=== PATIENT | male | born 1945 | race Caucasian/White ===

== ENCOUNTER → 2017-02-27 | Outpatient (CLI) | payer OTHER ==
[~2017-02-27] MED LIST: ACP20 PO; ADVIN25050 INH; CZR50 PO; DORZ1SOL OPB; LVTUNK PO; SNG10 PO
== END | disposition home or self-care (01) ==
LOC: C.RDSM 11:00
PROVIDERS: ATTEND Orthopaedic Surgery Sports Medicine
DX: M25.532 Pain in left wrist (principal)

== ENCOUNTER 2024-09-15 06:38 | Observation (INO) ==
--- OUTSIDE RECORDS SUMMARY | 2024-09-15 06:43 | External Medical Summary | Summary of Care ---
Author Name Unknown Organization [facility] Address [address] [facility] [place] [address] Phone [phone] Care Team Providers Care Lacrosse Coach Name Role Phone Ab Hackett PA-C Primary Care Provide r Reason for Visit * Reason Onset Date Comments Test Results 08/31/2024 Encounter Details Date Type Department Care Team (Late st Contact Info) Description 08/31/2024 Telephone Cardiology, [facility] [address] [facility] [place] [address] Yan Whitehead PA-C [address] [place] [address] Test Results Allergies Active Allergy Reactions Criticality Noted Date Comments Amoxicillin 03/06/2005 Hives, last dose was about age 38 while in the [place] and he had an injection in the arm and a few days later had total body rash. Cefdinir 03/24/2018 Lower leg redness and swelling documented as of this encounter (statuses as of 08/31/2024) Medications METAMUCIL SMOOTH TEXTURE 58.6 % PO POWD Take by mouth 1 Scoop daily as needed . 1 Can 11 04/25/20 10 Active MULTIPLE VITAMINS-MINERALS PO PACK one pack daily- Nature's Code 30 Packet 0 10/25/19 11 Active GAVISCON 80-14.2 MG PO CHEW Take by mouth as needed. 60 Tab 0 06/01/20 12 Active CLARITIN 10 MG PO TABS Take 1 Tablet by mouth in the morning. Active Melatonin 10 MG Capsule Take 1 Capsule by mouth at bedtime. Active Xylitol 500 MG Mouth/Throat Disk Apply 1 Tab to the mouth or throat at bedtime. Active Probiotic Product (PROBIOTIC + OMEGA-3) CAPS Take by mouth 1 Capsule daily . Active famotidine (PEPCID) 20 MG TabletIndications: Gastroesophageal reflux disease with esophagitis Take 1 Tab by mouth daily. 90 Tab 1 05/09/20 19 Active Apoaequorin 20 MG Oral Capsule Take 20 mg by mouth in the morning. PREVAGEN. 02/13/20 20 Active Turmeric 500 MG Oral Tablet Take 1 Tab by mouth daily. Active Mometasone Furoate 0.1 % External OintmentIndication s:Dermatitis NEEDED FOR EARS 45 g 3 08/21/19 22 Active CPAP every night at bedtime. Active Calcium Carbonate 600 MG Oral Tablet Take 1 Tablet by mouth as needed. Active K2-D3 Max 180-125 MCG Oral Capsule Take by mouth. 90MCG - 125MCG, every other day Active Fluticasone Propionate 50 MCG/ACT Nasal Suspension (Flonase)Indicatio ns:Asthma, moderate persistent ADMINISTER 2 SPRAYS NASALLY DAILY 48 g 3 07/29/19 24 Active Ipratropium [place] 0.03 % Nasal Solution (Atrovent) Administer 2 Sprays into nostril in the morning and 2 Sprays at noon and 2 Sprays before bedtime. 90 mL 3 09/22/19 24 Active ProAir RespiClick 108 (90 Base) MCG/ACT Inhalation Aerosol Powder Breath Activated (Albuterol Sulfate) Inhale 2 doses every 4-6 hours as needed for shortness of breath, cough or wheeze 3 Each 10/30/19 24 Active Azelastine HCl 0.1 % Nasal Solution (Astelin) USE 1 SPRAY NASALLY TWICE A DAY 90 mL 3 11/12/19 24 Active Levothyroxine Sodium 75 MCG Oral Tablet (Levoxyl)Indicatio ns:Acquired hypothyroidism Take one tablet at least 30 minutes prior to breakfast or other medications 90 Tablet 3 01/12/20 24 Active Phenazopyridine HCl 200 MG Oral Tablet (Pyridium) Take 1 Tablet by mouth in the morning. 07/21/20 23 Active Apixaban 5 MG Oral Tablet (Eliquis)Indicatio ns:History of pulmonary embolism Take 1 Tablet by mouth in the morning and 1 Tablet before bedtime. 180 Tablet 3 02/25/20 24 Active Finasteride 5 MG Oral Tablet (Proscar) Take 1 Tablet by mouth in the morning. 90 Tablet 3 02/25/20 24 Active Montelukast Sodium 10 MG Oral Tablet (Singulair) TAKE 1 TABLET IN THE MORNING 90 Tablet 3 02/26/20 24 Active Colestipol HCl 5 GM Oral GranulesIndication s:Dyslipidemia, goal to be determined MIX 3 SCOOPFULS IN LIQUID AND DRINK DAILY 1000 g 3 03/10/20 24 Active Gaviscon Extra Strength 160-105 MG Oral Tablet Chewable (Alum Hydroxide-Mag Carbonate) Take by mouth. Acti ve Nitroglycerin 0.4 MG Sublingual Tablet Sublingual (Nitrostat)Indicat ions:Coronary artery disease of [place] artery of [place] heart with stable angina pectoris (HCC),Calcificatio n of coronary artery Place 1 Tablet under the tongue as needed for Pain, Chest. May repeat 3 times. If chest pain continues, call 911. 25 Tablet 11 05/20/20 24 Active Additional Information Patient not taking.Reported on 08/31/2024 Atorvastatin Calcium 40 MG Oral Tablet (Lipitor)Indicatio ns:PAD (peripheral artery disease) (HCC),Elevated LDL cholesterol level Take 1 Tablet by mouth in the morning. 90 Tablet 1 07/04/20 24 Active Budesonide 0.5 MG/2ML Inhalation Suspension (Pulmicort)Indicat ions:Moderate persistent asthma without complication Inhale 0.5 mg via nebulizer in the morning and 0.5 mg before bedtime. As directed. 120 mL 12 08/02/19 25 Active Alendronate Sodium 70 MG Oral Tablet (Fosamax)Indicatio ns:Osteopenia of both hips Take 1 Tablet by mouth once a week. 12 Tablet 3 08/03/19 25 Active Additional Information Patient not taking.Reported on 08/31/2024 Pantoprazole Sodium 40 MG Oral Tablet Delayed Release (Protonix)Indicati ons:Gastroesophage al reflux disease with esophagitis Take 1 tablet daily 30 minutes before the first meal of the day 90 Tablet 3 08/08/19 25 Active Losartan Potassium 100 MG Oral Tablet (Cozaar)Indication s:HTN, goal below 130/80 Take 1 Tablet by mouth in the morning. In the morning.. 90 Tablet 1 01/13/20 25 Active Fluticasone Propionate Diskus 100 MCG/ACT Inhalation Aerosol Powder Breath ActivatedIndicatio ns:Asthma, moderate persistent,Acquire d hypothyroidism USE 1 INHALATION TWICE A DAY (RINSE MOUTH AFTER USE) 180 Each 2 08/18/19 25 Active Aspirin 81 MG Oral Tablet Delayed Release Take 1 Tablet by mouth in the morning. 08/31/19 25 Active Isosorbide Mononitrate ER 60 MG Oral Tablet Extended Release 24 Hour (Imdur)Indications :Coronary artery disease of [place] artery of [place] heart with stable angina pectoris (HCC),Calcificatio n of coronary artery Take 1 Tablet by mouth in the morning. 31 Tablet 5 08/31/19 25 Active Hospital, Clinic, or Other Facility Administered Medication Ordered Dose Route Frequency Start Date End Date Status Albuterol Sulfate (Proventil) (2.5 MG/3ML) 0.083% inhalation solution 2.5 mgIndications:Moderate persistent asthma without complication 2.5 mg NEBULIZER Q4H PRN 01/03/2022 Active documented as of this encounter (statuses as of 08/31/2024) Active Problems Problem Noted Date Diagnosed Date Osteopenia 07/04/2022 Mild episode of recurrent major depressive disor alisa 03/04/2019 FERMIN (generalized anxiety disorder) 03/04/2019 Mild cognitive impairment 08/10/2018 History of DVT of lower extremity 08/10/2018 Overview (08/10/2018): Right leg Elevated prostate specific antigen (PSA) 017 GAVIN on CPAP 01/17/2016 Periodic limb movement disorder (PLMD) 6 Anticardiolipin antibody positive 07/30/2015 History of pulmonary embolism 05/21/2015 Gastroesophageal reflux disease with esophagitis 03/22/2015 HTN, goal below 130/80 03/07/2014 LBBB (left bundle branch block) 01/12/2012 Asthma, moderate persistent 11/06/2011 Spinal stenosis of lumbar re gion without neurogenic claudication 09/02/2007 Primary open angle glaucoma (POAG) of both eyes, indeterminate stage 03/06/2005 Acquired hypothyroidism 03/06/2005 Overview (03/22/2015): TSH Results: TSH(uIU/mL) Jamal Dt/Tm Resulted Value Status 03/07/14 8:35A 03/07/14 0.53 FINAL 08/26/13 8:47A 08/26/13 0.54 FINAL 06/01/12 11:00A 06/01/12 0.34 FINAL documented as of this encounter (statuses as of 08/31/2024) Resolved Problems Problem Noted Date Diagnosed Date Resolved Date Other pulmonary embolism wit hout acute cor pulmonale 12/19/2021 01/12/2024 Pulmonary hypertension 12/19/202101/11 Anosmia 02/27/2020 12/19/2021 Subdural hematoma, chronic 12/17/2017 0 01/12/2024 Carpal tunnel syndrome of left wrist 02/18/2017 08/10/2018 Dream enactment behavior 03/05/2016 DVT (deep venous thrombosis) 05/28/2015 08/10/2018 Overview (07/30/2015): RLE ADVANCE DIRECTIVE INFORMATION 03/07/2014 02/10/2018 Overview (04/01/2005): No, Advance Directive brochure given to patient. Hyperlipidemia LDL goal <130 03/07/2014 03/22/2015 Polyp of colon, adenomatous 11/06/2011 03/04/2019 Overview (11/06/2011): 11/05 on colonoscopy Asthma with severity to be determined 01/17/2010 11/06/2011 Overview (11/05/2015): Per Asthma Taxonomy ICD-10 update of inactive term HTN, goal below 140/90 06/14/200903/07 Overview (06/14/2009): Modified per HTN protocol #16. Mole .6cm r sikh at scalp margin 03/26/2009 08/10/2018 Benign neoplasm of colon 10/10/200803/2019 Overview (10/16/2008): hyperplastic tissue & adenomatous tissue,recommend f/u in 3 years Asthma, allergic 09/22/2008 01/17/2010 Benign neoplasm of colon 09/22/2008 Respiratory symptoms 03/24/2006 018 Overview (04/28/2019): ICD-10 update of inactive term HYPERTENSION NOS 09/12/2005 06/14/2009 Overview (06/14/2009): Modified per HTN protocol #16. ABN LIVER FUNCTION STUDY 03/11/200507/2010 Overview (03/11/2005): AST(U/L) 03/07/05: 55* ALT(U/L) - 03/07/05: 66 Repeat when he comes in 04/01/05 Esophageal reflux 03/06/2005 03/22/2015 Dyslipidemia, goal to be determined 03/06/2005 03/07/2014 documented as of this encounter (statuses as of 08/31/2024) Immunizations Name Administration Dates Next Due COVID-19 mRNA, LNP-s, No Pre serve, 2-Dose Series (Moderna) 08/31/2020,07/30/2020 COVID-19, MRNA-LNP, 24-25, P F, 50 MCG/0.5ML, IM, 12 YRS & ABOVE (Moderna - Spikevax) 05/21/2021 COVID-19, MRNA-LNP, PF, 50 M CG/0.5 mL, 12 YRS AND ABOVE, IM (MODERNA-Spikevax) 04/23/2024,04/26/2023,04/26/2023,05/21 COVID-19, mRNA, LNP-s, PF, B ooster, 100mcg/0.5mg (Moderna) 05/21/2021 H1N1 2009 Influenza, IM 07/16/2009 HepA Inact/HepB Recomb>=18yrs old 03/11/2024,,07/03/2022 Pneumococcal Conjugate Vacc, 13 Valent (Prevnar) 09/13/2015 Pneumococcal Polysaccharide PPV23 (Pneumovax) 08/28/2014 RSV Vac., Recomb, Adjuvant, PF,0.5 Ml (Arexvy) 05/12/2023 Season Influenza, Quad, PF, Adjuvanted, 65+ Yrs, IM (FLUAD) 05/25/2023,05/28/2020 Seasonal Influenza Vac., MDV , IM, 0.5 mL (Fluzone) 05/26/2016,05/22/2015,05/01/2014,05/06,04/22/2012,04/16/2011,04/23/2010 ,05/15/2008,06/09/2007,06/03/2006 Seasonal Influenza Virus Vac cine, Unspecified Formulation 05/25/2023,04/26/2022,04/26/2022,04/26,04/26/2021,05/28/2020,04/26/2020 ,04/26/2020,03/27/2020,03/27/2020,07/2018,04/26/2019,05/12/2018, 4,05/10/2013,05/10/2013,05/16/2009,,05/15/2008,05/15/2008,05/31/20 07,05/31/2007,06/15/2006,06/15/2006,,05/23/2005,06/04/2004, 004,06/02/2003,06/02/2003,05/27/2002,1 07/27/2001,04/26/2002,04/26/2002,2000,05/04/2001,05/21/2000,05/21/2000, 04/29/1999,04/29/1999,05/01/1998,05/01 Seasonal Influenza, High Dos e, Trivalent, PF, IM (Fluzone HD) 05/25/2023 Seasonal Influenza, PF, 6 M & above, IM , (FluLaval or Fluzone) 04/26/2021,04/26/2020,03/27/2020,04/26,05/01/1998 Seasonal Influenza, Quad, Na zoey (Flumist) 05/10/2013,05/16/2009,05/15/2008,05/31,06/15/2006,05/23/2005,06/04/2004 ,06/02/2003,05/27/2002,04/26/2002,03/2001,05/21/2000,04/29/1999 Seasonal Influenza, Quadriva lent Hd (Fluzone Hd) 05/26/2022,05/03/2021 Seasonal Influenza, Quadriva lent, No Preserve, IM 04/15/2017 Seasonal Influenza, Trivalen t, Adjuvanted, 65+ YRS, PF, (Fluad) 05/15/2024,05/02/2019,05/03/2018 TDAP (age 10 and older)(Boostrix) 07/15/2023,12/2011 Varicella Zoster Vaccine (Adult) 04/03/2008 Zoster Vaccine Recombinant (Shingrix) 08/03/2019 ,06/13/2019 documented as of this encounter Social History Tobacco Use Types Packs/Day Years Used Date Smoking Tobacco: Former Cigarettes 0.5 26 0 07/27/1961 - 07/27/1987 Passive Smoke Exposure: Never Smokeless Tobacco: Former Quit: 03/14/1992 Comments:ages 10-38, 1/2 ppd Alcohol Use Standard Drinks/Week Comments Yes 0 (1 standard drink = 0.6 oz pur e alcohol) 2 days a month 1-2 beers PHQ-2 Answer Date Recorded PHQ Adult Total Score 0 01/14/2024 Hunger Vital Sign Answer Date Recorded Within the past 12 months, y ou worried that your food would run out before you got the money to buy more. Never true 01/09/20 23 Within the past 12 months, t he food you bought just didn't last and you didn't have money to get more. 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 Answer Date of Assessment Author No 12/25/2017 2:00 PM EDVicki Simon GAVIN * Are you blind or do you have serious difficulty seeing, even when wearing glasses? Answer Date of Assessment Author No 12/25/2017 2:00 PM EDVicki Simon GAVIN * Do you have serious difficulty walking or climbing stairs? (5 years old or older) Answer Date of Assessment Author No 12/25/2017 2:00 PM EDVicki Simon GAVIN * Do you have difficulty dressing or bathing? (5 years old or older) Answer Date of Assessment Author No 12/25/2017 2:00 PM EDVicki Simon GAVIN * Because of a physical, mental, or emotional condition, do you have difficulty doing errands alone such as visiting a doctors office or shopping? (15 years old or older) Answer Date of Assessment Author No 12/25/2017 2:00 PM EDVicki Simon OSA documented as of this encounter Mental Status * Because of a physical, mental, or emotional condition, do you have serious difficulty concentrating, remembering, or making decisions? (5 years old or older) Answer Entry Date Author No 12/25/2017 2:00 PM EDVicki Simon OSA documented in this encounter Miscellaneous Notes * Telephone Encounter - Shakira Vazquez LPN - 08/31/2024 1:13 PM EST ----- Message from Yan Whitehead sent at 08/31/2024 1:00 PM EST ----- Precatheterization chest x-ray okay documented in this encounter Plan of Treatment Upcoming Encounters Date Type Department Care Team (Late st Contact Info) Description 09/29/2024 1:00 PM EST Office Visit Neurology [facility] [place] [address] [place] [address] Bing Wilburn MD [address] [facility] [place] [address] 01/19/2025 3:00 PM EDT Nurse Only [facility]illary [place] [address] [place] [address] [place], Nurse Annual Wellness [facility] [address] [place] [address] 02/14/2025 10:40 AM EDT Office Visit Family Practice [address] [place] [address] [place] [address] Ab Hackett PA-C [address] [place] [address] 04/25/2025 10:45 AM EDT Office Visit Urology, [facility] [address] [facility] [place] [address] Johnathan Patrick MD [address] [place] [address] Health Maintenance Due Date Last Done Comments Adult Wellness Visit 01/13/2025 01/14/2024, 01/08/2023, 08/01/2021 Depression Monitoring 01/13/2025 01/14/2024 TSH 07/04/2025 07/04/2024, 04/27, 05/05/2024, Additional history exists GFR 08/31/2025 08/31/2024, 03/2024, 05/23/2024, Additional history exists Albumin/Creatinine Ratio 01/07/2026 01/07/2023 DXA Scan 07/12/2026 07/12/2024, 05/29, 06/25/2022, Additional history exists DTap/Tdap Vaccines (3 - Td or Tdap) 07/15/2033 07/15/2023, 06/01/2012, 02/25/2002 Zoster Vaccines Completed 08/15/2019, 02/2020, 06/13/2019, Additional history exists RETIRED - COLONOSCOPY-EVERY 5 YRS AGES 18-100 Discontinued 04/17/2020, 04/17/2020, 11/02/2014, Additional history exists Hepatitis B Vaccine Completed 03/11/2024, 08/08/2022, 07/03/2022 COVID-19 Vaccine Completed 04/23/2024, 07/2022, 04/26/2023, Additional history exists Influenza Vaccine (FLU shot) Completed 05/15/2024, 05/25/2023, 05/25/2023, Additional history exists HPV (Gardasil) Vaccine Aged Out No lo nger eligible based on patient's age to complete this topic MENINGOCOCCAL (MENACTRA/MENVEO) Aged Out No longer eligible based on patient's age to complete this topic documented as of this encounter Medical Devices Not on filedocumented as of this encounter Advance Directives * Full Code (Latest Code Status on File) Date Activated Date Inactivated Comments 03/05/2023 9:09 AM 03/05/2023 2:50 PM This order r eflects the patients wishes and were consensually agreed upon. Question Answer Comments Discussion of Advance Directives occurred with: Patient * Full Code Date Activated Date Inactivated Comments 03/05/2023 6:16 AM 03/05/2023 9:09 AM This order r eflects the patients wishes and were consensually agreed upon. Question Answer Comments Discussion of Advance Directives occurred with: Patient * Full Code Date Activated Date Inactivated Comments 05/21/2015 4:33 PM 05/23/2015 6:36 PM This order reflects the patients wishes and were consensually agreed upon. Question Answer Comments Discussion of Advance Direct kaylin occurred with: Patient Does the patient have a Living Will? Yes, in shukri rt and reviewed as current Does the patient have Health Care Power of Freight Checker? Yes, in chart and reviewed as current Care Teams Lacrosse Coach Relationship Specialty Start Date End Date Ab Hackett PA-C [address] [facility] [place] [address] PCP - General Physician Pattern Changer And Repairer 05/29/23 documented as of this encounter
--- OUTSIDE RECORDS SUMMARY | 2024-09-15 06:43 | External Medical Summary | Summary of Care ---
Author Name Unknown Organization [facility] Address [address] [place] [address] Phone [phone] Care Team Providers Care Net Wpf Developer Name Role Phone Ab Hackett PA-C Primary Care Provide r Reason for Referral * Precert (Diagnostic Medical) (Within 10 days (routine)) - Authorized Specialty Diagnoses / Procedures Referred By Contac t Referred To Contact Cardiac Studies Diagnoses LBBB (left bundle branch block) Angina pectoris (HCC) Procedures ECHO, COMPLETE (2D), TRANS-THORACIC Yan Whitehead PA-C [address] [place] [address] Phone: tel: fax: Referral ID Status Reason Start Date Expiration Date V isits Requested Visits Authorized [id number] Authorized Precert 09/28/2025 999 999 Reason for Visit * Reason Onset Date Comments Test Results 08/31/2024 Encounter Details Date Type Department Care Team (Late st Contact Info) Description 08/31/2024 Telephone Cardiology, [facility] [address] [place] [address] Yan Whitehead PA-C [address] [place] [address] Test Results Allergies Active Allergy Reactions Criticality Noted Date Comments Amoxicillin 03/06/2005 Hives, last dose was about age 38 while in the [employer] and he had an injection in the arm and a few days later had total body rash. Cefdinir 03/24/2018 Lower leg redness and swelling documented as of this encounter (statuses as of 09/01/2024) Medications METAMUCIL SMOOTH TEXTURE 58.6 % PO [...] 48 g 3 07/29/19 24 Active Ipratropium [place] 0.03 % Nasal Solution (Atrovent) Administer 2 [...] Tablet Sublingual (Nitrostat)Indicat ions:Coronary artery disease of [place] artery of [place] heart with stable angina pectoris (HCC),Calcificatio n [...] morning. In the morning.. 90 Tablet 1 08/08/19 25 Active Fluticasone Propionate Diskus 100 MCG/ACT [...] 24 Hour (Imdur)Indications :Coronary artery disease of [place] artery of [place] heart with stable angina pectoris (HCC),Calcificatio n [...] as of this encounter (statuses as of 09/01/2024) Active Problems Problem Noted Date Diagnosed Date [...] as of this encounter (statuses as of 09/01/2024) Resolved Problems Problem Noted Date Diagnosed Date [...] per HTN protocol #16. 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 Answer Date of Assessment Author No 12/25/2017 2:00 PM Vicki Luis GAVIN * Are you blind or do you have serious difficulty seeing, even when wearing glasses? Answer Date of Assessment Author No 12/25/2017 2:00 PM Vicki Luis GAVIN * Do you have serious difficulty walking or climbing stairs? (5 years old or older) Answer Date of Assessment Author No 12/25/2017 2:00 PM Vicki Luis OSA * Do you have difficulty dressing or bathing? (5 years old or older) Answer Date of Assessment Author No 12/25/2017 2:00 PM Vicki Luis GAVIN * Because of a physical, mental, or emotional condition, do you have difficulty doing errands alone such as visiting a doctors office or shopping? (15 years old or older) Answer Date of Assessment Author No 12/25/2017 2:00 PM Vicki Luis OSA documented as of this encounter Mental Status * Because of a physical, mental, or emotional condition, do you have serious difficulty concentrating, remembering, or making decisions? (5 years old or older) Answer Entry Date Author No 12/25/2017 2:00 PM Vicki Luis OSA documented in this encounter Miscellaneous Notes * Telephone Encounter - Shakira Vazquez LPN - 08/31/2024 3:30 PM EST Identiat message sent. Echo order placed * Telephone Encounter - Shakira Vazquez LPN - 08/31/2024 3:28 PM EST ----- Message from Yan Whitehead sent at 08/31/2024 3:26 PM EST ----- August 31, 2024 TTE Interpretation Summary (as per Dr. Delgadillo): Calculated LV ejection Fraction = 51% (three dimensional volumes). The septal motion is abnormal consistent with left bundle branch block. The left ventricular diastolic function is mildly abnormal (grade I). There is aortic valve sclerosis without stenosis. Mild aortic valve regurgitation is present. [id number] mitral regurgitation. Mild tricuspid regurgitation is present. There is no evidence of pulmonary hypertension. Compared to prior study of 02/18/2023, there is no significant change. Echo findings are unchanged compared to prior. Noting low normal ejection fraction, chronic left bundle branch block, and mild to moderate valve issues, recommend repeat resting echocardiography in 1year. documented in this encounter Plan of Treatment Upcoming Encounters Date Type Department Care Team (Late st Contact Info) Description 09/29/2024 1:00 PM EST Office Visit Neurology [facility] [address] [facility] [place] [address] Bing Wilburn MD [address] [facility] [place], [place] [address] 01/19/2025 3:00 PM EDT Nurse Only Ancillary [address] [place] [address] [place], Nurse Annual Wellness [facility] [address] [place] [address] [address] 02/14/2025 10:40 AM EDT Office Visit Family Practice [address] [place] [address] Ab Hackett PA-C [address] [place] [address] 04/25/2025 10:45 AM EDT Office Visit Urology, [facility] [address] [facility] [place] [address] Johnathan Patrick MD [address] [place] [address] Scheduled Orders Name Type Priority Associated Diagnoses Orde r Schedule ECHO, COMPLETE (2D), TRANS-THORACIC Echocardiology Routine LBBB (left bundle branch block) Angina pectoris (HCC) Expected: 09/28/2025 (Approximate), Expires: 09/28/2026 Health Maintenance Due Date Last Done Comments Adult Wellness Visit 01/13/2025 01/14/2024, 01/08/2023, 08/01/2021 Depression Monitoring 01/13/2025 01/14/2024 TSH 07/04/2025 08/31/2024, 03/2024, 05/23/2024, Additional history exists GFR 08/31/2025 08/31/2024, 03/2024, [...] Not on filedocumented as of this encounter Visit Diagnoses Diagnosis LBBB (left bundle branch block)- Primary Other left bundle branch block Angina pectoris (HCC) Other and unspecified angina pectoris documented in this encounter Advance Directives * Full Code [...] the patient have Health Care Power of Tax Audit Manager? Yes, in chart and reviewed as current Care Teams Net Wpf Developer Relationship Specialty Start Date End Date Ab Hackett PA-C [address] [facility] [place] [address] PCP - General Physician Coordinate Measuring Machine Technician 05/29/23 documented as of this encounter
--- OUTSIDE RECORDS SUMMARY | 2024-09-15 06:43 | External Medical Summary | Summary of Care ---
Author Name Unknown Organization [facility] Address [address] [facility] [place] [address] Phone [phone] Care Team Providers Care Cloth Shearer Name Role Phone Ab Hackett PA-C Primary Care Provide r Reason for Visit * Reason Onset Date Comments Test Results 09/01/2024 Encounter Details Date Type Department Care Team (Late st Contact Info) Description 09/01/2024 Telephone Cardiology, [facility] [address] [facility] [place] [address] Yan Whitehead PA-C [address] [place] [address] Test Results Allergies Active Allergy Reactions Criticality Noted Date Comments Amoxicillin 03/06/2005 Hives, last dose was about age 38 while in the [place] and he had an injection in the [...] 48 g 3 07/29/19 24 Active Ipratropium Dewy Rose 0.03 % Nasal Solution (Atrovent) Administer 2 [...] Tablet Sublingual (Nitrostat)Indicat ions:Coronary artery disease of [place] artery of [place] heart with stable angina pectoris (HCC),Calcificatio n [...] 24 Hour (Imdur)Indications :Coronary artery disease of [place] artery of [place] heart with stable angina pectoris (HCC),Calcificatio n [...] per HTN protocol #16. 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 (5 years old or older) Answer Entry Date Author No 12/25/2017 2:00 PM EDVicki Simon GAVIN documented in this encounter Miscellaneous Notes * Telephone Encounter - Shakira Vazquez LPN - 09/01/2024 8:40 AM EST Mychart message sent. * Telephone Encounter - Shakira Vazquez LPN - 09/01/2024 8:39 AM EST ----- Message from Yan Whitehead sent at 09/01/2024 7:38 AM EST ----- OK documented in this encounter Plan of Treatment Upcoming Encounters Date Type Department Care Team (Late st Contact Info) Description 09/29/2024 1:00 PM EST [facility] [address] [facility] [place], [place] [address] Bing Wilburn MD [address] [facility] [place] [address] 01/19/2025 3:00 PM EDT Nurse Only Ancillary [address], [place] [address] [place] [address] [place], Nurse Annual Wellness [place] [address] [place] [address] 02/14/2025 10:40 AM EDT Office Visit Family Practice [address], [place] [address] [place] [address] Ab Hackett PA-C [address] [place] [address] 04/25/2025 10:45 AM EDT Office Visit Urology, [facility] [address] [facility] [place] [address] Johnathan Patrick MD [address] [place] [id number] Health Maintenance Due Date Last Done Comments Adult Wellness Visit 01/13/2025 01/14/2024, 01/08/2023, 08/01/2021 Depression Monitoring 01/13/2025 01/14/2024 GFR 08/31/2025 08/31/2024, 03/2024, 05/23/2024, Additional history exists TSH 08/31/2025 08/31/2024, 03/2024, 05/23/2024, Additional history exists [...] the patient have Health Care Power of Dietetic Aide? Yes, in chart and reviewed as current Care Teams Cloth Shearer Relationship Specialty Start Date End Date Ab Hackett PA-C [address] [facility] [place] [address] PCP - General Physician Vacuum Cleaner Repair Person 05/29/23 documented as of this encounter
--- OUTSIDE RECORDS SUMMARY | 2024-09-15 06:43 | External Medical Summary | Summary of Care ---
Author Name Unknown Organization [facility] Address [address] [place] [address] Phone [phone] Care Team Providers Care Sand Buffer Name Role Phone Ab Hackett PA-C Primary Care Provide r Reason for Referral * Precert (Diagnostic Medical) (Within 10 days (routine)) - Authorized Specialty Diagnoses / Procedures Referred By Contac t Referred To Contact Cardiac Studies Diagnoses LBBB (left bundle branch block) Angina pectoris (HCC) Procedures ECHO, COMPLETE (2D), TRANS-THORACIC Yan Whitehead PA-C [address] [place] [address] Phone: tel: fax: Referral ID Status Reason Start Date Expiration Date V isits Requested Visits Authorized [id number] Authorized Precert 08/31/2024 999 [id number] Reason for Visit * Reason Comments Follow Up * Evaluate & Treat - Unlimited Visits (Within 3 days (urgent)) - Authorized Specialty Diagnoses / Procedures Referred By Contact Referred To Contact Cardiovascular Medicine / Cardiology Diagnoses Coronary artery disease of bad [place] band artery 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) Calcification of coronary artery Ab Hackett PA-C [address] [facility] [place] [address] Phone: tel: fax: Referral ID Status Reason Start Date Expiration Date Visits Requested Visits Authorized [id number] Authorized Specialty Services Required 4 [phone] Encounter Details Date Type Department Care Team (Late st Contact Info) Description 08/31/2024 10:30 AM EST Office Visit Cardiology, [facility] [address] [place] [address] Yan Whitehead PA-C [address] [place] [address] Angina pectoris (HCC)*; Coronary artery disease of bad river band artery 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); Calcification of coronary artery; LBBB (left bundle branch block); HTN, goal below 130/80; Dyslipidemia, goal LDL below 70; Dyspnea on exertion; Chest pain, unspecified type Allergies Active Allergy Reactions Criticality Noted Date Comments Amoxicillin 03/06/2005 Hives, last dose was about age 38 while in the [place] and he had an injection in the arm and a few days later had total body rash. Cefdinir 03/24/2018 Lower leg redness and swelling documented as of this encounter (statuses as of 08/31/2024) Medications METAMUCIL SMOOTH TEXTURE 58.6 % PO POWD Take by mouth 1 Scoop daily as needed . 1 Can 11 010 Active MULTIPLE VITAMINS-MINERALS PO PACK one pack daily- Nature's Code 30 Packet 0 011 Active GAVISCON 80-14.2 MG PO CHEW Take by mouth as needed. 60 Tab 0 012 Active CLARITIN 10 MG PO TABS Take 1 Tablet by mouth in the morning. Active Melatonin 10 MG Capsule Take 1 Capsule by mouth at bedtime. Active Xylitol 500 MG Mouth/Throat Disk Apply 1 Tab to the mouth or throat at bedtime. Active Probiotic Product (PROBIOTIC + OMEGA-3) CAPS Take by mouth 1 Capsule daily . Active famotidine (PEPCID) 20 MG TabletIndications :Gastroesophageal reflux disease with esophagitis Take 1 Tab by mouth daily. 90 Tab 1 019 Active Apoaequorin 20 MG Oral Capsule Take 20 mg by mouth in the morning. PREVAGEN. 020 Active Turmeric 500 MG Oral Tablet Take 1 Tab by mouth daily. Active Mometasone Furoate 0.1 % External OintmentIndicatio ns:Dermatitis NEEDED FOR EARS 45 g 3 022 Active CPAP every night at bedtime. Active Calcium Carbonate 600 MG Oral Tablet Take 1 Tablet by mouth as needed. Active K2-D3 Max 180-125 MCG Oral Capsule Take by mouth. 90MCG - 125MCG, every other day Active Fluticasone Propionate 50 MCG/ACT Nasal Suspension (Flonase)Indicati ons:Asthma, moderate persistent ADMINISTER 2 SPRAYS NASALLY DAILY 48 g 3 024 Active Ipratropium [place] 0.03 % Nasal Solution (Atrovent) Administer 2 Sprays into nostril in the morning and 2 Sprays at noon and 2 Sprays before bedtime. 90 mL 3 024 Active ProAir RespiClick 108 (90 Base) MCG/ACT Inhalation Aerosol Powder Breath Activated (Albuterol Sulfate) Inhale 2 doses every 4-6 hours as needed for shortness of breath, cough or wheeze 3 Each 024 Active Azelastine HCl 0.1 % Nasal Solution (Astelin) USE 1 SPRAY NASALLY TWICE A DAY 90 mL 3 024 Active Levothyroxine Sodium 75 MCG Oral Tablet (Levoxyl)Indicati ons:Acquired hypothyroidism Take one tablet at least 30 minutes prior to breakfast or other medications 90 Tablet 3 024 Active Phenazopyridine HCl 200 MG Oral Tablet (Pyridium) Take 1 Tablet by mouth in the morning. 023 Active Apixaban 5 MG Oral Tablet (Eliquis)Indicati ons:History of pulmonary embolism Take 1 Tablet by mouth in the morning and 1 Tablet before bedtime. 180 Tablet 3 024 Active Finasteride 5 MG Oral Tablet (Proscar) Take 1 Tablet by mouth in the morning. 90 Tablet 3 024 Active Montelukast Sodium 10 MG Oral Tablet (Singulair) TAKE 1 TABLET IN THE MORNING 90 Tablet 3 024 Active Colestipol HCl 5 GM Oral GranulesIndicatio ns:Dyslipidemia, goal to be determined MIX 3 SCOOPFULS IN LIQUID AND DRINK DAILY 1000 g 3 024 Active Gaviscon Extra Strength 160-105 MG Oral Tablet Chewable (Alum Hydroxide-Mag Carbonate) Take by mouth. Acti ve Nitroglycerin 0.4 MG Sublingual Tablet Sublingual (Nitrostat)Indica tions:Coronary artery disease of bad river band artery 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),Calcificati on of coronary artery Place 1 Tablet under the tongue as needed for Pain, Chest. May repeat 3 times. If chest pain continues, call 911. 25 Tablet 11 024 Active Additional Information Patient not taking.Reported on 08/31/2024 Atorvastatin Calcium 40 MG Oral Tablet (Lipitor)Indicati ons:PAD (peripheral artery disease) (HCC),Elevated LDL cholesterol level Take 1 Tablet by mouth in the morning. 90 Tablet 1 024 Active Budesonide 0.5 MG/2ML Inhalation Suspension (Pulmicort)Indica tions:Moderate persistent asthma without complication Inhale 0.5 mg via nebulizer in the morning and 0.5 mg before bedtime. As directed. 120 mL 12 025 Active Alendronate Sodium 70 MG Oral Tablet (Fosamax)Indicati ons:Osteopenia of both hips Take 1 Tablet by mouth once a week. 12 Tablet 3 025 Active Additional Information Patient not taking.Reported on 08/31/2024 Pantoprazole Sodium 40 MG Oral Tablet Delayed Release (Protonix)Indicat ions:Gastroesopha geal reflux disease with esophagitis Take 1 tablet daily 30 minutes before the first meal of the day 90 Tablet 3 025 Active Losartan Potassium 100 MG Oral Tablet (Cozaar)Indicatio ns:HTN, goal below 130/80 Take 1 Tablet by mouth in the morning. In the morning.. 90 Tablet 1 025 Active Fluticasone Propionate Diskus 100 MCG/ACT Inhalation Aerosol Powder Breath ActivatedIndicati ons:Asthma, moderate persistent,Acquir ed hypothyroidism USE 1 INHALATION TWICE A DAY (RINSE MOUTH AFTER USE) 180 Each 2 025 Active Aspirin 81 MG Oral Tablet Delayed Release Take 1 Tablet by mouth in the morning. 025 Active Isosorbide Mononitrate ER 60 MG Oral Tablet Extended Release 24 Hour (Imdur)Indication s:Coronary artery disease of bad river band artery 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),Calcificati on of coronary artery Take 1 Tablet by mouth in the morning. 31 Tablet 5 025 Active Sildenafil Citrate 100 MG TabletIndications :Elevated prostate specific antigen (PSA) TAKE 1 TABLET NEEDED FOR ERECTILE DYSFUNCTION DIRECTED 30 Tab 3 020 2024 Discontinued Fish Oil 1000 MG Oral Capsule Take 1 Capsule by mouth in the morning. 2024 Discontinued Isosorbide Mononitrate ER 30 MG Oral Tablet Extended Release 24 Hour (Imdur)Indication s:Coronary artery disease of bad river band artery 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),Calcificati on of coronary artery Take 1 Tablet by mouth in the morning. 90 Tablet 3 024 2024 Discontinued Hospital, Clinic, or Other Facility Administered Medication [...] per HTN protocol #16. 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 Answer Date of Assessment Author No 12/25/2017 2:00 PM EDT Vicki Patrick GAVIN * Are you blind or do you have serious difficulty seeing, even when wearing glasses? Answer Date of Assessment Author No 12/25/2017 2:00 PM EDT Vicki Patrick GAVIN * Do you have serious difficulty walking or climbing stairs? (5 years old or older) Answer Date of Assessment Author No 12/25/2017 2:00 PM EDT Vicki Patrick GAVIN * Do you have difficulty dressing or bathing? (5 years old or older) Answer Date of Assessment Author No 12/25/2017 2:00 PM EDT Vicki Patrick GAVIN * Because of a physical, mental, [...] EDVicki Simon GAVIN documented in this encounter Progress Notes * Yan Whitehead PA-C - 08/31/2024 10:47 AM EST Images from the original note were not included. Cardiology Consultation Referred By: Ab Hackett PA-C Reasons for Consultation: CAD. Calcification of coronary artery. New stable angina. CT showed severe coronary calcification in LAD. History of Present Illness Miguel Wang is an 78 year old male who presents with chest pain on exertion. He experiences chest pain during physical activities, describing it as a sensation of 'somebody sitting on my chest.' The pain began around April 2024. The pain is exertional, resolving with rest, and does not occur at rest or during nighttime. He describes the pain as a combination of burning, sharp pressure, and tightness, with a single instance of sharp pain lasting only a few seconds. The discomfort is located the entire anterior chest area. Associated symptoms include exertional dyspnea.The addition of Imdur 30 mg daily in the morning does not seem to have helped. The pattern of symptoms has been worsening in regards to both the frequency as well as severity. He notes a definite redu ction in exercise tolerance and overall functional status and this is limiting his lifestyle. The characteristics of the pain or concerning for angina. The [place] [employer] angina scale is II-III. Stress testing completed prior to Cardiology consultation and summarized below. History notable for chronic left bundle branch block on electrocardiogram leading to Cardiolite stress testing demonstrating mild inferior wall ischemia and ultimately diagnostic cardiac catheterization at [facility] on December 15, 2011 demonstrating minor nonobstructive coronary artery disease. He has a history of PE and notes having pneumonia at least six times in his lifetime. He uses an inhaler twice daily, which he finds somewhat helpful. He does not typically experience wheezing.. He experienced COVID-19 for the first time two weeks ago, leading to a urgent care visit and treatment with Paxlovid. He has been using a CPAP machine for about five years following a sleep study that revealed he stopped breathing 100 times per night. He reports blood on the tissue with bowel movements, attributed to hemorrhoids He also reports memory issues. No known upcoming surgeries. No resting dyspnea. No nocturnal dyspnea. Chronic stable cough. No chest congestion. No orthopnea or PND. No lower extremity peripheral edema. No dizziness or lightheadedness. No near-syncope or syncope. No epistaxis. No hemoptysis. No hematuria. Problem List: ASCVD Nonobstructive coronary artery disease via cardiac catheterization November 2011 Chronic left bundle branch block Hypertension Dyslipidemia History of prior pulmonary emboli Positive cardiolipin antibody and lupus anticoagulant Chronic anticoagulation, initially treated with warfarin then switch to Eliquis in December 2017 History of subdural hematoma Pulmonary hypertension Reactive airways disease History of tobacco abuse Obstructive sleep apnea, CPAP therapy Lower extremity peripheral arterial disease GERD BPH status post TURP in February 2023 Patient Active Problem List Diagnosis Primary open angle glaucoma (POAG) of both eyes, indeterminate stage Acquired hypothyroidism Spinal stenosis of lumbar region without neurogenic claudication Asthma, moderate persistent LBBB (left bundle branch block) HTN, goal below 130/80 Gastroesophageal reflux disease with esophagitis History of pulmonary embolism Anticardiolipin antibody positive GAVIN on CPAP Periodic limb movement disorder (PLMD) Elevated prostate specific antigen (PSA) Mild cognitive impairment History of DVT of lower extremity Mild episode of recurrent major depressive disorder (HCC) FERMIN (generalized anxiety disorder) Osteopenia Past Medical History: Diagnosis Date Abnormal MRI of the head 01/26/2017 Acute venous embolism and thrombosis of subclavian veins (HCC) Asthma Benign neoplasm of colon 10/10/2008 hyperplastic tissue & adenomatous tissue,recommend f/u in 3 years Benign neoplasm of colon 11/03/2011 polyp x1, path shows adenomatous polyp, repeat in 3 years Benign neoplasm of colon 10/10/2008 hyperplastic tissue & adenomatous tissue,recommend f/u in 3 years Carpal tunnel syndrome of left wrist 02/18/2017 Elevated prostate specific antigen (PSA) 01/26/2017 Esophageal reflux 03/06/2005 HTN, goal below 150/90 03/07/2014 Hyperlipidemia LDL goal <130 03/07/2014 Hypothyroidism LBBB (left bundle branch block) 01/12/2012 Memory loss 01/26/2017 Mild cognitive impairment 08/10/2018 Mole .6cm r taoism at scalp margin 03/26/2009 Osteopenia Other specified glaucoma Polyp of colon, adenomatous 11/06/201111/05 on colonoscopy Sleep apnea, obstructive Subconjunctival edema of left eye 01/26/2017 Past Surgical History: Procedure Laterality Date CATARACT SURGERY,COMPLEX Bilateral COLONOSCOPY W/ BIOPSY (RECTUM) 10/10/2008 hyperplastic tissue & adenomatous tissue,recommend f/u in 3 years COLONOSCOPY W/ LESION REMOVAL, SNARE 11/03/2011 polyp x1, path shows adenomatous polyp, repeat in 3 years COLONOSCOPY, DIAGNOSTIC (RECTUM) 11/02/2014 adenomatous polyp, 5 yr repeat/COLONOSCOPY FLEXIBLE PROXIMAL DIAGNOSTIC performed by Joseph Hsieh MD at [facility] COLONOSCOPY, DIAGNOSTIC (RECTUM) 04/17/2020 diverticulosis / COLONOSCOPY FLEXIBLE PROXIMAL DIAGNOSTIC performed by Guerrero Tijerina MD at [facility] COLORECTAL CANCER SCREEN; COLON 2001 [facility] EGD, FLEXIBLE, DIAGNOSTIC 05/26/2012 UPPER GI ENDOSCOPY DIAGNOSTIC performed by Regino Reynoso MD at [facility] EGD, FLEXIBLE, DIAGNOSTIC 05/10/2018 acid reflux on bx/ESOPHAGOGASTRODUODENOSCOPY (EGD), FLEXIBLE, TRANSORAL, DIAGNOSTIC performed by Josehp Hsieh MD at [facility] EGD, FLEXIBLE, W/BIOPSY 12/10/2009 bx--negative FISSURECTOMY W/ SPHINCTEROTOMY 1968 IR BIOPSY 04/04/2024 LUMBAR HEMILAMINECTOMY 2004 REMOVAL OF APPENDIX 1953 REMOVAL OF PROSTATE (TURP) N/A 03/05/2023 TRANSURETHRAL RESECTION PROSTATE ELECTROSURGICAL performed by Johnathan Patrick MD at [facility] REMOVE TONSILS & ADENOIDS, UNDER 12 1953 STRESS TREADMILL 03/2008 Cardiovascular Stress Test-No ischemia Family History Problem Relation Name Age of Onset Musculo-skeletal Disorder Mother osteoporosis Stroke Mother 92 Arthritis Mother Musculo-skeletal Disorder Sister Lavonne osteoporosis Cancer Sister hysterectomy Glaucoma Sister Endocrine Disorder Sister Hypertension Sister Thyroid Disorder Sister Musculo-skeletal Disorder Brother Arnold osteoporosis Heart Disorder Brother virus in heart Hypertension Brother Thyroid Disorder Brother Other (none) Brother unaware of family hx of skin related ca or disease Family Status Relation Status Mo at age 92 FROM NATURAL CAUSES; H/O HYPERTENSION, CVD Fa at age 60S FROM RESPIRATORY FAILURE; H/O BLACK LUNG DISEASE Sis Alive CA UTERUS, HYPERTENSION, GLAUCOMA Sis (Not Specified) Sis (Not Specified) Sis (Not Specified) Sis (Not Specified) Sis (Not Specified) Bro Alive HYPERTENSION, PPM, CAD with PCTA Bro (Not Specified) Bro (Not Specified) Bro (Not Specified) Suad Alive HEALTHY Son Alive HEALTHY Mother at 93. Father had lung issues. Brother with a history of CAD status post PCI. Social History Tobacco Use Smoking status: Former Current packs/day: 0.00 Average packs/day: 0.5 packs/day for 26.0 years (13.0 ttl pk-yrs) Types: Cigarettes Start date: 07/27/1961 Quit date: 07/27/1987 Years since quittin.1 Passive exposure: Never Smokeless tobacco: Former Quit date: 03/14/1992 Tobacco comments: ages [age], 1/2 ppd Vaping Use Vaping status: Never Used Substance Use Topics Alcohol use: Yes Alcohol/week: 0.0 standard drinks of alcohol Comment: 2 a month 1-2 beers Drug use: No Former smoker, less than 1 pack per day, quitting around 1997 after smoking for approximately 20 years. No smokeless tobacco. Rare alcohol use, typically with a at the [facility] for a meeting, 2 to 4 beersper month. [place] , on a ship in country. [facility] 6 years ago. One child in [place]. One child in [place]. Sister in [place]. Brother in [place]. Lives alone. Does have a close friend who will get him where he needs to go. Complete Review of Systems is as stated above, negative, or noncontributory. Review of patient's allergies indicates: Allergen Reactions Amoxicillin Hives, last dose was about age 38 while in the [place] and he had an injection in the arm and a few days later had total body rash. Omnicef [Cefdinir] Lower leg redness and swelling Current Outpatient Medications Medication Sig Dispense Refill METAMUCIL SMOOTH TEXTURE 58.6 % PO POWD Take by mouth 1 Scoop daily as needed . 1 Can 11 MULTIPLE VITAMINS-MINERALS PO PACK one pack daily- Nature's Code 30 Packet 0 GAVISCON 80-14.2 MG PO CHEW Take by mouth as needed. 60 Tab 0 CLARITIN 10 MG PO TABS Take 1 Tablet by mouth in the morning. Melatonin 10 MG Capsule Take 1 Capsule by mouth at bedtime. Xylitol 500 MG Mouth/Throat Disk Apply 1 Tab to the mouth or throat at bedtime. Probiotic Product (PROBIOTIC + OMEGA-3) CAPS Take by mouth 1 Capsule daily . famotidine (PEPCID) 20 MG Tablet Take 1 Tab by mouth daily. 90 Tab 1 Apoaequorin 20 MG Oral Capsule Take 20 mg by mouth in the morning. PREVAGEN. Sildenafil Citrate 100 MG Tablet TAKE 1 TABLET NEEDED FOR ERECTILE DYSFUNCTION DIRECTED 30 Tab 3 Turmeric 500 MG Oral Tablet Take 1 Tab by mouth daily. Mometasone Furoate 0.1 % External Ointment NEEDED FOR EARS 45 g 3 Fish Oil 1000 MG Oral Capsule Take 1 Capsule by mouth in the morning. CPAP every night at bedtime. Calcium Carbonate 600 MG Oral Tablet Take 1 Tablet by mouth as needed. K2-D3 Max 180-125 MCG Oral Capsule Take by mouth. 90MCG - 125MCG, every other day Fluticasone Propionate 50 MCG/ACT Nasal Suspension (Flonase) ADMINISTER 2 SPRAYS NASALLY DAILY 48 g3 Ipratropium [place] 0.03 % Nasal Solution (Atrovent) Administer 2 Sprays into nostril in the morning and 2 Sprays at noon and 2 Sprays before bedtime. 90 mL 3 ProAir RespiClick 108 (90 Base) MCG/ACT Inhalation Aerosol Powder Breath Activated (Albuterol Sulfate) Inhale 2 doses every 4-6 hours as needed for shortness of breath, cough or wheeze 3 Each 0 Azelastine HCl 0.1 % Nasal Solution (Astelin) USE 1 SPRAY NASALLY TWICE A DAY 90 mL 3 Levothyroxine Sodium 75 MCG Oral Tablet (Levoxyl) Take one tablet at least 30 minutes prior to breakfast or other medications 90 Tablet 3 Phenazopyridine HCl 200 MG Oral Tablet (Pyridium) Take 1 Tablet by mouth in the morning. Apixaban 5 MG Oral Tablet (Eliquis) Take 1 Tablet by mouth in the morning and 1 Tablet before bedtime. 180 Tablet 3 Finasteride 5 MG Oral Tablet (Proscar) Take 1 Tablet by mouth in the morning. 90 Tablet 3 Montelukast Sodium 10 MG Oral Tablet (Singulair) TAKE 1 TABLET IN THE MORNING 90 Tablet 3 Colestipol HCl 5 GM Oral Granules MIX 3 SCOOPFULS IN LIQUID AND DRINK DAILY 1000 g 3 Isosorbide Mononitrate ER 30 MG Oral Tablet Extended Release 24 Hour (Imdur) Take 1 Tablet by mouthin the morning. 90 Tablet 3 Atorvastatin Calcium 40 MG Oral Tablet (Lipitor) Take 1 Tablet by mouth in the morning. 90 Tablet 1 Budesonide 0.5 MG/2ML Inhalation Suspension (Pulmicort) Inhale 0.5 mg via nebulizer in the morning and 0.5 mg before bedtime. As directed. 120 mL 12 Pantoprazole Sodium 40 MG Oral Tablet Delayed Release (Protonix) Take 1 tablet daily 30 minutes before the first meal of the day 90 Tablet 3 Losartan Potassium 100 MG Oral Tablet (Cozaar) Take 1 Tablet by mouth in the morning. In the morning.. 90 Tablet 1 Fluticasone Propionate Diskus 100 MCG/ACT Inhalation Aerosol Powder Breath Activated USE 1 INHALATION TWICE A DAY (RINSE MOUTH AFTER USE) 180 Each 2 Gaviscon Extra Strength 160-105 MG Oral Tablet Chewable (Alum Hydroxide-Mag Carbonate) Take by mouth. (Patient not taking: Reported on 08/31/2024) Nitroglycerin 0.4 MG Sublingual Tablet Sublingual (Nitrostat) Place 1 Tablet under the tongue as needed for Pain, Chest. May repeat 3 times. If chest pain continues, call 911. (Patient not taking: Reported on 08/31/2024) 25 Tablet 11 Alendronate Sodium 70 MG Oral Tablet (Fosamax) Take 1 Tablet by mouth once a week. (Patient not taking: Reported on 08/31/2024) 12 Tablet 3 Current Facility-Administered Medications Medication Dose Route Frequency Provider Last Rate Last Admin Albuterol Sulfate (Proventil) (2.5 MG/3ML) 0.083% inhalation solution 2.5 mg 2.5 mg Nebulizer Q4H PRN Lulu Bernabe CRNP 2.5 mg at 05/06/22 1120 OBJECTIVE/PHYSICAL EXAMINATION: BP 144/60 (BP Site: Left Arm) | Pulse 72 | Resp 16 | Wt 82.7 kg (182 lb 4 oz) | BMI 26.15 kg/m | BSA 2.02 m General: Alert and oriented x3. No acute distress. Pleasant. Comfortable. Cooperative. Skin: No rash Eyes: PER. Conjunctiva pink, sclera clear. HENT: Normocephalic. Atraumatic. Neck: No carotid bruits. No JVD. Heart: RRR. No murmur. Gallop. Lungs: Diminished. Decrease. Right basilar rhonchi improved post cough. No wheeze. Abdomen: +BS. Soft. Nontender. No masses. No organomegaly. Extremities: No clubbing, cyanosis, or edema. Pulses: radial=2/4, posterior tibial=2/4. Limited neurological examination: No focal deficit. Data: December 15, 2011 Coronary Angiography ([facility], Dr. Hope): RCA: Dominant, with luminal irregularities Patent left main Calcified proximal LAD, extending all the way around the apex, giving off a single large diagonal branch, with mild coronary disease proximally and distally Widely patent large ramus intermediate Left circumflex consisted principally of the medium-sized lateral marginal branch, widely patent September 20, 2020 Lexiscan Interpretation Summary (as per Dr. Delgadillo): Lexiscan nuclear stress test is negative for inducible ischemia. Fixed inferior and inferoseptal defect suggesting prior infarct verses attenuation artifact related to soft tissue attenuation and underlying left bundle branch block. Perfusion defect unchanged when compared to prior study dated April 28, 2019. Consider alternative imaging modality for further assessment of left ventricular wall motion. Gated SPECT imaging suggests paradoxical septal motion consistent with left bundle-branch block. The LV ejection fraction is calculated at 56%. February 18, 2023 TTE Interpretation Summary (as per Dr. Delgadillo): Calculated LV ejection Fraction = 55% (bi-plane method of discs). The septal motion is abnormal consistent with left bundle branch block. The regional left ventricular wall motion is otherwise normal. Mild aortic valve sclerosis is present. Mild mitral regurgitation is present. Mild tricuspid regurgitation is present. There is no evidence of pulmonary hypertension. Compared to last available study changes are noted as follows: The estimated systolic pulmonary pressure is normal on the current study. August 16, 2024 Lexiscan Interpretation Summary (as per Dr. Genaro Olivarez): Abnormal Lexiscan nuclear stress test. There is a moderate size perfusion defect in the inferior wall that is present at rest and stress worse with stress suggestive of prior myocardial infarct with july-infarct ischemia. There is a moderate size perfusion defect in the basal to mid inferolateral wall worse with stress suggestive of myocardial ischemia. The LV ejection fraction is calculated at 52% Selected laboratory work performed through the [facility] on July 04, 2024: Normal white blood cell count, 5.3. H&H were 14.2 and 42.8. Platelet count was 206 K. BUN 8. Creatinine0.9. Sodium 139. Potassium 4.0. Chloride 105. Bicarb 28. Calcium 9.0. Alk-phos 73. SGPT 29. SGOT 28. Direct and total bilirubin normal, 0.3 in 0.7. Magnesium 2.1. Total cholesterol 104. Rhgpyayikeojz35. HDL 47.2. LDL 47. TSH 0.52. PSA 5. Hemoglobin A1c 5.6%. August 31, 2024 EKG: Sinus bradycardia at 59 bpm. Chronic left bundle branch block. QRS duration 150 ms. QTc 459 ms. IMPRESSION: 78-year-old male with underlying lung disease, known nonobstructive coronary artery disease via remote catheterization, chronic left bundle branch block, hypertension, dyslipidemia, history of tobacco abuse, and family history of ischemic heart disease. Patient referred for evaluation of chest discomfort suspicious for angina pectoris, symptoms worsening in regards to both frequency and severity, affecting quality of life. Abnormal Lexiscan nuclear stress testing noted as above. Options of management discussed with patient. Via shared decision-making we will proceed with diagnostic cardiac catheterization. The risks (bleeding, infection, radiation exposure, renal dysfunction, atheroembolism, allergic reactions including anaphylaxis, perforation of the heart or great vessels, arrhythmias, conduction disturbances, local vascular complications, cerebrovascular accident, [place], or ) as well as the benefits and alternative procedures were explained. Cardiac catheterization will be scheduled at [facility] with Dr. Delgadillo. Apixaban (Eliquis) anticoagulation will need to be interrupted for the procedure. Pre-catheterization laboratory work, PA and lateral chest x-ray, and EKG will be obtained today. Resting echocardiography requested noting symptoms, chronic left bundle branch block. Recommend addition of aspirin 81 mg/day for now. Discontinue nfir-ybr-jqyzpnz fish oils Increase isosorbide mononitrate from 30 mg/day to 60 mg/day Discontinue the as needed sildenafil, avoiding phosphodiesterase 5 enzyme inhibitor use in the setting of long-acting nitrates Continue moderate intensity statin therapy and losartan Bradycardia precludes the addition of beta-jeff therapy. Emphasized necessity to avoid strenuous activity until further advised Patient instructions written. Patient to call the office if he has any questions or experiences anyproblems. ER with any and all emergencies advised. I will plan on seeing Mr. Wang back after thecatheterization or prn. Yan Whitehead PA-C Department of Cardiology I spent a total of Greater than 55 mins (exact time 67 mins) on the date of service in preparation,delivery, and documentation of the care provided to Miguel Wang excluding any time spent in the performance of separately billed services. This visit involved medical care services related to at least one serious condition or complex condition requiring ongoing care. This chart was completed in part utilizing K[employer] Speech Voice Recognition Software. Grammatical errors, random word insertions, prounoun errors, and incomplete sentences are an occasional consequence of this system due to software limitations, ambient noise, and hardware issues. Any formal questions or concerns about the content, text, or information contained within the body of this dictation should be directly addressed to the provider for clarification. Text in this note was generated using an Kognitio documentation service. I discussed the use of a device to record and summarize our discussion today. All persons present during the encounter consented to its use. documented in this encounter Nursing Notes * Aida Fragoso CMA - 08/31/2024 10:22 AM EST Examination Room: 2 Name: Miguel Wang Date of : (1945). Reason for Visit: f/u Interim Hospitalization(s): denies Problems/Concerns: Go over nuclear stress test results. Reports fatigue, had covid 2 weeks ago Chest Pain/SOB: Chest pain, SOB on exertion since end of May [facility] Discussed: Not applicable My TenTwenty7er is a way you can talk to your provider online through e-mail. Would you like to sign up? I can activate it for you? ALREADY ACTIVE Patient was instructed to not get up on the exam table until directed and assisted by their provider; patient is to remain seated in the chair/ wheelchair/ exam table for fall prevention and safety reasons. Patient is aware to have assistance to step down off exam table with personnel. Patient voiced full comprehension of instructions. documented in this encounter Miscellaneous Notes * Result Encounter Note - Yan Whitehead PA-C - 08/31/2024 1:00 PM EST Precatheterization chest x-ray okay documented in this encounter Plan of Treatment Upcoming Encounters Date Type Department Care Team (Late st Contact Info) Description 09/29/2024 1:00 PM EST Office Visit Neurology Kori Tellez [place] [address] [facility] [place] [address] Bing Wilburn MD [address] [facility] [place] [address] 01/19/2025 3:00 PM EDT Nurse Only [place]illary [address] [place] [address] [place], Nurse [facility] [address] [place] [address] 02/14/2025 10:40 AM EDT Office Visit Family Practice [address] [place] [address] Ab Hackett PA-C [address] [place] [address] 04/25/2025 10:45 AM EDT Office Visit Urology, [facility] [address] [facility] [place] [address] Johnathan Patrick MD [address] [place] [address] Scheduled Orders Name Type Priority Associated Diagnoses Orde r Schedule CORONARY ANGIOGRAPHY W/LEFT HEART CATH Card Cath Routine Coronary artery disease of [place] artery 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) Calcification of coronary artery LBBB (left bundle branch block) HTN, goal below 130/80 Angina pectoris (HCC) Dyslipidemia, goal LDL below 70 Dyspnea on exertion Chest pain, unspecified type Ordered: 08/31/2024 Health Maintenance Due Date Last Done Comments [...] Not on filedocumented as of this encounter Procedures Procedure Name Priority Date/Time Associated Diagnosis Comments XR CHEST 2 VIEWS Routine 08/31/2024 12:4 4 PM EST Angina pectoris (HCC) documented in this encounter Results * (ABNORMAL) PT INR (08/31/2024 12:59 PM EST) Prothrombin Time 15.6(H) 11.6 - 15.2 seconds 08/31/2024 2:45 PM EST [facility] [place] [facility]10 INR 1.2 0.8 - 1.2 08/31/2024 2:45 PM EST [facility] [place] [facility]10 Blood Venous blood specimen / Unknown Venipuncture / Unknown 08/31/2024 12:59 PM EST 08/31/2024 12:59 PM EST Narrative [facility] [place] [facility]10 - 08/31/2024 2:45 PM EST Warfarin Therapy INR: 2.0-3.0 conventional anticoagulation INR: 2.5-3.5 high intensity anticoagulation Yan S Charley PA-C LAB BLOOD ORDERABLES Final Result [facility] 57-[address] [place] [address] * APTT (08/31/2024 12:59 PM EST) aPTT 37 21 - 38 seconds 08/31/2024 2:46 PM EST [facility] [place] [facility]10 Blood Venous blood specimen / Unknown Venipuncture / Unknown 08/31/2024 12:59 PM EST 08/31/2024 12:59 PM EST Narrative [facility] [place] [facility]10 - 08/31/2024 2:46 PM EST Anticoagulation may affect testing. Refer to RIVS Test Catalog for a list of effects. [facility] Vicki DAVIDSON-C LAB BLOOD ORDERABLES Final Result Performing Organization Address City/[facility]/ZIP Co de Phone Number [facility] [place] [address] [place] [address] * TSH (08/31/2024 12:59 PM EST) TSH 0.79 0.27 - 4.20 uIU/mL 08/31/2024 10:26 PM EST LABORATORY [facility] Blood Venous blood specimen / Unknown Venipuncture / Unknown 08/31/2024 12:59 PM EST 08/31/2024 12:59 PM EST [facility] Charley DAVIDSON-C LAB BLOOD ORDERABLES Final Result LABORATORY [facility] [address] [place] [address] * BASIC METABOLIC PANEL (08/31/2024 12:59 PM EST) BUN 10 6 - 20 mg/dL 08/31/2024 3:05 PM EST [facility] [place] [facility]10 CREATININE 0.9 0.6 - 1.2 mg/dL 08/31/2024 3:05 PM EST [facility] [place] 57[facility]10 EGFR 86 >=60 mL/min 08/31/2024 3:05 PM EST [facility] [place] 57[facility]10 Comment:eGFR is calculated b ased on the CKD-EPI 2020 equation. SODIUM 136 135 - 146 mmol/L 08/31/2024 3:05 PM EST [facility] 57-10 POTASSIUM 4.6 3.5 - 5.1 mmol/L 08/31/2024 3:05 PM EST [facility] [place] 57-10 CHLORIDE 99 98 - 107 mmol/L 08/31/2024 3:05 PM EST [facility] 57-10 CO2 27 22 - 32 mmol/L 08/31/2024 3:05 PM EST [facility] 57-10 ANION GAP 10 7 - 15 mmol/L 08/31/2024 3:05 PM EST [facility] 57-10 GLUCOSE 100 70 - 120 mg/dL 08/31/2024 3:05 PM EST [facility] 57-10 CALCIUM 9.6 8.4 - 10.2 mg/dL 08/31/2024 3:05 PM EST [facility] 57-10 Blood Venous blood specimen / Unknown Venipuncture / Unknown 08/31/2024 12:59 PM EST 08/31/2024 12:59 PM EST Yan Whitehead PA-C LAB BLOOD ORDERABLES Final Result [facility] [place] [address] [place] [address] * CBC (08/31/2024 12:59 PM EST) WBC 6.56 4.00 - 10.80 K/uL 08/31/2024 1:24 PM EST [facility] 57-10 RBC 4.49 4.50 - 5.25 M/uL 08/31/2024 1:24 PM EST [facility]ORY [facility] 57-10 HGB 14.2 14.0 - 16.8 g/dL 08/31/2024 1:24 PM EST [facility] [place] 57[facility]10 HCT 43.2 40.0 - 48.4 % 08/31/2024 1:24 PM EST [facility] [place] 57[facility]10 MCV 96.2 82.0 - 99.5 fL 08/31/2024 1:24 PM EST [facility] [place] 57[facility]10 MCH 31.6 27.0 - 34.0 pg 08/31/2024 1:24 PM EST [facility] 57[facility]10 MCHC 32.9 32.0 - 36.0 g/dL 08/31/2024 1:24 PM EST [facility] [place] 57[facility]10 RDW 13.4 11.5 - 15.5 % 08/31/2024 1:24 PM EST [facility] [place] 57-10 PLT 196 140 - 400 K/uL 08/31/2024 1:24 PM EST [facility] [place] 57[facility]10 MPV 10.3 6.6 - 11.1 fL 08/31/2024 1:24 PM EST [facility] [place] 57[facility]10 Blood Venous blood specimen / Unknown Venipuncture / Unknown 08/31/2024 12:59 PM EST 08/31/2024 12:59 PM EST Yan Whitehead PA-C LAB BLOOD ORDERABLES Final Result [facility] [place] [facility] [address] [place] [address] * XR CHEST 2 VIEWS (08/31/2024 12:44 PM EST) Anatomical Region Laterality Modality Chest Computed Radiogr aphy 08/31/2024 12:4 9 PM EST Impressions 08/31/2024 12:46 PM EST IMPRESSION 1. No compelling radiographic evidence of acute bacterial pneumonia or pulmonary edema. 2. Additional findings as above. Narrative 08/31/2024 12:46 PM EST EXAM XR CHEST 2 VIEWS-08/31/2024 12:44 pm HISTORY cp. precath COMPARISON CT CHEST WO CONTRAST, ACC: [id number], dated 2024-05-13 14:20:56; CHEST 2 VIEWS AP OR PA AND LATERAL, ACC: [id number], dated 2015-05-21 18:15:38; CT PULMONARY EMBOLUS WITH CONTRAST, ACC: [id number], dated 2015-05-21 11:10:02 TECHNIQUE Radiography of the chest. XR CHEST 2 VIEWS FINDINGS No acute focal consolidation. No pulmonary edema. No pneumothorax or definite pleural effusion observed. Right lung base scarring and adjacent pleural thickening as before. Unremarkable cardiomediastinal silhouette.No acute osseous abnormality. Procedure Note Gallito Leija MD - 08/31/2024 EXAM XR CHEST 2 VIEWS-08/31/2024 12:44 pm HISTORY cp. precath COMPARISON CT CHEST WO CONTRAST, ACC: [id number], dated 2024-05-13 14:20:56; CHEST 2 VIEWS AP OR PA AND LATERAL, ACC: [id number], dated :15:38; CT PULMONARY EMBOLUS WITH CONTRAST, ACC: [id number], dated :10:02 TECHNIQUE Radiography of the chest. XR CHEST 2 VIEWS FINDINGS No acute focal consolidation. No pulmonary edema. No pneumothorax ordefinite pleural effusion observed. Right lung base scarring and adjacentpleural thickening as before. Unremarkable cardiomediastinalsilhouette.No acute osseous abnormality. IMPRESSION IMPRESSION 1. No compelling radiographic evidence of acute bacterial pneumonia orpulmonary edema. 2. Additional findings as above. [facility] Yan DAVIDSON-Zhane RADIOLOGY (RAD GENERAL) [facility] al Result * ECHO, COMPLETE (2D), TRANS-THORACIC (08/31/2024 12:29 PM EST) LEFT VENTRICULAR EJECTION FRACTION 50 % [facility] CARDIOLOGY 08/31/2024 11:2 7 AM EST [facility] Vicki Whitehead PA-C ECHOCARDIOLOGY Final Resul t [facility] CARDIOLOGY * EKG (08/31/2024 12:21 PM EST) 08/31/2024 12:2 1 PM EST Narrative Procedure Note Shubham Delgadillo DO - 08/31/2024 12:21 PM EST REASON FOR STUDY: cp;cp CONCLUSIONS: Sinus bradycardia Left bundle branch block Abnormal ECG When compared with ECG of 05-May-2024 15:16, T wave inversion now evident in Inferior leads Ventricular Rate: 59 Atrial Rate: 59 SC Interval: 186 QRS Duration: 150 QT/QTc: 464/459 ms P-R-T [place]: 52 : 56 : -32 degrees Yan Whitehead PA-C EKG Final Resul t ANU CARDIOLOGY documented in this encounter Visit Diagnoses Diagnosis Angina pectoris (HCC)- Primary Other and unspecified angina pectoris Coronary artery disease of bad river band artery 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) Calcification of coronary artery LBBB (left bundle branch block) Other left bundle branch block HTN, goal below 130/80 Unspecified essential hypertension Dyslipidemia, goal LDL below 70 Other and unspecified hyperlipidemia Dyspnea on exertion Other dyspnea and respiratory abnormality Chest pain, unspecified type Angina pectoris (HCC) Other and unspecified angina [...] the patient have Health Care Power of Oil Pipe Inspector? Yes, in chart and reviewed as current Care Teams Sand Buffer Relationship Specialty Start Date End Date Ab Hackett PA-C [address] [facility] [place] [address] PCP - General Physician Port Patrol Officer 05/29/23 documented as of this encounter"
--- OUTSIDE RECORDS SUMMARY | 2024-09-15 06:43 | External Medical Summary | Summary of Care ---
Author Name Unknown Organization [facility] Address [address] [facility] [address] Phone [phone] Care Team Providers Care Disability Insurance Claim Examiner Name Role Phone Ab Hackett PA-C Primary Care Provide r Reason for Visit * Reason Comments Outpatient Testing Encounter Details Date Type Department Care Team (Late st Contact Info) Description 08/31/2024 12:50 PM EST Laboratory Laboratory, [facility] [address] [place] [address] [facility] [address] [place] [address] Angina pectoris (HCC); Dyspnea on exertion; Chest pain, unspecified type Allergies Active Allergy Reactions Criticality Noted Date Comments Amoxicillin 03/06/2005 Hives, last dose was about age 38 while in the [place] and he had an injection in the [...] 48 g 3 07/29/19 24 Active Ipratropium [place] 0.03 % Nasal Solution (Atrovent) Administer 2 [...] Active Levothyroxine Sodium 75 MCG Oral Tablet (Levoxyl)Estephaniatio ns:Acquired hypothyroidism Take one tablet at least 30 minutes prior to breakfast or other medications 90 Tablet 3 01/12/20 24 Active Phenazopyridine HCl 200 MG Oral Tablet (Pyridium) Take 1 Tablet by mouth in the morning. 07/21/20 23 Active Apixaban 5 MG Oral Tablet (Eliquis)Estephaniatio ns:History of pulmonary embolism Take 1 Tablet [...] Tablet Sublingual (Nitrostat)Indicat ions:Coronary artery disease of [place] artery of [place] heart with stable angina pectoris (HCC),Calcificatio n [...] 24 Hour (Imdur)Indications :Coronary artery disease of [place] artery of [place] heart with stable angina pectoris (HCC),Calcificatio n [...] per HTN protocol #16. 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 Answer Date of Assessment Author No 12/25/2017 2:00 PM EDT Vicki Patrick, GAVIN * Are you blind or do you have serious difficulty seeing, even when wearing glasses? Answer Date of Assessment Author No 12/25/2017 2:00 PM EDT Vicki Patrick, GAVIN * Do you have serious difficulty walking or climbing stairs? (5 years old or older) Answer Date of Assessment Author No 12/25/2017 2:00 PM EDT Vicki Patrick, GAVIN * Do you have difficulty dressing or bathing? (5 years old or older) Answer Date of Assessment Author No 12/25/2017 2:00 PM EDT Vicki Patrick, GAVIN * Because of a physical, mental, or emotional condition, do you have difficulty doing errands alone such as visiting a doctors office or shopping? (15 years old or older) Answer Date of Assessment Author No 12/25/2017 2:00 PM EDT Vicki Patrick GAVIN documented as of this encounter Mental Status * Because of a physical, mental, or emotional condition, do you have serious difficulty concentrating, remembering, or making decisions? (5 years old or older) Answer Entry Date Author No 12/25/2017 2:00 PM EDVicki Simon GAVIN documented in this encounter Miscellaneous Notes * Result Encounter Note - Yan Whitehead PA-C - 08/31/2024 3:28 PM EST Pre catheterization laboratory work looks OK documented in this encounter Plan of Treatment Upcoming Encounters Date Type Department Care Team (Late st Contact Info) Description 09/29/2024 1:00 PM EST Office Visit Neurology Kori Tellez [place] [address] [facility] [place] [address] Bing Wilburn MD [address] [facility] [place] [address] 01/19/2025 3:00 PM EDT Nurse Only Ancillary [address] [address] [place] [address] [place], Nurse Annual Wellness Cold [address] [place] [address] 02/14/2025 10:40 AM EDT Office Visit Family Practice [address] [place] [address] Ab Hackett PA-C [address] [place] [address] 04/25/2025 10:45 AM EDT Office Visit Urology, [facility] [address] [facility] [place] [address] Johnathan Patrick MD [address] [place] [id number] Pending Results Name Type Priority Associated Diagnoses Date /Time TSH Lab Routine Angina pectoris (HCC) Dyspnea on exertion 08/31/2024 12:59 PM EST Health Maintenance Due Date Last Done Comments [...] Procedure Name Priority Date/Time Associated Diagnosis Comments BASIC METABOLIC PANEL Routine 08/31/2024 12:59 PM EST Angina pectoris (HCC) PT INR Routine 08/31/2024 12:59 PM EST Angina pectoris (HCC) APTT Routine 08/31/2024 12:59 PM EST Angina pectoris (HCC) Chest pain, unspecified type CBC Routine 08/31/2024 12:59 PM EST Angina pectoris (HCC) documented in [...] conventional anticoagulation INR: 2.5-3.5 high intensity anticoagulation [facility] Vicki DAVIDSON-C LAB BLOOD ORDERABLES Final Result Performing Organization Address City/[facility]/ZIP Co de Phone Number LAB[facility]ATORY [facility] 57-10 [address] [place] [address] * APTT (08/31/2024 12:59 PM EST) aPTT 37 21 - 38 seconds 08/31/2024 2:46 PM EST [facility] [place] 57[facility]10 Blood Venous blood specimen / Unknown Venipuncture / Unknown 08/31/2024 12:59 PM EST 08/31/2024 12:59 PM EST Narrative [facility] [place] [facility]10 - 08/31/2024 2:46 PM EST Anticoagulation may affect testing. Refer to [employer] Test Catalog for a list of effects. [facility] Vicki DAVIDSON-C LAB BLOOD ORDERABLES Final Result Performing Organization Address City/[facility]/ZIP Co de Phone Number [facility]ORY [facility] 57-[address] [place] [address] * BASIC METABOLIC PANEL (08/31/2024 12:59 PM [...] mmol/L 08/31/2024 3:05 PM EST [facility] [place] [facility]10 POTASSIUM 4.6 3.5 - 5.1 mmol/L 08/31/2024 3:05 PM EST [facility] [place] 57[facility]10 CHLORIDE 99 98 - 107 mmol/L 08/31/2024 3:05 PM EST [facility] [place] 57-10 CO2 27 22 - 32 mmol/L 08/31/2024 3:05 PM EST [facility] [place] 57-10 ANION GAP 10 7 - 15 mmol/L 08/31/2024 3:05 PM EST [facility] [place] 57-10 GLUCOSE 100 70 - 120 mg/dL 08/31/2024 3:05 PM EST [facility] [place] 57-10 CALCIUM 9.6 8.4 - 10.2 mg/dL 08/31/2024 3:05 PM EST [facility] [place] 57-10 Blood Venous blood specimen / Unknown Venipuncture / Unknown 08/31/2024 12:59 PM EST 08/31/2024 12:59 PM EST Yan Whitehead PA-C LAB BLOOD ORDERABLES Final Result Performing Organization Address City/State/[facility] Co de Phone Number LABORATORY [place] [address] [address] [place] [address] * CBC (08/31/2024 12:59 PM EST) WBC 6.56 4.00 - 10.80 K/uL 08/31/2024 1:24 PM EST LAB[facility] [place] 5710 RBC 4.49 4.50 - 5.25 M/uL 08/31/2024 1:24 PM EST LAB[facility] [place] 5710 HGB 14.2 14.0 - 16.8 g/dL 08/31/2024 1:24 PM EST LAB[facility] [place] 57-10 HCT 43.2 40.0 - 48.4 % 08/31/2024 1:24 PM EST LAB[facility]ORY [place] 57-10 MCV 96.2 82.0 - 99.5 fL 08/31/2024 1:24 PM EST LAB[facility] [place] 57-10 MCH 31.6 27.0 - 34.0 pg 08/31/2024 1:24 PM EST LAB[facility] [place] 57-10 MCHC 32.9 32.0 - 36.0 g/dL 08/31/2024 1:24 PM EST LAB[facility] [place] 57-10 RDW 13.4 11.5 - 15.5 % 08/31/2024 1:24 PM EST LAB[facility]ORY [place] 57-10 PLT 196 140 - 400 K/uL 08/31/2024 1:24 PM EST [facility] [place] 57-10 MPV 10.3 6.6 - 11.1 fL 08/31/2024 1:24 PM EST [facility] [place] 57-10 Blood Venous blood specimen / Unknown Venipuncture / Unknown 08/31/2024 12:59 PM EST 08/31/2024 12:59 PM EST Yan Whitehead PA-C LAB BLOOD ORDERABLES Final Result [facility]ORY [place] [place] [address] documented in this encounter Visit Diagnoses Diagnosis Angina pectoris (HCC) Other and unspecified angina pectoris Dyspnea on exertion Other dyspnea and respiratory abnormality Chest pain, unspecified type documented in this encounter Advance Directives * [...] the patient have Health Care Power of Refinery Operator Visbreaking? Yes, in chart and reviewed as current Care Teams Disability Insurance Claim Examiner Relationship Specialty Start Date End Date Ab Hackett PA-C [address] [place] [address] PCP - General Physician Greeting Card Writer 05/29/23 documented as of this encounter
--- OUTSIDE RECORDS SUMMARY | 2024-09-15 06:44 | External Medical Summary ---
Author Name Unknown Address Unknown Organization K0[facility] [place] [address] [place] [address] Laboratory Report Ordering Provider Test Date Status PILAR CADET 08/31/2024 12:59:00 Final Warfarin Therapy
INR: 2 .0-3.0 conventional anticoagulation
INR: 2.5- 3.5 high intensity anticoagulation Observation Date Value Abnormality Reference (Units ) Status PT 08/31/2024 12:59:00 15.6 Above high normal 11 .6-15.2 (seconds) Final INR 08/31/2024 12:59:00 1.2 0.8-1.2 Final Performing Location [facility] [place] [facility]-[address] - [address] [place] [address]
--- OUTSIDE RECORDS SUMMARY | 2024-09-15 06:44 | External Medical Summary ---
Author Name Unknown Address Unknown Organization [id number][facility] [facility] [address] [place] [id number] Laboratory Report Ordering Provider Test Date Status PILAR CADET 08/31/2024 12:59:00 Final Observation Date Value Abnormality Reference (Units ) Status BUN 08/31/2024 12:59:00 10 6-20 (mg/dL) Final Creatinine 08/31/2024 12:59:00 0.9 0.6-1.2 (mg/dL) Final Glomerular filtration rate/1.73 sq M.predicted [Volume Rate/Area] in Serum, Plasma or Blood by Creatinine-based formula (CKD-EPI) 08/31/2024 12:59:00 86 >=60 (mL/min) Final eGFR is calculated based on the CKD-EPI 2020 equation. Sodium 08/31/2024 12:59:00 136 135-146 (m mol/L) Final Potassium 08/31/2024 12:59:00 4.6 3.5-5.1 (m mol/L) Final Cl 08/31/2024 12:59:00 99 98-107 (mm ol/L) Final CO2 08/31/2024 12:59:00 27 22-32 (mmo l/L) Final Anion gap 08/31/2024 12:59:00 10 7-15 (mmol /L) Final Glucose 08/31/2024 12:59:00 100 70-120 (mg /dL) Final Calcium 08/31/2024 12:59:00 9.6 8.4-10.2 ( mg/dL) Final Performing Location LABORATORY [facility] 57-1 0 - [address] [place] [address]
--- OUTSIDE RECORDS SUMMARY | 2024-09-15 06:44 | External Medical Summary ---
Author Name Unknown Address Unknown Organization K01:[facility]ORY [facility] [place] - [address] [facility] [address] Laboratory Report Ordering Provider Test Date Status PILAR CADET 08/31/2024 12:59:00 Final Observation Date Value Abnormality Reference (Units ) Status TSH 08/31/2024 12:59:00 0.79 0.27-4.20 (uIU/mL) Final Performing Location LABORATORY C - [address] [facility] [address]
--- OUTSIDE RECORDS SUMMARY | 2024-09-15 06:44 | External Medical Summary | Summary of Care ---
Author Name Unknown Organization [facility] Address [address] [place] [address] Phone [phone] Care Team Providers Care Editor School Photograph Name Role Phone Ab Hackett PA-C Primary Care Provide r Reason for Referral * Precert (Within 10 days (routine)) - Authorized Specialty Diagnoses / Procedures Referred By Tejas manley Referred To Contact Radiology Diagnoses Stable angina (HCC) LBBB (left bundle branch block) CAD (coronary artery disease) HTN, goal below 130/80 Procedures NM MYOCARD PERF IMG SPECT MULT STUDIES WITH PHARM INTERV Jesus Flores MD [address] [place] [address] Phone: tel: fax: Referral ID Status Reason Start Date Expiration Date V isits Requested Visits Authorized [id number] Authorized Precert 08/10/2024 999 [id number] Reason for Visit * Precert (Within 10 days (routine)) - Authorized Specialty Diagnoses / Procedures Referred By Lupeac t Referred To Contact Radiology Diagnoses Stable angina (HCC) LBBB (left bundle branch block) CAD (coronary artery disease) HTN, goal below 130/80 Procedures NM MYOCARD PERF IMG SPECT MULT STUDIES WITH PHARM Jesus Rivas MD [address] [place] [address] Phone: tel: fax: Referral ID Status Reason Start Date Expiration Date V isits Requested Visits Authorized [id number] Authorized Precert 08/10/2024 999 [id number] Encounter Details Date Type Department Care Team (Latest Contact Info) Description 08/16/2024 7:49 AM EST - 08/16/2024 11:59 PM EST Hospital Encounter Radiology, [facility] [address] [place] [address] Discharge Disposition: Home - Self Care Allergies Active Allergy Reactions Criticality Noted Date Comments Amoxicillin 03/06/2005 Hives, last dose was about age 38 while in the [place] and he had an injection in the arm and a few days later had total body rash. Cefdinir 03/24/2018 Lower leg redness and swelling documented as of this encounter (statuses as of 08/17/2024) Medications METAMUCIL SMOOTH TEXTURE 58.6 % PO [...] in the morning. PREVAGEN. 02/13/20 20 Active Sildenafil Citrate 100 MG TabletIndications: Elevated prostate specific antigen (PSA) TAKE 1 TABLET NEEDED FOR ERECTILE DYSFUNCTION DIRECTED 30 Tab 3 04/14/20 20 Active Turmeric 500 MG Oral Tablet Take 1 Tab by mouth daily. Active Mometasone Furoate 0.1 % External OintmentIndication s:Dermatitis NEEDED FOR EARS 45 g 3 08/21/19 22 Active Fish Oil 1000 MG Oral Capsule Take 1 Capsule by mouth in the morning. Active CPAP every night at bedtime. Active Calcium Carbonate 600 MG Oral Tablet Take 1 Tablet by mouth 2 times a day with morning and evening meals. Active K2-D3 Max 180-125 MCG Oral Capsule Take by mouth. 90MCG - 125MCG, every other day Active Fluticasone Propionate 50 MCG/ACT Nasal Suspension (Flonase)Indicatio ns:Asthma, moderate persistent ADMINISTER 2 SPRAYS NASALLY DAILY 48 g 3 07/29/19 24 Active Ipratropium [place] 0.03 % Nasal Solution (Atrovent) Administer 2 [...] DAY 90 mL 3 11/12/19 24 Active Fluticasone Propionate Diskus 100 MCG/ACT Inhalation Aerosol Powder Breath ActivatedIndicatio ns:Asthma, moderate persistent,Acquire d hypothyroidism USE 1 INHALATION TWICE A DAY (RINSE MOUTH AFTER USE) 180 Each 2 11/19/19 24 Active Levothyroxine Sodium 75 MCG Oral [...] Tablet Sublingual (Nitrostat)Indicat ions:Coronary artery disease of [place] artery of [place] heart with stable angina pectoris (HCC),Calcificatio n of coronary artery Place 1 Tablet under the tongue as needed for Pain, Chest. May repeat 3 times. If chest pain continues, call 911. 25 Tablet 11 05/20/20 24 Active Isosorbide Mononitrate ER 30 MG Oral Tablet Extended Release 24 Hour (Imdur)Indications :Coronary artery disease of [place] artery of [place] heart with stable angina pectoris (HCC),Calcificatio n of coronary artery Take 1 Tablet by mouth in the morning. 90 Tablet 3 06/15/20 24 Active Atorvastatin Calcium 40 MG Oral Tablet (Lipitor)Indicatio [...] week. 12 Tablet 3 08/03/19 25 Active Pantoprazole Sodium 40 MG Oral Tablet Delayed Release (Protonix)Indicati ons:Gastroesophage al reflux disease with esophagitis Take 1 tablet daily 30 minutes before the first meal of the day 90 Tablet 3 08/08/19 25 Active Losartan Potassium 100 MG Oral Tablet (Cozaar)Indication s:HTN, goal below 130/80 Take 1 Tablet by mouth in the morning. In the morning.. 90 Tablet 1 08/08/19 25 Active Hospital, Clinic, or Other Facility Administered Medication Ordered Dose Route Frequency Start Date End Date Status Albuterol Sulfate (Proventil) (2.5 MG/3ML) 0.083% inhalation solution 2.5 mgIndications:Moderate persistent asthma without complication 2.5 mg NEBULIZER Q4H PRN 01/03/2022 Acti ve Regadenoson (Lexiscan) inj 0.4 mgIndications:LBBB (left bundle branch block) 0.4 mg IV PUSH ONCE 08/16/2024 08/16/2024 Ended sodium chloride 0.9 % flush/inj 10 mLIndications:LBBB (left bundle branch block) 10 mL IV PUSH ONCE PRN 08/16/2024 08/16/2024 Ended documented as of this encounter (statuses as of 08/17/2024) Active Problems Problem Noted Date Diagnosed Date [...] as of this encounter (statuses as of 08/17/2024) Resolved Problems Problem Noted Date Diagnosed Date [...] per HTN protocol #16. 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 Answer Date of Assessment Author No 12/25/2017 2:00 PM Vicki Luis OSA * Are you blind or do you have serious difficulty seeing, even when wearing glasses? Answer Date of Assessment Author No 12/25/2017 2:00 PM EDT Vicki Patrick OSA * Do you have serious difficulty walking [...] No 12/25/2017 2:00 PM EDT Vicki Patrick OSA documented as of this encounter Mental Status * Because of a physical, mental, or emotional condition, do you have serious difficulty concentrating, remembering, or making decisions? (5 years old or older) Answer Entry Date Author No 12/25/2017 2:00 PM EDT Vicki Patrick OSA documented in this encounter Miscellaneous Notes * Ancillary Progress Note - Ale Hitnon RN - 08/16/2024 8:15 AM EST Nuclear stress test complete. * Result Encounter Note - Jesus Flores MD - 08/16/2024 8:15 AM EST Imaging referral result on chart. Stress test abnormal. Already has scheduled appointment with cardiology documented in this encounter Plan of Treatment Upcoming Encounters Date Type Department Care Team (Late st Contact Info) Description 08/31/2024 10:30 AM EST Office Visit Cardiology, [facility] [address] [place] [address] Yan Whitehead PA-C [address] [place] [address] 09/27/2024 10:00 AM EST Office Visit Urology, [facility] [address] [place] [address] Johnathan Patrick MD [address] [place] [address] 09/29/2024 1:00 PM EST Office Visit Neurology [facility] [address] [facility] [place] [address] Bing Wilburn MD [address] [facility] [place] [address] 01/19/2025 3:00 PM EDT Nurse Only Ancillary [place] [address] [place] [address] [place], Nurse Annual Wellness [address] [place] [address] 02/14/2025 10:40 AM EDT Office Visit Family Practice [place] [address] [place] [address] Ab Hackett PA-C [address] [place] [address] Health Maintenance Due Date Last Done Comments Adult Wellness Visit 01/13/2025 01/14/2024, 01/08/2023, 08/01/2021 Depression Monitoring 01/13/2025 01/14/2024 GFR 07/04/2025 07/04/2024, 04/27, 05/05/2024, Additional history exists TSH 07/04/2025 07/04/2024, 04/27, 05/05/2024, Additional history exists Albumin/Creatinine Ratio 01/07/2026 01/07/2023 [...] Procedure Name Priority Date/Time Associated Diagnosis Comments NM MYOCARDIAL PERFUSION IMAGING SPECT MULTIPLE STUDIES WITH PHARMACOLOGIC INTERVENTION Routine 08/16/2024 12:27 PM EST Stable angina (HCC) LBBB (left bundle branch block) CAD (coronary artery disease) HTN, goal below 130/80 NM MYOCARDIAL PERFUSION IMAGING SPECT MULTIPLE STUDIES WITH PHARMACOLOGIC INTERVENTION Routine 08/16/2024 9:24 AM EST documented in this encounter Results * NM MYOCARD PERF IMG SPECT MULT STUDIES WITH PHARM INTERV (08/16/2024 12:27 PM EST) Narrative Scheduling, Silent - 08/16/2024 12:28 PM EST Results can be viewed in the patient's cardiology tab of Chart Review for this date of service. us Ab Hackett PA-C RAD NUCLEAR MED Final Result * NM MYOCARDIAL PERFUSION IMAGING SPECT MULTIPLE STUDIES WITH PHARMACOLOGIC INTERVENTION (08/16/2024 9:24 AM EST) LEFT VENTRICULAR EJECTION FRACTION 52 % [facility] 08/16/2024 9:24 AM EST Jesus Flores MD RAD NUCLEAR MED Final Result [facility] documented in this encounter Visit Diagnoses Diagnosis LBBB (left bundle branch block)- Primary Other left bundle branch block Stable angina (HCC) Other and unspecified angina pectoris CAD (coronary artery disease) Coronary atherosclerosis of unspecified type of vessel, [place] or graft HTN, goal below 130/80 Unspecified essential hypertension documented in this encounter Administered Medications Inactive Administered Medications - up to 3 most recent administrations Medication Order MAR Action Action Date Dose Rate Site Regadenoson (Lexiscan) inj 0.4 mg 0.4 mg, IV Push, ONCE, On Thu08/16/24 at 0819, For 1 dose, Inject over 10 seconds with 5-10 ml saline flush immediately after, Cardiac Studies_HODHOVIndicat ions:LBBB (left bundle branch block) Given 08/16/2024 10:03 AM EST 0.4 mg Technetium Tc 99m Sestamibi (Sestamibi) inj 28 millicurie 28 millicurie, Intravenous, ONCE, On Thu08/16/24 at 0812, For 1 dose, Radiology Medication Routing (Non-IR) Given 08/16/2024 10:00 AM EST 28 millicuries Antecubital Left Technetium Tc 99m Sestamibi (Sestamibi) inj 8 millicurie 8 millicurie, Intravenous, ONCE, On Thu08/16/24 at 0812, For 1 dose, Radiology Medication Routing (Non-IR) Given 08/16/2024 8:10 AM EST 8 millicuries Antecubital Left documented in this encounter Advance Directives * [...] the patient have Health Care Power of Military Pay Technician? Yes, in chart and reviewed as current Care Teams Editor School Photograph Relationship Specialty Start Date End Date Ab Hackett PA-C [address] [facility] [place] [address] PCP - General Physician Rocket Test Fire Worker 05/29/23 documented as of this encounter
--- OUTSIDE RECORDS SUMMARY | 2024-09-15 06:44 | External Medical Summary ---
Author Name Unknown Address Unknown Organization K0G:[facility]ATORY [facility] [address] - [address] [place] [address] Laboratory Report Ordering Provider Test Date Status PILAR CADET 08/31/2024 12:59:00 Final Anticoagulation may affect t esting. Refer to [facility] Test Catalog for a list of effects. Observation Date Value Abnormality Reference (Units ) Status aPTT panel - Platelet poor plasma 08/31/2024 12:59:00 37 21-38 (seconds) Final Performing Location [facility] 57[address] 0 - [address] [place] [address]
--- OUTSIDE RECORDS SUMMARY | 2024-09-15 06:44 | External Medical Summary | Summary of Care ---
Author Name Unknown Organization [facility] Address [address] [facility] [address] Phone [phone] Care Team Providers Care Tin Stacker Name Role Phone Ab Hackett PA-C Primary Care Provide r Encounter Details Date Type Department Care Team (Late st Contact Info) Description 08/18/2024 Population Health External Data Unspecified Department Allergies Active Allergy Reactions Criticality Noted Date Comments Amoxicillin 03/06/2005 Hives, last dose was about age 38 while in the [place] and he had an injection in the arm and a few days later had total body rash. Cefdinir 03/24/2018 Lower leg redness and swelling documented as of this encounter (statuses as of 08/18/2024) Medications METAMUCIL SMOOTH TEXTURE 58.6 % PO [...] 48 g 3 07/29/19 24 Active Ipratropium [place] 0.03 % Nasal Solution (Atrovent) Administer 2 [...] Tablet Sublingual (Nitrostat)Indicat ions:Coronary artery disease of [place] artery of [place] heart with stable angina pectoris (HCC),Calcificatio n of coronary artery Place 1 Tablet under the tongue as needed for Pain, Chest. May repeat 3 times. If chest pain continues, call 911. 25 Tablet 11 05/20/20 24 Active Isosorbide Mononitrate ER 30 MG Oral Tablet Extended Release 24 Hour (Imdur)Indications :Coronary artery disease of [place] artery of [place] heart with stable angina pectoris (HCC),Calcificatio n [...] Active Additional Information Patient not taking.Reported on 08/17/2024 Pantoprazole Sodium 40 MG Oral Tablet Delayed [...] USE) 180 Each 2 08/18/19 25 Active Hospital, Clinic, or Other Facility Administered Medication Ordered Dose Route Frequency Start Date End Date Status Albuterol Sulfate (Proventil) (2.5 MG/3ML) 0.083% inhalation solution 2.5 mgIndications:Moderate persistent asthma without complication 2.5 mg NEBULIZER Q4H PRN 01/03/2022 Active documented as of this encounter (statuses as of 08/18/2024) Active Problems Problem Noted Date Diagnosed Date [...] Value Status 03/07/14 8:35A 03/07/14 0.53 FINAL 1/31/14 8:47A 08/26/13 0.54 FINAL 06/01/12 11:00A 06/01/12 0.34 FINAL documented as of this encounter (statuses as of 08/18/2024) Resolved Problems Problem Noted Date Diagnosed Date [...] per HTN protocol #16. 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 Answer Date of Assessment Author No 12/25/2017 2:00 PM EDT Regige Patrick OSA * Are you blind or do you have serious difficulty seeing, even when wearing glasses? Answer Date of Assessment Author No 12/25/2017 2:00 PM EDT Reggie Patrick OSA * Do you have serious difficulty walking or climbing stairs? (5 years old or older) Answer Date of Assessment Author No 12/25/2017 2:00 PM EDT Reggie Patrick OSA * Do you have difficulty dressing or bathing? (5 years old or older) Answer Date of Assessment Author No 12/25/2017 2:00 PM EDT Reggie Patrick GAVIN * Because of a physical, mental, or emotional condition, do you have difficulty doing errands alone such as visiting a doctors office or shopping? (15 years old or older) Answer Date of Assessment Author No 12/25/2017 2:00 PM EDT Reggie Patrick OSA documented as of this encounter Mental Status * Because of a physical, mental, or emotional condition, do you have serious difficulty concentrating, remembering, or making decisions? (5 years old or older) Answer Entry Date Author No 12/25/2017 2:00 PM EDT Reggie Patrick OSA documented in this encounter Plan of Treatment Upcoming Encounters Date Type Department Care Team (Late st Contact Info) Description 08/31/2024 10:30 AM EST Office Visit [facility], [facility] [place] [address] Yan Whitehead PA-C [address] [place] [address] 09/29/2024 1:00 PM EST Office Visit [facility] [address] [facility] [place] [place] [address] Bing Wilburn MD [address] [facility] [place] [address] 01/19/2025 3:00 PM EDT Nurse Only Ancillary [place] [address] [place] [address] [place], Nurse Annual Wellness Cold [address] [place] [address] 02/14/2025 10:40 AM EDT Office Visit Family Practice [address] [place] [place] [address] Ab Hackett PA-C [address] [place] [address] 04/25/2025 10:45 AM EDT Office Visit Urology, [facility] [address] [facility] [place] [address] Johnathan Patrick MD [address] [place] [address] Health Maintenance Due Date Last Done Comments [...] the patient have Health Care Power of Case Mgr? Yes, in chart and reviewed as current Care Teams Tin Stacker Relationship Specialty Start Date End Date Ab Hackett PA-C [address] [facility] [place] [place] [address] PCP - General Physician Supervisor [employer] Vault 05/29/23 documented as of this encounter
--- OUTSIDE RECORDS SUMMARY | 2024-09-15 06:44 | External Medical Summary | Summary of Care ---
Author Name Unknown Organization [facility] Address [address] [facility] [address] Phone [phone] Care Team Providers Care Campaign Manager Name Role Phone Ab Hackett PA-C Primary Care Provide r Reason for Visit * Reason Onset Date Comments Test Results 08/17/2024 Encounter Details Date Type Department Care Team (Late st Contact Info) Description [facility] [address] [facility] [place] [address] Jesus Flores MD [address] [facility] [place] [address] Test Results Allergies Active Allergy Reactions Criticality Noted Date Comments Amoxicillin 03/06/2005 Hives, last dose was about age 38 while in the [place] and he had an injection in the [...] 48 g 3 07/29/19 24 Active Ipratropium [place] 0.03 % Nasal Solution (Atrovent) Administer 2 [...] Tablet Sublingual (Nitrostat)Indicat ions:Coronary artery disease of [place] artery of [place] heart with stable angina pectoris (HCC),Calcificatio n of coronary artery Place 1 Tablet under the tongue as needed for Pain, Chest. May repeat 3 times. If chest pain continues, call 911. 25 Tablet 11 05/20/20 24 Active Isosorbide Mononitrate ER 30 MG Oral Tablet Extended Release 24 Hour (Imdur)Indications :Coronary artery disease of [place] artery of [place] heart with stable angina pectoris (HCC),Calcificatio n of coronary artery Take 1 Tablet by mouth in the morning. 90 Tablet 3 06/15/20 24 Active Atorvastatin Calcium 40 MG Oral Tablet (Lipitor)Indicatio ns:PAD (peripheral artery disease) ([facility]),Elevated LDL cholesterol level Take 1 Tablet by mouth in the morning. 90 Tablet 1 07/04/20 24 Active Budesonide 0.5 MG/2ML Inhalation Suspension (Pulmicort)Indicat ions:Moderate persistent asthma without complication Inhale 0.5 mg via nebulizer in the morning and 0.5 mg before bedtime. As directed. 120 mL 12 08/02/19 Active Alendronate Sodium 70 MG Oral Tablet (Fosamax)Indicatio ns:Osteopenia of both hips Take 1 Tablet by mouth once a week. 12 Tablet 3 08/03/19 Active Additional Information Patient not taking.Reported on 08/17/2024 Pantoprazole Sodium 40 MG Oral Tablet Delayed Release (Protonix)Indicati ons:Gastroesophage al reflux disease with esophagitis Take 1 tablet daily 30 minutes before the first meal of the day 90 Tablet 3 08/08/19 Active Losartan Potassium 100 MG Oral Tablet (Cozaar)Indication s:HTN, goal below 130/80 Take 1 Tablet by mouth in the morning. In the morning.. 90 Tablet 1 08/08/19 Active Hospital, Clinic, or Other Facility Administered [...] per HTN protocol #16. 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 Answer Date of Assessment Author No 12/25/2017 2:00 PM EDT Vikci Patrick, GVAIN * Are you blind or do you [...] 12/25/2017 2:00 PM EDT Vicki Patrick, GAVIN documented as of this encounter Mental Status * Because of a physical, mental, or emotional condition, do you have serious difficulty concentrating, remembering, or making decisions? (5 years old or older) Answer Entry Date Author No 12/25/2017 2:00 PM EDT Vicki Patrick, GAVIN documented in this encounter Miscellaneous Notes * Telephone Encounter - Shakira Vazquez LPN - 08/18/2024 9:44 AM EST Pt called back, gave information, verbalized understanding. * Telephone Encounter - Melissa Bello LPN - 08/17/2024 11:48 AM EST I left a message on patient's answering machine asking patient to call us back. Pt is scheduled with Yan Whitehead PA-C 09/20/24 10:15am Upon return call give information in Dr. Flores's note and remind pt to keep upcoming appointment todiscuss results. * Telephone Encounter - Melissa Bello LPN - 08/17/2024 11:45 AM EST ----- Message from Jesus Flores MD sent at 08/16/2024 4:19 PM EST ----- Imaging referral result on chart. Stress test abnormal. Already has scheduled appointment with cardiology documented in this encounter Plan of Treatment Upcoming Encounters Date Type Department Care Team (Late st Contact Info) Description 08/31/2024 10:30 AM EST Office Visit Cardiology, [facility] [address] [place] [address] Yan Whitehead PA-C [address] [place] [address] 09/29/2024 1:00 PM EST Office Visit Neurology [facility] [address] [facility] [place] [address] Bing Wilburn MD [address] [facility] [address] 01/19/2025 3:00 PM EDT Nurse Only Ancillary [address] [place] [address] [place], Nurse Annual Wellness Cold [address] [place] [place] [address] 02/14/2025 10:40 AM EDT Office Visit Family Practice [address] [place] [address] Ab Hackett PA-C [address] [place] [place] [address] 04/25/2025 10:45 AM EDT Office Visit Urology, [facility] [address] [place] [address] Johnathan Patrick MD [address] [place] [address] Health Maintenance Due Date Last Done [...] the patient have Health Care Power of Kitchen And Bath Designer? Yes, in chart and reviewed as current Care Teams Campaign Manager Relationship Specialty Start Date End Date Ab Hackett PA-C [address] [facility] [place] [address] PCP - General Physician Exit Booth Agent 05/29/23 documented as of this encounter
--- OUTSIDE RECORDS SUMMARY | 2024-09-15 06:45 | External Medical Summary | Summary of Care ---
Author Name Unknown Organization [facility] Address [address] [place] [facility] [place] [address] Phone [phone] Care Team Providers Care Quality Assurance Consultant Name Role Phone Ab Hackett PA-C Primary Care Provide r Reason for Referral * Precert (Within 10 days (routine)) - Authorized Specialty Diagnoses / Procedures Referred By Contac t Referred To Contact Radiology Diagnoses Stable angina (HCC) LBBB (left bundle branch block) CAD (coronary artery disease) HTN, goal below 130/80 Procedures NM MYOCARD PERF IMG SPECT MULT STUDIES WITH PHARM INTERV Jesus Flores MD [address] [place] [address] Phone: tel: fax: Referral ID Status Reason Start Date Expiration Date V isits Requested Visits Authorized [id number] Authorized Precert 08/10/2024 [id number] Encounter Details Date Type Department Care Team (Late st Contact Info) Description 08/03/2024 Orders Only Cardiology, [facility] [address] [place] [id number] Jesus Flores MD [address] [place] [address] Stable angina (HCC)*; LBBB (left bundle branch block); CAD (coronary artery disease); HTN, goal below 130/80 Allergies Active Allergy Reactions Criticality Noted Date Comments Amoxicillin 03/06/2005 Hives, last dose was about age 38 while in the [place] and he had an injection in the arm and a few days later had total body rash. Cefdinir 03/24/2018 Lower leg redness and swelling documented as of this encounter (statuses as of 08/03/2024) Medications METAMUCIL SMOOTH TEXTURE 58.6 % PO [...] DAILY 48 g 3 07/29/19 24 Active Pantoprazole Sodium 40 MG Oral Tablet Delayed Release (Protonix)Indicati ons:Gastroesophage al reflux disease with esophagitis Take 1 tablet daily 30 minutes before the first meal of the day 90 Tablet 3 08/17/19 24 Active Ipratropium Duncan 0.03 % Nasal Solution (Atrovent) Administer 2 [...] Tablet Sublingual (Nitrostat)Indicat ions:Coronary artery disease of [place] artery of [place] heart with stable angina pectoris (HCC),Calcificatio n of coronary artery Place 1 Tablet under the tongue as needed for Pain, Chest. May repeat 3 times. If chest pain continues, call 911. 25 Tablet 11 05/20/20 24 Active Isosorbide Mononitrate ER 30 MG Oral Tablet Extended Release 24 Hour (Imdur)Indications :Coronary artery disease of [place] artery of [place] heart with stable angina pectoris (HCC),Calcificatio n of coronary artery Take 1 Tablet by mouth in the morning. 90 Tablet 3 06/15/20 24 Active Losartan Potassium 100 MG Oral Tablet (Cozaar)Indication s:HTN, goal below 130/80 TAKE 1 TABLET IN THE MORNING 90 Tablet 1 07/05/20 24 Active Atorvastatin Calcium 40 MG Oral Tablet (Lipitor)Indicatio ns:PAD (peripheral artery disease) ([facility]),Elevated LDL cholesterol level Take 1 Tablet by [...] week. 12 Tablet 3 08/03/19 25 Active Hospital, Clinic, or Other Facility Administered Medication Ordered Dose Route Frequency Start Date End Date Status Albuterol Sulfate (Proventil) (2.5 MG/3ML) 0.083% inhalation solution 2.5 mgIndications:Moderate persistent asthma without complication 2.5 mg NEBULIZER Q4H PRN 01/03/2022 Active documented as of this encounter (statuses as of 08/03/2024) Active Problems Problem Noted Date Diagnosed Date [...] as of this encounter (statuses as of 08/03/2024) Resolved Problems Problem Noted Date Diagnosed Date [...] per HTN protocol #16. 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 (5 years old or older) Answer Date of Assessment Author No 12/25/2017 2:00 PM Vicki Luis OSA * Do you have difficulty dressing or bathing? (5 years old or older) Answer Date of Assessment Author No 12/25/2017 2:00 PM Vicki Luis OSA * Because of a physical, mental, or [...] Vicki Luis OSA documented in this encounter Progress Notes * Melissa Harrell, TECH - 08/03/2024 3:23 PM EST CAD Imaging Referral Note Miguel Wang is an 78 year old male who was referred by JAMES Tellez, for evaluation ofstable angina, history of chronic LBBB, CAD (non-obstructive by cath 2011, severe CAC of LAD on recent CT Chest). Reviewing Assistant Infant Teacher: Dr. Jesus Flores Orders placed: Pharm Nuclear Stress test Test location: [facility] Referral priority: 1 week or less From Mr. Hackett's Progress Note on 08/02/2024: Miguel Wang is a 78 year old male that presents for routine visit. Labs from 06/2024 reviewed - CBC normal; CMP normal; LDL 47; TSH 0.52; PSA slightly higher at 5.0 (was 4.17 in 12/2022); A1c 5.6; vitamin-D normal at 62. Blood pressure borderline elevated, however he checks regularly at home with an average reading of 120-130 systolic. Continues to follow with sleep Clinic for GAVIN. Reports compliance with CPAP. Follows with urology (Dr. Patrick) for history of BPH. S/p TURP in 02/2023. Sx's much better. He willstill get up may 1-2x/night, but typically doesn't have to get up at all. - aware of slightly higher PSA. Has f/u with urology on 09/27/24. Follows with GI for history of GERD. Continues on pantoprazole and famotidine which seem to be working very well. Follows with cardiology, history of chronic LBBB, nonobstructive CAD based on catheterization from 2011, mild pulmonary hypertension secondary to history of PE in the past. - last EKG 04/2024 unchanged showed NSR with LBBB. - he has noticed chest pain with more rigorous exercise on treadmill and has this backed off on what he would typically do. This has been ongoing since at least the past 4 months, not really any worse as he has not pushed himself. He can still walk at a steady pace on the treadmill for 30 minutes at time without this chest discomfort. Denies any rest pain whatsoever. - last stress test in 08/2020 which showed fixed defect suggestive of either prior infarct or artifact; regardless, this perfusion defect was unchanged compared to previous study in 2019. EF was normal at 56%. - his symptoms may indicate stable angina. Hi prescribed Imdur and p.r.n. nitro back on 05/20/2024 which he is taking. He was referred back to his building specialist, but there is a long wait list and he is currently scheduled for a visit in about [address] order for CAD imaging referral to hopefully get lexiscan prior to his cardio visit. Knows to go to the ED with worsening symptoms. Last colonoscopy 03/2020. No further colonoscopies recommended based on patient's age. DEXA scan from 06/2024 showed osteoporosis. Working with rheum to start bisphosphonate. From Dr. Shubham Delgadillo's Cardiology Progress Note on 02/18/2023: SUBJECTIVE: Patient returns today for preoperative cardiovascular evaluation prior to urologic surgery. History of chronic left bundle branch block, hypertension, and mild pulmonary hypertension secondary to history of PE and reactive airways disease. Last evaluated by the undersigned 1 year ago. Exercising regularly. Walking 1.5 miles at least 3 days per week. Denies any exertional chest discomfort or unusual shortness of breath. Continues to note mild dyspnea when walking on incline. Wearing CPAP nightly. No palpitations, lightheadedness, dizziness, syncope, or near syncope. Tolerating medications listed below. Denies signs/symptoms of GI/ blood loss. No orthopnea, PND, or lower extremity edema. Evaluated in the emergency department last month due to an upper respiratory tract infection without pneumonia. Treated with Levaquin, Tessalon Perles, and Medrol Dosepak. Continues to note chronic cough although symptoms steadily improving. ASSESSMENT: 1. Preoperative cardiovascular evaluation prior to urologic surgery. -stable ECG (nondiagnostic due to left bundle branch block) and functional capacity 2. Chronic LBBB with preserved left ventricular systolic function 3. HTN - controlled 4. Mild pulmonary HTN - multifactorial: GAVIN, PE hx, RAD 5. 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 6. Mild lower extremity PVD per arterial duplex 7. Reactive airways disease, former tobacco abuse, h/o recurrent pneumonia 8. GAVIN - tolerating CPAP PLAN: Echo, complete (2d), trans-thoracic Update resting 2D transthoracic echocardiogram for reassessment of LV function in the setting of chronic left bundle-branch block. No indication for stress testing currently in the setting of stable exercise capacity. Continue current cardiovascular medications including Eliquis, losartan, and atorvastatin. Anticoagulation managed by Hematology and primary care. Encouraged to continue his regular aerobic exercise regimen. All questions answered to patient's satisfaction. Follow Up: Return in about 1 year (around 02/19/2024). Patient Active Problem List Diagnosis Primary open [...] disorder (HCC) FERMIN (generalized anxiety disorder) Osteopenia Current Outpatient Medications Medication Sig Dispense Refill [...] a day with morning and evening meals. K2-D3 Max 180-125 MCG Oral Capsule Take by mouth. 90MCG - 125MCG, every other day Fluticasone Propionate 50 MCG/ACT Nasal Suspension (Flonase) ADMINISTER 2 SPRAYS NASALLY DAILY 48 g3 Pantoprazole Sodium 40 MG Oral Tablet Delayed Release (Protonix) Take 1 tablet daily 30 minutes before the first meal of the day 90 Tablet 3 Ipratropium Duncan 0.03 % Nasal Solution (Atrovent) Administer 2 [...] NASALLY TWICE A DAY 90 mL 3 Fluticasone Propionate Diskus 100 MCG/ACT Inhalation Aerosol Powder Breath Activated USE 1 INHALATION TWICE A DAY (RINSE MOUTH AFTER USE) 180 Each 2 Levothyroxine Sodium 75 MCG Oral Tablet (Levoxyl) [...] LIQUID AND DRINK DAILY 1000 g 3 Gaviscon Extra Strength 160-105 MG Oral Tablet Chewable (Alum Hydroxide-Mag Carbonate) Take by mouth. Nitroglycerin 0.4 MG Sublingual Tablet Sublingual (Nitrostat) Place 1 Tablet under the tongue as needed for Pain, Chest. May repeat 3 times. If chest pain continues, call 911. 25 Tablet 11 Isosorbide Mononitrate ER 30 MG Oral Tablet Extended Release 24 Hour (Imdur) Take 1 Tablet by mouthin the morning. 90 Tablet 3 Losartan Potassium 100 MG Oral Tablet (Cozaar) TAKE 1 TABLET IN THE MORNING 90 Tablet 1 Atorvastatin Calcium 40 MG Oral Tablet (Lipitor) Take 1 Tablet by mouth in the morning. 90 Tablet 1 Budesonide 0.5 MG/2ML Inhalation Suspension (Pulmicort) Inhale 0.5 mg via nebulizer in the morning and 0.5 mg before bedtime. As directed. 120 mL 12 Alendronate Sodium 70 MG Oral Tablet (Fosamax) Take 1 Tablet by mouth once a week. 12 Tablet 3 Current Facility-Administered Medications Medication Dose Route Frequency Provider Last Rate Last Admin Albuterol Sulfate (Proventil) (2.5 MG/3ML) 0.083% inhalation solution 2.5 mg 2.5 mg Nebulizer Q4H PRN Lulu Bernabe CRNP 2.5 mg at 05/06/22 1120 The ASCVD Risk score (Ricky DK, et al., 2019) failed to calculate for the following reasons: The 2019 ASCVD risk score is only valid for ages 40 to 79 Cardiac Studies: CT Chest 05/13/2024 FINDINGS MEDIASTINUM AND TIO: Unremarkable HEART: There is no pericardial effusion. LARGE AIRWAYS: Unremarkable LUNGS: Several strands and a thick band of linear atelectasis or fibrosis at the right lower lobe, consistent with residua of the prior findings at the right lower lobe in 2014 related to prior pulmonary embolus. Prior small right pleural effusion no longer present. PLEURA: There are no pleural effusions. CHEST WALL/SOFT TISSUES: There is no axillary lymphadenopathy. 1.9 cm sebaceous cyst overlying the lower sternum, slightly increased in size since prior study. LINES AND DEVICES: None BONES: Unremarkable VESSELS:. Severe coronary calcifications at the LAD. UPPER ABDOMEN: Contracted gallbladder. 1.8 cm low-attenuation lesion upper pole right kidney Hounsfield units of 3. This is probably a cyst, but was not apparent on prior studies. Recommend correlation with ultrasound. IMPRESSION IMPRESSION 1. Several strands, and a thick band, of linear atelectasis or fibrosis at the right lower lobe, consistent with residua of the prior findings at the right lower lobe in 2014 related to prior pulmonary embolus. Prior small right pleural effusion no longer present. 2. 1.8 cm low-attenuation lesion upper pole right kidney Hounsfield units of 3. This is probably a cyst, but appears new since prior studies. Recommend correlation with ultrasound. 3. Severe coronary calcifications at the LAD. 4. 1.9 cm sebaceous cyst overlying the lower sternum, slightly increased in size since the prior study. EKG 05/05/2024 CONCLUSIONS: Normal sinus rhythm Left bundle branch block Abnormal ECG When compared with ECG of 18-Feb-2023 11:25, No significant change was found Ventricular Rate: 72 Atrial Rate: 72 VA Interval: 172 QRS Duration: 150 QT/QTc: 454/497 ms P-R-T Ione: 77 : 73 : 82 degrees Echocardiogram 02/18/2023 Interpretation Summary Calculated LV ejection Fraction = 55% (bi-plane [...] pressure is normal on the current study. Lexiscan nuclear stress test report August 31, 2020: Fixed inferior and inferoseptal defect suggesting prior infarct verses attenuation artifact relatedto soft tissue attenuation and underlying left bundle branch block. Perfusion defect unchanged when compared to prior study dated April 28, 2019. Consider alternative imaging modality for further assessment of left ventricular wall motion. Gated SPECT imaging suggests paradoxical septal motion consistent with left bundle-branch block. The LV ejection fraction is calculated at 56%. Lexiscan nuclear stress test report reviewed 04/2019: No evidence of Lexiscan induced ischemia. Normal left ventricular systolic function, calculated ejection fraction 59%. 2D echocardiogram report summary October 02, 2020: The LV wall thickness is mildly increased (concentric). The septal motion is abnormal consistent with left bundle branch block. The regional left ventricular wall motion is otherwise normal. The left ventricular diastolic function is mildly abnormal (grade I). The left atrium is mildly enlarged (35-41 ml/m^2). Qualitative LV ejection Fraction = 55%. Mild mitral regurgitation is present. Mild tricuspid regurgitation is present. The estimated pulmonary artery systolic pressure is 40mm Hg. 2D echocardiogram report 10/2011: Normal left ventricular systolic function. Calculated ejection fraction 55% Mild mitral and tricuspid regurgitation Diastolic dysfunction Cardiac catheterization report reviewed 11/2011: Mild nonobstructive CAD Melissa Harrell MS, [facility] [place] Classroom Instructional Aide, Cardiology Imaging Program documented in this encounter Plan of Treatment Upcoming Encounters Date Type Department Care Team (Late st Contact Info) Description 08/17/2024 10:30 AM EST Office Visit [facility] [address] [facility] [place] [phone] Lulu Bernabe CRNP [address] [facility] [place] [address] 08/31/2024 10:30 AM EST Office Visit Cardiology, [facility] [address] [facility] [place] [address] Yan Whitehead PA-C [address] [facility] [place] [address] 09/27/2024 10:00 AM EST Office Visit Urology, [facility] [address] [facility] [place] [address] Johnathan Patrick MD [address] [place] [place] [address] 01/19/2025 3:00 PM EDT Nurse Only Ancillary [address] [place] [address] [place], Nurse [facility] [address] [place] [address] 02/14/2025 10:40 AM EDT Office Visit Family Practice [address] [place] [address] Ab Hackett PA-C [address] [place] [address] Scheduled Orders Name Type Priority Associated Diagnoses Orde r Schedule NM MYOCARD PERF IMG SPECT MULT STUDIES WITH PHARM INTERV Cardiology Routine Stable angina (HCC) LBBB (left bundle branch block) CAD (coronary artery disease) HTN, goal below 130/80 Expected: 08/10/2024 (Approximate), Expires: 09/03/2025 Health Maintenance Due Date Last Done Comments [...] as of this encounter Visit Diagnoses Diagnosis Stable angina (HCC)- Primary Other and unspecified angina pectoris LBBB (left bundle branch block) Other left bundle branch block CAD (coronary artery disease) Coronary atherosclerosis of unspecified type of vessel, [place] or graft HTN, goal below 130/80 Unspecified essential hypertension documented in this encounter Advance Directives * [...] the patient have Health Care Power of Community Health Navigator? Yes, in chart and reviewed as current Care Teams Quality Assurance Consultant Relationship Specialty Start Date End Date Ab Hackett PA-C [address] [facility] [place] [id number] PCP - General Physician Seismometer Operator 05/29/23 documented as of this encounter
--- OUTSIDE RECORDS SUMMARY | 2024-09-15 06:45 | External Medical Summary | Summary of Care ---
Author Name Unknown Organization [facility] Address [address] [facility] [place] [address] Phone [phone] Care Team Providers Care Classification And Treatment Director Name Role Phone Ab Hackett PA-C Primary Care Provide r Reason for Visit * Reason Comments Follow Up Sleep Apnea PLMD Encounter Details Date Type Department Care Team (Late st Contact Info) Description 08/17/2024 10:30 AM EST Office Visit Sleep Disorders Ctr [facility] [address] [place] [address] Lulu Bernabe CRNP [address] [place] [address] GAVIN on CPAP*; Dream enactment behavior Allergies Active Allergy Reactions Criticality Noted Date Comments Amoxicillin 03/06/2005 Hives, last dose was about age 38 while in the [place] and he had an injection in the [...] 48 g 3 07/29/19 24 Active Ipratropium Cunningham 0.03 % Nasal Solution (Atrovent) Administer 2 [...] Tablet Sublingual (Nitrostat)Indicat ions: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 May repeat 3 times. If chest pain continues, call 911. 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 90 Tablet 3 06/15/20 24 Active Atorvastatin Calcium 40 MG Oral Tablet (Lipitor)Indicatio ns:PAD (peripheral artery disease) ([facility]),Elevated LDL cholesterol level Take 1 Tablet [...] the morning. In the morning.. 90 Tablet 08/08/19 Active Hospital, Clinic, or Other Facility [...] per HTN protocol #16. 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 on file Not on file Not on file retired [employer] Not on file Not on file Not on file documented as of this encounter Last Filed Vital Signs Vital Sign Reading Time Taken Comments Blood Pressure 140/60 08/17/2024 10:19 AM EST Pulse 73 08/17/2024 10:19 AM EST Temperature 36.7 C (98.1 F) 08/17/2024 10:[address] Respiratory Rate 16 08/17/2024 10:19 AM EST Oxygen Saturation 98% 08/17/2024 10:19 AM EST Inhaled Oxygen Concentration - - Weight 82.1 kg (181 lb) 08/17/2024 10:19 AM EST Height 177.8 cm (5' 10") 08/17/2024 10:19 AM EST Body Mass Index 25.97 08/17/2024 10:19 AM EST documented in this [...] Vicki Luis GAVIN * Do you have difficulty dressing [...] Date Author No 12/25/2017 2:00 PM EDT Patrick, S helly M, GAVIN documented in this encounter Progress Notes * Lulu Bernabe CRNP - 08/17/2024 10:56 AM EST [facility] Miguel Wang is a 78 year old male seen today for routine follow-up. History of mild GAVIN with dream enactment behavior, elevated PLMS -PSG 12/28/2015 (wt 188 lb): AHI 5.3, RDI 6.7 (supine AHI 31, REM AHI 2), SpO2 carmelo 92%, PLMI 111 with arousal index 7 -01/07/2023: ferritin 58, transferrin sat 25% -> he chose not to add iron Interim History: Continues nightly use of CPAP. Wakes dry. Tank is often empty.Using 1 tablet Xylomelt- has had sometooth decay and sensitivity. Hasn't had any known episodes of dream enactment. Continues melatonin 10 mg. Repositions during the night due to discomfort. No urge to need to move sensations in the evening or bedtime. Waking with burning sensation from ankle to lower de la fuente bilaterally. Noted about twice a week. Cooling off his legs may help, warming them up may trigger. No rash or change in skin at this location. Compliance Data: Report date: last 30 days ending 08/11/2024 % total days used: 100 % days used > 4 hours: 100 Average hours per day used: 8 hours 32 mins Large leak: 0.4 L/min rAHI: 0.9 p90/95%: 12.7 cm H2O Equipment: [facility] Provider: [facility] Device: [id number] Settings: 6-15 cmH20 Interface Type: FFM Humidifier: used Cleaning: By hand routinely Being worked up for chest pain occurs with exertion in the cold air or when on his treadmill. Continues despite starting Imdur. [place] Sleepiness Scale Question 08/16/2024 7:27 PM EST - Filed by Patient What is the chance you will doze off in the following situation? Sitting and reading No chance of dozing Watching TV No chance of dozing Sitting inactive in a public place, such as a theater or meeting No chance of dozing As a passenger in a car for an hour without a break No chance of dozing Lying down to rest in the afternoon when circumstances permit No chance of dozing When sitting and talking to someone No chance of dozing When sitting quietly after lunch without alcohol No chance of dozing In a car, while stopped for a few minutes in traffic No chance of dozing Score (range: 0 - 24) 0 Restless Leg Syndrome Rating Scale Question 08/17/2024 10:17 AM EST - Incomplete Please complete the following questions. In the past week... Overall, how would you rate the RLS discomfort in your legs or arms? Mild Overall, how would you rate the need to move around because of your RLS symptoms? Moderate How severe was your sleep disturbance due to your RLS symptoms? Moderate How severe was your tiredness or sleepiness during the day due to your RLS symptoms? Moderate How severe was your RLS as a whole? Moderate Overall, how severe was the impact of your RLS symptoms on your ability to carry out your daily affairs, for example, carrying out a satisfactory family, home, social, school, or work? None How severe was your mood disturbance due to your RLS symptoms, for example, angry, depressed, sad, anxious, or irritable? Mild In the past week, Overall, how much relief of your RLS arm or leg discomfort did you get from moving around? How often did you get RLS symptoms? When you had RLS symptoms, how severe were they on average? Problem List: Patient Active Problem List Diagnosis Primary open [...] (HCC) FERMIN (generalized anxiety disorder) Osteopenia Current Medications: Current Outpatient Medications Medication Sig Dispense Refill Losartan Potassium 100 MG Oral Tablet (Cozaar) Take 1 Tablet by mouth in the morning. In the morning.. 90 Tablet 1 Pantoprazole Sodium 40 MG Oral Tablet Delayed Release (Protonix) Take 1 tablet daily 30 minutes before the first meal of the day 90 Tablet 3 Budesonide 0.5 MG/2ML Inhalation Suspension (Pulmicort) Inhale 0.5 mg via nebulizer in the morning and 0.5 mg before bedtime. As directed. 120 mL 12 Atorvastatin Calcium 40 MG Oral Tablet (Lipitor) Take 1 Tablet by mouth in the morning. 90 Tablet 1 Isosorbide Mononitrate ER 30 MG Oral Tablet Extended Release 24 Hour (Imdur) Take 1 Tablet by mouthin the morning. 90 Tablet 3 Gaviscon Extra Strength 160-105 MG Oral Tablet Chewable (Alum Hydroxide-Mag Carbonate) Take by mouth. Colestipol HCl 5 GM Oral Granules MIX 3 SCOOPFULS IN LIQUID AND DRINK DAILY 1000 g 3 Montelukast Sodium 10 MG Oral Tablet (Singulair) TAKE 1 TABLET IN THE MORNING 90 Tablet 3 Apixaban 5 MG Oral Tablet (Eliquis) Take 1 Tablet by mouth in the morning and 1 Tablet before bedtime. 180 Tablet 3 Finasteride 5 MG Oral Tablet (Proscar) Take 1 Tablet by mouth in the morning. 90 Tablet 3 Levothyroxine Sodium 75 MCG Oral Tablet (Levoxyl) Take one tablet at least 30 minutes prior to breakfast or other medications 90 Tablet 3 Phenazopyridine HCl 200 MG Oral Tablet (Pyridium) Take 1 Tablet by mouth in the morning. Azelastine HCl 0.1 % Nasal Solution (Astelin) USE 1 SPRAY NASALLY TWICE A DAY 90 mL 3 ProAir RespiClick 108 (90 Base) MCG/ACT Inhalation Aerosol Powder Breath Activated (Albuterol Sulfate) Inhale 2 doses every 4-6 hours as needed for shortness of breath, cough or wheeze 3 Each 0 Ipratropium Cunningham 0.03 % Nasal Solution (Atrovent) Administer 2 Sprays into nostril in the morning and 2 Sprays at noon and 2 Sprays before bedtime. 90 mL 3 Fluticasone Propionate 50 MCG/ACT Nasal Suspension (Flonase) ADMINISTER 2 SPRAYS NASALLY DAILY 48 g3 Calcium Carbonate 600 MG Oral Tablet Take 1 Tablet by mouth 2 times a day with morning and evening meals. K2-D3 Max 180-125 MCG Oral Capsule Take by mouth. 90MCG - 125MCG, every other day CPAP every night at bedtime. Fish Oil 1000 MG Oral Capsule Take 1 Capsule by mouth in the morning. Mometasone Furoate 0.1 % External Ointment NEEDED FOR EARS 45 g 3 Turmeric 500 MG Oral Tablet Take 1 Tab by mouth daily. Apoaequorin 20 MG Oral Capsule Take 20 mg by mouth in the morning. PREVAGEN. famotidine (PEPCID) 20 MG Tablet Take 1 Tab by mouth daily. 90 Tab 1 Probiotic Product (PROBIOTIC + OMEGA-3) CAPS Take by mouth 1 Capsule daily . Xylitol 500 MG Mouth/Throat Disk Apply 1 Tab to the mouth or throat at bedtime. Melatonin 10 MG Capsule Take 1 Capsule by mouth at bedtime. CLARITIN 10 MG PO TABS Take 1 Tablet by mouth in the morning. GAVISCON 80-14.2 MG PO CHEW Take by mouth as needed. 60 Tab 0 MULTIPLE VITAMINS-MINERALS PO PACK one pack daily- Nature's Code 30 Packet 0 METAMUCIL SMOOTH TEXTURE 58.6 % PO POWD Take by mouth 1 Scoop daily as needed . 1 Can 11 Alendronate Sodium 70 MG Oral Tablet (Fosamax) Take 1 Tablet by mouth once a week. (Patient not taking: Reported on 08/17/2024) 12 Tablet 3 Nitroglycerin 0.4 MG Sublingual Tablet Sublingual (Nitrostat) Place 1 Tablet under the tongue as needed for Pain, Chest. May repeat 3 times. If chest pain continues, call 911. 25 Tablet 11 Fluticasone Propionate Diskus 100 MCG/ACT Inhalation Aerosol Powder Breath Activated USE 1 INHALATION TWICE A DAY (RINSE MOUTH AFTER USE) 180 Each 2 Sildenafil Citrate 100 MG Tablet TAKE 1 TABLET NEEDED FOR ERECTILE DYSFUNCTION DIRECTED 30 Tab 3 Current Facility-Administered Medications Medication Dose Route Frequency Provider Last Rate Last Admin Albuterol Sulfate (Proventil) (2.5 MG/3ML) 0.083% inhalation solution 2.5 mg 2.5 mg Nebulizer Q4H PRN Lulu Bernabe CRNP 2.5 mg at 05/06/22 1120 Physical Exam: BP 140/60 | Pulse 73 | Temp 36.7 C (98.1 F) (Tympanic) | Resp 16 | Ht 1.778 m (5' 10") | Wt 82.1 kg (181 lb) | SpO2 98% | BMI 25.97 kg/m | BSA 2.01 m Constitutional: Alert, oriented and in no acute distress Skin: No abnormal mask markings on face Cardio: Regular rate and rhythm, no murmur Chest: Normal respiratory effort at rest, clear to auscultation Neuro: Fluent speech Psych: Appropriate mood and affect. Assessment & Plan: GAVIN on CPAP (Primary) - DURABLE MEDICAL EQUIPMENT -compliant, therapeutic and benefiting with PAP treatment -continue use of CPAP to include all periods of sleep opportunity -adjusted to aPAP 6-12 to possibly lessen dry mouth -add more water to humidifier to avoid running dry -try Biotene gel product in place of Xylomelt -routine cleaning and change of supplies as needed was encouraged -joint discomfort continues to impact sleep -burning in shins does not sound like RLS, discuss with PCP -continue to avoid engaging in activities that require full alertness when feeling sleepy or tired Periodic limb movements of sleep -possible PLMD although testing was done while without CPAP -previous ferritin 58, he declined trial with oral iron Dream enactment behavior -continue melatonin 10 mg nightly -continue safety precautions in the bedroom, removing things that can cause injury or placing cushions/padding on the floor or near end tables, firearms should be unloaded and secured outside the bedroom Follow Up: Return in about 1 year (around 08/17/2025) for gavin, dream enactment, CPAP pressure change. | For: gavin, dream enactment, CPAP pressure change [facility] I spent a total of 30-39 minutes (exact time 35 mins) on the date of service in preparation, delivery, and documentation of the care provided to Miguel Wang excluding any time spent in the performance of separately billed services. documented in this encounter Nursing Notes * Lesly De La Rosa LPN - 08/17/2024 10:21 AM EST Chief Complaint Patient presents with Follow Up Sleep Apnea PLMD Cpap DME: [facility] Patient-Entered [facility] 2019 Msp: Part I And Employment Question 08/13/2024 12:51 PM EST - Filed by Patient Are you currently employed? Yes, but Retired from Previous Employment Date of longterm: 01/23/1999 Do you have a spouse who is currently employed? No, Not (single, , ) Medicare requires that we periodically ask the following questions. Are you receiving benefits under the Black Lung Benefits Act (BL)? No Was the illness/injury due to a work-related accident/condition? No Are you receiving treatment for an injury or illness covered under no-fault (and/or medical-paymentcoverage) including premises or automobile? No Are you receiving treatment for an injury, or illness, for which another alliance party may be liable? No Are you entitled to Medicare based on: Age? Yes End-stage renal disease (ESRD)? No Patient-Entered Msp: Ifs-Pararhcyah-Cfiv Primary Branch Calculation (range: 0 - 5) 1 Do you have group health plan (GHP) coverage based on your own current employment or the employmentof your spouse? No [place] Sleepiness Scale Question 08/16/2024 7:27 PM EST - Filed by Patient What is the chance you will doze off in the following situation? Sitting and reading No chance of dozing Watching TV No chance of dozing Sitting inactive in a public place, such as a theater or meeting No chance of dozing As a passenger in a car for an hour without a break No chance of dozing Lying down to rest in the afternoon when circumstances permit No chance of dozing When sitting and talking to someone No chance of dozing When sitting quietly after lunch without alcohol No chance of dozing In a car, while stopped for a few minutes in traffic No chance of dozing Score (range: 0 - 24) 0 Travel Screening Question 08/17/2024 10:05 AM EST - Filed by Patient Do you have any of the following new or worsening symptoms? None of these Have you recently been in contact with someone who was sick? No / Unsure Restless Leg Syndrome Rating Scale Question 08/17/2024 10:17 AM EST - Incomplete Please complete the following questions. In the past week... Overall, how would you rate the RLS discomfort in your legs or arms? Mild Overall, how would you rate the need to move around because of your RLS symptoms? Moderate How severe was your sleep disturbance due to your RLS symptoms? Moderate How severe was your tiredness or sleepiness during the day due to your RLS symptoms? Moderate How severe was your RLS as a whole? Moderate Overall, how severe was the impact of your RLS symptoms on your ability to carry out your daily affairs, for example, carrying out a satisfactory family, home, social, school, or work? None How severe was your mood disturbance due to your RLS symptoms, for example, angry, depressed, sad, anxious, or irritable? Mild In the past week, Overall, how much relief of your RLS arm or leg discomfort did you get from moving around? How often did you get RLS symptoms? When you had RLS symptoms, how severe were they on average? documented in this encounter Plan of Treatment Upcoming Encounters Date Type Department Care Team (Late st Contact Info) Description 08/31/2024 10:30 AM EST Office Visit Cardiology, [facility] [address] [facility] [place] [address] Yan Whitehead PA-C [address] [facility] [place] [address] 09/27/2024 10:00 AM EST Office Visit Urology, [facility] [address] [facility] [place] [address] Johnathan Patrick MD [address] [facility] [place] [address] 09/29/2024 1:00 PM EST Office Visit Neurology [facility] [address] [facility] [place] [address] Bing Wilburn MD [address] [place] [address] 01/19/2025 3:00 PM EDT Nurse Only Ancillary [address] [place] [address] [place], Nurse Annual Wellness [place] [address] [place] [address] 02/14/2025 10:40 AM EDT Office Visit Family Practice [address] [place] [address] Ab Hackett PA-C [address] [place] [address] [address] Health Maintenance Due Date Last Done Comments [...] as of this encounter Visit Diagnoses Diagnosis GAVIN on CPAP- Primary Obstructive sleep apnea (adult) (pediatric) Dream enactment behavior documented in this encounter Advance Directives * [...] the patient have Health Care Power of Senior Security Engineer? Yes, in chart and reviewed as current Care Teams Classification And Treatment Director Relationship Specialty Start Date End Date Ab Hackett PA-C [address] [facility] [place] [id number] PCP - General Physician Electroless Plater 05/29/23 documented as of this encounter
--- OUTSIDE RECORDS SUMMARY | 2024-09-15 06:45 | External Medical Summary | Summary of Care ---
Author Name Unknown Organization [facility] Address [address] [facility] [place] [address] Phone [phone] Care Team Providers Care Grizzly Worker Name Role Phone Ab Hackett PA-C Primary Care Provide r Reason for Visit * Reason Onset Date Comments Durable Medical Equipment 08/17/2024 CPAP p ressure Encounter Details Date Type Department Care Team (Late st Contact Info) Description 08/17/2024 [facility] [address] [place] [phone] Lulu Bernabe CRNP [address] [place] [address] Durable Medical Equipment (CPAP pressure ) Allergies Active Allergy Reactions Criticality Noted Date Comments Amoxicillin 03/06/2005 Hives, last dose was about age 38 while in the [employer] and he had an injection in the [...] 48 g 3 07/29/19 24 Active Ipratropium [employer] 0.03 % Nasal Solution (Atrovent) Administer 2 [...] Tablet Sublingual (Nitrostat)Indicat ions:Coronary artery disease of curyung artery of curyung heart with stable angina pectoris (HCC),Calcificatio n of coronary artery Place 1 Tablet under the tongue as needed for Pain, Chest. May repeat 3 times. If chest pain continues, call 911. 25 Tablet 11 05/20/20 24 Active Isosorbide Mononitrate ER 30 MG Oral Tablet Extended Release 24 Hour (Imdur)Indications :Coronary artery disease of curyung artery of curyung heart with stable angina pectoris (HCC),Calcificatio n of coronary artery Take 1 Tablet by mouth in the morning. 90 Tablet 3 06/15/20 24 Active Atorvastatin Calcium 40 MG Oral Tablet (Lipitor)Indicatio ns:PAD (peripheral artery disease) ([facility]),Elevated LDL cholesterol level Take 1 Tablet [...] per HTN protocol #16. 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 documented in this encounter Plan of Treatment Upcoming Encounters Date Type Department Care Team (Late st Contact Info) Description 08/31/2024 10:30 AM EST Office Visit Cardiology, [facility] [address] [place] [address] Yan Whitehead PA-C [address] [place] [address] 09/27/2024 10:00 AM EST Office Visit Urology, [facility] [address] [place] [address] Johnathan Patrick MD [address] [place] [address] 09/29/2024 1:00 PM EST Office Visit Neurology [facility] [address] [facility] [place] [address] Bing Wilburn MD [address] [facility] [place] [address] 01/19/2025 3:00 PM EDT Nurse Only Ancillary [place] [address] [place] [address] [place], Nurse Annual Wellness Cold [address] [place] [address] 02/14/2025 10:40 AM EDT Office Visit Family Practice [address] [place] [address] Ab Hackett PA-C [address] [place] [address] Health Maintenance Due Date Last Done Comments [...] the patient have Health Care Power of Property Field Adjuster? Yes, in chart and reviewed as current Care Teams Grizzly Worker Relationship Specialty Start Date End Date Ab Hackett PA-C [address] [facility] [place] [address] PCP - General Physician Mussel Farmer 05/29/23 documented as of this encounter
--- OUTSIDE RECORDS SUMMARY | 2024-09-15 06:45 | External Medical Summary | Summary of Care ---
Author Name Unknown Organization [facility] Address [address] [place] [address] Phone [phone] Care Team Providers Care Hazardous Waste Technician Name Role Phone Ab Hackett PA-C Primary Care Provide r Encounter Details Date Type Department Care Team (Late st Contact Info) Description [facility] [address] [facility] [place] [phone] Ab Hackett PA-C [address] [facility] [place] [address] Allergies Active Allergy Reactions Criticality Noted Date Comments Amoxicillin 03/06/2005 Hives, last dose was about age 38 while in the [place] and he had an injection in the [...] mouth in the morning. PREVAGEN. 020 Active Sildenafil Citrate 100 MG TabletIndications :Elevated prostate specific antigen (PSA) TAKE 1 TABLET NEEDED FOR ERECTILE DYSFUNCTION DIRECTED 30 Tab 3 020 Active Turmeric 500 MG Oral Tablet Take 1 Tab by mouth daily. Active Mometasone Furoate 0.1 % External OintmentIndicatio ns:Dermatitis NEEDED FOR EARS 45 g 3 022 Active Fish Oil 1000 MG Oral Capsule [...] NASALLY DAILY 48 g 3 024 Active Pantoprazole Sodium 40 MG Oral Tablet Delayed Release (Protonix)Indicat ions:Gastroesopha geal reflux disease with esophagitis Take 1 tablet daily 30 minutes before the first meal of the day 90 Tablet 3 024 Active Ipratropium [place] 0.03 % Nasal Solution (Atrovent) Administer 2 [...] A DAY 90 mL 3 024 Active Fluticasone Propionate Diskus 100 MCG/ACT Inhalation Aerosol Powder Breath ActivatedIndicati ons:Asthma, moderate persistent,Acquir ed hypothyroidism USE 1 INHALATION TWICE A DAY (RINSE MOUTH AFTER USE) 180 Each 2 Active Levothyroxine Sodium 75 MCG Oral Tablet [...] Tablet Sublingual (Nitrostat)Indica tions:Coronary artery disease of [place] artery of [place] heart with stable angina pectoris (HCC),Calcificati on of coronary artery Place 1 Tablet under the tongue as needed for Pain, Chest. May repeat 3 times. If chest pain continues, call 911. 25 Tablet 11 Active Isosorbide Mononitrate ER 30 MG Oral Tablet Extended Release 24 Hour (Imdur)Indication s:Coronary artery disease of [place] artery of [place] heart with stable angina pectoris (HCC),Calcificati on of coronary artery Take 1 Tablet by mouth in the morning. 90 Tablet 3 024 Active Losartan Potassium 100 MG Oral Tablet (Cozaar)Indicatio ns:HTN, goal below 130/80 TAKE 1 TABLET IN THE MORNING 90 Tablet 1 024 Active Atorvastatin Calcium 40 MG Oral Tablet (Lipitor)Indicati [...] Active Alendronate Sodium 70 MG Oral Tablet Effervescent (Binosto)Indicati ons:Osteopenia of both hips Take 70 mg by mouth once a week. 12 Tablet 3 025 2024 Discontinued Hospital, Clinic, or Other Facility [...] per HTN protocol #16. 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 * Telephone Encounter - Carolee Nevarez LPN - 08/03/2024 3:23 PM EST Pt updated and verbalized understanding, please assist with scheduling * Telephone Encounter - Ab Hacktet PA-C - 08/02/2024 4:46 PM EST Please inform the patient that I am placing a CAD imaging referral which will hopefully get him setup for a Lexiscan stress test PRIOR to his visit with his venetian blind mechanic since the wait has been long. documented in this encounter Plan of Treatment Upcoming Encounters Date Type Department Care Team (Late st Contact Info) Description 08/17/2024 10:30 AM EST Office Visit [facility]tr [facility] [address] [place] [phone] Lulu Bernabe CRNP [address] [place] [address] 08/31/2024 10:30 AM EST [facility] [place] [address] Yan Whitehead PA-C [address] [place] [address] 09/27/2024 10:00 AM EST Office Visit Urology, [facility] [address] [facility] [place] [address] Johnathan Patrick MD [address] [place] [address] 01/19/2025 3:00 PM EDT Nurse Only Ancillary [address], [place] [address] [place] [address] [place], Nurse Annual [facility] [place] [address] [place] [address] 02/14/2025 10:40 AM EDT Office Visit Family Practice [address], [place] [address] [place] [address] Ab Hackett PA-C [address] [place] [address] Health Maintenance Due Date Last Done Comments [...] the patient have Health Care Power of Electric Operator? Yes, in chart and reviewed as current Care Teams Hazardous Waste Technician Relationship Specialty Start Date End Date Ab Hackett PA-C [address] [facility] [place] [address] PCP - General Physician Home Health Speech Therapist 05/29/23 documented as of this encounter
--- OUTSIDE RECORDS SUMMARY | 2024-09-15 06:46 | External Medical Summary | Summary of Care ---
Author Name Unknown Organization [facility] Address [address] [place] [address] Phone [phone] Care Team Providers Care Industrial Maintenance Instructor Name Role Phone Ab Hackett PA-C Primary Care Provide r Reason for Visit * Reason Comments Outpatient Testing Encounter Details Date Type Department Care Team (Late st Contact Info) Description 07/13/2024 9:10 AM EST [facility] [address] [facility] [place] [phone] [facility] [address] [facility] [place] [address] HTN, goal below 130/80; Hyperlipidemia with target LDL less than 70; Coronary artery disease involving [place] coronary artery of [place] heart without angina pectoris; Acquired hypothyroidism; BPH with obstruction/lower urinary tract symptoms Allergies Active Allergy Reactions Criticality Noted Date Comments Amoxicillin 03/06/2005 Hives, last dose was about age 38 while in the [place] and he had an injection in the arm and a few days later had total body rash. Cefdinir 03/24/2018 Lower leg redness and swelling documented as of this encounter (statuses as of 07/13/2024) Medications METAMUCIL SMOOTH TEXTURE 58.6 % PO [...] Oral Capsule Take by mouth. 90MCG - 125MCG Active Fluticasone Propionate 50 MCG/ACT Nasal Suspension (Flonase)Indicatio ns:Asthma, moderate persistent ADMINISTER 2 SPRAYS NASALLY DAILY 48 g 3 07/29/19 24 Active Pantoprazole Sodium 40 MG Oral Tablet Delayed Release (Protonix)Indicati ons:Gastroesophage al reflux disease with esophagitis Take 1 tablet daily 30 minutes before the first meal of the day 90 Tablet 3 08/17/19 24 Active Ipratropium [place] 0.03 % Nasal Solution (Atrovent) Administer 2 [...] Tablet Sublingual (Nitrostat)Indicat ions:Coronary artery disease of [place] artery of [place] heart with stable angina pectoris (HCC),Calcificatio n of coronary artery Place 1 Tablet under the tongue as needed for Pain, Chest. May repeat 3 times. If chest pain continues, call 911. 25 Tablet 11 05/20/20 24 Active Isosorbide Mononitrate ER 30 MG Oral Tablet Extended Release 24 Hour (Imdur)Indications :Coronary artery disease of [place] artery of [place] heart with stable angina pectoris (HCC),Calcificatio n [...] morning. 90 Tablet 1 07/04/20 24 Active Hospital, Clinic, or Other Facility Administered Medication Ordered Dose Route Frequency Start Date End Date Status Albuterol Sulfate (Proventil) (2.5 MG/3ML) 0.083% inhalation solution 2.5 mgIndications:Moderate persistent asthma without complication 2.5 mg NEBULIZER Q4H PRN 01/03/2022 Active documented as of this encounter (statuses as of 07/13/2024) Active Problems Problem Noted Date Diagnosed Date [...] 03/07/14 8:35A 03/07/14 0.53 FINAL 08/26/13 8:47A 1/31/14 0.54 FINAL 06/01/12 11:00A 06/01/12 0.34 FINAL documented as of this encounter (statuses as of 07/13/2024) Resolved Problems Problem Noted Date Diagnosed Date [...] per HTN protocol #16. Mole .6cm r hindu at scalp margin 03/26/2009 08/10/2018 Benign neoplasm [...] as of this encounter (statuses as of 07/13/2024) Immunizations Name Administration Dates Next Due COVID-19 [...] = 0.6 oz pur e alcohol) 2 a month 1-2 beers PHQ-2 Answer Date [...] money to get more. Never true 01/08/2023 Utilities Answer Date Recorded Do you have trouble paying y our heating, water, or electric bill? (Adult - for ages 18 years and over) Not on file 01/12/2024 Is your family able to pay t he heat, water, or electric bill? (Household - for ages 0-17 years) Not on file 01/12/2024 Does your family have access to good internet? (Household - for ages 0-17 years) Not on file 01/12/2024 Social Connections Answer Date Recorded How often do you feel lonely or isolated from those around you? 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 (5 years old or older) Answer Entry Date Author No 12/25/2017 2:00 PM EDVicki Simon GAVIN documented in this encounter Plan of Treatment Upcoming Encounters Date Type Department Care Team (Late st Contact Info) Description 08/02/2024 3:40 PM EST Office Visit Family Practice [address] [place] [address] Ab Hackett PA-C [address] [place] [address] 08/17/2024 10:30 AM EST Office Visit [facility] Disorders Ctr [address] [place] [address] Lulu Bernabe CRNP [address] [place] [address] 08/31/2024 10:30 AM EST Office Visit Cardiology, [facility] [address] [facility] [place] [address] Yan Whitehead PA-C [address] [facility] [address] 09/27/2024 10:00 AM EST Office Visit [facility]rology, [facility] [address] [facility] [place] [address] Johnathan Patrick MD [address] [facility] [address] 10/06/2024 1:00 PM EDT Office Visit Neurology [facility] [address] [facility] [place] [address] Bing Wilburn MD [address] [facility] [place] [address] 01/19/2025 3:00 PM EDT Nurse Only Ancillary [place] [address] [place] [address] [place], Nurse Annual Wellness [place] [address] [place] [address] Pending Results Name Type Priority Associated Diagnoses Date /Time TSH WITH FREE T4 IF INDICATED Lab Routine HTN, goal below 130/80 Hyperlipidemia with target LDL less than 70 Coronary artery disease involving [place] coronary artery of [place] heart without angina pectoris Acquired hypothyroidism BPH with obstruction/lower urinary tract symptoms 07/13/2024 8:55 AM EST PSA Lab Routine HTN, goal below 130/80 Hyperlipidemia with target LDL less than 70 Coronary artery disease involving [place] coronary artery of [place] heart without angina pectoris Acquired hypothyroidism BPH with obstruction/lower urinary tract symptoms 07/13/2024 8:55 AM EST BASIC METABOLIC PANEL Lab Routine HTN, goal below 130/80 Hyperlipidemia with target LDL less than 70 Coronary artery disease involving [place] coronary artery of [place] heart without angina pectoris Acquired hypothyroidism BPH with obstruction/lower urinary tract symptoms 07/13/2024 8:55 AM EST Health Maintenance Due Date Last Done Comments DXA Scan 06/25/2024 06/25/2022, 05/29, 04/29/2010, Additional history exists Adult Wellness Visit 01/13/2025 01/14/2024, 01/08/2023, 08/01/2021 Depression Monitoring 01/13/2025 01/14/2024 GFR 05/23/2025 05/23/2024, 04/26, 03/03/2024, Additional history exists TSH 05/23/2025 05/23/2024, 04/26, 01/07/2023, Additional history exists Albumin/Creatinine Ratio 01/07/2026 01/07/2023 DTap/Tdap Vaccines (3 - Td or Tdap) [...] as of this encounter Visit Diagnoses Diagnosis HTN, goal below 130/80 Unspecified essential hypertension Hyperlipidemia with target LDL less than 70 Other and unspecified hyperlipidemia Coronary artery disease involving [place] coronary artery of [place] heart without angina pectoris Acquired hypothyroidism Unspecified hypothyroidism BPH with obstruction/lower urinary tract symptoms Hypertrophy of prostate with urinary obstruction and other lower urinary tract symptoms (LUTS) documented in this encounter Advance Directives * [...] the patient have Health Care Power of Chief Catalyst Operator? Yes, in chart and reviewed as current Care Teams Industrial Maintenance Instructor Relationship Specialty Start Date End Date Ab Hackett PA-C [address] [facility] [place] [phone] PCP - General Physician Joinery Factory Worker 05/29/23 documented as of this encounter
--- OUTSIDE RECORDS SUMMARY | 2024-09-15 06:46 | External Medical Summary | Summary of Care ---
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 [facility] How soon should this test be performed? 1 Week or Less Comments Not for rest Echo. Reason for Study (chest pain or anginal equivalent): stable angina with known CAD Select the preferred exam: likely lexiscan due to known LBBB Does the patient have a current EKG? Yes Does the patient have a prior history of a stent or bypass? No Lab Results Component Value Date/Time CREAT GFR 0.82 05/26/2016 01:05 PM CREATININE - [facility]* 0.9 07/04/2024 12:00 AM CREATININE - [facility]* 0.9 03/29/2020 12:00 PM CREATININE POCT - G* 0.8 02/19/2012 03:18 PM CREATININE, RANDOM * 61 01/07/2023 09:46 AM Lab Results Component Value Date/Time BUN - [facility] 12 05/23/2024 07:54 AM BUN - [facility] 12 03/29/2020 12:00 PM BUN POCT - [facility] 18 02/19/2012 03:18 PM Reason for Visit * Reason Comments Routine Exam Med review Encounter Details Date Type Department Care Team (Late st Contact Info) Description 08/02/2024 3:40 PM EST Office Visit [facility] [address] [place] [address] [place] [address] Ab Hackett PA-C [address] [place] [address] HTN, goal below 130/80*; GAVIN on CPAP; Hyperlipidemia with target LDL less than 70; 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 Cefdinir 03/24/2018 Lower leg redness and swelling documented as of this encounter (statuses as of 08/02/2024) Medications METAMUCIL SMOOTH TEXTURE 58.6 % PO [...] 90 Tablet 3 08/17/19 24 Active Ipratropium [place] 0.03 % Nasal Solution (Atrovent) Administer 2 [...] Tablet Sublingual (Nitrostat)Indicat ions:Coronary artery disease of timbi-sha shoshone artery of tim[place]sha shoshone heart with stable angina pectoris (HCC),Calcificatio n of coronary artery Place 1 Tablet under the tongue as needed for Pain, Chest. May repeat 3 times. If chest pain continues, call 911. 25 Tablet 11 05/20/20 24 Active Isosorbide Mononitrate ER 30 MG Oral Tablet Extended Release 24 Hour (Imdur)Indications :Coronary artery disease of tim[place] shoshone artery of tim[place]-sha shoshone heart with stable angina pectoris (HCC),Calcificatio n [...] morning. 90 Tablet 1 07/04/20 24 Active Alendronate Sodium 70 MG Oral Tablet Effervescent (Binosto)Indicatio ns:Osteopenia of both hips Take 70 mg by mouth once a week. 12 Tablet 3 07/28/19 25 Active Additional Information Patient not taking.Reported on 08/02/2024 Budesonide 0.5 MG/2ML Inhalation Suspension (Pulmicort)Indicat ions:Moderate persistent asthma without complication Inhale 0.5 mg via nebulizer in the morning and 0.5 mg before bedtime. As directed. 120 mL 12 08/02/19 25 Active Hospital, Clinic, or Other Facility Administered Medication Ordered Dose Route Frequency Start Date End Date Status Albuterol Sulfate (Proventil) (2.5 MG/3ML) 0.083% inhalation solution 2.5 mgIndications:Moderate persistent asthma without complication 2.5 mg NEBULIZER Q4H PRN 01/03/2022 Active documented as of this encounter (statuses as of 08/02/2024) Active Problems Problem Noted Date Diagnosed Date [...] as of this encounter (statuses as of 08/02/2024) Resolved Problems Problem Noted Date Diagnosed Date [...] per HTN protocol #16. Mole .6cm r yarsani at scalp margin 03/26/2009 08/10/2018 Benign neoplasm [...] as of this encounter (statuses as of 08/02/2024) Immunizations Name Administration Dates Next Due COVID-19 [...] Influenza Virus Vac cine, Unspecified Formulation 05/25/2023,04/26/2022,04/26/2022,04/26,04/26/2021,05/28/2020,04/26/2020 ,04/26/2020,03/27/2020,03/27/2020,1007/2018,04/26/2019,05/12/2018, 4,05/10/2013,05/10/2013,05/16/2009,,05/15/2008,05/15/2008,05/31/20 07,05/31/2007,06/15/2006,06/15/2006,,05/23/2005,06/04/2004, 004,06/02/2003,06/02/2003,05/27/2002,1 07/27/2001,04/26/2002,04/26/2002,2000,05/04/2001,05/21/2000,05/21/2000, 04/29/1999,04/29/1999,05/01/1998,05/01 Seasonal Influenza, [...] Exposure: Never Smokeless Tobacco: Former Quit: 03/14/1992 Tobacco Cessation:Counseling Given: Not Answered Comments:ages [age], 1/2 ppd Alcohol Use Standard [...] Date Job End Date 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 Not on file Not on file Not on file retired [employer] Not on file Not on file Not on file documented as of this encounter Last Filed Vital Signs Vital Sign Reading Time Taken Comments Blood Pressure 148/56 08/02/2024 4:05 PM EST Pulse 76 08/02/2024 4:05 PM EST Temperature 36.8 C (98.3 F) 08/02/2024 4:05 PM ES T Respiratory Rate 18 08/02/2024 4:05 PM EST Oxygen Saturation 97% 08/02/2024 4:05 PM EST Inhaled Oxygen Concentration - - Weight 82.4 kg (181 lb 9.6 oz) 08/02/2024 4:05 P M EST Height 177.8 cm (5' 10") 08/02/2024 4:05 PM EST Body Mass Index 26.06 08/02/2024 4:05 PM EST documented in this encounter Functional Status [...] 12/25/2017 2:00 PM EDVicki Simon, GAVIN * Because of a physical, mental, [...] documented in this encounter Progress Notes * Ab Hackett PA-C - 08/02/2024 4:08 PM EST Images from the original note were not included. History of Present Illness Miguel Wang is a 78 year old [...] taking. 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 Working with rheum to start bisphosphonate. Patient Active Problem List Diagnosis Primary open [...] disorder (HCC) FERMIN (generalized anxiety disorder) Osteopenia Review of patient's allergies indicates: Allergen Reactions Amoxicillin Hives, last dose was about age 38 while in the [facility] and he had an injection in the [...] of the day 90 Tablet 3 Ipratropium [place] 0.03 % Nasal Solution (Atrovent) Administer 2 Sprays into nostril in the morning and 2 Sprays at noon and 2 Sprays before bedtime. 90 mL 3 Azelastine HCl 0.1 % Nasal Solution (Astelin) [...] before bedtime. As directed. 120 mL 12 ProAir RespiClick 108 (90 Base) MCG/ACT Inhalation Aerosol Powder Breath Activated (Albuterol Sulfate) Inhale 2 doses every 4-6 hours as needed for shortness of breath, cough or wheeze 3 Each 0 Alendronate Sodium 70 MG Oral Tablet Effervescent (Binosto) Take 70 mg by mouth once a week. (Patient not taking: Reported on 08/02/2024) 12 Tablet 3 Current Facility-Administered Medications Medication Dose Route Frequency Provider Last Rate Last Admin Albuterol Sulfate (Proventil) (2.5 MG/3ML) 0.083% inhalation solution 2.5 mg 2.5 mg Nebulizer Q4H PRN Lulu Bernabe CRNP 2.5 mg at 05/06/22 1120 Past Medical History: Diagnosis Date Abnormal MRI [...] Mild cognitive impairment 08/10/2018 Mole .6cm r yarsani at scalp margin 03/26/2009 Osteopenia Other specified [...] performed by Joseph Hsieh MD at ENDOSCOPY [facility] COLONOSCOPY, DIAGNOSTIC (RECTUM) 04/17/2020 diverticulosis / COLONOSCOPY FLEXIBLE PROXIMAL DIAGNOSTIC performed by Guerrero Tijerina MD at ENDOSCOPY [facility] COLORECTAL CANCER SCREEN; COLON 2001 [facility] EGD, FLEXIBLE, DIAGNOSTIC 05/26/2012 UPPER GI ENDOSCOPY DIAGNOSTIC performed by Regino Reynoso MD at ENDOSCOPY [facility] EGD, FLEXIBLE, DIAGNOSTIC 05/10/2018 acid reflux on bx/ESOPHAGOGASTRODUODENOSCOPY (EGD), FLEXIBLE, TRANSORAL, DIAGNOSTIC performed by Joseph Hsieh MD at ENDOSCOPY [facility] EGD, FLEXIBLE, W/BIOPSY 12/10/2009 bx--negative FISSURECTOMY W/ SPHINCTEROTOMY 1968 IR BIOPSY 04/04/2024 LUMBAR HEMILAMINECTOMY 2004 REMOVAL OF APPENDIX 1953 REMOVAL OF PROSTATE (TURP) N/A 03/05/2023 TRANSURETHRAL RESECTION PROSTATE ELECTROSURGICAL performed by Johnathan Patrick MD at OR [facility] REMOVE TONSILS & ADENOIDS, UNDER 12 1954 STRESS TREADMILL 03/2008 Cardiovascular Stress Test-No ischemia [...] Specified) Suad Alive HEALTHY Son Alive HEALTHY Social History Socioeconomic History Marital status: Spouse name: Kathy Number of children: 2 Years of education: 18 Occupational History 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[employer] 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, 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 Tobacco Use Smoking status: Former Current packs/day: 0.00 Average packs/day: 0.5 packs/day for 26.0 years (13.0 ttl pk-yrs) Types: Cigarettes Start date: 07/27/1961 Quit date: 07/27/1987 Years since quittin.0 Passive exposure: Never Smokeless tobacco: Former Quit date: 03/14/1992 Tobacco comments: ages [age], 1/2 ppd Vaping Use Vaping status: Never Used Substance and Sexual Activity Alcohol use: Yes Alcohol/week: 0.0 standard drinks of alcohol Comment: 2 days a month 1-2 beers Drug use: No Other Topics Concern Service Yes Comment: [facility] Blood Transfusions No Social History Narrative 03/06/2016 Household: Lives w/ only - kids are adults.. 1 grandchild Social Needs Food Insecurity: No Food Insecurity (01/08/2023) Hunger Vital Sign Worried About Running Out of Food in the Last Year: Never true Ran Out of Food in the Last Year: Never true Review of Systems Constitutional: Negative. Negative for chills and fever. HENT: Negative. Eyes: Negative. Respiratory: Negative. Negative for shortness of breath. Cardiovascular: Positive for chest pain. Negative for palpitations and leg swelling. Gastrointestinal: Negative. Negative for abdominal pain, blood in stool, constipation, diarrhea, nausea and vomiting. Endocrine: Negative. Genitourinary: Negative. Negative for dysuria, frequency and hematuria. Musculoskeletal: Positive for arthralgias. Skin: Negative. Negative for rash. Allergic/Immunologic: Negative. Neurological: Negative. Negative for dizziness and syncope. Hematological: Negative. Psychiatric/Behavioral: Negative. All other systems reviewed and are negative. Physical Exam BP 148/56 | Pulse 76 | Temp 98.3 F (36.8 C) (Temporal Artery) | Resp 18 | Ht 5' 10" (1.778 m) |Wt 181 lb 9.6 oz (82.4 kg) | SpO2 97% | BMI 26.06 kg/m | BSA 2.02 m Physical Exam Vitals and nursing note reviewed. Constitutional: Appearance: Normal appearance. HENT: Head: Normocephalic and atraumatic. Right Ear: Tympanic membrane, ear canal and external ear normal. Left Ear: Tympanic membrane, ear canal and external ear normal. Nose: Nose normal. Mouth/Throat: Mouth: Mucous membranes are moist. Pharynx: Oropharynx is clear. Eyes: Extraocular Movements: Extraocular movements intact. Conjunctiva/sclera: Conjunctivae normal. Pupils: Pupils are equal, round, and reactive to light. Cardiovascular: Rate and Rhythm: Normal rate and regular rhythm. Pulses: Normal pulses. Heart sounds: Normal heart sounds. No murmur heard. Pulmonary: Effort: Pulmonary effort is normal. Breath sounds: Normal breath sounds. No wheezing, rhonchi or rales. Abdominal: General: Abdomen is flat. Bowel sounds are normal. Palpations: Abdomen is soft. Tenderness: There is no abdominal tenderness. There is no guarding or rebound. Musculoskeletal: General: Normal range of motion. Cervical back: Normal range of motion and neck supple. Skin: General: Skin is warm. Neurological: General: No focal deficit present. Mental Status: He is alert and oriented to person, place, and time. Psychiatric: Mood and Affect: Mood normal. Behavior: Behavior normal. Thought Content: Thought content normal. Judgment: Judgment normal. I have reviewed most recent labs BMP results Recent Labs Units 07/04/24 0000 05/23/24 07505/05/24 0000 03/03/24 1022 01/06/24 0837 01/16/23 0000 01/07/23 0946 SODIUM - [facility] mmol/L -- 136 -- -- 137 -- 138 POTASSIUM - [facility] MMOL/L 4.0 4.6 3.9 -- 4.6 < > 4.3 CHLORIDE - [facility] mmol/L -- 99 -- -- 102 -- 101 CO2 - [facility] mmol/L -- 27 -- -- 25 -- 23 CREATININE - [facility] MG/DL 0.9 1.0 0.80 < > 0.9 < > 0.9 BUN - [facility] mg/dL -- 12 -- -- 13 -- 9 < > = values in this interval not displayed. Lipid panel results Recent Labs Units 07/04/24 0000 01/06/24 0837 01/07/23 0946 CHOLESTEROL - [facility] mg/dL -- 83 167 CHOLESTEROL-OUTSIDE LAB MG/DL 104 -- -- LDL (CALCULATED)-OUTSIDE LAB MG/DL 47 -- -- HDL CHOLESTEROL - [facility] mg/dL -- 44 50 HDL-OUTSIDE LAB MG/DL 47.2 -- -- TRIGLYCERIDES - [facility] mg/dL -- 46 77 TRIGLYCERIDES-OUTSIDE LAB MG/DL 50 -- -- CBC results Recent Labs Units 07/04/24 0000 05/23/24 0754 05/05/24 0000 01/16/23 0000 01/07/23 0946 WBC K/uL -- 6.20 -- -- 5.27 HGB G/DL 14.2 15.2 15.1 < > 14.7 HCT % -- 45.7 -- -- 44.3 PLT K/uL -- 203 -- -- 227 < > = values in this interval not displayed. HbA1c results Recent Labs Units 07/04/24 0000 HEMOGLOBIN, [id number] LAB % 5.6 TSH results Recent Labs Units 07/04/24 0000 05/23/24 0754 05/05/24 0000 TSH - [facility] uIU/mL -- 0.61 -- TSH - OUTSIDE LAB UIU/ML 0.52 -- 0.439 Vitamin D results Recent Labs Units 09/14/23 1352 25-HYDROXY VITAMIN D - [facility] ng/mL 69 Hepatic panel results Recent Labs Units 05/23/24 0754 01/07/23 0946 PROTEIN - [facility] g/dL 7.1 6.9 BILIRUBIN, TOTAL - [facility] mg/dL 1.4* 0.7 ALKALINE PHOSPHATASE - [facility] U/L 79 62 AST - [facility] U/L 25 20 ALT - [facility] U/L 27 22 Protein/cr ratio results No results for input(s): "PROCRRATIO" in the last 29019 hours. Assessment and Plan HTN, goal below 130/80 Borderline elevated but he reports good readings at home. Continue to monitor closely. - COMPREHENSIVE METABOLIC PANEL; Future - CAD IMAGING REFERRAL OP GAVIN on CPAP Reports compliance. - COMPREHENSIVE METABOLIC PANEL; Future Hyperlipidemia with target LDL less than 70 LDL at goal. Coronary artery disease of tim[place]sha shoshone artery of [place] shoshone heart with stable angina pectoris (HCC) History of stable anginal symptoms which started in 04/2024. I have already prescribed Imdur and p.r.n. nitro which he is taking. We have tried to get him back in with his assembler dielectric heater however there is a weight. I will therefore place a CAD imaging referral to try and get a Lexiscan set up prior tohis visit with his assembler dielectric heater. He has known LBBB. - COMPREHENSIVE METABOLIC PANEL; Future - CAD IMAGING REFERRAL OP LBBB (left bundle branch block) - CAD IMAGING REFERRAL OP Moderate persistent asthma without complication Symptoms currently stable. - Budesonide 0.5 MG/2ML Inhalation Suspension (Pulmicort); Inhale 0.5 mg via nebulizer in the morning and 0.5 mg before bedtime. As directed. Acquired hypothyroidism - TSH WITH FREE T4 IF INDICATED; Future BPH with obstruction/lower urinary tract symptoms Wrap-Up Follow Up: Return in about 6 months (around 01/30/2025), or if symptoms worsen or fail to improve, for Return with AP. | For: Return with AP Time: I spent a total of 30-39 minutes (exact time 30 mins) on the date of service in preparation, delivery, and documentation of the care provided to Miguel Wang excluding any time spent in the performance of separately billed services. documented in this encounter Nursing Notes * Carolee Nevarez LPN - 08/02/2024 4:06 PM EST Chief Complaint Patient presents with Routine Exam Med review documented in this encounter Miscellaneous Notes * Pt Handout (on AVS) - Ab Hackett PA-C - 08/02/2024 4:18 PM EST Images from the original note were not included. [id number] Controlling High Blood Pressure High blood pressure (hypertension) is often called the silent killer. This is because many people who have it, don?t know it. It can be very dangerous. High blood pressure can raise your risk of heart attack, stroke, heart disease, and heart failure. Controlling your blood pressure can lower your risk of these problems. It's important to check your blood pressure regularly. It can save your life. Blood pressure measurements are given as 2 numbers. Systolic blood pressure is the upper number. This is the pressure when the heart contracts. Diastolic blood pressure is the lower number. This is the pressure when the heart relaxes between beats. Blood pressure is grouped like this: Normal blood pressure. This is systolic of less than 120 and diastolic of less than 80 Elevated blood pressure. This is systolic of 120 to 129 and diastolic less than 80. Stage 1 high blood pressure. This is systolic of 130 to 139 or diastolic between 80 to 89. Stage 2 high blood pressure. This is systolic of 140 or higher or diastolic of 90 or higher. A heart-healthy lifestyle can help you control your blood pressure without medicines. Below are some things you can do to have a heart-healthy lifestyle. Eat heart-healthy foods Choose low-salt, low-fat foods. Limit your sodium to 2,300 mg per day or the amount advised by your healthcare provider. Limit canned, dried, cured, packaged, and fast foods. These can contain a lot of salt. Eat 8 to 10 servings of fruits and vegetables every day. Choose lean meats, fish, or chicken. Eat whole-grain pasta, brown rice, and beans. Eat 2 to 3 servings of low-fat or fat-free dairy products. Ask your healthcare provider about the DASH eating plan. This plan helps reduce blood pressure. When you go to a restaurant, ask that your meal be made with no added salt. Stay at a healthy weight Ask your healthcare provider how many calories to eat a day. Then stick to that number. Ask your provider what weight range is healthiest for you. If you are overweight, a weight loss of only 3% to 5% of your body weight can help lower blood pressure. A good weight loss goal is to lose 10% of your body weight in a year. Limit snacks and sweets. Get regular exercise. Get more active Find activities you enjoy. They can be done alone or with friends or family. Try bicycling, dancing, walking, or jogging. Park farther away from building entrances to walk more. Use stairs instead of the elevator. When you can, walk or bike instead of driving. [place] leaves, garden, or do household repairs. Be active at a moderate to vigorous level of physical activity for at least 30 minutes a day forat least 5 days a week. Manage stress Make time to relax and enjoy life. Find time to laugh. Talk about your concerns with your loved ones and your healthcare provider. Visit with family and friends, and keep up with hobbies. Stay away from or limit alcohol and quit smoking Men should have no more than 2 drinks per day. Women should have no more than 1 drink per day. If you smoke, make a plan to stop. Talk with your healthcare provider for help. Smoking greatly raises your risk for heart disease and stroke. Ask your provider about stop-smoking programs and other support. Get enough good quality sleep Most adults need about 7 to 9 hours of sleep a day Have a regular sleep schedule. Go to sleep and wake up at the same time every day. Blood pressure medicines If your lifestyle changes aren?t enough, your healthcare provider may prescribe high blood pressuremedicine. Take all medicines as prescribed. If you have any questions about your medicines, ask your provider before stopping or changing them. How daily issues affect your health Many things in your daily life impact your health. This can include transportation, money problems,housing, access to food, and child protective services social worker. If you can?t get to medical appointments, you may not receive the care you need. When money is tight, it may be difficult to pay for medicines. And living farfrom a grocery store can make it hard to buy healthy food. If you have concerns in any of these or other areas, talk with your healthcare team. They may know of local resources to assist you. Or they may have a staff person who can help. Last Reviewed Date: 2023 00:00:00 [id number] [employer]. All rights reserved. This information is not intended as a substitute for professional medical care. Always follow your healthcare professional's instructions. documented in this encounter Plan of Treatment Upcoming Encounters Date Type Department Care Team (Late st Contact Info) Description 08/17/2024 10:30 AM EST Office Visit [facility] Disorders Ctr [facility] [address] [address] Lulu Bernabe CRNP [address] [place] [address] 08/31/2024 10:30 AM EST Office Visit Cardiology, [facility] [address] [address] Yna Whitehead PA-C [address] [address] 09/27/2024 10:00 AM EST Office [facility], [facility] [address] [facility] [place] [address] Johnathan Patrick MD [address] [place] [address] 01/19/2025 3:00 PM EDT Nurse Only Ancillary [address] [place] [address] [place] [address] [address], Nurse Annual Wellness [address] [place] [address] 02/14/2025 10:40 AM EDT Office Visit Family Practice [address], [place] [address] [place] [address] Ab Hackett PA-C [address] [place] [address] Scheduled Orders Name Type Priority Associated Diagnoses Orde r Schedule COMPREHENSIVE METABOLIC PANEL Lab Routine HTN, goal below 130/80 GAVIN on CPAP Coronary artery disease of [place]osh[place] artery of tim[place] shoshone heart with stable angina pectoris (HCC) Expected: 01/30/2025 (Approximate), Expires: 08/02/2025 TSH WITH FREE T4 IF INDICATED Lab Routine Acquired hypothyroidism Expected: 01/30/2025 (Approximate), Expires: 08/02/2025 Scheduled Referrals Name Type Priority Associated Diagnoses Orde r Schedule CAD IMAGING REFERRAL OP Referral Within 10 days (routine) HTN, goal below 130/80 Coronary artery disease of [place]osh[place] artery of [place] shosh[place] heart with stable angina pectoris (HCC) LBBB (left bundle branch block) Ordered: 08/02/2024 Health Maintenance Due Date Last Done Comments [...] encounter Visit Diagnoses Diagnosis HTN, goal below 130/80- Primary Unspecified essential hypertension GAVIN on CPAP Obstructive sleep apnea (adult) (pediatric) Hyperlipidemia with target LDL less than 70 Other and unspecified hyperlipidemia Coronary artery disease of [place]osh[place] artery of [place] shoshone heart with stable angina pectoris (HCC) LBBB (left bundle branch block) Other left bundle branch block Moderate persistent asthma without complication Unspecified asthma Acquired hypothyroidism Unspecified hypothyroidism BPH with obstruction/lower [...] the patient have Health Care Power of Strength And Conditioning Coach? Yes, in chart and reviewed as current Care Teams Contact Officer Relationship Specialty Start Date End Date Ab Hackett PA-C [address] [facility] [place] [id number] PCP - General Physician Card Lacer Jacquard 05/29/23 documented as of this encounter
--- OUTSIDE RECORDS SUMMARY | 2024-09-15 06:46 | External Medical Summary | Summary of Care ---
Author Name Unknown Organization [facility] Address [address] [place] [place] [address] Phone [phone] Care Team Providers Care Bsw Name Role Phone Ab Hackett PA-C Primary Care Provide r Reason for Visit * Reason Onset Date Comments Medication Question 07/25/2024 Encounter Details Date Type Department Care Team (Late st Contact Info) Description 07/[facility] [place] [address] Ab Hackett PA-C [address] [facility] [place] [address] Medication Question Allergies Active Allergy Reactions Criticality Noted Date Comments Amoxicillin 03/06/2005 Hives, last dose was about age 38 while in the [place] and he had an injection in the arm and a few days later had total body rash. Cefdinir 03/24/2018 Lower leg redness and swelling documented as of this encounter (statuses as of 07/26/2024) Medications METAMUCIL SMOOTH TEXTURE 58.6 % PO [...] 90 Tablet 3 08/17/19 24 Active Ipratropium [place] 0.03 % Nasal Solution (Atrovent) Administer 2 [...] Tablet Sublingual (Nitrostat)Indicat ions:Coronary artery disease of [place] artery of [place] heart with stable angina pectoris (HCC),Calcificatio n of coronary artery Place 1 Tablet under the tongue as needed for Pain, Chest. May repeat 3 times. If chest pain continues, call 911. 25 Tablet 11 05/20/20 24 Active Isosorbide Mononitrate ER 30 MG Oral Tablet Extended Release 24 Hour (Imdur)Indications :Coronary artery disease of [place] artery of [place] heart with stable angina pectoris (HCC),Calcificatio n [...] morning. 90 Tablet 1 07/04/20 24 Active Risedronate Sodium 150 MG Oral Tablet (Actonel) Take 1 Tablet by mouth every 30 days. 1 Tablet 5 07/15/20 24 Active Hospital, Clinic, or Other Facility Administered Medication Ordered Dose Route Frequency Start Date End Date Status Albuterol Sulfate (Proventil) (2.5 MG/3ML) 0.083% inhalation solution 2.5 mgIndications:Moderate persistent asthma without complication 2.5 mg NEBULIZER Q4H PRN 01/03/2022 Active documented as of this encounter (statuses as of 07/26/2024) Active Problems Problem Noted Date Diagnosed Date [...] as of this encounter (statuses as of 07/26/2024) Resolved Problems Problem Noted Date Diagnosed Date [...] per HTN protocol #16. 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 TE routed to them * Telephone Encounter - Heidi Silva OSA - 07/25/2024 12:12 PM EST Pt dropped off letter states his risedronate sodium isn't covered and options would be alendronate or ibandronate. Letter placed in basket for nurse to review. Please call patient and advise. documented in this encounter Plan of Treatment Upcoming Encounters Date Type Department Care Team (Late st Contact Info) Description 08/02/2024 3:40 PM EST Office [facility] [place] [address] Ab Hackett PA-C [address] [facility] [place] [address] 08/17/2024 10:30 AM EST Office Visit Sleep Disorders Ctr [facility] [address] [facility] [place] [phone] Lulu Bernabe CRNP [address] [place] [address] 08/31/2024 10:30 AM EST Office Visit [facility]iology, [facility] [place] [address] Yan Whitehead PA-C [address] [place] [address] 09/27/2024 10:00 AM EST Office Visit Urology, [facility] [address] [place] [address] Johnathan Patrick MD [address] [place] [address] 10/06/2024 1:00 PM EDT Office Visit Neurology [facility] [address] [facility] [place], [place] [address] Bing Wilburn MD [address] [facility] [place] [address] 01/19/2025 3:00 PM EDT Nurse Only Ancillary [address], [address] [place] [address] [place], Nurse Annual Wellness [place] [address] [place] [address] Health Maintenance Due Date Last Done Comments [...] the patient have Health Care Power of Flower Grader? Yes, in chart and reviewed as current Care Teams Bsw Relationship Specialty Start Date End Date Ab Hackett PA-C [facility] [facility] [place] [address] PCP - General Physician Siderographist 05/29/23 documented as of this encounter
--- OUTSIDE RECORDS SUMMARY | 2024-09-15 06:46 | External Medical Summary | Summary of Care ---
Author Name Unknown Organization [facility] Address [address] [place] [address] Phone [phone] Care Team Providers Care Truck Service Manager Name Role Phone Ab Hackett PA-C Primary Care Provide r Encounter Details Date Type Department Care Team (Late st Contact Info) Description 07/14/[address] [facility], [address] [place] [address] Ab Hackett PA-C [address] [place] [address] Allergies Active Allergy Reactions Criticality Noted Date Comments Amoxicillin 03/06/2005 Hives, last dose was about age 38 while in the [place] and he had an injection in the arm and a few days later had total body rash. Cefdinir 03/24/2018 Lower leg redness and swelling documented as of this encounter (statuses as of 07/14/2024) Medications METAMUCIL SMOOTH TEXTURE 58.6 % PO [...] by mouth daily. 90 Tab 1 05/09/20 Active Apoaequorin 20 MG Oral Capsule Take [...] 90 Tablet 3 08/17/19 24 Active Ipratropium [place] 0.03 % Nasal Solution (Atrovent) Administer 2 [...] Tablet Sublingual (Nitrostat)Indicat ions:Coronary artery disease of [place] artery of [place] heart with stable angina pectoris (HCC),Calcificatio n of coronary artery Place 1 Tablet under the tongue as needed for Pain, Chest. May repeat 3 times. If chest pain continues, call 911. 25 Tablet 11 05/20/20 24 Active Isosorbide Mononitrate ER 30 MG Oral Tablet Extended Release 24 Hour (Imdur)Indications :Coronary artery disease of [place] artery of [place] heart with stable angina pectoris (HCC),Calcificatio n [...] as of this encounter (statuses as of 07/14/2024) Active Problems Problem Noted Date Diagnosed Date [...] as of this encounter (statuses as of 07/14/2024) Resolved Problems Problem Noted Date Diagnosed Date [...] per HTN protocol #16. 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 Answer Date of Assessment Author No 12/25/2017 2:00 PM EDVicki Simon, GAVIN * Are you blind or do you have serious difficulty seeing, even when wearing glasses? Answer Date of Assessment Author No 12/25/2017 2:00 PM EDVicki Simon, GAVIN * Do you have serious difficulty walking or climbing stairs? (5 years old or older) Answer Date of Assessment Author No 12/25/2017 2:00 PM Vicki Luis, GAVIN * Do you have difficulty dressing [...] 12/25/2017 2:00 PM Vicki Luis GAVIN documented in this encounter Plan of Treatment Upcoming Encounters Date Type Department Care Team (Late st Contact Info) Description 08/02/2024 3:40 PM EST Office Visit Family Practice [address] [place] [address] Ab Hackett PA-C [address] [place] [address] 08/17/2024 10:30 AM EST Office Visit Sleep Disorders Ctr [facility] [address] [place] [phone] Lulu Bernabe CRNP [address] [place] [address] 08/31/2024 10:30 AM EST Office Visit Cardiology, [facility] [address] [facility] [place] [address] Yan Whitehead PA-C 132 [facility] [place] [address] 09/27/2024 10:00 AM EST Office Visit Urology, [facility] 132 [facility] [place] [address] Johnathan Patrick MD [address] [facility] [place] [address] 10/06/2024 1:00 PM EDT Office Visit Neurology [facility] [address] [facility] [place] [address] Bing Wilburn MD [address] [facility] [place] [address] 01/19/2025 3:00 PM EDT Nurse Only Ancillary [address], [place] [address] [place] [address] [place], Nurse Annual Wellness [place] [address] [place] [address] Health Maintenance Due Date Last Done Comments DXA Scan 06/25/2024 06/25/2022, 05/29, 04/29/2010, Additional history exists Adult Wellness Visit 01/13/2025 01/14/2024, 01/08/2023, 08/01/2021 Depression Monitoring 01/13/2025 01/14/2024 GFR 05/23/2025 07/04/2024, 04/27, 05/05/2024, Additional history exists TSH 05/23/2025 07/04/2024, 04/27, 05/05/2024, Additional history exists Albumin/Creatinine [...] Procedure Name Priority Date/Time Associated Diagnosis Comments CHEMISTRY-OUTSIDE Routine 07/04/2024 TSH Routine 07/04/2024 documented in this encounter Results * TSH (07/04/2024) TSH - OUTSIDE LAB 0.52 0.45 - 5.33 UIU/ML OUTSIDE LAB (SEE SCANNED REPORT) Blood Venous blood specimen / Unknown 07/04/2024 Raquel Velasco MD LAB BLOOD ORDERABLES Fi nal Result OUTSIDE LAB (SEE SCANNED REPORT) * (ABNORMAL) CHEMISTRY-OUTSIDE (07/04/2024) Not all results display below - see scan for full detail OUTSIDE LAB (SEE SCANNED REPORT) Comment:SCAN INCLUDES - V.A. LABS: CBCD, BMP, HEPATIC FUNCTION, MG, LIPID PANEL, TSH, PSA, HBA1C, FOLATE, VIT B12, VIT D 25-OH, CREATININE 0.9 0.6 - 1.5 MG/DL OUTSIDE LAB (SEE SCANNED REPORT) EGFR 87 ML/MIN/1.7 3M2 OUTSIDE LAB (SEE SCANNED REPORT) POTASSIUM 4.0 3.6 - 5.1 MMOL/L OUTSIDE LAB (SEE SCANNED REPORT) GLUCOSE 100(A) 70 - 99 MG/DL OUTSIDE LAB (SEE SCANNED REPORT) Comment:RANDOM GLUCOSE HOURS FASTING OUTSID E LAB (SEE SCANNED REPORT) TRIGLYCERIDES-OUT SIDE LAB 50 <=150 MG/DL OUTSIDE LAB (SEE SCANNED REPORT) CHOLESTEROL-OUTSI DE LAB 104 <=200 MG/DL OUTSIDE LAB (SEE SCANNED REPORT) HDL-OUTSIDE LAB 47.2 40 - 60 MG/DL OUTSIDE LAB (SEE SCANNED REPORT) CHOL/HDL RATIO-OUTSIDE LAB OUTSIDE LA B (SEE SCANNED REPORT) LDL (CALCULATED)-OUTS RADU LAB 47 <=100 MG/DL OUTSIDE LAB (SEE SCANNED REPORT) LDL (DIRECT MEASURE)-OUTSIDE LAB OUTSIDE LAB (SEE SCANNED REPORT) HEMOGLOBIN, C5F-[id number] LAB 5.6 4.3 - 6.2 % OUTSIDE LAB (SEE SCANNED REPORT) PHOSPHORUS-OUTSID E LAB OUTSIDE LAB (SEE SCANNED REPORT) PTH-OUTSIDE LAB OUTS RADU LAB (SEE SCANNED REPORT) MICROALBUMIN RATIO-OUTSIDE LAB OUTSIDE LA B (SEE SCANNED REPORT) PROTEIN, UA-OUTSIDE LAB OUTSIDE LAB (SEE SCANNED REPORT) HGB 14.2 12.4 - 17.3 G/DL OUTSIDE LAB (SEE SCANNED REPORT) 07/04/2024 Raquel Velasco MD LABORATORY Final R esult OUTSIDE LAB (SEE SCANNED REPORT) documented in this encounter Advance Directives * [...] the patient have Health Care Power of Substation Designer? Yes, in chart and reviewed as current Care Teams Truck Service Manager Relationship Specialty Start Date End Date Ab Hackett PA-C [address] [facility] [place] [phone] PCP - General Physician Cross Roller 05/29/23 documented as of this encounter
--- OUTSIDE RECORDS SUMMARY | 2024-09-15 06:46 | External Medical Summary | Summary of Care ---
Author Name Unknown Organization [facility] Address [address] [place] [address] Phone [phone] Care Team Providers Care Linux Network Systems Administrator Name Role Phone Ab Hackett PA-C Primary Care Provide r Encounter Details Date Type Department Care Team (Late st Contact Info) Description 08/02/2024 [facility] [place] [address] Ab Hackett PA-C [address] [facility] [place] [address] Allergies Active Allergy Reactions Criticality Noted Date Comments Amoxicillin 03/06/2005 Hives, last dose was about age 38 while in the [place] and he had an injection in the [...] 90 Tablet 3 08/17/19 24 Active Ipratropium [place] 0.03 % Nasal Solution (Atrovent) Administer 2 [...] Tablet Sublingual (Nitrostat)Indicat ions:Coronary artery disease of [place] artery of [place] heart with stable angina pectoris (HCC),Calcificatio n of coronary artery Place 1 Tablet under the tongue as needed for Pain, Chest. May repeat 3 times. If chest pain continues, call 911. 25 Tablet 11 05/20/20 24 Active Isosorbide Mononitrate ER 30 MG Oral Tablet Extended Release 24 Hour (Imdur)Indications :Coronary artery disease of [place] artery of [place] heart with stable angina pectoris (HCC),Calcificatio n [...] per HTN protocol #16. 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 documented in this encounter Plan of Treatment Upcoming Encounters Date Type Department Care Team (Late st Contact Info) Description 08/17/2024 10:30 AM EST Office Visit Sleep Disorders Ctr [facility] [address] [place] [phone] Lulu Bernabe CRNP [address] [place] [address] 08/31/2024 10:30 AM EST Office Visit [facility]iology, [facility] [place] [address] Yan Whitehead PA-C [address] [place] [address] 09/27/2024 10:00 AM EST Office Visit Urology, [facility] [address] [place] [address] Johnathan Patrick MD [address] [place] [address] 01/19/2025 3:00 PM EDT Nurse Only Ancillary [address] [place] [address] [place], Nurse Annual Wellness [place] [address] [place] [address] 02/14/2025 10:40 AM EDT Office Visit Family Practice [address] [place] [address] Ab Hackett PA-C [address] [place] [address] Health Maintenance Due Date Last Done Comments [...] the patient have Health Care Power of Food Safety Technician? Yes, in chart and reviewed as current Care Teams Linux Network Systems Administrator Relationship Specialty Start Date End Date Ab Hackett PA-C [address] [facility] [place] [phone] PCP - General Physician Portable Sawyer 05/29/23 documented as of this encounter
--- OUTSIDE RECORDS SUMMARY | 2024-09-15 06:46 | External Medical Summary | Summary of Care ---
Author Name Unknown Organization [facility] Address [address] [facility] [address] Phone [phone] Care Team Providers Care Apprentice Instrument Technician Name Role Phone Ab Yusuf PA-C Primary Care Provide r Reason for Visit * Reason Comments eRx-Medication Refill Encounter Details Date Type Department Care Team (Late st Contact Info) Description 07/04/2024 [facility] [address] [facility] [place] [address] Ab Yusuf PA-C [address] [facility] [place] [phone] HTN, goal below 130/80 Allergies Active Allergy Reactions Criticality Noted Date Comments Amoxicillin 03/06/2005 Hives, last dose was about age 38 while in the [place] and he had an injection in the arm and a few days later had total body rash. Cefdinir 03/24/2018 Lower leg redness and swelling documented as of this encounter (statuses as of 07/05/2024) Medications METAMUCIL SMOOTH TEXTURE 58.6 % PO [...] day 90 Tablet 3 024 Active Ipratropium [place] 0.03 % Nasal Solution (Atrovent) Administer 2 [...] Tablet Sublingual (Nitrostat)Indica tions:Coronary artery disease of [place] artery of [place] heart with stable angina pectoris (HCC),Calcificati on of coronary artery Place 1 Tablet under the tongue as needed for Pain, Chest. May repeat 3 times. If chest pain continues, call 911. 25 Tablet 11 Active Isosorbide Mononitrate ER 30 MG Oral Tablet Extended Release 24 Hour (Imdur)Indication s:Coronary artery disease of [place] artery of [place] heart with stable angina pectoris (HCC),Calcificati on [...] the morning. 90 Tablet 1 024 Active Losartan Potassium 100 MG Oral Tablet (Cozaar)Indicatio ns:HTN, goal below 130/80 Take 1 Tablet by mouth in the morning. 90 Tablet 3 023 2023 Discontinued Hospital, Clinic, or Other Facility Administered Medication Ordered Dose Route Frequency Start Date End Date Status Albuterol Sulfate (Proventil) (2.5 MG/3ML) 0.083% inhalation solution 2.5 mgIndications:Moderate persistent asthma without complication 2.5 mg NEBULIZER Q4H PRN 01/03/2022 Active documented as of this encounter (statuses as of 07/05/2024) Active Problems Problem Noted Date Diagnosed Date [...] as of this encounter (statuses as of 07/05/2024) Resolved Problems Problem Noted Date Diagnosed Date [...] per HTN protocol #16. 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 Not on file Not on file Not on file retired [employer] Not on file Not on file [...] encounter Miscellaneous Notes * Telephone Encounter - Sang Friedman, [facility] - 07/05/2024 9:36 AM EST Signed Prescriptions: Disp Refills Losartan Potassium 100 MG Oral Tablet (Coz*90 Tab*1 Sig: TAKE 1 TABLET IN THE MORNINGAuthorizing Provider: AB YUSUF User: SANG FRIEDMAN T documented in this encounter Plan of Treatment Upcoming Encounters Date Type Department Care Team (Late st Contact Info) Description 07/05/2024 10:30 AM EST Rehab Services Voice Lab, [facility] [address] [place] [address] Yan Lindsey, [facility]LECTRIC CONTAINER TESTER [address] [place] [address] 07/05/2024 11:00 AM EST Appointment Radiology, [facility] [address] [place] [address] 08/02/2024 3:40 PM EST Office [facility] [address] [place] [address] [address] [place] [address] Ab Yusuf PA-C [address] [place] [address] 08/17/2024 10:30 AM EST Office Visit Sleep Disorders Ctr [facility] [address] [phone] Lulu Bernabe CRNP [address] [place] [address] 08/31/2024 10:30 AM EST Office Visit Cardiology, [facility] [address] [place] [address] Yan Whitehead, PAAnastasiaC [address] [place] [address] 09/27/2024 10:00 AM EST Office Visit Urology, [facility] [address] [place] [address] Johnathan Patrick MD [address] [place] [address] 10/06/2024 1:00 PM EDT Office Visit Neurology [facility] [address] [facility] [place] [address] Bing Wilburn MD [address] [facility] [place] [address] 01/19/2025 3:00 PM EDT Nurse Only Ancillary [address], [place] [place] [address] [place], Nurse Annual Wellness Cold [address] [place] [address] Health Maintenance Due Date Last Done Comments DXA Scan 06/25/2024 06/25/2022, 05/29, 04/29/2010, Additional history exists Adult Wellness Visit 01/13/2025 01/14/2024, 01/08/2023, 08/01/2021 Depression Monitoring 01/13/2025 01/14/2024 GFR 05/23/2025 05/23/2024, 04/26, 03/03/2024, Additional history exists TSH 05/23/2025 05/23/2024, 04/26, 01/07/2023, Additional history exists Albumin/Creatinine Ratio 01/07/2026 01/07/2023 DTap/Tdap Vaccines (3 - Td or Tdap) 07/15/2033 07/15/2023, 06/01/2012, 02/25/2002 Zoster Vaccines Completed 08/03/2019, 05/27, 04/03/2008 RETIRED - COLONOSCOPY-EVERY 5 YRS AGES 18-100 [...] the patient have Health Care Power of Client Service Coordinator? Yes, in chart and reviewed as current Care Teams Apprentice Instrument Technician Relationship Specialty Start Date End Date Ab Yusuf PA-C [address] [facility] [place] [phone] PCP - General Physician Principal Cloud Architect 05/29/23 documented as of this encounter
--- OUTSIDE RECORDS SUMMARY | 2024-09-15 06:46 | External Medical Summary | Summary of Care ---
Author Name Unknown Organization [facility] Address [address] [facility] [address] Phone [phone] Care Team Providers Care Clinical Training Specialist Name Role Phone Ab Hackett PA-C Primary Care Provide r Encounter Details Date Type Department Care Team (Latest Contact Info) Description 07/05/2024 10:01 AM EST - 07/05/2024 11:59 PM EST Hospital Encounter Radiology, [facility] [address] [place] [address] Arrived Discharge Disposition: Home - Self Care Allergies Active Allergy Reactions Criticality Noted Date Comments Amoxicillin 03/06/2005 Hives, last dose was about age 38 while in the [place] and he had an injection in the arm and a few days later had total body rash. Cefdinir 03/24/2018 Lower leg redness and swelling documented as of this encounter (statuses as of 07/06/2024) Medications METAMUCIL SMOOTH TEXTURE 58.6 % PO [...] 90 Tablet 3 08/17/19 24 Active Ipratropium [place] 0.03 % Nasal Solution (Atrovent) Administer 2 [...] Tablet Sublingual (Nitrostat)Indicat ions:Coronary artery disease of [place] artery of [place] heart with stable angina pectoris (HCC),Calcificatio n of coronary artery Place 1 Tablet under the tongue as needed for Pain, Chest. May repeat 3 times. If chest pain continues, call 911. 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 Not on file [...] Vicki Luis OSA documented in this encounter Plan of Treatment Upcoming Encounters Date Type Department Care Team (Late st Contact Info) Description 08/02/2024 3:40 PM EST Office Visit Family Practice [address] [place] [address] Ab Hackett PA-C [address] [place] [address] 08/17/2024 10:30 AM EST Office Visit Sleep Disorders Ctr [facility] [address] [place] [phone] Lulu Bernabe CRNP [address] [place] [address] 08/31/2024 10:30 AM EST Office Visit Cardiology, [facility] [address] [facility] [place] [address] Yan Whitehead PA-C [address] [place] [address] 09/27/2024 10:00 AM EST Office Visit [facility]rology, [facility] [place] [address] Johnathan Patrick MD [address] [place] [address] 10/06/2024 1:00 PM EDT Office Visit Neurology [facility] [address] [facility] [place] [address] Bing Wilburn MD [address] [facility] [place] [address] 01/19/2025 3:00 PM EDT Nurse Only Ancillary [address], [address] [place] [address] [address], Nurse Annual Wellness Cold [address] [place] [address] Health Maintenance Due Date Last Done Comments [...] Procedure Name Priority Date/Time Associated Diagnosis Comments FLUORO SWALLOWING FUNCTION W VIDEO CINE Routine 07/05/2024 11:30 AM EST Pharyngoesophageal dysphagia documented in this encounter Administered Medications Inactive Administered Medications - up to 3 most recent administrations Medication Order MAR Action Action Date Dose Rate Site barium sulfate 60% (Ez Paque) oral susp 118 mL 118 mL, Oral, ONCE, On Thu07/05/24 at 1207, For 1 dose, Radiology Medication Routing (Non-IR) Given 07/05/2024 12:07 PM EST 118 mL documented in this encounter Advance Directives * [...] the patient have Health Care Power of Drying Rack Changer? Yes, in chart and reviewed as current Care Teams Clinical Training Specialist Relationship Specialty Start Date End Date Ab Hackett PA-C [address] [facility] [place] [address] PCP - General Physician Marine Equipment Design Engineer 05/29/23 documented as of this encounter
--- OUTSIDE RECORDS SUMMARY | 2024-09-15 06:46 | External Medical Summary | Summary of Care ---
Author Name Unknown Organization [facility] Address [address] [facility] [address] Phone [phone] Care Team Providers Care Forklift Driver Name Role Phone Ab Hackett PA-C Primary Care Provide r Reason for Visit * Reason Comments dysphagia Encounter Details Date Type Department Care Team (Latest Contact Info) Description 07/05/2024 10:30 AM EST Rehab Services [facility] [address] [facility] [place] [address] Yan Lindsey, [facility]-MANDARIN TEACHER [address] [facility] [place] [address] Dysphagia, oropharyngeal phase* Allergies Active Allergy Reactions Criticality Noted Date Comments Amoxicillin 03/06/2005 Hives, last dose was about age 38 while in the [place] and he had an injection in the [...] 90 Tablet 3 08/17/19 24 Active Ipratropium [place] 0.03 % Nasal Solution (Atrovent) Administer 2 [...] Tablet Sublingual (Nitrostat)Indicat ions:Coronary artery disease of [place] artery of [place] heart with stable angina pectoris (HCC),Calcificatio n of coronary artery Place 1 Tablet under the tongue as needed for Pain, Chest. May repeat 3 times. If chest pain continues, call 911. 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 Mole .6cm r religious at scalp margin 03/26/2009 08/10/2018 Benign neoplasm of colon 10/10/200803/2019 Overview (10/16/2008): hyperplastic tissue & adenomatous tissue,recommend f/u in 3 years Asthma, allergic 09/22/2008 01/17/2010 Benign neoplasm of colon 09/22/2008 Respiratory symptoms 03/24/2006 018 Overview (04/28/2019): ICD-10 update of inactive term HYPERTENSION NOS 09/12/2005 06/14/2009 Overview (06/14/2009): Modified per [facility] protocol #16. 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 Answer Date of Assessment Author No 12/25/2017 2:00 PM EDT Vicki Patrick M, GAVIN * Are you blind or do you have serious difficulty seeing, even when wearing glasses? Answer Date of Assessment Author No 12/25/2017 2:00 PM EDT Darnell S helly M, GAVIN * Do you have serious difficulty walking or climbing stairs? (5 years old or older) Answer Date of Assessment Author No 12/25/2017 2:00 PM EDT Vicki Patrick M, GAVIN * Do you have difficulty dressing or bathing? (5 years old or older) Answer Date of Assessment Author No 12/25/2017 2:00 PM EDT Vicki Patrick M, GAVIN * Because of a physical, mental, [...] Vicki Patrick, GAVIN documented in this encounter Progress Notes * Yan Lindsey CCC-MANDARIN TEACHER - 07/05/2024 12:32 PM EST CLINIC NOTES Voice Lab, [address] [address] Miguel Wang : 1945 07/05/2024 Following evaluation I reviewed the findings of the study with the patient utilizing the fluoroscopy monitor . Recommendations were reviewed per my evaluation report . Questions were answered . Yan Lindsey CCC-MANDARIN TEACHER [facility] 07/05/2024 12:32 PM * Yan Lindsey, CCC-MANDARIN TEACHER - 07/05/2024 11:57 AM EST CLINIC NOTES Voice Lab, [address] [address] Miguel Wang : 1945 07/05/2024 VIDEO FLUOROSCOPIC SWALLOWING FUNCTION TEST The patient is seen at the request of Dr. Izabella Monterroso of Otolaryngology for a swallowing issue. Patient reports he keeps coughing up phlegm with a stuck sensation in his throat . He is negative for pill dysphagia . ENT examination on 03/03/2024 revealed normal laryngeal examination. Pertinent medical history indicates moderate persistent asthma in which the patient does not utilize inhalers due to secondary complications . consequently he utilizes nasal rinse. He has acquired t hypo thyroidism in which he takes medication and his blood levels have been adequate . Gastroesophageal reflux disease with medication which he feels is under control . Mild cognitive impairment and generalized anxiety disorder. Oral mechanism examination reveals adequate facial symmetry. Oral cavity is moist. Exhibits naturaldentition on both arches. Structure and mobility of the tongue, lips, cheeks, and jaw are adequate.Velum is in the midline and elevates adequately bilaterally. Speech, voice, diadochokinesis, oral pressure, and protective mechanisms are within normal limits. Swallowing study was performed in Radiology. AP view - reveals adequate approximation of the vocal folds to the midline for both dry swallow andphonation. There is appropriate laryngeal elevation and pharyngeal squeeze. Stage 1 (oral stage): Intermittent delayed initiation of swallow primarily to the level of the vallecular space, however, on 1 occasion the bolus flowed to the Piriforms sinuses. However, in both instances, there was no laryngeal penetration or direct aspiration . This was cleared via a liquid flush or 2nd spontaneous swallow Stage 2 (pharyngeal stage): Base of the tongue does make contact with the posterior pharyngeal wallresulting in appropriate hyolaryngeal elevation and pharyngeal shortening . Soft palate made contact with the posterior nasopharyngeal wall . Epiglottic structure was adequate. There was intermittent decreased complete epiglottic inversion secondary to the tip of the epiglottis contacting the posterior inward curve of the neck which resulted in intermittent pooling in the vallecular space . Againthere was no laryngeal penetration and/or direct aspiration which places him at a score of 1 on thepenetration aspiration scale (contrast does not enter the airway) . Compensation techniques chin tuck with liquid flush help clear the vallecular space. A small osteophyte was noted at C6-7 which didnot impede the flow of the bolus during swallow. Piriform sinuses were clear (other than the 1 instance as noted above. Pharyngoesophageal juncture opening was adequate Stage 3 (esophageal stage) no bolus reversal or reflux was noted Patient consumed foods from all levels, in addition to thin liquids. IMPRESSIONS: 1- Mild intermittent stage II swallowing performance as noted above. Compensation techniques described (above) worked well in clearing the vallecular space area. 2- Small osteophyte at C6-7 which did not impede the flow of the bolus. RECOMMENDATIONS: PO regular diet (IDDSI-7) PO thin liquids (IDDSI-0) Chin tuck for every swallow Alternate food and liquids Maintain reflux precautions and prescribed medication Return p.r.n. Yan Lindsey CCC-MANDARIN TEACHER [facility] 07/05/2024 11:57 AM documented in this encounter Plan of Treatment Upcoming Encounters Date Type Department Care Team (Late st Contact Info) Description 08/02/2024 3:40 PM EST Office Visit Family [facility] [address] [place] [address] Ab Hackett PA-C [address] [place] [address] 08/17/2024 10:30 AM EST Office Visit Sleep Disorders Ctr [facility] [address] [place] [address] Lulu Bernabe CRNP [address] [place] [address] 08/31/2024 10:30 AM EST Office Visit Cardiology, [facility] [address] [facility] [place] [address] Yan Whitehead PA-C [address] [facility] [place] [address] 09/27/2024 10:00 AM EST Office Visit Urology, [facility] [address] [facility] [place] [address] Johnathan Patrick MD [address] [facility] [place] [address] 10/06/2024 1:00 PM EDT Office Visit Neurology [facility] [address] [facility] [place] [address] Bing Wilburn MD [address] [facility] [place] [address] 01/19/2025 3:00 PM EDT Nurse Only Ancillary [address], [address]ui [address] [place] [address] [place], Nurse Annual Wellness Cold [address] [place] [address] Pending Results Name Type Priority Associated Diagnoses Date /Time FLUORO SWALLOWING FUNCTION W VIDEO CINE Medical Imaging Routine Pharyngoesophageal dysphagia 07/05/2024 11:30 AM EST Health Maintenance Due Date Last [...] as of this encounter Visit Diagnoses Diagnosis Dysphagia, oropharyngeal phase- Primary documented in this encounter Advance Directives * [...] the patient have Health Care Power of Video Clerk? Yes, in chart and reviewed as current Care Teams Forklift Driver Relationship Specialty Start Date End Date Ab Hackett PA-C [address] [facility] [place] [address] PCP - General Physician Jet Inspector 05/29/23 documented as of this encounter
--- OUTSIDE RECORDS SUMMARY | 2024-09-15 06:46 | External Medical Summary | Summary of Care ---
Author Name Unknown Organization [facility] Address [address] [place] [address] Phone [phone] Care Team Providers Care Dip Lube Operator Name Role Phone Ab Hackett PA-C Primary Care Provide r Encounter Details Date Type Department Care Team (Late st Contact Info) Description 08/02[facility]2024 [facility] [address] [facility] [place] [address] Ab Hackett PA-C [address] [facility] [place] [address] Allergies Active Allergy Reactions Criticality Noted Date Comments Amoxicillin 03/06/2005 Hives, last dose was about age 38 while in the [place] and he had an injection in the [...] day 90 Tablet 3 024 Active Ipratropium [place] 0.03 % Nasal Solution (Atrovent) Administer 2 [...] Tablet Sublingual (Nitrostat)Indica tions:Coronary artery disease of [place] artery of [place] heart with stable angina pectoris (HCC),Calcificati on of coronary artery Place 1 Tablet under the tongue as needed for Pain, Chest. May repeat 3 times. If chest pain continues, call 911. 25 Tablet 11 Active Isosorbide Mononitrate ER 30 MG Oral Tablet Extended Release 24 Hour (Imdur)Indication s:Coronary artery disease of [place] artery of [place] heart with stable angina pectoris (HCC),Calcificati on [...] per HTN protocol #16. 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 documented in this encounter Plan of Treatment Upcoming Encounters Date Type Department Care Team (Late st Contact Info) Description 08/17/2024 10:30 AM EST Office Visit Sleep Disorders Ctr [facility] [address] [facility] [place] [address] Lulu Bernabe CRNP [address] [place] [address] 08/31/2024 10:30 AM EST Office Visit Cardiology, [facility] [address] [place] [address] Yan Whitehead PA-C [address] [place] [address] 09/27/2024 10:00 AM EST Office Visit Urology, [facility] [address] [facility] [place] [address] Johnathan Patrick MD [address] [place] [address] 01/19/2025 3:00 PM EDT Nurse Only Ancillary [address] [place] [address] [place], Nurse Annual Wellness [address] [place] [address] 02/14/2025 10:40 AM EDT Office Visit Family Practice [address] [place] [address] Ab Hackett PA-C [address] [place] [address] Health Maintenance Due Date Last Done Comments [...] the patient have Health Care Power of Indirect Fire Infantryman? Yes, in chart and reviewed as current Care Teams Dip Lube Operator Relationship Specialty Start Date End Date Ab Hackett PA-C [address] [facility] [place] [phone] PCP - General Physician Bead Wire Insulator 05/29/23 documented as of this encounter
--- OUTSIDE RECORDS SUMMARY | 2024-09-15 06:47 | External Medical Summary | Summary of Care ---
Author Name Unknown Organization [facility] Address [address] [facility] [place] [address] Phone [phone] Care Team Providers Care Bindery Machine Operator Name Role Phone Ab Yusuf PA-C Primary Care Provide r Reason for Visit * Reason Onset Date Comments Medication Refill 05/20/2024 Encounter Details Date Type Department Care Team (Late st Contact Info) Description 05/20/[facility]24 [facility] [address] [facility] [place] [address] Ab Yusuf PA-C [address] [facility] [place] [address] Coronary artery disease of [place] artery of [place] heart with stable angina pectoris (HCC); Calcification of coronary artery Allergies Active Allergy Reactions Criticality Noted Date Comments Amoxicillin 03/06/2005 Hives, last dose was about age 38 while in the [place] and he had an injection in the arm and a few days later had total body rash. Cefdinir 03/24/2018 Lower leg redness and swelling documented as of this encounter (statuses as of 05/23/2024) Medications Medication Sig Dispensed Refills Start Date End Date Status METAMUCIL SMOOTH TEXTURE 58.6 % PO POWD Take by mouth 1 Scoop daily as needed . 1 Can 11 04/25/2010 Active MULTIPLE VITAMINS-MINERALS PO PACK one pack daily- Nature's Code 30 Packet 0 10/24/2010 Active GAVISCON 80-14.2 MG PO CHEW Take by mouth as needed. 60 Tab 0 06/01/2012 Active CLARITIN 10 MG PO TABS Take 1 Tablet by mouth in the morning. Active Melatonin 10 MG Capsule Take 1 Capsule by mouth at bedtime. Active Xylitol 500 MG Mouth/Throat Disk Apply 1 Tab to the mouth or throat at bedtime. Active Probiotic Product (PROBIOTIC + OMEGA-3) CAPS Take by mouth 1 Capsule daily . Active famotidine (PEPCID) 20 MG TabletIndications:G astroesophageal reflux disease with esophagitis Take 1 Tab by mouth daily. 90 Tab 1 05/09/2019 Active Apoaequorin 20 MG Oral Capsule Take 20 mg by mouth in the morning. PREVAGEN. 02/13/2020 Active Sildenafil Citrate 100 MG TabletIndications:E levated prostate specific antigen (PSA) TAKE 1 TABLET NEEDED FOR ERECTILE DYSFUNCTION DIRECTED 30 Tab 3 04/14/2020 Active Turmeric 500 MG Oral Tablet Take 1 Tab by mouth daily. Active Mometasone Furoate 0.1 % External OintmentIndications :Dermatitis NEEDED FOR EARS 45 g 3 08/21/2021 Active Fish Oil 1000 MG Oral Capsule Take 1 Capsule by mouth in the morning. Active CPAP every night at bedtime. Active Calcium Carbonate 600 MG Oral Tablet Take 1 Tablet by mouth 2 times a day with morning and evening meals. Active K2-D3 Max 180-125 MCG Oral Capsule Take by mouth. 90MCG - 125MCG Active Losartan Potassium 100 MG Oral Tablet (Cozaar)Indications :HTN, goal below 130/80 Take 1 Tablet by mouth in the morning. 90 Tablet 3 07/15/2023 Active Fluticasone Propionate 50 MCG/ACT Nasal Suspension (Flonase)Indication s:Asthma, moderate persistent ADMINISTER 2 SPRAYS NASALLY DAILY 48 g 3 07/29/2023 Active Pantoprazole Sodium 40 MG Oral Tablet Delayed Release (Protonix)Indicatio ns:Gastroesophageal reflux disease with esophagitis Take 1 tablet daily 30 minutes before the first meal of the day 90 Tablet 3 08/17/2023 Active Ipratropium [place] 0.03 % Nasal Solution (Atrovent) Administer 2 Sprays into nostril in the morning and 2 Sprays at noon and 2 Sprays before bedtime. 90 mL 3 09/22/2023 Active ProAir RespiClick 108 (90 Base) MCG/ACT Inhalation Aerosol Powder Breath Activated (Albuterol Sulfate) Inhale 2 doses every 4-6 hours as needed for shortness of breath, cough or wheeze 3 Each 10/30/2023 Active Azelastine HCl 0.1 % Nasal Solution (Astelin) USE 1 SPRAY NASALLY TWICE A DAY 90 mL 3 11/12/2023 Active Atorvastatin Calcium 40 MG Oral Tablet (Lipitor)Indication s:PAD (peripheral artery disease) ([facility]),Elevated LDL cholesterol level Take 1 Tablet by mouth in the morning. 90 Tablet 1 11/17/2023 Active Fluticasone Propionate Diskus 100 MCG/ACT Inhalation Aerosol Powder Breath ActivatedIndication s:Asthma, moderate persistent,Acquired hypothyroidism USE 1 INHALATION TWICE A DAY (RINSE MOUTH AFTER USE) 180 Each 2 11/19/2023 Active Levothyroxine Sodium 75 MCG Oral Tablet (Levoxyl)Indication s:Acquired hypothyroidism Take one tablet at least 30 minutes prior to breakfast or other medications 90 Tablet 3 01/12/2024 Active Phenazopyridine HCl 200 MG Oral Tablet (Pyridium) Take 1 Tablet by mouth in the morning. 07/21/2023 Active Apixaban 5 MG Oral Tablet (Eliquis)Indication s:History of pulmonary embolism Take 1 Tablet by mouth in the morning and 1 Tablet before bedtime. 180 Tablet 3 02/25/2024 Active Finasteride 5 MG Oral Tablet (Proscar) Take 1 Tablet by mouth in the morning. 90 Tablet 3 02/25/2024 Active Montelukast Sodium 10 MG Oral Tablet (Singulair) TAKE 1 TABLET IN THE MORNING 90 Tablet 3 02/26/2024 Active Colestipol HCl 5 GM Oral GranulesIndications :Dyslipidemia, goal to be determined MIX 3 SCOOPFULS IN LIQUID AND DRINK DAILY 1000 g 3 03/10/2024 Active Gaviscon Extra Strength 160-105 MG Oral Tablet Chewable (Alum Hydroxide-Mag Carbonate) Take by mouth. Active Nitroglycerin 0.4 MG Sublingual Tablet Sublingual (Nitrostat)Indicati ons:Coronary artery disease of [place] artery of [place] heart with stable angina pectoris (HCC),Calcification of coronary artery Place 1 Tablet under the tongue as needed for Pain, Chest. May repeat 3 times. If chest pain continues, call 911. 25 Tablet 11 05/20/2024 Active Isosorbide Mononitrate ER 30 MG Oral Tablet Extended Release 24 Hour (Imdur)Indications: Coronary artery disease of [place] artery of [place] heart with stable angina pectoris (HCC),Calcification of coronary artery Take 1 Tablet by mouth in the morning. 30 Tablet 5 05/23/2024 Active Isosorbide Mononitrate ER 30 MG Oral Tablet Extended Release 24 Hour (Imdur)Indications: Coronary artery disease of [place] artery of [place] heart with stable angina pectoris (HCC),Calcification of coronary artery Take 1 Tablet by mouth in the morning. 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 03/04/2019 FERMIN (generalized anxiety disorder) 03/04/2019 Mild cognitive impairment 08/10/2018 History of DVT of lower extremity 08/10/2018 Overview: Right leg Elevated prostate specific antigen (PSA) [...] eyes, indeterminate stage 03/06/2005 Acquired hypothyroidism 03/06/2005 Overview: TSH Results: TSH(uIU/mL) Jamal Dt/Tm Resulted Value Status 03/07/14 8:35A 03/07/14 0.53 FINAL 1/31/14 8:47A 08/26/13 0.54 FINAL 06/01/12 11:00A 06/01/12 0.34 FINAL documented as of this encounter (statuses as of 05/23/2024) Resolved Problems Problem Noted Date Diagnosed Date Resolved Date Other pulmonary embolism wit hout acute cor pulmonale 12/19/2021 01/12/2024 Pulmonary hypertension 12/19/202101/11 Anosmia 02/27/2020 12/19/2021 Subdural hematoma, chronic 12/17/2017 0 01/12/2024 Carpal tunnel syndrome of left wrist 02/18/2017 08/10/2018 Dream enactment behavior 03/05/2016 DVT (deep venous thrombosis) 05/28/2015 08/10/2018 Overview: RLE ADVANCE DIRECTIVE INFORMATION 03/07/2014 02/10/2018 Overview: No, Advance Directive brochure given to patient. Hyperlipidemia LDL goal <130 03/07/2014 03/22/2015 Polyp of colon, adenomatous 11/06/2011 03/04/2019 Overview: 11/05 on colonoscopy Asthma with severity to be determined 01/17/2010 11/06/2011 Overview: Per Asthma Taxonomy ICD-10 update of inactive term HTN, goal below 140/90 06/14/200903/07 Overview: Modified per HTN protocol #16. Mole .6cm r orthodoxy at scalp margin 03/26/2009 08/10/2018 Benign neoplasm of colon 10/10/200803/2019 Overview: hyperplastic tissue & adenomatous tissue,recommend f/u in 3 years Asthma, allergic 09/22/2008 01/17/2010 Benign neoplasm of colon 09/22/2008 Respiratory symptoms 03/24/2006 018 Overview: ICD-10 update of inactive term HYPERTENSION NOS 09/12/2005 06/14/2009 Overview: Modified per HTN protocol #16. ABN LIVER FUNCTION STUDY 03/11/200507/2010 Overview: AST(U/L) 03/07/05: 55* ALT(U/L) - 03/07/05: 66 Repeat when he comes in 04/01/05 Esophageal reflux 03/06/2005 03/22/2015 Dyslipidemia, goal to be determined 03/06/2005 03/07/2014 documented as of this encounter (statuses as of 05/23/2024) Immunizations Name Administration Dates Next Due COVID-19 mRNA, LNP-s, No Pre serve, 2-Dose Series (Moderna) 08/31/2020,07/30/2020 COVID-19, MRNA-LNP, 23-24, P F, 50 MCG/0.5 mL, 12 YRS AND ABOVE, IM (MODERNA-Spikevax) 04/26/2023,04/26/2023,05/21/2021 COVID-19, mRNA, LNP-s, PF, B ooster, 100mcg/0.5mg [...] cine, Unspecified Formulation 05/25/2023,04/26/2022,04/26/2022,04/26,04/26/2021,05/28/2020,04/26/2020 ,04/26/2020,03/27/2020,03/27/2020,07/2018,04/26/2019,05/12/2018, 4,05/10/2013,05/10/2013,05/16/2009,,05/15/2008,05/15/2008,05/31/20 07,05/31/2007,06/15/2006,06/15/2006,,05/23/2005,06/04/2004, 004,06/02/2003,06/02/2003,05/27/2002,07/27/2001,04/26/2002,04/26/2002,2000,05/04/2001,05/21/2000,05/21/2000, 04/29/1999,04/29/1999,05/01/1998,05/01 Seasonal Influenza, High Dos e, Trivalent, [...] Assigned at Male 04/08/2019 9:10 AM EDT Gender Identity Male 04/08/2019 9:10 AM EDT Sexual Orientation Straight 04/08/2019 9: 10 AM EDT Job Start Date Occupation Industry Not on file Not on file Not on file documented as of this encounter Functional Status Functional Status Response Date of Assess ment Are you deaf or do you have serious difficulty h earing? No 12/25/2017 Are you blind or do you have serious difficulty seeing, even when wearing glasses? No 12/25/2017 Do you have serious difficul ty walking or climbing stairs? (5 years old or older) No 12/25/2017 Do you have difficulty dress ing or bathing? (5 years old or older) No 12/25/2017 Because of a physical, menta l, or emotional condition, do you have difficulty doing errands alone such as visiting a doctor s office or shopping? (15 years old or older) No 12/26/19 18 Cognitive Status Response Date of Assessm ent Because of a physical, menta l, or emotional condition, do you have serious difficulty concentrating, remembering, or making decisions? (5 years old or older) No 12/25/2017 documented as of this encounter Miscellaneous Notes * Telephone Encounter - Aga Simon [facility] - 05/23/2024 10:32 AM EDT Signed Prescriptions: Disp Refills Isosorbide Mononitrate ER 30 MG Oral Table*30 Tab*5 Sig: Take 1 Tablet by mouth in the morning. Authorizing Provider: AB YUSUF Ordering User: AGA SIMON * Telephone Encounter - Cami Escalante PHARM Tech - 05/20/2024 5:00 PM EDT Please resend Rx to [id number] [facility]. Confirmed pharmacy did not receive original prescription. Spoke to [facility] Pending Prescriptions: Disp Refills Isosorbide Mononitrate ER 30 MG Oral Tabl*30 Tab*5 Sig: Take 1 Tablet by mouth in the morning. Last Visit: 05/05/2024 (in office), Visit date not found (telemedicine) 08/02/2024 If no future appointments scheduled, and last appointment is greater than a year ago, please schedule patient for a follow-up appointment Last date the medication was ordered: 05/20/2024 Patient Phone Numbers Labs: Lab Results Component Value Date/Time CREAT 0.80 05/05/2024 12:00 AM CREAT 0.9 03/29/2020 12:00 PM POTASSIUM 3.9 05/05/2024 12:00 AM POTASSIUM 4.2 03/29/2020 12:00 PM TSH 0.439 05/05/2024 12:00 AM TSH 0.38 03/29/2020 12:00 PM LDL 30 01/06/2024 08:37 AM LDL 98 03/29/2020 12:00 PM LDL NOT APPLICABLE 03/29/2020 12:00 PM ALT 22 01/07/2023 09:46 AM ALT 19 03/29/2020 12:00 PM HGBA1C 5.5 09/29/2019 09:46 AM documented in this encounter Plan of Treatment Upcoming Encounters Date Type Department Care Team (Late st Contact Info) Description 05/24/2024 2:15 PM EDT Imaging Radiology [facility] [address] [place] [address] 08/02/2024 1:00 PM EST Rehab Services Voice Lab, [facility] [address] [facility] [place] [address] Yan Lindsey, [facility]AIRLINE RESERVATIONIST [address] [place] [address] 08/02/2024 1:30 PM EST Appointment Radiology, [facility] [address] [facility] [place] [phone] 08/02/2024 4:40 PM EST Office Visit Family Practice [address] [place] [address] Ab Yusuf PA-C [address] [place] [address] 08/17/2024 10:30 AM EST Office Visit Sleep Disorders Ctr [facility] [address] [place] [phone] Lulu Bernabe CRNP [address] [place] [address] 08/31/2024 10:30 AM EST Office Visit Cardiology, [facility] [address] [facility] [place] [address] Yan Whitehead PA-C [address] [facility] [place] [address] 09/27/2024 10:00 AM EST Office Visit Urology, [facility] [place] [address] Johnathan Patrick MD [address] [facility] [place] [address] 10/06/2024 1:00 PM EDT Office Visit Neurology [facility] [address] [facility] [place] [address] Bing Wilburn MD [address] [facility] [place] [address] 01/19/2025 3:00 PM EDT Nurse Only Ancillary [address], [address] [place] [address] [place], Nurse Annual Wellness Cold [address] [place] [address] Health Maintenance Due Date Last Done Comments COVID-19 Vaccine ( season) 2024 04/26/2023, 04/26/2023, 05/21/2021, Additional history exists DXA Scan 06/25/2024 06/25/2022, 05/29, 04/29/2010, Additional history exists Adult Wellness Visit 01/13/2025 01/14/2024, 01/08/2023, 08/01/2021 Depression Monitoring 01/13/2025 01/14/2024 GFR 05/05/2025 05/05/2024, 08/0 02/2024, 01/06/2024, Additional history exists TSH 05/05/2025 05/05/2024, 12/25, 12/20/2021, Additional history exists Albumin/Creatinine Ratio 01/07/2026 01/07/2023 DTap/Tdap Vaccines (3 - Td or Tdap) 07/15/2033 07/15/2023, 06/01/2012, 02/25/2002 Zoster Vaccines Completed 08/03/2019, 05/27, 04/03/2008 RETIRED - COLONOSCOPY-EVERY 5 YRS AGES 18-100 Discontinued 04/17/2020, 04/17/2020, 11/02/2014, Additional history exists Hepatitis B Vaccine Completed 03/11/2024, 08/08/2022, 07/03/2022 Influenza Vaccine (FLU shot) Completed 05/15/2024, 05/25/2023, 05/25/2023, Additional history exists HPV (Gardasil) Vaccine Aged Out No lo nger eligible based on patient's age to complete this topic MENINGOCOCCAL (MENACTRA/MENVEO) Aged Out No longer eligible based on patient's age to complete this topic documented as of this encounter Medical Devices Not on filedocumented as of this encounter Visit Diagnoses Diagnosis Coronary artery disease of [place]qugmi[place] artery of [place]mi[place] heart with stable angina pectoris (HCC) Calcification of coronary artery documented in this encounter Advance Directives * [...] the patient have Health Care Power of Tobacco Stemmer Machine? Yes, in chart and reviewed as current Care Teams Bindery Machine Operator Relationship Specialty Start Date End Date Ab Yusuf PA-C [address] [facility] [place] [address] PCP - General Physician Molded Goods Inspector Trimmer 05/29/23 documented as of this encounter
--- OUTSIDE RECORDS SUMMARY | 2024-09-15 06:47 | External Medical Summary | Summary of Care ---
Author Name Unknown Organization [facility] Address [address] [place] [address] Phone [phone] Care Team Providers Care Gastroenterology Manager Name Role Phone Ab Hackett PA-C Primary Care Provide r Reason for Visit * Reason Onset Date Comments Fax 06/28/2024 Encounter Details Date Type Department Care Team (Late st Contact Info) Description [facility]/28/2024 [facility] [facility] [place] [address] Ab Hackett PA-C [address] [facility] [place] [address] Fax Allergies Active Allergy Reactions Criticality Noted Date Comments Amoxicillin 03/06/2005 Hives, last dose was about age 38 while in the [place] and he had an injection in the arm and a few days later had total body rash. Cefdinir 03/24/2018 Lower leg redness and swelling documented as of this encounter (statuses as of 06/28/2024) Medications METAMUCIL SMOOTH TEXTURE 58.6 % PO [...] mouth in the morning. 90 Tablet 3 07/15/20 23 Active Fluticasone Propionate 50 MCG/ACT Nasal Suspension (Flonase)Indicatio ns:Asthma, moderate persistent ADMINISTER 2 SPRAYS NASALLY DAILY 48 g 3 07/29/19 24 Active Pantoprazole Sodium 40 MG Oral Tablet Delayed Release (Protonix)Indicati ons:Gastroesophage al reflux disease with esophagitis Take 1 tablet daily 30 minutes before the first meal of the day 90 Tablet 3 08/17/19 24 Active Ipratropium Bell 0.03 % Nasal Solution (Atrovent) Administer 2 [...] DAY 90 mL 3 11/12/19 24 Active Atorvastatin Calcium 40 MG Oral Tablet (Lipitor)Indicatio ns:PAD (peripheral artery disease) ([facility]),Elevated LDL cholesterol level Take 1 Tablet by mouth in the morning. 90 Tablet 1 11/17/19 24 Active Fluticasone Propionate Diskus 100 MCG/ACT [...] Tablet Sublingual (Nitrostat)Indicat ions:Coronary artery disease of [place] artery of [place] heart with stable angina pectoris (HCC),Calcificatio n of coronary artery Place 1 Tablet under the tongue as needed for Pain, Chest. May repeat 3 times. If chest pain continues, call 911. 25 Tablet 11 05/20/20 24 Active Isosorbide Mononitrate ER 30 MG Oral Tablet Extended Release 24 Hour (Imdur)Indications :Coronary artery disease of [place] artery of [place] heart with stable angina pectoris (HCC),Calcificatio n of coronary artery Take 1 Tablet by mouth in the morning. 90 Tablet 3 06/15/20 24 Active Hospital, Clinic, or Other Facility Administered Medication Ordered Dose Route Frequency Start Date End Date Status Albuterol Sulfate (Proventil) (2.5 MG/3ML) 0.083% inhalation solution 2.5 mgIndications:Moderate persistent asthma without complication 2.5 mg NEBULIZER Q4H PRN 01/03/2022 Active documented as of this encounter (statuses as of 06/28/2024) Active Problems Problem Noted Date Diagnosed Date [...] as of this encounter (statuses as of 06/28/2024) Resolved Problems Problem Noted Date Diagnosed Date [...] per HTN protocol #16. Mole .6cm r hinduism at scalp margin 03/26/2009 08/10/2018 Benign neoplasm of colon 10/10/200803/2019 Overview (10/16/2008): hyperplastic tissue & adenomatous tissue,recommend f/u in 3 years Asthma, allergic 09/22/2008 01/17/2010 Benign neoplasm of colon 09/22/2008 Respiratory symptoms 03/24/2006 018 Overview (04/28/2019): ICD-10 update of inactive term HYPERTENSION NOS 09/12/2005 06/14/2009 Overview (06/14/2009): Modified per [facility] protocol #16. 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 Not on file Not on [...] encounter Miscellaneous Notes * Telephone Encounter - Neema Mcgee OSA - 06/28/2024 8:22 AM EST Caller requesting the following information to be faxed: Name/Company of caller: [employer] Information requested to be faxed: Vicki Hurt Fax number: [phone] Attention to Name/Company: N/a Any additional information?: N/a documented in this encounter Plan of Treatment Upcoming Encounters Date Type Department Care Team (Late st Contact Info) Description 08/02/2024 1:00 PM EST Rehab Services Voice Lab, [facility] [address] [facility] [place] [address] Yan Lindsey, [facility]-RETAIL FIELD REPRESENTATIVE [address] [place] [address] 08/02/2024 1:30 PM EST Appointment Radiology, [facility] [address] [facility] [place] [phone] 08/02/2024 3:40 PM EST Office Visit Family Practice [address], [address] [place] [address] [place] [address] Ab Hackett PA-C [address] [facility] [place] [address] 08/17/2024 10:30 AM EST Office Visit Sleep Disorders Ctr [facility] [address] [facility] [place] [phone] Lulu Bernabe CRNP [address] [place] [address] 08/31/2024 10:30 AM EST Office Visit Cardiology, [facility] [address] [place] [address] Yan Whitehead, PA-C [address] [place] [address] 09/27/2024 10:00 AM EST Office Visit Urology, [facility] [address] [place] [address] Johnathan Patrick MD [address] [place] [address] 10/06/2024 1:00 PM EDT Office Visit Neurology [facility] [place] [address] [place] [address] Bing Wilburn MD [address] [place] [address] 01/19/2025 3:00 PM EDT Nurse Only Ancillary [address], [place] [address] [place] [address] [place], Nurse Annual Wellness Cold [address] [place] [address] Health Maintenance Due Date Last Done Comments [...] the patient have Health Care Power of Engineering Supervisor? Yes, in chart and reviewed as current Care Teams Gastroenterology Manager Relationship Specialty Start Date End Date Ab Hackett PA-C [address] [facility] [place] [address] PCP - General Physician Manager Interventional 05/29/23 documented as of this encounter
--- OUTSIDE RECORDS SUMMARY | 2024-09-15 06:47 | External Medical Summary | Summary of Care ---
Author Name Unknown Organization [facility] Address [address] [facility] [place] [address] Phone [phone] Care Team Providers Care Veterinary Practice Manager Name Role Phone Ab Hackett PA-C Primary Care Provide r Encounter Details Date Type Department Care Team (Late st Contact Info) Description 03/15/2024 Telephone [facility] Otolaryngology [address] [place] [address] Izabella Monterroso MD [address] [place] [address] Allergies Active Allergy Reactions Criticality Noted Date Comments Amoxicillin 03/06/2005 Hives, last dose was about age 38 while in the [place] and he had an injection in the arm and a few days later had total body rash. Cefdinir 03/24/2018 Lower leg redness and swelling documented as of this encounter (statuses as of 06/14/2024) Medications METAMUCIL SMOOTH TEXTURE 58.6 % PO [...] 90 Tablet 3 08/17/19 24 Active Ipratropium [place] 0.03 % Nasal Solution (Atrovent) Administer 2 [...] DAILY 1000 g 3 03/10/20 24 Active Hospital, Clinic, or Other Facility Administered Medication Ordered Dose Route Frequency Start Date End Date Status Albuterol Sulfate (Proventil) (2.5 MG/3ML) 0.083% inhalation solution 2.5 mgIndications:Moderate persistent asthma without complication 2.5 mg NEBULIZER Q4H PRN 01/03/2022 Active documented as of this encounter (statuses as of 06/14/2024) Active Problems Problem Noted Date Diagnosed Date [...] as of this encounter (statuses as of 06/14/2024) Resolved Problems Problem Noted Date Diagnosed Date [...] per HTN protocol #16. 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 Pt would like [facility] Radiology to please call him to let him know if Bx is still needed or not. Pt also requested that I send TE to his PCP to place the order for a follow up CT neck with contrast in 1 yr. * Telephone Encounter - Rosa Nagel LPN - 03/15/2024 10:05 AM EDT LMOM for pt to return call. * Telephone Encounter - Izabella Monterroso MD - 03/15/2024 9:44 AM EDT Please let patient know I reviewed CT, which did not show a definitive parotid mass. Knowing this, they radiologist at [facility] may decided not to do the biopsy if there is no target lesion. If that is the case it would be reasonable to observe and PCP can repeat CT neck with contrast in a year documented in this encounter Plan of Treatment Upcoming Encounters Date Type Department Care Team (Late st Contact Info) Description 08/02/2024 1:00 PM EST Rehab Services Voice Lab, [facility] [address] [facility] [address] Yan Lindsey, [facility]EM[facility]ION TECHNICIAN [address] [place] [address] 08/02/2024 1:30 PM EST Appointment Radiology, [facility] [address] [facility] [address] 08/02/2024 4:40 PM EST Office Visit Family [facility] [address], [place] [address] [facility] [place] [address] Ab Hackett PAAnastasiaC [address] [facility] [place] [address] 08/17/2024 10:30 AM EST Office Visit Sleep Disorders Ctr [facility] 132 [facility] [place] [phone] Lulu Bernabe CRNP [address] [place] [address] 08/31/2024 10:30 AM EST Office Visit Cardiology, [facility] [address] [facility] [place] [address] Yan White[place], PA-C [address] [place] [address] 09/27/2024 10:00 AM EST Office Visit Urology, [facility] [address] [facility] [place] [address] Johnathan Patrick MD [address] [place] [address] 10/06/2024 1:00 PM EDT Office Visit Neurology [facility] [address] [place] [address] Bing Wilburn MD 200 [place] [address] 01/19/2025 3:00 PM EDT Nurse Only Ancillary [address], [place] [address] [place] [address] [place], Nurse Annual Wellness [place] [address] [place] [address] Health Maintenance Due Date Last Done Comments [...] the patient have Health Care Power of Recreational Counselor? Yes, in chart and reviewed as current Care Teams Veterinary Practice Manager Relationship Specialty Start Date End Date Ab Hackett PA-C [address] [facility] [place] [address] PCP - General Physician Self Pay Representative 05/29/23 documented as of this encounter
--- OUTSIDE RECORDS SUMMARY | 2024-09-15 06:47 | External Medical Summary | Summary of Care ---
Author Name Unknown Organization [facility] Address [address] [place] [facility] [place] [address] Phone [phone] Care Team Providers Care Dental Officer Name Role Phone Ab Hackett PA-C Primary Care Provide r Reason for Visit * Reason Onset Date Comments Medication Refill 06/15/2024 Encounter Details Date Type Department Care Team (Late st Contact Info) Description 06/15/2024 Refill Family [facility], [place] [address] [facility] [place] [address] Ab Hackett PA-C [address] [facility] [place] [address] Coronary artery disease of [place] artery of [place] heart with stable angina pectoris (HCC)*; Calcification of coronary artery Allergies Active Allergy Reactions Criticality Noted Date Comments Amoxicillin 03/06/2005 Hives, last dose was about age 38 while in the [place] and he had an injection in the arm and a few days later had total body rash. Cefdinir 03/24/2018 Lower leg redness and swelling documented as of this encounter (statuses as of 06/15/2024) Medications METAMUCIL SMOOTH TEXTURE 58.6 % PO [...] 90 Tablet 3 08/17/19 24 Active Ipratropium [place] 0.03 % Nasal Solution (Atrovent) Administer 2 [...] Tablet Sublingual (Nitrostat)Indicat ions:Coronary artery disease of [place] artery of [place] heart with stable angina pectoris (HCC),Calcificatio n of coronary artery Place 1 Tablet under the tongue as needed for Pain, Chest. May repeat 3 times. If chest pain continues, call 911. 25 Tablet 11 05/20/20 24 Active Isosorbide Mononitrate ER 30 MG Oral Tablet Extended Release 24 Hour (Imdur)Indications :Coronary artery disease of [place] artery of [place] heart with stable angina pectoris (HCC),Calcificatio n of coronary artery Take 1 Tablet by mouth in the morning. 90 Tablet 3 06/15/20 24 Active Isosorbide Mononitrate ER 30 MG Oral Tablet Extended Release 24 Hour (Imdur)Indications :Coronary artery disease of [place] artery of [place] heart with stable angina pectoris (HCC),Calcificatio n of coronary artery Take 1 Tablet by mouth in the morning. 30 Tablet 5 05/23/20 24 024 Discontin ued(Refil l) Hospital, Clinic, or Other Facility Administered Medication Ordered Dose Route Frequency Start Date End Date Status Albuterol Sulfate (Proventil) (2.5 MG/3ML) 0.083% inhalation solution 2.5 mgIndications:Moderate persistent asthma without complication 2.5 mg NEBULIZER Q4H PRN 01/03/2022 Active documented as of this encounter (statuses as of 06/15/2024) Active Problems Problem Noted Date Diagnosed Date [...] as of this encounter (statuses as of 06/15/2024) Resolved Problems Problem Noted Date Diagnosed Date [...] per HTN protocol #16. 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 Not on file Not on file Not on file retired [employer] Not on file Not on file Not [...] encounter Miscellaneous Notes * Telephone Encounter - Karma Evans PA-C - 06/15/2024 8:31 AM EST Signed Prescriptions: Disp Refills Isosorbide Mononitrate ER 30 MG Oral Table*90 Tab*3 Sig: Take 1 Tablet by mouth in the morning.Authorizing Provider: KARMA EVANS * Telephone Encounter - Brianna Shah LPN - 06/15/2024 8:29 AM EST Insurance requesting 90 day supply of medication documented in this encounter Plan of Treatment Upcoming Encounters Date Type Department Care Team (Late st Contact Info) Description 08/02/2024 1:00 PM EST Rehab Services Voice Lab, [address] [address] Yan Lindsey, [facility]-TRANSFER WORKER [address] [place] [address] 08/02/2024 1:30 PM EST Appointment Radiology, [address] [address] 08/02/2024 4:40 PM EST Office Visit [facility] [place] [address] [place] [place] [address] Ab Hackett PA-C [address] [place] [address] 08/17/2024 10:30 AM EST [facility] [address] [place] [phone] Lulu Bernabe CRNP [address] [place] [address] 08/31/2024 10:30 AM EST Office Visit Cardiology, [facility] 132 [facility] [place] [address] Yan Whitehead PA-C 132 [facility] [place] [address] 09/27/2024 10:00 AM EST Office Visit Urology, [facility] [address] [facility] [place] [address] Johnathan Patrick MD [address] [facility] [place] [address] 10/06/2024 1:00 PM EDT Office Visit Neurology [facility] 200 [facility] [place] [address] Bing Wilburn MD 200 [place] [address] 01/19/2025 3:00 PM EDT Nurse Only Ancillary [address], [place] [address] [place] [address] [place], Nurse Annual Wellness [place] [address] [place] [address] Health Maintenance Due Date Last Done Comments [...] Visit Diagnoses Diagnosis Coronary artery disease of [place] artery of [place] heart with stable angina pectoris (HCC)- Primary Calcification of coronary artery documented in this [...] the patient have Health Care Power of Director Call? Yes, in chart and reviewed as current Care Teams Dental Officer Relationship Specialty Start Date End Date Ab Hackett PA-C [address] [facility] [place] [address] PCP - General Physician Social Contact Worker 05/29/23 documented as of this encounter
--- OUTSIDE RECORDS SUMMARY | 2024-09-15 06:48 | External Medical Summary | Summary of Care ---
Author Name Unknown Organization [facility] Address [address] [place] [address] Phone [phone] Care Team Providers Care Width Stripper Name Role Phone Ab Hackett PA-C Primary Care Provide r Reason for Referral * Evaluate & Treat - Unlimited Visits (Within 3 days (urgent)) - Authorized Specialty Diagnoses / Procedures Referred By Contact Referred To Contact Cardiovascular Medicine / Cardiology Diagnoses Coronary artery disease of [place] artery of [place] heart with stable angina pectoris (HCC) Calcification of coronary artery Ab Hackett PA-C [address] [facility] [place] [address] Referral ID Status Reason Start Date Expiration Date Visits Requested Visits Authorized [id number] Authorized Specialty Services Required 4 [phone] Question Answer Referral Priority Within 3 days (urgent) Where should this appointment be scheduled? [facility] To which of the following clinics are you referring your patient? General Cardiology Clinic Comments New stable angina; CT showed severe coronary calcifications in [place]. Reason for Visit * Reason Onset Date Comments Test Results 05/20/2024 Unexpected or In determinate Result Encounter Details Date Type Department Care Team (Late st Contact Info) Description 05/20/2024 Telephone Radiology [facility] [address] [facility] [place] 132 [facility] [place] [address] Marisela Chong DO [address] [facility] [place] [address] Test Results (Unexpected or Indeterminate ... Allergies Active Allergy Reactions Criticality Noted Date Comments Amoxicillin 03/06/2005 Hives, last dose was about age 38 while in the [place] and he had an injection in the arm and a few days later had total body rash. Cefdinir 03/24/2018 Lower leg redness and swelling documented as of this encounter (statuses as of 05/20/2024) Medications Medication Sig Dispensed Refills Start Date [...] daily . Active famotidine (PEPCID) 20 MG TabletIndications:Ga stroesophageal reflux disease with esophagitis Take 1 Tab by mouth daily. 90 Tab 1 05/09/2019 Active Apoaequorin 20 MG Oral Capsule Take 20 mg by mouth in the morning. PREVAGEN. 02/13/2020 Active Sildenafil Citrate 100 MG TabletIndications:El evated prostate specific antigen (PSA) TAKE 1 TABLET NEEDED FOR ERECTILE DYSFUNCTION DIRECTED 30 Tab 3 04/14/2020 Active Turmeric 500 MG Oral Tablet Take 1 Tab by mouth daily. Active Mometasone Furoate 0.1 % External OintmentIndications: Dermatitis NEEDED FOR EARS 45 g 3 08/21/2021 [...] Active Losartan Potassium 100 MG Oral Tablet (Cozaar)Indications: HTN, goal below 130/80 Take 1 Tablet by mouth in the morning. 90 Tablet 3 07/15/2023 Active Fluticasone Propionate 50 MCG/ACT Nasal Suspension (Flonase)Indications :Asthma, moderate persistent ADMINISTER 2 SPRAYS NASALLY DAILY 48 g 3 07/29/2023 Active Pantoprazole Sodium 40 MG Oral Tablet Delayed Release (Protonix)Indication s:Gastroesophageal reflux disease with esophagitis Take 1 tablet daily 30 minutes before the first meal of the day 90 Tablet 3 08/17/2023 Active Ipratropium [place] 0.03 % Nasal Solution (Atrovent) Administer 2 [...] Active Atorvastatin Calcium 40 MG Oral Tablet (Lipitor)Indications :PAD (peripheral artery disease) (HCC),Elevated LDL cholesterol level Take 1 Tablet by mouth in the morning. 90 Tablet 1 11/17/2023 Active Fluticasone Propionate Diskus 100 MCG/ACT Inhalation Aerosol Powder Breath ActivatedIndications :Asthma, moderate persistent,Acquired hypothyroidism USE 1 INHALATION TWICE A DAY (RINSE MOUTH AFTER USE) 180 Each 2 11/19/2023 Active Levothyroxine Sodium 75 MCG Oral Tablet (Levoxyl)Indications :Acquired hypothyroidism Take one tablet at least 30 minutes prior to breakfast or other medications 90 Tablet 3 01/12/2024 Active Phenazopyridine HCl 200 MG Oral Tablet (Pyridium) Take 1 Tablet by mouth in the morning. 07/21/2023 Active Apixaban 5 MG Oral Tablet (Eliquis)Indications :History of pulmonary embolism Take 1 Tablet by mouth in the morning and 1 Tablet before bedtime. 180 Tablet 3 02/25/2024 Active Finasteride 5 MG Oral Tablet (Proscar) Take 1 Tablet by mouth in the morning. 90 Tablet 3 02/25/2024 Active Montelukast Sodium 10 MG Oral Tablet (Singulair) TAKE 1 TABLET IN THE MORNING 90 Tablet 3 02/26/2024 Active Colestipol HCl 5 GM Oral GranulesIndications: Dyslipidemia, goal to be determined MIX 3 SCOOPFULS IN LIQUID AND DRINK DAILY 1000 g 3 03/10/2024 Active Gaviscon Extra Strength 160-105 MG Oral Tablet Chewable (Alum Hydroxide-Mag Carbonate) Take by mouth. Active Isosorbide Mononitrate ER 30 MG Oral Tablet Extended Release 24 Hour (Imdur)Indications:C oronary artery disease of [place] artery of [place] heart with stable angina pectoris (HCC),Calcification of coronary artery Take 1 Tablet by mouth in the morning. 30 Tablet 5 05/20/2024 Active Nitroglycerin 0.4 MG Sublingual Tablet Sublingual (Nitrostat)Indicatio ns:Coronary artery disease of [place] artery of [place] heart with stable angina pectoris (HCC),Calcification of coronary artery Place 1 Tablet under the tongue as needed for Pain, Chest. May repeat 3 times. If chest pain continues, call 911. 25 Tablet 11 05/20/2024 Active Hospital, Clinic, or Other Facility Administered Medication Ordered Dose Route Frequency Start Date End Date Status Albuterol Sulfate (Proventil) (2.5 MG/3ML) 0.083% inhalation solution 2.5 mgIndications:Moderate persistent asthma without complication 2.5 mg NEBULIZER Q4H PRN 01/03/2022 Active documented as of this encounter (statuses as of 05/20/2024) Active Problems Problem Noted Date Diagnosed Date [...] as of this encounter (statuses as of 05/20/2024) Resolved Problems Problem Noted Date Diagnosed Date [...] per HTN protocol #16. Mole .6cm r denominational at scalp margin 03/26/2009 08/10/2018 Benign neoplasm [...] as of this encounter (statuses as of 05/20/2024) Immunizations Name Administration Dates Next Due COVID-19 [...] Notes * Telephone Encounter - Leigh Ann Johnson OSA - 05/20/2024 1:40 PM EDT Spoke with pt. Scheduled first available and added to wait list. * Telephone Encounter - Ab Hackett PA-C - 05/20/2024 12:21 PM EDT Spoke with pt over phone - still reporting periodic chest pain which seems to be occurring more with activity, although not always consistent. For example, he noticed it while walking outside in the cold, but did NOT have the pain later in the day when he was walking in the warmer weather. Described as "someone sitting on chest." Starting imdur and nitro. Sending urgent referral to cardio. Knows to go directly to ED with worsening sx's. Please schedule with cardio. * Telephone Encounter - Dorothy Kennedy OSA - 05/20/2024 10:52 AM EDT Hello- The radiologist discovered an unexpected or indeterminate finding on Miguel Wang ([id number]) and asks that you review the following report. Study Type: CT CHEST WO CONTRAST Date of Study: 05/13/2024 IMPRESSION 1. Several strands, and a thick band, of linear atelectasis or fibrosis at the right lower lobe, consistent with residua of the prior findings at the right lower lobe in 2015 related to prior pulmonary embolus. Prior small [...] increased in size since the prior study. Please respond to this encounter to acknowledge receipt of this message and take responsibility to ensure this report is reviewed. Thank you, GAVIN Stewart Client Service [facility] documented in this encounter Plan of Treatment Upcoming Encounters Date Type Department Care Team (Late st Contact Info) Description 08/02/2024 1:00 PM EST Rehab Services Voice Lab, [address] [place] [address] Yan Lindsey, [facility]-WEBSITE PROGRAMMER [address] [place] [address] 08/02/2024 1:30 PM EST Appointment Radiology, [facility] 400 [facility] [place] [address] 08/02/2024 4:40 PM EST Office Visit [facility] [place] [address] [place] [address] Ab Hackett PA-C [address] [place] [address] 08/17/2024 10:30 AM EST Office Visit [facility] Disorders Ctr [facility] 132 [place] [phone] Lulu Bernabe CRNP 132 [place] [address] 08/31/2024 10:30 AM EST Office Visit Cardiology, [facility] 132 [place] [address] Yan Whitehead PA-C 132 [place] [address] 09/27/2024 10:00 AM EST Office Visit Urology, [facility] 132 [place] [address] Johnathan Patrick MD 27 [facility] [place] [address] 10/06/2024 1:00 PM EDT Office Visit Neurology [facility] 200 [facility] [place] [address] Bing Wilburn MD 200 [place] [address] 01/19/2025 3:00 PM EDT Nurse Only Ancillary [place] [address] [place] [address] [place], Nurse Annual Wellness [place] [address] [place] [address] Scheduled Orders Name Type Priority Associated Diagnoses Orde r Schedule US RENAL Medical Imaging Routine Renal cyst, acquired, right Expected: 05/20/2024 (Approximate), Expires: 06/20/2025 Scheduled Referrals Name Type Priority Associated Diagnoses Orde r Schedule CARDIOLOGY REFERRAL OP Referral Within 3 days (urgent) Coronary artery disease of [place] artery of [place] heart with stable angina pectoris (HCC) Calcification of coronary artery Ordered: 05/20/2024 Health Maintenance Due Date Last Done Comments COVID-19 Vaccine ( season) 2024 04/26/2023, 04/26/2023, 05/21/2021, Additional history exists DXA Scan 06/25/2024 06/25/2022, 05/29, 04/29/2010, Additional history exists Adult Wellness Visit 01/13/2025 01/14/2024, 01/08/2023, 08/01/2021 Depression Monitoring 01/13/2025 01/14/2024 GFR 05/05/2025 05/05/2024, 02/2024, 01/06/2024, Additional history exists TSH 05/05/2025 [...] Visit Diagnoses Diagnosis Coronary artery disease of [place] artery of [place] heart with stable angina pectoris (HCC)- Primary Calcification of coronary artery Renal cyst, acquired, right Acquired cyst of kidney documented in this encounter Advance Directives * [...] the patient have Health Care Power of Pipeline Inspector? Yes, in chart and reviewed as current Care Teams Width Stripper Relationship Specialty Start Date End Date Ab Hackett PA-C [address] [facility] [place] [address] PCP - General Physician Sample Finisher 05/29/23 documented as of this encounter
--- OUTSIDE RECORDS SUMMARY | 2024-09-15 06:48 | External Medical Summary ---
Author Name Unknown Address Unknown Organization K01:[facility] - [address] [place] [address] Laboratory Report Ordering Provider Test Date Status JOHNADELINA 05/23/2024 07:54:39 Final Observation Date Value Abnormality Reference (Units ) Status TSH 05/23/2024 07:54:39 0.61 0.27-4.20 (uIU/mL) Final Performing Location LAB[facility] - [address] [place] [address]
--- OUTSIDE RECORDS SUMMARY | 2024-09-15 06:48 | External Medical Summary | Summary of Care ---
Author Name Unknown Organization [facility] Address [address] [place] [address] Phone [phone] Care Team Providers Care Chief Communications Officer Name Role Phone Ab Hackett PA-C Primary Care Provide r Reason for Referral * Precert (Within 10 days (routine)) - Authorized Specialty Diagnoses / Procedures Referred By Contmariely t Referred To Contact Radiology Diagnoses Other chest pain Abnormal CXR Procedures CT CHEST WO CONTRAST Marisela Chong DO [address] [facility] [place] [address] Referral ID Status Reason Start Date Expiration Date V isits Requested Visits Authorized [id number] Authorized 05/10/2024 999 999 Reason for Visit * Reason Onset Date Comments Test Results Imaging Study 05/10/2024 Appointment 05/10/2024 CT chest Encounter Details Date Type Department Care Team (Late st Contact Info) Description 05/10/2024 Telephone Family Practice [place] [facility] [place] [address] [place] [place] [address] Marisela Chong DO [address] [facility] [address] Test Results Imaging Study; Appointment (C... Allergies Active Allergy Reactions Criticality Noted Date Comments Amoxicillin 03/06/2005 Hives, last dose was about age 38 while in the [place] and he had an injection in the arm and a few days later had total body rash. Cefdinir 03/24/2018 Lower leg redness and swelling documented as of this encounter (statuses as of 05/12/2024) Medications Medication Sig Dispensed Refills Start Date [...] day 90 Tablet 3 08/17/2023 Active Ipratropium [place] 0.03 % Nasal Solution (Atrovent) Administer 2 [...] Oral Tablet (Lipitor)Indications :PAD (peripheral artery disease) ([facility]),Elevated LDL cholesterol level Take 1 [...] (Alum Hydroxide-Mag Carbonate) Take by mouth. Active Hospital, Clinic, or Other Facility Administered Medication Ordered Dose Route Frequency Start Date End Date Status Albuterol Sulfate (Proventil) (2.5 MG/3ML) 0.083% inhalation solution 2.5 mgIndications:Moderate persistent asthma without complication 2.5 mg NEBULIZER Q4H PRN 01/03/2022 Active documented as of this encounter (statuses as of 05/12/2024) Active Problems Problem Noted Date Diagnosed Date [...] as of this encounter (statuses as of 05/12/2024) Resolved Problems Problem Noted Date Diagnosed Date [...] per HTN protocol #16. Mole .6cm r jewish at scalp margin 03/26/2009 08/10/2018 Benign neoplasm [...] as of this encounter (statuses as of 05/12/2024) Immunizations Name Administration Dates Next Due COVID-19 [...] t, Adjuvanted, 65+ YRS, PF, (Fluad) 05/02/2019,05/03/2018 TD, Preservative Free 02/25/2002 TDAP (age 8 [...] Telephone Encounter - Carolee Nevarez LPN - 05/12/2024 11:15 AM EDT Left message for pt to return call or check messages for update * Telephone Encounter - Heidi Silva OSA - 05/12/2024 9:17 AM EDT Please send encounter to [id number] when pt is aware of chest CT * Telephone Encounter - Marisela Chong DO - 05/10/2024 4:02 PM EDT Patient continues to have chest pain ? Abnormality on cxr Will check ct chest documented in this encounter Plan of Treatment Upcoming Encounters Date Type Department Care Team (Late st Contact Info) Description 05/13/2024 3:00 PM EDT Imaging Radiology [address] [place] [address] 08/02/2024 1:00 PM EST Rehab Services Voice Lab, [facility] [address] [place] [address] Yan Lindsey, [facility] 132 [facility] [place] [address] 08/02/2024 1:30 PM EST Appointment Radiology, [facility] [phone] 08/02/2024 4:40 PM EST Office Visit Family Practice [place] [facility] [address] [place], [place] [address] Ab Hackett PA-C [address] [place] [address] 08/17/2024 10:30 AM EST Office Visit Sleep Disorders Ctr [facility] 132 [facility] [place] [phone] Lulu Bernabe CRNP 132 [place] [address] 09/27/2024 10:00 AM EST Office Visit Urology, [facility] 132 [facility] [place] [address] Johnathan Patrick MD 27 [place] [address] 10/06/2024 1:00 PM EDT Office Visit Neurology [facility] 200 [place] [address] Bing Wilburn MD 200 [facility] [place] [address] 01/19/2025 3:00 PM EDT Nurse Only Ancillary [address], [place] [address] [place] [address] [place], Nurse Annual Wellness Cold [address] [place] [address] Scheduled Orders Name Type Priority Associated Diagnoses Orde r Schedule CT CHEST WO CONTRAST Medical Imaging Routine Other chest pain Abnormal CXR Ordered: 05/10/2024 Health Maintenance Due Date Last Done Comments COVID-19 Vaccine ( season) 2024 04/26/2023, 04/26/2023, 05/21/2021, Additional history exists Influenza Vaccine (FLU shot) (#1) 2024 05/25/2023, 05/25/2023, 05/25/2023, Additional history exists DXA Scan 06/25/2024 06/25/2022, [...] Hepatitis B Vaccine Completed 03/11/2024, 08/08/2022, 07/03/2022 HPV (Gardasil) Vaccine Aged Out No lo nger eligible based on patient's age to complete this topic MENINGOCOCCAL (MENACTRA/MENVEO) Aged Out No longer eligible based on patient's age to complete this topic documented as of this encounter Medical Devices Not on filedocumented as of this encounter Visit Diagnoses Diagnosis Other chest pain- Primary Abnormal CXR Other nonspecific abnormal finding of lung field documented in this encounter Advance Directives * [...] the patient have Health Care Power of Evaluation Analyst? Yes, in chart and reviewed as current Care Teams Chief Communications Officer Relationship Specialty Start Date End Date Ab Hackett PA-C [address] [facility] [place] [phone] PCP - General Physician Director Of Vocational Training 05/29/23 documented as of this encounter
--- OUTSIDE RECORDS SUMMARY | 2024-09-15 06:48 | External Medical Summary | Summary of Care ---
Author Name Unknown Organization [facility] Address [address] [place] [address] Phone [phone] Care Team Providers Care Manager Of Training And Development Name Role Phone Ab Hackett PA-C Primary Care Provide r Reason for Referral * Evaluate & Treat - Unlimited Visits (Within 3 days (urgent)) - Authorized Specialty Diagnoses / Procedures Referred By Contact Referred To Contact Cardiovascular Medicine / Cardiology Diagnoses Coronary artery disease of [place] artery of [place] heart with stable angina pectoris (HCC) Calcification of coronary artery Ab Hackett PA-C [address] [facility] [place] [address] Referral ID Status Reason Start Date Expiration Date Visits Requested Visits Authorized [id number] Authorized Specialty Services Required 4 999 999 [...] st Contact Info) Description 05/20/2024 Telephone Radiology [facility] 1st [facility] [place] 132 [facility] [place] [address] Marisela Chong DO [address] [facility] [place] [address] Test Results (Unexpected or Indeterminate ... Allergies Active Allergy Reactions Criticality Noted Date Comments Amoxicillin 03/06/2005 Hives, last dose was about age 38 while in the [place] and he had an injection in the [...] day 90 Tablet 3 08/17/2023 Active Ipratropium [place] 0.03 % Nasal Solution (Atrovent) Administer 2 [...] 24 Hour (Imdur)Indications:C oronary artery disease of [place] artery of [place] heart with stable angina pectoris (HCC),Calcification of coronary artery Take 1 Tablet by mouth in the morning. 30 Tablet 5 05/20/2024 Active Nitroglycerin 0.4 MG Sublingual Tablet Sublingual (Nitrostat)Indicatio ns:Coronary artery disease of [place] artery of [place] heart with stable angina pectoris (HCC),Calcification of [...] per HTN protocol #16. Mole .6cm r buddhist at scalp margin 03/26/2009 08/10/2018 Benign neoplasm [...] or Fluzone) 04/26/2021,04/26/2020,03/27/2020,04/26,05/01/1998 Seasonal Influenza, Quad, Na zoye (Flumist) 05/10/2013,05/16/2009,05/15/2008,05/31,06/15/2006,05/23/2005,06/04/2004 ,06/02/2003,05/27/2002,04/26/2002,03/2001,05/21/2000,04/29/1999 Seasonal Influenza, Quadriva lent [...] unexpected or indeterminate finding on Miguel Wang ([id number]) and asks that you review the following [...] ensure this report is reviewed. Thank you, Dorothy [place], GAVIN Client Service [facility] documented in this encounter Plan of Treatment Upcoming Encounters Date Type Department Care Team (Late st Contact Info) Description 08/02/2024 1:00 PM EST Rehab Services Voice Lab, [facility] [address] [place] [address] Yan Lindsey, [facility] [address] [place] [address] 08/02/2024 1:30 PM EST Appointment Radiology, [facility] [address] [place] [address] 08/02/2024 4:40 PM EST Office Visit Family [facility] [place] [address] [place] [address] Ab Hackett PA-C [address] [place] [address] 08/17/2024 10:30 AM EST Office Visit Sleep Disorders Ctr [facility] [address] [place] [phone] Lulu Bernabe CRNP [address] [place] [address] 09/27/2024 10:00 AM EST Office Visit Urology, [facility] [address] [place] [address] Johnathan Patrick MD 27 [facility] [place] [address] 10/06/2024 1:00 PM EDT Office Visit Neurology [facility] 200 [facility] [place] [address] Bing Wilburn MD 200 [facility] [place] [address] 01/19/2025 3:00 PM EDT Nurse Only Ancillary [address], [place] [address] [place] [address] [place], Nurse Annual Wellness [facility] 3[address] [place] [address] Scheduled Orders Name Type Priority Associated Diagnoses Orde r Schedule RENAL Medical Imaging Routine Renal cyst, acquired, right Expected: 05/20/2024 (Approximate), Expires: 06/20/2025 Scheduled Referrals Name Type Priority Associated Diagnoses Orde r Schedule CARDIOLOGY REFERRAL OP Referral Within 3 days (urgent) Coronary artery disease of [place] artery of [place] heart with stable angina pectoris (HCC) Calcification [...] Visit Diagnoses Diagnosis Coronary artery disease of [place] artery of [place] heart with stable angina pectoris (HCC)- Primary [...] the patient have Health Care Power of Tool And Die Maker Apprentice? Yes, in chart and reviewed as current Care Teams Manager Of Training And Development Relationship Specialty Start Date End Date Ab Hackett PA-C [address] [facility] [place] [address] PCP - General Physician Or Director 05/29/23 documented as of this encounter
--- OUTSIDE RECORDS SUMMARY | 2024-09-15 06:48 | External Medical Summary ---
Author Name Unknown Address Unknown Organization [id number]:LABORATORY [facility] - [address] [place] [address] Laboratory Report Ordering Provider Test Date Status ADELINA LOPEZ 05/23/2024 07:54:39 Final Observation Date Value Abnormality Reference (Units ) Status CRP, low-sensitivity 05/23/2024 07:54:39 <3 <=5 (mg/L) Final Performing Location LABORATORY [facility] - [address] [place] [address]
--- OUTSIDE RECORDS SUMMARY | 2024-09-15 06:48 | External Medical Summary | Summary of Care ---
Author Name Unknown Organization [facility] Address [address] [place] [address] Phone [phone] Care Team Providers Care Boiler Or Engine Operator Name Role Phone Ab Hackett PA-C Primary Care Provide r Reason for Referral * Evaluate & Treat - Unlimited Visits (Within 3 days (urgent)) - Authorized Specialty Diagnoses / Procedures Referred By Contact Referred To Contact Cardiovascular Medicine / Cardiology Diagnoses Coronary artery disease of [place] artery of [place] heart with stable angina pectoris (HCC) Calcification of coronary artery Ab Hackett PA-C [address] [facility] [place] [address] Referral ID Status Reason Start Date Expiration Date Visits Requested Visits Authorized [id number] Authorized Specialty Services Required 4 999 999 [...] st Contact Info) Description 05/20/2024 Telephone Radiology [facility] 1st [facility] [place] 132 [facility] [place] [address] Marisela Chong DO [address] [facility] [place] [address] Test Results (Unexpected or Indeterminate ... Allergies Active Allergy Reactions Criticality Noted Date Comments Amoxicillin 03/06/2005 Hives, last dose was about age 38 while in the [place] and he had an injection in the [...] day 90 Tablet 3 08/17/2023 Active Ipratropium [place] 0.03 % Nasal Solution (Atrovent) Administer 2 [...] 24 Hour (Imdur)Indications:C oronary artery disease of [place] artery of [place] heart with stable angina pectoris (HCC),Calcification of coronary artery Take 1 Tablet by mouth in the morning. 30 Tablet 5 05/20/2024 Active Nitroglycerin 0.4 MG Sublingual Tablet Sublingual (Nitrostat)Indicatio ns:Coronary artery disease of [place] artery of [place] heart with stable angina pectoris (HCC),Calcification of [...] unexpected or indeterminate finding on Miguel Wang ([id number]) and asks that you review the following [...] Thank you, Dorothy [place], GAVIN Client Service [facility] documented in this encounter Plan of Treatment Upcoming Encounters Date Type Department Care Team (Late st Contact Info) Description 08/02/2024 1:00 PM EST Rehab Services Voice Lab, [facility] [address] [place] [address] Yan Lindsey, [facility]3]-REHABILITATION THERAPIST [address] [place] [address] 08/02/2024 1:30 PM EST Appointment Radiology, [facility] [address] [place] [address] 08/02/2024 4:40 PM EST Office Visit Family [facility] [address] [place] [address] Ab Hackett PA-C [address] [place] [address] 08/17/2024 10:30 AM EST Office Visit Sleep Disorders Ctr [facility] [address] [place] [phone] Lulu Bernabe CRNP [address] [place] [address] 09/27/2024 10:00 AM EST Office Visit Urology, [facility] [address] [place] [address] Johnathan Patrick MD 27 [place] [place] [address] 10/06/2024 1:00 PM EDT Office Visit Neurology [facility] 200 [facility] [place] [address] Bing Wilburn MD 200 [facility] [place] [address] 01/19/2025 3:00 PM EDT Nurse Only Ancillary [address], [place] [address] [place] [address] [place], Nurse Annual Wellness [facility] 3[address] [place] [address] Scheduled Orders Name Type Priority Associated Diagnoses Orde r Schedule RENAL Medical Imaging Routine Renal cyst, acquired, right Expected: 05/20/2024 (Approximate), Expires: 06/20/2025 Scheduled Referrals Name Type Priority Associated Diagnoses Orde r Schedule CARDIOLOGY REFERRAL OP Referral Within 3 days (urgent) Coronary artery disease of [place] artery of [place] heart with stable angina pectoris (HCC) Calcification [...] Visit Diagnoses Diagnosis Coronary artery disease of [place] artery of [place] heart with stable angina pectoris (HCC)- Primary [...] the patient have Health Care Power of Plant Science Professor? Yes, in chart and reviewed as current Care Teams Boiler Or Engine Operator Relationship Specialty Start Date End Date Ab Hackett PA-C [address] [facility] [place] [address] PCP - General Physician Civil Engineering Assistant 05/29/23 documented as of this encounter
--- OUTSIDE RECORDS SUMMARY | 2024-09-15 06:48 | External Medical Summary ---
Author Name Unknown Address Unknown Organization [id number]:LABORATORY [facility] - [address] [place] [address] Laboratory Report Ordering Provider Test Date Status ADELINA LOPEZ 05/23/2024 07:54:39 Final Observation Date Value Abnormality Reference (Units ) Status SYNC LEUKOCYTES IN BLOOD BY AUTOMATED COUNT 05/23/2024 07:54:39 6.20 4.00-10.80 (K/uL) Final Segs 05/23/2024 07:54:39 45.7 40.0-75.0 (%) Final Lymphs % 05/23/2024 07:54:39 36.0 18.0-42.0 (%) Final Monos 05/23/2024 07:54:39 13.2 Above high normal 1.0-11.0 (%) Final Eosinophils 05/23/2024 07:54:39 3.9 0.0-6.0 (%) Final Basos 05/23/2024 07:54:39 1.0 0.0-2.0 (%) Final Immature Granulocyte, Percent 05/23/2024 07:54:39 0.2 0.0-2.0 (%) Final Absolute Segs 05/23/2024 07:54:39 2.84 1.80-7.70 (K/uL) Final Lymphs, absolute 05/23/2024 07:54:39 2.23 1.00-4.80 (K/ul) Final Monos, Abs 05/23/2024 07:54:39 0.82 0.00-1.10 (K/uL) Final Eos, Abs 05/23/2024 07:54:39 0.24 0.00-0.70 (K/uL) Final Basos, Abs 05/23/2024 07:54:39 0.06 0.00-0.20 (K/uL) Final Immature Granulocytes, Number 05/23/2024 07:54:39 0.01 0.00-0.20 (K/uL) Final Performing Location LABORATORY [facility] - [facility] [address] [facility] [address]
--- OUTSIDE RECORDS SUMMARY | 2024-09-15 06:48 | External Medical Summary ---
Author Name Unknown Address Unknown Organization [id number]:LABORATORY [facility] - [facility] [address] [facility] [address] [facility] [address] Laboratory Report Ordering Provider Test Date Status ADELINA LOPEZ 05/23/2024 07:54:39 Final Observation Date Value Abnormality Reference (Units ) Status WBC, Total 05/23/2024 07:54:39 6.20 4.00-10.80 (K/uL) Final RBC 05/23/2024 07:54:39 4.74 4.50-5.25 (M/uL) Final Hemoglobin 05/23/2024 07:54:39 15.2 14.0-16.8 (g/dL) Final HCT 05/23/2024 07:54:39 45.7 40.0-48.4 (%) Final MCV 05/23/2024 07:54:39 96.4 82.0-99.5 (fL) Final MCH 05/23/2024 07:54:39 32.1 27.0-34.0 (pg) Final MCHC 05/23/2024 07:54:39 33.3 32.0-36.0 (g/dL) Final RDW 05/23/2024 07:54:39 13.2 11.5-15.5 (%) Final Platelets 05/23/2024 07:54:39 203 140-400 (K/uL) Final MPV 05/23/2024 07:54:39 11.2 6.6-11.1 (fL) Final Nucleated erythrocytes/100 leukocytes [Ratio] in Blood by Automated count 05/23/2024 07:54:39 0 <=0 (/100 WBCs) Final Performing Location LABORATORY [facility] - [address] [facility] [address]
--- OUTSIDE RECORDS SUMMARY | 2024-09-15 06:48 | External Medical Summary | Summary of Care ---
Author Name Unknown Organization [facility] Address [address] [place] [address] Phone [phone] Care Team Providers Care Senior Front End Developer Name Role Phone Ab Hackett PA-C Primary Care Provide r Reason for Referral * Precert (Within 10 days (routine)) - Authorized Specialty Diagnoses / Procedures Referred By Contmariely t Referred To Contact Radiology Diagnoses Other chest pain Abnormal CXR Procedures CT CHEST WO CONTRAST Marisela Chong DO [address] [facility] [place] [address] Referral ID Status Reason Start Date Expiration Date V isits Requested Visits Authorized [id number] Authorized 05/10/2024 999 999 Reason for Visit * Reason Onset Date Comments Test Results Imaging Study 05/10/2024 Appointment 05/10/2024 CT chest Encounter Details Date Type Department Care Team (Late st Contact Info) Description 05/10/2024 Telephone Family Practice [place] [address] [place] [place] [address] Marisela Chong DO [address] [facility] [address] Test Results Imaging Study; Appointment (C... Allergies Active Allergy Reactions Criticality Noted Date Comments Amoxicillin 03/06/2005 Hives, last dose was about age 38 while in the [place] and he had an injection in the [...] day 90 Tablet 3 08/17/2023 Active Ipratropium [place] 0.03 % Nasal Solution (Atrovent) Administer 2 [...] Oral Tablet (Lipitor)Indications :PAD (peripheral artery disease) ([facility]),Elevated LDL cholesterol level Take 1 Tablet [...] per HTN protocol #16. Mole .6cm r jainism at scalp margin 03/26/2009 08/10/2018 Benign neoplasm [...] 9:17 AM EDT Please send encounter to [id number] when pt is aware of chest CT * Telephone Encounter - Marisela Chong DO - 05/10/2024 4:02 PM EDT Patient continues to have chest pain ? Abnormality on cxr Will check ct chest documented in this encounter Plan of Treatment Upcoming Encounters Date Type Department Care Team (Late st Contact Info) Description 05/13/2024 3:00 PM EDT Imaging Radiology [address] [place] [address] 08/02/2024 1:00 PM EST Rehab Services Voice Lab, [facility] 400 [facility] [place] [address] Yan Lindsey, [facility] [address] [place] [address] 08/02/2024 1:30 PM EST Appointment Radiology, [facility] 400 [facility] [place] [phone] 08/02/2024 4:40 PM EST Office Visit [facility] [address] [place] [address] Ab Hackett PA-C [address] [place] [address] 08/17/2024 10:30 AM EST Office Visit Sleep Disorders Ctr [facility] 132 [facility] [place] [phone] Lulu Bernabe CRNP 132 [place] [address] 09/27/2024 10:00 AM EST Office Visit Urology, Health system 132 [facility] [place] [address] Johnathan Patrick MD 27 [facility] [address] 10/06/2024 1:00 PM EDT Office Visit Neurology [facility] 200 [facility] [place] [address] Bing Wilburn MD 200 [place] [address] 01/19/2025 3:00 PM EDT Nurse Only Ancillary [address], [place] [address] [place] [address] [place], Nurse Annual Well[facility] [place] [address] [place] [address] Scheduled Orders Name Type Priority Associated Diagnoses [...] the patient have Health Care Power of Cooperative Education Director? Yes, in chart and reviewed as current Care Teams Senior Front End Developer Relationship Specialty Start Date End Date Ab Hackett PA-C [address] [facility] [place] [address] PCP - General Physician Advertising Strategist 05/29/23 documented as of this encounter
--- OUTSIDE RECORDS SUMMARY | 2024-09-15 06:48 | External Medical Summary ---
Author Name Unknown Address Unknown Organization K01:LABORATORY [facility] - [address] [place] [address] Laboratory Report Ordering Provider Test Date Status ADELINA LOPEZ 05/23/2024 07:54:39 Final Observation Date Value Abnormality Reference (Units ) Status Erythrocyte sedimentation rate by Photometric method 05/23/2024 07:54:39 9 <20 (mm/hour) Final Performing Location LABORATORY [facility] - [address] [place] [address]
--- OUTSIDE RECORDS SUMMARY | 2024-09-15 06:48 | External Medical Summary | Summary of Care ---
Author Name Unknown Organization [facility] Address [address] [place] [address] Phone [phone] Care Team Providers Care Marine Diver Name Role Phone Ab Hackett PA-C Primary Care Provide r Reason for Referral * Precert (Within 10 days (routine)) - Authorized Specialty Diagnoses / Procedures Referred By Contmariely t Referred To Contact Radiology Diagnoses Other chest pain Abnormal CXR Procedures CT CHEST WO CONTRAST Marisela Chong DO [address] [facility] [place] [address] Referral ID Status Reason Start Date Expiration Date V isits Requested Visits Authorized [id number] Authorized 05/10/2024 999 999 Reason for Visit * Reason Onset Date Comments Test Results Imaging Study 05/10/2024 Appointment 05/10/2024 CT chest Encounter Details Date Type Department Care Team (Late st Contact Info) Description 05/10/2024 Telephone Family Practice [facility] [place] [address] [facility] [place] [address] Marisela Chong DO 4[address] [facility] [address] Test Results Imaging Study; Appointment (C... Allergies Active Allergy Reactions Criticality Noted Date Comments Amoxicillin 03/06/2005 Hives, last dose was about age 38 while in the [place] and he had an injection in the [...] day 90 Tablet 3 08/17/2023 Active Ipratropium [place] 0.03 % Nasal Solution (Atrovent) Administer 2 [...] (Lipitor)Indications :PAD (peripheral artery disease) ([facility]),Elevated [...] per HTN protocol #16. Mole .6cm r restorationist at scalp margin 03/26/2009 08/10/2018 Benign neoplasm [...] encounter Miscellaneous Notes * Telephone Encounter - Bibiana Mercer LPN - 05/12/2024 11:27 AM EDT Patient aware of need for the CT of the chest. Has it scheduled for tomorrow at [facility]. * Telephone Encounter - Carolee Nevarez LPN - 05/12/2024 11:15 AM EDT Left message for pt to return call or check messages for update * Telephone Encounter - Heidi Silva OSA - 05/12/2024 9:17 AM EDT Please send encounter to [id number] when pt is aware of chest CT * Telephone Encounter - Marisela Chong DO - 05/10/2024 4:02 PM EDT Patient continues to have chest pain ? Abnormality on cxr Will check ct chest documented in this encounter Plan of Treatment Upcoming Encounters Date Type Department Care Team (Late st Contact Info) Description 05/13/2024 3:00 PM EDT Imaging Radiology [facility] 1st [facility], [address] [place] [address] 08/02/2024 1:00 PM EST Rehab Services Voice Lab, [facility] [place] [address] [place] [address] Yan Lindsey, [facility] [address] [place] [address] 08/02/2024 1:30 PM EST Appointment Radiology, [facility] [address] [facility] [place], [place] [address] 08/02/2024 4:40 PM EST Office Visit Family Practice [facility] [address], [place] [address] [place] [address] Ab Hackett PA-C [address] [place] [address] 08/17/2024 10:30 AM EST Office Visit Sleep Disorders Ctr [facility] 132 [facility] [place] [phone] Lulu Bernabe CRNP 132 [facility] [place] [address] 09/27/2024 10:00 AM EST Office Visit Urology, [facility] 132 [facility] [place] [address] Johnathan Patrick MD 27 [facility] [place] [address] 10/06/2024 1:00 PM EDT Office Visit Neurology [facility] [address] [place] [address] Bing Wilburn MD [address] [place] [address] 01/19/2025 3:00 PM EDT Nurse Only Ancillary [facility], [place] [address] [place] [address] [facility], Nurse Annual Wellness [place] [address] [place] [address] Scheduled Orders Name Type Priority Associated Diagnoses [...] the patient have Health Care Power of Rehabilitation Therapy Aide? Yes, in chart and reviewed as current Care Teams Marine Diver Relationship Specialty Start Date End Date Ab Hackett PA-C [address] [facility] [place] [address] PCP - General Physician Maintenance Fitter 05/29/23 documented as of this encounter
--- OUTSIDE RECORDS SUMMARY | 2024-09-15 06:48 | External Medical Summary | Summary of Care ---
Author Name Unknown Organization [facility] [address] [facility] [address] Phone [phone] Care Team Providers Care Cyber Threat Analyst Name Role Phone Ab Hackett PA-C Primary Care Provide r Reason for Visit * Reason Comments Outpatient Testing Encounter Details Date Type Department Care Team (Late st Contact Info) Description 05/23/2024 9:00 AM EDT [facility] [facility] [place] [phone] [place], Lab [facility] [address] [facility] [place] [address] Chest pain due to myocardial ischemia, unspecified ischemic chest pain type; NICHOLS (dyspnea on exertion); Memory change Allergies Active Allergy Reactions Criticality Noted Date Comments Amoxicillin 03/06/2005 Hives, last dose was about age 38 [address] in the 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 30 Tablet 5 05/20/2024 Active Nitroglycerin 0.4 MG Sublingual Tablet Sublingual (Nitrostat)Indicatio ns:Coronary artery disease of [place] artery of [place] heart with stable angina pectoris (HCC),Calcification of coronary artery Place 1 Tablet under the tongue as needed for Pain, Chest. May repeat 3 times. If chest pain continues, call 246. 26 Tablet 11 05/20/2024 Active Hospital, Clinic, or [...] per HTN protocol #16. Mole .6cm r adventism at scalp margin 03/26/2009 08/10/2018 Benign neoplasm [...] No 12/25/2017 documented as of this encounter Plan of Treatment Upcoming Encounters Date Type Department Care Team (Late st Contact Info) Description 05/24/2024 2:15 PM EDT Imaging Radiology [facility] [address] [place] [address] 08/02/2024 1:00 PM EST Rehab Services Voice Lab, [facility] [address] [place] [address] Yan Lindsey, [facility] [address] [place] [address] 08/02/2024 1:30 PM EST Appointment Radiology, [facility] [address] [place] [address] 08/02/2024 4:40 PM EST Office Visit Family Practice [facility], [place] [address] [facility] [place] [address] Ab Hackett PA-C 15[address] [facility] [place] [address] 08/17/2024 10:30 AM EST Office Visit Sleep Disorders Ctr [facility] [address] [place] [address] Lulu Bernabe CRNP [address] [place] [address] 08/31/2024 10:30 AM EST Office Visit Cardiology, [facility] 132 [place] [address] Yan Whitehead, PA-C [address] [place] [address] 09/27/2024 10:00 AM EST Office Visit Urology, [facility] [address] [place] [address] Johnathan Patrick MD [address] [place] [address] 10/06/2024 1:00 PM EDT Office Visit Neurology [facility] [place]inda [place] 200 [facility] [place] [address] Bing Wilburn MD 200 [facility] [place] [address] 01/19/2025 3:00 PM EDT Nurse Only Ancillary [place] [address] [place] [address] [place], Nurse Annual Wellness [facility] [address] [place] [address] Pending Results Name Type Priority Associated Diagnoses Date /Time COMPREHENSIVE METABOLIC PANEL Lab Routine Chest pain due to myocardial ischemia, unspecified ischemic chest pain type NICHOLS (dyspnea on exertion) 05/23/2024 7:54 AM EDT CBC WITH WBC DIFFERENTIAL Lab Routine Chest pain due to myocardial ischemia, unspecified ischemic chest pain type NICHOLS (dyspnea on exertion) 05/23/2024 7:54 AM EDT TSH WITH FREE T4 IF INDICATED Lab Routine Chest pain due to myocardial ischemia, unspecified ischemic chest pain type NICHOLS (dyspnea on exertion) 05/23/2024 7:54 AM EDT VITAMIN B12 Lab Routine Memory change 05/23/2024 7:54 AM EDT ERYTHROCYTE SEDIMENTATION RATE (ESR) Lab Routine Memory change 05/23/2024 7:54 AM EDT CRP (INFLAMMATORY MARKER) Lab Routine Memory change 05/23/2024 7:54 AM EDT LYME DISEASE ANTIBODY SCREEN WITH REFLEX TO CONFIRMATION Lab Routine Memory change 05/23/2024 7:54 AM EDT CBC Lab Routine Chest pain due to myocardial ischemia, unspecified ischemic chest pain type NICHOLS (dyspnea on exertion) 05/23/2024 7:54 AM EDT DIFFERENTIAL, AUTOMATED Lab Routine Chest pain due to myocardial ischemia, unspecified ischemic chest pain type NICHOLS (dyspnea on exertion) 05/23/2024 7:54 AM EDT LYME DISEASE ANTIBODY SCREEN Lab Routine Memory change 05/23/2024 7:54 AM EDT Health Maintenance Due Date Last Done Comments [...] as of this encounter Visit Diagnoses Diagnosis Chest pain due to myocardial ischemia, unspecified ischemic chest pain type NICHOLS (dyspnea on exertion) Other dyspnea and respiratory abnormality Memory change Memory loss documented in this encounter Advance Directives * [...] the patient have Health Care Power of Advertising Associate? Yes, in chart and reviewed as current Care Teams Cyber Threat Analyst Relationship Specialty Start Date End Date Ab Hackett PA-C [address] [facility] [place] [phone] PCP - General Physician Operations Business Partner 05/29/23 documented as of this encounter
--- OUTSIDE RECORDS SUMMARY | 2024-09-15 06:48 | External Medical Summary ---
Author Name Unknown Address Unknown Organization K01:LABORATORY [facility] - [address] [facility] [address] Laboratory Report Ordering Provider Test Date Status ADELINA LOPEZ 05/23/2024 07:54:39 Final Observation Date Value Abnormality Reference (Units ) Status BUN 05/23/2024 07:54:39 12 6-20 (mg/dL) Final Creatinine 05/23/2024 07:54:39 1.0 0.6-1.2 (mg/dL) Final Glomerular filtration rate/1.73 sq M.predicted [Volume Rate/Area] in Serum, Plasma or Blood by Creatinine-based formula (CKD-EPI) 05/23/2024 07:54:39 80 >=60 (mL/min) Final eGFR is calculated based on the CKD-EPI 2020 equation. Sodium 05/23/2024 07:54:39 136 135-146 (m mol/L) Final Potassium 05/23/2024 07:54:39 4.6 3.5-5.1 (m mol/L) Final Cl 05/23/2024 07:54:39 99 98-107 (mm ol/L) Final CO2 05/23/2024 07:54:39 27 22-32 (mmo l/L) Final Anion gap 05/23/2024 07:54:39 10 7-15 (mmol /L) Final Glucose 05/23/2024 07:54:39 91 70-120 (mg /dL) Final Albumin 05/23/2024 07:54:39 4.2 3.8-5.0 (g /dL) Final AST (Aspartate aminotransferase) 05/23/2024 07:54:39 25 10-50 (U/L) Fin al Alk Phos 05/23/2024 07:54:39 79 35-130 (U/ L) Final Bilirubin, Total 05/23/2024 07:54:39 1.4 Above high no rmal <=1.2 (mg/dL) Final Calcium 05/23/2024 07:54:39 9.4 8.4-10.2 ( mg/dL) Final Protein 05/23/2024 07:54:39 7.1 6.0-8.3 (g /dL) Final ALT (Alanine aminotransferase) 05/23/2024 07:54:39 27 10-50 (U/L) Gonsalo diana Performing Location LABORATORY [facility] - [address] [facility] [address]
--- OUTSIDE RECORDS SUMMARY | 2024-09-15 06:48 | External Medical Summary | Summary of Care ---
Author Name Unknown Organization [facility] Address [address] [place] [address] Phone [phone] Care Team Providers Care Time Clerk Name Role Phone Ab Hackett PA-C Primary Care Provide r Reason for Referral * Precert (Within 10 days (routine)) - Authorized Specialty Diagnoses / Procedures Referred By Contmariely t Referred To Contact Radiology Diagnoses Other chest pain Abnormal CXR Procedures CT CHEST WO CONTRAST Marisela Chong DO [address] [facility] [place] [address] Referral ID Status Reason Start Date Expiration Date V isits Requested Visits Authorized [id number] Authorized 05/10/2024 999 999 Reason for Visit * Reason Onset Date Comments Test Results Imaging Study 05/10/2024 Appointment 05/10/2024 CT chest Encounter Details Date Type Department Care Team (Late st Contact Info) Description 05/10/2024 Telephone Family Practice [place] [address] [place] [address] Marisela Chong DO 9[address] [facility] [address] Test Results Imaging Study; Appointment (C... Allergies Active Allergy Reactions Criticality Noted Date Comments Amoxicillin 03/06/2005 Hives, last dose was about age 38 while in the [place] and he had an injection in the [...] day 90 Tablet 3 08/17/2023 Active Ipratropium [place] 0.03 % Nasal Solution (Atrovent) Administer 2 [...] Oral Tablet (Lipitor)Indications :PAD (peripheral artery disease) ([facility]),Elevated LDL cholesterol level Take 1 Tablet by [...] per HTN protocol #16. Mole .6cm r protestant at scalp margin 03/26/2009 08/10/2018 Benign neoplasm [...] 9:17 AM EDT Please send encounter to [id number] when pt is aware of chest CT * Telephone Encounter - Marisela Chong DO - 05/10/2024 4:02 PM EDT Patient continues to have chest pain ? Abnormality on cxr Will check ct chest documented in this encounter Plan of Treatment Upcoming Encounters Date Type Department Care Team (Late st Contact Info) Description 05/13/2024 3:00 PM EDT Imaging Radiology [address] [place] [address] 08/02/2024 1:00 PM EST Rehab Services Voice Lab, [facility] [address] [place] [address] Yan Lindsey, [facility]METALL[facility]GICAL TECHNICIAN 132 [facility] [place] [address] 08/02/2024 1:30 PM EST Appointment Radiology, [facility] [address] [facility] [place] [phone] 08/02/2024 4:40 PM EST Office Visit [facility] [place] [address] [address] [place], [place] [address] Ab Hackett PA-C [address] [place] [address] 08/17/2024 10:30 AM EST Office Visit Sleep Disorders Ctr [facility] 132 [facility] [place] [address] Lulu Bernabe CRNP 132 [place] [address] 09/27/2024 10:00 AM EST Office Visit Urology, [facility] 132 [facility] [place] [address] Johnathan Patrick MD 27 [place] [address] 10/06/2024 1:00 PM EDT Office Visit Neurology [facility] 200 [facility] [place] [address] Bing Wilburn MD 200 [facility] [address] 01/19/2025 3:00 PM EDT Nurse Only Ancillary [address] [address], [place] [address] [place] [address] [place], Nurse Annual Wellness [place] [address] [place] [address] Scheduled Orders Name Type Priority Associated Diagnoses [...] the patient have Health Care Power of Pattern Weaver? Yes, in chart and reviewed as current Care Teams Time Clerk Relationship Specialty Start Date End Date Ab Hackett PA-C 3[address] [facility] [place] [phone] PCP - General Physician Probate Judge 05/29/23 documented as of this encounter
--- OUTSIDE RECORDS SUMMARY | 2024-09-15 06:48 | External Medical Summary ---
Author Name Unknown Address Unknown Organization K01:LABORATORY [facility] - [address] [place] [address] Laboratory Report Ordering Provider Test Date Status ADELINA LOPEZ 05/23/2024 07:54:39 Final Observation Date Value Abnormality Reference (Units ) Status Vitamin B12 05/23/2024 07:54:39 2279 065-2219 (pg/mL) Final Performing Location LABORATORY C - [address] [place] [address]
--- OUTSIDE RECORDS SUMMARY | 2024-09-15 06:48 | External Medical Summary ---
Author Name Unknown Address Unknown Organization K01:LABORATORY [facility] - [address] [place] [address] Laboratory Report Ordering Provider Test Date Status ADELINA LOPEZ 05/23/2024 07:54:39 Final Observation Date Value Abnormality Reference (Units ) Status Borrelia burgdorferi IgG and IgM [Interpretation] in Serum by Immunoassay 05/23/2024 07:54:39 Negative Negative Final Performing Location LABORATORY [facility] - [address] [place] [address]
--- OUTSIDE RECORDS SUMMARY | 2024-09-15 06:49 | External Medical Summary | Summary of Care ---
Author Name Unknown Organization [facility] Address [address] [place] [address] Phone [phone] Care Team Providers Care Geodesy Teacher Name Role Phone Ab Hackett PA-C Primary Care Provide r Reason for Referral * Precert (Within 10 days (routine)) - Authorized Specialty Diagnoses / Procedures Referred By Contmariely t Referred To Contact Radiology Diagnoses Other chest pain Abnormal CXR Procedures CT CHEST WO CONTRAST Marisela Chong DO [address] [facility] [place] [address] Referral ID Status Reason Start Date Expiration Date V isits Requested Visits Authorized [id number] Authorized 05/10/2024 999 999 Reason for Visit * Reason Onset Date Comments Test Results Imaging Study 05/10/2024 Appointment 05/10/2024 CT chest Encounter Details Date Type Department Care Team (Late st Contact Info) Description 05/10/2024 Telephone Family Practice [place] [address] [place] [address] Marisela Chong DO [address] [facility] [place] [address] Test Results Imaging Study; Appointment (C... Allergies Active Allergy Reactions Criticality Noted Date Comments Amoxicillin 03/06/2005 Hives, last dose was about age 38 while in the [place] and he had an injection in the arm and a few days later had total body rash. Cefdinir 03/24/2018 Lower leg redness and swelling documented as of this encounter (statuses as of 05/10/2024) Medications Medication Sig Dispensed Refills Start Date [...] day 90 Tablet 3 08/17/2023 Active Ipratropium [place] 0.03 % Nasal Solution (Atrovent) Administer 2 [...] Tablet (Lipitor)Indications :PAD (peripheral artery disease) ([facility]),Elevated LDL cholesterol level Take 1 Tablet by [...] as of this encounter (statuses as of 05/10/2024) Active Problems Problem Noted Date Diagnosed Date [...] as of this encounter (statuses as of 05/10/2024) Resolved Problems Problem Noted Date Diagnosed Date [...] as of this encounter (statuses as of 05/10/2024) Immunizations Name Administration Dates Next Due COVID-19 [...] encounter Miscellaneous Notes * Telephone Encounter - Marisela Chong DO - 05/10/2024 4:02 PM EDT Patient continues to have chest pain ? Abnormality on cxr Will check ct chest documented in this encounter Plan of Treatment Upcoming Encounters Date Type Department Care Team (Late st Contact Info) Description 08/02/2024 1:00 PM EST Rehab Services Voice Lab, [facility] [address] [place] [address] Yan Lindsey, [facility] NURSE [address] [address] 08/02/2024 1:30 PM EST Appointment Radiology, [facility] [address] [place] [address] 08/02/2024 4:40 PM EST Office Visit [facility] [place] [address] [place] [address] Ab Hackett PA-C [address] [place] [address] 08/17/2024 10:30 AM EST Office Visit Sleep Disorders Ctr [facility] [address] [place] [phone] Lulu Bernabe CRNP [address] [place] [address] 09/27/2024 10:00 AM EST Office Visit Urology, [facility] 132 [facility] [place] [address] Johnathan Patrick MD [address] [place] [address] 10/06/2024 1:00 PM EDT Office Visit Neurology [facility] 200 [facility] [place] [address] Bing Wilburn MD 200 [facility] [place] [address] 01/19/2025 3:00 PM EDT Nurse Only Ancillary [address], [place] [address] [place] [address] [place], Nurse Annual Wellness [place] [address] [place] [address] Scheduled Orders Name Type Priority Associated Diagnoses [...] patient have Health Care Power of Rehabilitation Aide? Yes, in chart and reviewed as current Care Teams Geodesy Teacher Relationship Specialty Start Date End Date Ab Hackett PA-C [address] [facility] [place] [address] PCP - General Physician Tarper 05/29/23 documented as of this encounter
--- OUTSIDE RECORDS SUMMARY | 2024-09-15 06:49 | External Medical Summary | Summary of Care ---
Author Name Unknown Organization [facility] Address [address] [place] [address] Phone [phone] Care Team Providers Care Silica Spray Mixer Name Role Phone Ab Hackett PA-C Primary Care Provide r Reason for Referral * Precert (Within 10 days (routine)) - Authorized Specialty Diagnoses / Procedures Referred By Contmariely t Referred To Contact Radiology Diagnoses Other chest pain Abnormal CXR Procedures CT CHEST WO CONTRAST Marisela Chong DO [address] [facility] [place] [address] Referral ID Status Reason Start Date Expiration Date V isits Requested Visits Authorized [id number] Authorized 05/10/2024 999 999 Reason for Visit * Reason Onset Date Comments Test Results Imaging Study 05/10/2024 Appointment 05/10/2024 CT chest Encounter Details Date Type Department Care Team (Late st Contact Info) Description 05/10/2024 Telephone Family Practice [place] [address] [place] [address] Marisela Chong DO [address] [facility] [place] [address] Test Results Imaging Study; Appointment (C... Allergies Active Allergy Reactions Criticality Noted Date Comments Amoxicillin 03/06/2005 Hives, last dose was about age 38 while in the [place] and he had an injection in the [...] 90 Tablet 3 08/17/2023 Active Ipratropium [place] 0.03 % Nasal Solution (Atrovent) Administer 2 [...] (Lipitor)Indications :PAD (peripheral artery disease) ([facility]),Elevated LDL cholesterol level Take 1 Tablet by [...] per HTN protocol #16. Mole .6cm r advent at scalp margin 03/26/2009 08/10/2018 Benign neoplasm [...] 1:00 PM EST Rehab Services Voice Lab, [facility] [address] [place] [address] Yan Lindsey, [facility] DISPOSAL ATTENDANT [address] [place] [address] 08/02/2024 1:30 PM EST Appointment Radiology, [facility] [address] [place] [address] 08/02/2024 4:40 PM EST Office Visit [facility] [place] [address] [place] [address] Ab Hackett PA-C [address] [place] [address] 08/17/2024 10:30 AM EST Office Visit Sleep Disorders Ctr [facility] [address] [place] [phone] Lulu Bernabe CRNP [address] [place] [address] 09/27/2024 10:00 AM EST Office Visit Urology, [facility] 132 [facility] [place] [address] Johnathan Patrick MD [address] [place] [address] 10/06/2024 1:00 PM EDT Office Visit Neurology [facility] 200 [facility] [place] [address] Bing Wilburn MD 200 [facility] [place] [address] 01/19/2025 3:00 PM EDT Nurse Only Ancillary [address], [place] [address] [place] [address] [place], Nurse Annual Wellness [place] [address] [place] [address] Scheduled Orders Name Type Priority Associated Diagnoses [...] the patient have Health Care Power of International Marketing Manager? Yes, in chart and reviewed as current Care Teams Silica Spray Mixer Relationship Specialty Start Date End Date Ab Hackett PA-C [address] [facility] [place] [address] PCP - General Physician Assisted Living Associate 05/29/23 documented as of this encounter
--- OUTSIDE RECORDS SUMMARY | 2024-09-15 06:49 | External Medical Summary | Summary of Care ---
Author Name Unknown Organization [facility] Address [address] [place] [address] Phone [phone] Care Team Providers Care Director Of Cloud Services Name Role Phone Ab Hackett PA-C Primary Care Provide r Reason for Referral * Precert (Within 10 days (routine)) - Authorized Specialty Diagnoses / Procedures Referred By Contmariely t Referred To Contact Radiology Diagnoses Other chest pain Abnormal CXR Procedures CT CHEST WO CONTRAST Marisela Chong DO [address] [facility] [place] [address] Referral ID Status Reason Start Date Expiration Date V isits Requested Visits Authorized [id number] Authorized 05/10/2024 999 999 Reason for Visit * Reason Onset Date Comments Test Results Imaging Study 05/10/2024 Appointment 05/10/2024 CT chest Encounter Details Date Type Department Care Team (Late st Contact Info) Description 05/10/2024 Telephone Family Practice [place] [address] [place] [address] Marisela Chong DO [address] [facility] [address] Test Results Imaging Study; Appointment (C... Allergies Active Allergy Reactions Criticality Noted Date Comments Amoxicillin 03/06/2005 Hives, last dose was about age 38 while in the [place] and he had an injection in the arm and a few days later had total body rash. Cefdinir 03/24/2018 Lower leg redness and swelling documented as of this encounter (statuses as of 05/11/2024) Medications Medication Sig Dispensed Refills Start Date [...] day 90 Tablet 3 08/17/2023 Active Ipratropium [place] 0.03 % Nasal Solution (Atrovent) Administer 2 [...] Oral Tablet (Lipitor)Indications :PAD (peripheral artery disease) ([facility]),Elevated LDL cholesterol level Take 1 Tablet [...] as of this encounter (statuses as of 05/11/2024) Active Problems Problem Noted Date Diagnosed Date [...] as of this encounter (statuses as of 05/11/2024) Resolved Problems Problem Noted Date Diagnosed Date [...] per HTN protocol #16. Mole .6cm r samaritan at scalp margin 03/26/2009 08/10/2018 Benign neoplasm [...] as of this encounter (statuses as of 05/11/2024) Immunizations Name Administration Dates Next Due COVID-19 [...] 1:00 PM EST Rehab Services Voice Lab, [facility] [address] [place] [address] Yan Lindsey, [facility]-MACHINE WHITENER [address] [address] 08/02/2024 1:30 PM EST Appointment Radiology, [facility] [address] [place] [address] 08/02/2024 4:40 PM EST Office Visit [facility] [place] [address] [place] [address] Ab Hackett PA-C [address] [place] [address] 08/17/2024 10:30 AM EST Office Visit Sleep Disorders Ctr [facility] [address] [place] [phone] Lulu Bernabe CRNP [address] [place] [address] 09/27/2024 10:00 AM EST Office Visit Urology, [facility] 132 [facility] [place] [address] Johnathan Patrick MD [address] [place] [address] 10/06/2024 1:00 PM EDT Office Visit Neurology [facility] [address] [facility] [place] [address] Bing Wilburn MD [address] [facility] [place] [address] 01/19/2025 3:00 PM EDT Nurse Only Ancillary [address], [place] [address] [place] [address] [place], Nurse Annual [facility] [place] [address] [place] [address] Scheduled Orders Name Type Priority Associated Diagnoses [...] the patient have Health Care Power of Assembler Musical Instruments? Yes, in chart and reviewed as current Care Teams Director Of Cloud Services Relationship Specialty Start Date End Date Ab Hackett PA-C [address] [facility] [place] [address] PCP - General Physician Locum Tenens 05/29/23 documented as of this encounter
--- OUTSIDE RECORDS SUMMARY | 2024-09-15 06:49 | External Medical Summary | Summary of Care ---
Author Name Unknown Organization [facility] Address [address] [place] [address] Phone [phone] Care Team Providers Care Modeling Agency Manager Name Role Phone Ab Hackett PA-C Primary Care Provide r Reason for Referral * Precert (Within 10 days (routine)) - Authorized Specialty Diagnoses / Procedures Referred By Contmariely t Referred To Contact Radiology Diagnoses Other chest pain Abnormal CXR Procedures CT CHEST WO CONTRAST Marisela Chong DO [address] [facility] [place] [address] Referral ID Status Reason Start Date Expiration Date V isits Requested Visits Authorized [id number] Authorized 05/10/2024 999 999 Reason for Visit * Reason Onset Date Comments Test Results Imaging Study 05/10/2024 Appointment 05/10/2024 CT chest Encounter Details Date Type Department Care Team (Late st Contact Info) Description 05/10/2024 Telephone Family Practice [place] [place] [address] Marisela Chong DO [address] [facility] [place] [address] Test Results Imaging Study; Appointment (C... Allergies Active Allergy Reactions Criticality Noted Date Comments Amoxicillin 03/06/2005 Hives, last dose was about age 38 while in the [place] and he had an injection in the [...] day 90 Tablet 3 08/17/2023 Active Ipratropium [place] 0.03 % Nasal Solution (Atrovent) Administer 2 [...] (Lipitor)Indications :PAD (peripheral artery disease) ([facility]),Elevated LDL cholesterol level Take 1 [...] per HTN protocol #16. Mole .6cm r zoroastrianism at scalp margin 03/26/2009 08/10/2018 Benign neoplasm [...] 1:00 PM EST Rehab Services Voice Lab, [facility] [address] [place] [address] Yan Lindsey, [facility]-JEWISH THOUGHT PROFESSOR [address] [place] [address] 08/02/2024 1:30 PM EST Appointment Radiology, [facility] [address] [place] [address] 08/02/2024 4:40 PM EST Office Visit [facility] [place] [place] [address] Ab Hackett PA-C [address] [place] [address] 08/17/2024 10:30 AM EST Office Visit Sleep Disorders Ctr [facility] [address] [place] [phone] Lulu Bernabe CRNP [address] [place] [address] 09/27/2024 10:00 AM EST Office Visit Urology, [facility] 132 [facility] [place] [address] Johnathan Patrick MD [address] [place] [address] 10/06/2024 1:00 PM EDT Office Visit Neurology [facility] [address] [facility] [place] [address] Bing Wilburn MD [address] [facility] [place] [address] 01/19/2025 3:00 PM EDT Nurse Only Ancillary [address], [place] [address] [place] [address] [place], Nurse Annual Wellness Cold [address] [place] [address] Scheduled Orders Name Type Priority Associated Diagnoses [...] the patient have Health Care Power of Pin Game Machine Inspector? Yes, in chart and reviewed as current Care Teams Modeling Agency Manager Relationship Specialty Start Date End Date Ab Hackett PA-C [address] [facility] [place] [address] PCP - General Physician Tenter Feeder 05/29/23 documented as of this encounter
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
--- OUTSIDE RECORDS SUMMARY | 2024-09-15 06:50 | External Medical Summary | Summary of Care ---
Author Name Unknown Organization [facility] Address [address] [place] [address] Phone [phone] Care Team Providers Care Global Position System Technician Name Role Phone Ab Hackett PA-C Primary Care Provide r Reason for Visit * Reason Comments NEW PATIENT Right thumb pain * Evaluate & Treat - Unlimited Visits (Within 10 days (routine)) - Authorized Specialty Diagnoses / Procedures Referred By Tejas t Referred To Contact Orthopaedic Surgery / Orthopedics Diagnoses Arthritis of carpometacarpal (CMC) joint of right thumb Ab Hackett PA-C [address] [facility] [place] [address] Referral ID Status Reason Start Date Expiration Date Visits Requested Visits Authorized [id number] Authorized Specialty Services Required 02/28/2024 999 [id number] Encounter Details Date Type Department Care Team (Latest Contact Info) Description 04/25/2024 9:30 AM EDT Office Visit Orthopaedics [facility] 132 [facility] [place] [address] Solomon Suarez MD [address] [place] [address] Primary osteoarthritis of first carpometacarpal joint of right hand* Allergies Active Allergy Reactions Criticality Noted Date Comments Amoxicillin 03/06/2005 Hives, last dose was about age 38 while in the [place] and he had an injection in the [...] day 90 Tablet 3 08/17/2023 Active Ipratropium [place] 0.03 % Nasal Solution (Atrovent) Administer 2 [...] thumb HPI: The patient is an 78-year-old oltcf-[id number]-qwtbovjj retired man who is seen today at [...] Mild cognitive impairment 08/10/2018 Mole .6cm r restorationist at scalp margin 03/26/2009 Osteopenia Other specified [...] performed by Joseph Hsieh MD at ENDOSCOPY [facility] COLONOSCOPY, DIAGNOSTIC (RECTUM) 04/17/2020 diverticulosis / COLONOSCOPY FLEXIBLE PROXIMAL DIAGNOSTIC performed by Guerrero Tijerina MD at ENDOSCOPY [facility] COLORECTAL CANCER SCREEN; COLON [facility] EGD, FLEXIBLE, DIAGNOSTIC 05/26/2012 UPPER GI ENDOSCOPY DIAGNOSTIC performed by Regino Reynoso MD at ENDOSCOPY [facility] EGD, FLEXIBLE, DIAGNOSTIC 05/10/2018 acid reflux on bx/ESOPHAGOGASTRODUODENOSCOPY (EGD), FLEXIBLE, TRANSORAL, DIAGNOSTIC performed by Joseph Hsieh MD at ENDOSCOPY [facility] EGD, FLEXIBLE, W/BIOPSY 12/10/2009 bx--negative FISSURECTOMY W/ SPHINCTEROTOMY 1968 IR BIOPSY 04/04/2024 LUMBAR HEMILAMINECTOMY 2004 REMOVAL OF APPENDIX 1953 REMOVAL OF PROSTATE (TURP) N/A 03/05/2023 TRANSURETHRAL RESECTION PROSTATE ELECTROSURGICAL performed by Johnathan Patrick MD at OR [facility] REMOVE TONSILS & ADENOIDS, UNDER 12 1954 [...] of the day 90 Tablet 3 Ipratropium [place] 0.03 % Nasal Solution (Atrovent) Administer 2 [...] 1:00 PM EST Rehab Services Voice Lab, [facility] [address] [place] [address] Yan Lindsey, [facility]-BACTERIOLOGIST INDUSTRIAL [address] [place] [address] 08/02/2024 1:30 PM EST Appointment Radiology, [facility] 400 [facility] [place] [address] 08/02/2024 4:40 PM EST Office Visit Family Practice [address], [place] [address] [place] [address] Ab Hackett PA-C [address] [place] [address] 08/17/2024 10:30 AM EST Office Visit Sleep Disorders Ctr [facility] 132 [facility] [place] [phone] Lulu Bernabe CRNP 132 [facility] [place] [address] 09/27/2024 10:00 AM EST Office Visit Urology, [facility] 132 [facility] [place] [address] Johnathan Patrick MD 27 [facility] [place] [address] 10/06/2024 1:00 PM EDT Office Visit Neurology [facility] 200 [facility] [place] [address] Bing Wilburn MD 200 [place] [address] 01/19/2025 3:00 PM EDT Nurse Only Ancillary [address], [place] [address] [place] [address] [place], Nurse Annual Wellness Cold [address] [place] [address] Scheduled Referrals Name Type Priority Associated Diagnoses [...] the patient have Health Care Power of Loss Prevention Specialist? Yes, in chart and reviewed as current Care Teams Global Position System Technician Relationship Specialty Start Date End Date Ab Hackett PA-C [address] [facility] [place] [address] PCP - General Physician Monkey Keeper 05/29/23 documented as of this encounter
--- OUTSIDE RECORDS SUMMARY | 2024-09-15 06:50 | External Medical Summary | Summary of Care ---
Author Name Unknown Organization [facility] Address [address] [place] [address] Phone [phone] Care Team Providers Care Customer Relations Representative Name Role Phone Ab Hackett PA-C Primary Care Provide r Encounter Details Date Type Department Care Team (Late st Contact Info) Description 05/05/2024 Result Scan Unspecified Department Marisela Chong, [address] [facility] [place] [address] <No scans attached> Allergies Active Allergy Reactions Criticality Noted Date Comments Amoxicillin 03/06/2005 Hives, last dose was about age 38 while in the [place] and he had an injection in the arm and a few days later had total body rash. Cefdinir 03/24/2018 Lower leg redness and swelling documented as of this encounter (statuses as of 05/06/2024) Medications Medication Sig Dispensed Refills Start Date [...] day 90 Tablet 3 08/17/2023 Active Ipratropium [place] 0.03 % Nasal Solution (Atrovent) Administer 2 [...] as of this encounter (statuses as of 05/06/2024) Active Problems Problem Noted Date Diagnosed Date [...] as of this encounter (statuses as of 05/06/2024) Resolved Problems Problem Noted Date Diagnosed Date [...] per HTN protocol #16. Mole .6cm r druze at scalp margin 03/26/2009 08/10/2018 Benign neoplasm [...] as of this encounter (statuses as of 05/06/2024) Immunizations Name Administration Dates Next Due COVID-19 [...] 1:00 PM EST Rehab Services Voice Lab, [facility] [address] [place] [id number] Yan Lindsey, [facility] [address] [place] [address] 08/02/2024 1:30 PM EST Appointment Radiology, [facility] [address] [place] [address] 08/02/2024 4:40 PM EST Office Visit Family Practice [address], [place] [address] [place], [place] [address] Ab Hackett PA-C [address] [place] [address] 08/17/2024 10:30 AM EST Office Visit Sleep Disorders Ctr [facility] [address] [place] [address] Lulu Bernabe CRNP [address] [facility] [place] [address] 09/27/2024 10:00 AM EST Office Visit Urology, [facility] 132 [place] [address] Johnathan Patrick MD [address] [place] [address] 10/06/2024 1:00 PM EDT Office Visit Neurology [facility] [address] [place] [address] Bing Wilburn MD [address] [place] [address] 01/19/2025 3:00 PM EDT Nurse Only Ancillary [address], [place] [address] [place] [address] [place], Nurse Annual Wellness Cold [address] [place] [address] Health Maintenance Due Date Last Done Comments COVID-19 Vaccine (2023- season) 2024 04/26/2023, 04/26/2023, 05/21/2021, Additional history [...] Procedure Name Priority Date/Time Associated Diagnosis Comments OUTSIDE LAB RESULTS 05/05/2024 documented in this encounter Results * OUTSIDE LAB RESULTS (05/05/2024) 05/05/2024 Marisela Chong DO LABORATORY documented in this encounter Advance Directives * [...] the patient have Health Care Power of Mat Packer? Yes, in chart and reviewed as current Care Teams Customer Relations Representative Relationship Specialty Start Date End Date Ab Hackett PA-C [address] [facility] [place] [address] PCP - General Physician Lamp Tester And Inspector 05/29/23 documented as of this encounter
--- OUTSIDE RECORDS SUMMARY | 2024-09-15 06:50 | External Medical Summary | Summary of Care ---
Author Name Unknown Organization [facility] Address [address] [place] [place] [place] [address] Phone [phone] Care Team Providers Care Razor Grinder Name Role Phone Ab Hackett PA-C Primary Care Provide r Reason for Visit * Reason Comments Acute Pt reports with sob, chest pain, one instance at breakfast chest pain for a minute or two, chest tightness when walking on the tread mill, also when hunting has been very sob, typically exercises twice a day for 90 minutes each Encounter Details Date Type Department Care Team (Late st Contact Info) Description 05/05/2024 2:40 PM EDT [facility] [place] [address] Marisela Chong, [address] [facility] [place] [id number] Chest pain due to myocardial ischemia, unspecified ischemic chest pain type*; NICHOLS (dyspnea on exertion); HTN, goal below 130/80; LBBB (left bundle branch block); Memory change Allergies Active Allergy Reactions Criticality Noted Date Comments Amoxicillin 03/06/2005 Hives, last dose was about age 38 while in the [place] and he had an injection in the arm and a few days later had total body rash. Cefdinir 03/24/2018 Lower leg redness and swelling documented as of this encounter (statuses as of 05/05/2024) Medications Medication Sig Dispensed Refills Start Date [...] day 90 Tablet 3 08/17/2023 Active Ipratropium [place] 0.03 % Nasal Solution (Atrovent) Administer 2 [...] as of this encounter (statuses as of 05/05/2024) Active Problems Problem Noted Date Diagnosed Date [...] as of this encounter (statuses as of 05/05/2024) Resolved Problems Problem Noted Date Diagnosed Date [...] per HTN protocol #16. Mole .6cm r rastafari at scalp margin 03/26/2009 08/10/2018 Benign neoplasm [...] as of this encounter (statuses as of 05/05/2024) Immunizations Name Administration Dates Next Due COVID-19 [...] Sign Reading Time Taken Comments Blood Pressure 142/66 05/05/2024 2:50 PM EDT Pulse 70 05/05/2024 2:50 PM EDT Temperature 36.3 C (97.4 F) 05/05/2024 2:50 PM ED T Respiratory Rate 20 05/05/2024 2:50 PM EDT Oxygen Saturation 97% 05/05/2024 2:50 PM EDT Inhaled Oxygen Concentration - - Weight 82 kg (180 lb 12.8 oz) 05/05/2024 2:50 PM EDT Height 177.8 cm (5' 10") 05/05/2024 2:50 PM EDT Body Mass Index 25.94 05/05/2024 2:50 PM EDT documented in this encounter Functional Status Functional Status Response [...] No 12/25/2017 documented as of this encounter Progress Notes * Marisela Chong, DO - 05/05/2024 2:53 PM EDT Subjective Miguel Wang is a 78 year old male. Chief Complaint Patient presents with Acute Pt reports with sob, chest pain, one instance at breakfast chest pain for a minute or two, chest tightness when walking on the [employer] mill, also when hunting has been very sob, typically exercises twice a day for 90 minutes each HPI: 78-year-old male here today for acute visit Chart reviewed Patient has been having some issues with intermittent chest pain Has had a couple episodes that he can remember, 1 he had some left-sided sharp pain after he was eating breakfast, only lasts a couple minutes More recently he noticed that he was on his treadmill, walking about 5 minutes and started to develop chest tightness again sharp pain left-sided with some shortness of breath, lasted about 5 minutes, denies any nausea, no diaphoresis, no palpitations, no dizziness but did resolve with rest No other instance he noticed some increased shortness of breath and chest tightness again left-sided when he was walking out of the [place] after he was hunting again resolved with rest He does get a little bit of cough but has some postnasal drip He does have a history of acid reflux however is well controlled with medication His chest pain definitely is more sharp and left-sided, it does not radiate into his arm neck jaw or back 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 Current Facility-Administered Medications Medication Dose Route Frequency [...] Mild cognitive impairment 08/10/2018 Mole .6cm r rastafari at scalp margin 03/26/2009 Osteopenia Other specified [...] performed by Joseph Hsieh MD at ENDOSCOPY [facility] COLONOSCOPY, DIAGNOSTIC (RECTUM) 04/17/2020 diverticulosis / COLONOSCOPY FLEXIBLE PROXIMAL DIAGNOSTIC performed by Guerrero Tijerina MD at ENDOSCOPY [facility] COLORECTAL CANCER SCREEN; COLON [address] [facility] EGD, FLEXIBLE, DIAGNOSTIC 05/26/2012 UPPER GI ENDOSCOPY DIAGNOSTIC performed by Regino Reynoso MD at ENDOSCOPY [facility] EGD, FLEXIBLE, DIAGNOSTIC 05/10/2018 acid reflux on bx/ESOPHAGOGASTRODUODENOSCOPY (EGD), FLEXIBLE, TRANSORAL, DIAGNOSTIC performed by Joseph Hsieh MD at ENDOSCOPY [facility] EGD, FLEXIBLE, W/BIOPSY 12/10/2009 bx--negative FISSURECTOMY W/ SPHINCTEROTOMY 1968 IR BIOPSY 04/04/2024 LUMBAR HEMILAMINECTOMY 2004 REMOVAL OF APPENDIX 1953 REMOVAL OF PROSTATE (TURP) N/A 03/05/2023 TRANSURETHRAL RESECTION PROSTATE ELECTROSURGICAL performed by Johnathan Patrick MD at OR [facility] REMOVE TONSILS & ADENOIDS, UNDER 12 1953 STRESS TREADMILL 03/2008 Cardiovascular Stress Test-No ischemia Review of patient's allergies indicates: Allergen Reactions Amoxicillin Hives, last dose was about age 38 while in the [place] and he had an injection in the arm and a few days later had total body rash. 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 Tobacco Use Smoking status: Former Current packs/day: 0.00 Average packs/day: 0.5 packs/day for 26.0 years (13.0 ttl pk-yrs) Types: Cigarettes Start date: 07/27/1961 Quit date: 07/27/1987 Years since quittin.8 Passive exposure: Never Smokeless tobacco: Former Quit date: 03/14/1992 Tobacco comments: ages [age], 1/2 ppd Vaping Use Vaping status: Never Used Substance and Sexual Activity Alcohol use: Yes Alcohol/week: 0.0 standard drinks of alcohol Comment: 2 days a month 1-2 beers Drug use: No Sexual activity: Not on file Other Topics Concern Service Yes Comment: [employer] Blood Transfusions No Caffeine Concern Not Asked Occupational Exposure Not Asked Hobby Hazards Not Asked Sleep Concern Not Asked Stress Concern Not Asked Weight Concern Not Asked Special Diet Not Asked Back Care Not Asked Exercise Not Asked Bike Helmet Not Asked Seat Belt Not Asked Self-Exams Not Asked Social History Narrative 03/06/2016 Household: Lives w/ only - kids are adults.. 1 grandchild Social Determinants of Health Financial Resource Strain: Not on file Food Insecurity: No Food Insecurity (01/08/2023) Hunger Vital Sign Worried About Running Out of Food in the Last Year: Never true Ran Out of Food in the Last Year: Never true Transportation Needs: Not on file Social Connections: Unknown (01/12/2024) Social Connections How often do you feel lonely or isolated from those around you? (Adult - for ages 18 years and over): Not on file Housing Stability: Not on file Objective BP 142/66 | Pulse 70 | Temp 36.3 C (97.4 F) (Temporal Artery) | Resp 20 | Ht 1.778 m (5' 10") |Wt 82 kg (180 lb 12.8 oz) | SpO2 97% | BMI 25.94 kg/m | BSA 2.01 m Physical Exam Vitals and nursing note reviewed. Constitutional: General: He is not in acute distress. Appearance: Normal appearance. He is well-developed. He is not ill-appearing or diaphoretic. HENT: Head: Normocephalic and atraumatic. Right Ear: External ear normal. Left Ear: External ear normal. Eyes: General: No scleral icterus. Right eye: No discharge. Left eye: No discharge. Neck: Thyroid: No thyromegaly. Cardiovascular: Rate and Rhythm: Normal rate and regular rhythm. Heart sounds: Normal heart sounds. No murmur heard. Pulmonary: Effort: Pulmonary effort is normal. No respiratory distress. Breath sounds: Normal breath sounds. No wheezing, rhonchi or rales. Chest: Chest wall: No tenderness. Abdominal: General: Bowel sounds are normal. There is no distension. Palpations: Abdomen is soft. Tenderness: There is no abdominal tenderness. Musculoskeletal: General: No deformity. Cervical back: Neck supple. Right lower leg: No edema. Left lower leg: No edema. Lymphadenopathy: Cervical: No cervical adenopathy. Skin: General: Skin is warm and dry. Neurological: General: No focal deficit present. Mental Status: He is alert and oriented to person, place, and time. Gait: Gait normal. Psychiatric: Mood and Affect: Mood normal. Behavior: Behavior normal. Thought Content: Thought content normal. Judgment: Judgment normal. ASSESSMENT/PLAN: Chest pain due to myocardial ischemia, unspecified ischemic chest pain type (Primary) - EKG; Future; Expected date: 05/05/2024 - XR CHEST 2 VIEWS - COMPREHENSIVE METABOLIC PANEL; Future; Expected date: 05/05/2024 - CBC WITH WBC DIFFERENTIAL; Future; Expected date: 05/05/2024 - TSH WITH FREE T4 IF INDICATED; Future; Expected date: 05/05/2024 NICHOLS (dyspnea on exertion) - XR CHEST 2 VIEWS - COMPREHENSIVE METABOLIC PANEL; Future; Expected date: 05/05/2024 - CBC WITH WBC DIFFERENTIAL; Future; Expected date: 05/05/2024 - TSH WITH FREE T4 IF INDICATED; Future; Expected date: 05/05/2024 HTN, goal below 130/80 LBBB (left bundle branch block) Memory change - VITAMIN B12; Future; Expected date: 05/05/2024 - ERYTHROCYTE SEDIMENTATION RATE (ESR); Future; Expected date: 05/05/2024 - CRP (INFLAMMATORY MARKER); Future; Expected date: 05/05/2024 - LYME DISEASE ANTIBODY SCREEN WITH REFLEX TO CONFIRMATION; Future; Expected date: 05/05/2024 EKG unchanged Will check chest x-ray Update labs Will await chest x-ray and labs, consider stress test, will likely review with Cardiology Patient also is concerned about some memory changes, has noticed some issues with recall and misplacing things around the house Recommend he follow-up with PCP Follow Up: Return for Keep scheduled appointment. | For: Keep scheduled appointment Marisela Chong DO documented in this encounter Plan of Treatment Upcoming Encounters Date Type Department Care Team (Late st Contact Info) Description 08/02/2024 1:00 PM EST Rehab Services Voice Lab, [address] [place] [address] Yan Lindsey [facility] [address] [place] [address] 08/02/2024 1:30 PM EST Appointment Radiology, [address] [place] [address] 08/02/2024 4:40 PM EST Office Visit [facility] [address] [place] [address] Ab Hackett PA-C [address] [place] [address] 08/17/2024 10:30 AM EST Office Visit Sleep Disorders Ctr [facility] 132 [facility] [phone] Lulu Bernabe CRNP 132 [facility] [place] [address] 09/27/2024 10:00 AM EST Office Visit Urology, [facility] 132 [facility] [place] [address] Johnathan Patrick MD 27 [facility] [place] [address] 10/06/2024 1:00 PM EDT Office Visit Neurology [facility] 200 [facility] [place] [address] Bing Wilburn MD 200 [place] [address] 01/19/2025 3:00 PM EDT Nurse Only Ancillary [facility], [place] [facility] [address] [place] [address] [place], Nurse Annual Wellness [place] [address] [place] [address] Scheduled Orders Name Type Priority Associated Diagnoses Orde r Schedule EKG EKG Routine Chest pain due to myocardial ischemia, unspecified ischemic chest pain type Expected: 05/05/2024 (Approximate), Expires: 06/05/2025 XR CHEST 2 VIEWS Medical Imaging Routine Chest pain due to myocardial ischemia, unspecified ischemic chest pain type NICHOLS (dyspnea on exertion) Ordered: 05/05/2024 COMPREHENSIVE METABOLIC PANEL Lab Routine Chest pain due to myocardial ischemia, unspecified ischemic chest pain type NICHOLS (dyspnea on exertion) Expected: 05/05/2024 (Approximate), Expires: 05/05/2025 CBC WITH WBC DIFFERENTIAL Lab Routine Chest pain due to myocardial ischemia, unspecified ischemic chest pain type NICHLOS (dyspnea on exertion) Expected: 05/05/2024 (Approximate), Expires: 05/05/2025 TSH WITH FREE T4 IF INDICATED Lab Routine Chest pain due to myocardial ischemia, unspecified ischemic chest pain type NICHOLS (dyspnea on exertion) Expected: 05/05/2024 (Approximate), Expires: 05/05/2025 VITAMIN B12 Lab Routine Memory change Expected: 05/05/2024 (Approximate), Expires: 05/05/2025 ERYTHROCYTE SEDIMENTATION RATE (ESR) Lab Routine Memory change Expected: 05/05/2024 (Approximate), Expires: 05/05/2025 CRP (INFLAMMATORY MARKER) Lab Routine Memory change Expected: 05/05/2024 (Approximate), Expires: 05/05/2025 LYME DISEASE ANTIBODY SCREEN WITH REFLEX TO CONFIRMATION Lab Routine Memory change Expected: 05/05/2024 (Approximate), Expires: 05/05/2025 Health Maintenance Due Date Last Done Comments [...] to myocardial ischemia, unspecified ischemic chest pain type- Primary NICHOLS (dyspnea on exertion) Other dyspnea and respiratory abnormality HTN, goal below 130/80 Unspecified essential hypertension LBBB (left bundle branch block) Other left bundle branch block Memory change Memory loss documented in this [...] the patient have Health Care Power of Credit Processor? Yes, in chart and reviewed as current Care Teams Razor Grinder Relationship Specialty Start Date End Date Ab Hackett PA-C [address] [facility] [place] [address] PCP - General Physician Trouble Locator Test Desk 05/29/23 documented as of this encounter
--- OUTSIDE RECORDS SUMMARY | 2024-09-15 06:50 | External Medical Summary | Summary of Care ---
Author Name Unknown Organization [facility] Address [address] [facility] [place] [address] Phone [phone] Care Team Providers Care Bag Adjuster Name Role Phone Ab Hackett PA-C Primary Care Provide r Encounter Details Date Type Department Care Team (Late st Contact Info) Description 04/11/2024 Telephone [place] [address] [place] [address] Izabella Monterroso MD [address] [place] [address] Allergies Active Allergy Reactions Criticality Noted Date Comments Amoxicillin 03/06/2005 Hives, last dose was about age 38 while in the [place] and he had an injection in the arm and a few days later had total body rash. Cefdinir 03/24/2018 Lower leg redness and swelling documented as of this encounter (statuses as of 04/14/2024) Medications Medication Sig Dispensed Refills Start Date [...] day 90 Tablet 3 08/17/2023 Active Ipratropium [place] 0.03 % Nasal Solution (Atrovent) Administer 2 [...] as of this encounter (statuses as of 04/14/2024) Active Problems Problem Noted Date Diagnosed Date [...] as of this encounter (statuses as of 04/14/2024) Resolved Problems Problem Noted Date Diagnosed Date [...] as of this encounter (statuses as of 04/14/2024) Immunizations Name Administration Dates Next Due COVID-19 [...] encounter Miscellaneous Notes * Telephone Encounter - Kourtney Yoon RN - 04/14/2024 10:04 AM EDT Pt sent a myg to his pcp because he has not heard back from scheduling. Please call pt to set up surgery. Thank you * Telephone Encounter - Ruben Lester OSA - 04/12/2024 9:17 AM EDT Images from the original note were not included. Pt calling back to discuss surgery in August. Please call back at Contact Information [phone] * Telephone Encounter - Rosa Nagel LPN - 04/12/2024 9:08 AM EDT Pt called in. Please reach back out to pt to schedule. * Telephone Encounter - Tg Simpson OSA - 04/11/2024 2:25 PM EDT Tried to call pt twice but he could not hear me. 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 * Telephone Encounter - Rosa Nagel LPN - 04/11/2024 1:54 PM EDT Pt called back states he is now considering surgery but would like to hold off until the new year. Advised surgery would be done at [facility]. Pt would like to see what [facility] scheduling is like. * Telephone Encounter - Rosa Nagel LPN - 04/11/2024 1:14 PM EDT Pt returned call, relayed Dr. Monterroso's message to pt. Pt voiced understanding, he states he wouldlike to repeat imaging in 6 months. Pt requests pcp office to call him to get that set up. * Telephone Encounter - Cristal Hirsch LPN - 04/11/2024 10:39 AM EDT I left a message on patient's answering machine asking patient to call us back. 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 There is still a small possibility that it could be cancerous. If patient is interested in surgery I would most likely refer them to [place] to 1 of our head neck surgeons. The other option is to do a repeat imaging in 6 months by the PCP. documented in this encounter Plan of Treatment Upcoming Encounters Date Type Department Care Team (Late st Contact Info) Description 04/25/2024 9:30 AM EDT Office Visit Orthopaedics [facility] [address] [place] [address] Solomon Suarez MD [address] [place] [address] 08/02/2024 1:00 PM EST Rehab Services Voice Lab, [address] [address] Yan Lindsey, [facility] [address] [place] [address] 08/02/2024 1:30 PM EST Appointment Radiology, [address] [address] 08/02/2024 4:40 PM EST Office Visit [facility] [place] [address] [place] [address] Ab Hackett PA-C [address] [place] [address] 08/17/2024 10:30 AM EST Office Visit [facility]tr [facility] [phone] Lulu Bernabe CRNP 132 [place] [address] 09/27/2024 10:00 AM EST Office Visit Urology, [facility] 132 [place] [address] Johnathan Patrick MD 27 [facility] [place] [address] 10/06/2024 1:00 PM EDT Office Visit Neurology [facility] 200 [place] [address] Bing Wilburn MD 200 [facility] [place] [address] 01/19/2025 3:00 PM EDT Nurse Only Ancillary [address], [place] [address] [place] [address] [place], Nurse Annual Wellness Cold [address] [place] [address] Health Maintenance Due Date Last Done Comments [...] the patient have Health Care Power of Corporate Lawyer? Yes, in chart and reviewed as current Care Teams Bag Adjuster Relationship Specialty Start Date End Date Ab Hackett PA-C [address] [facility] [place] [address] PCP - General Physician Concession Stand Attendant 05/29/23 documented as of this encounter
--- OUTSIDE RECORDS SUMMARY | 2024-09-15 06:50 | External Medical Summary | Summary of Care ---
Author Name Unknown Organization [facility] Address [address] [place] [facility] [place] [address] Phone [phone] Care Team Providers Care Mba Intern Name Role Phone Ab Hackett PA-C Primary Care Provide r Encounter Details Date Type Department Care Team (Late st Contact Info) Description 05/06/2024 Orders Only Family [address], [place] [address] [place] [address] Marisela Chong DO [address] [place] [address] Allergies Active Allergy Reactions Criticality Noted Date Comments Amoxicillin 03/06/2005 Hives, last dose was about age 38 while in the [place] and he had an injection in the [...] day 90 Tablet 3 08/17/2023 Active Ipratropium [place] 0.03 % Nasal Solution (Atrovent) Administer 2 [...] per HTN protocol #16. 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 [...] 1:00 PM EST Rehab Services Voice Lab, [facility] [address] [place] [address] Yan Lindsey, [facility] [address] [place] [address] 08/02/2024 1:30 PM EST Appointment Radiology, [facility] [address] [facility] [place] [address] 08/02/2024 4:40 PM EST Office Visit Family Practice [address], [place] [address] [place], [place] [address] Ab Hackett PA-C [address] [place] [address] 08/17/2024 10:30 AM EST Office Visit Sleep Disorders Ctr [facility] 132 [facility] [place] [phone] Lulu Bernabe CRNP 132 [facility] [address] 09/27/2024 10:00 AM EST Office Visit Urology, [facility] 132 [facility] [place] [address] Johnathan Patrick MD [facility] [address] 10/06/2024 1:00 PM EDT Office Visit Neurology [facility] 200 [place] [address] Bing Wilburn MD 200 [place] [address] 01/19/2025 3:00 PM EDT Nurse Only Ancillary [address], [place] [address] [place] [address] [place], Nurse Annual Wellness Cold [address] [place], [place] [address] Health Maintenance Due Date Last Done Comments TSH 01/08/2024 05/05/2024, 12/25, 12/20/2021, Additional history exists COVID-19 Vaccine ( season) 2024 04/26/2023, 04/26/2023, 05/21/2021, Additional history exists Influenza Vaccine (FLU shot) (#1) 2024 05/25/2023, 05/25/2023, 05/25/2023, Additional history exists DXA Scan 06/25/2024 06/25/2022, 05/29, 04/29/2010, Additional history exists Adult Wellness Visit 01/13/2025 01/14/2024, 01/08/2023, 08/01/2021 Depression Monitoring 01/13/2025 01/14/2024 GFR 03/03/2025 05/05/2024, 02/2024, 01/06/2024, Additional history exists Albumin/Creatinine Ratio 01/07/2026 01/07/2023 [...] Priority Date/Time Associated Diagnosis Comments CHEMISTRY-OUTSIDE Routine 05/05/2024 TSH Routine 05/05/2024 documented in this encounter Results * TSH (05/05/2024) TSH - OUTSIDE LAB 0.439 0.410 - 4.670 MCIU/ML OUTSIDE LAB (SEE SCANNED REPORT) Blood Venous blood specimen / Unknown 05/05/2024 Marisela Chong DO LAB BLOOD ORDERABL ES OUTSIDE LAB (SEE SCANNED REPORT) * CHEMISTRY-OUTSIDE (05/05/2024) Not all results display below - see scan for full detail OUTSIDE LAB (SEE SCANNED REPORT) Comment:SCAN INCLUDES - CMP, T4 FREE, TSH, VIT B12, CBCD, SED RATE CREATININE 0.80 0.40 - 1.50 MG/DL OUTSIDE LAB (SEE SCANNED REPORT) EGFR 89 >=60 ML/MIN OUTSIDE LAB (SEE SCANNED REPORT) POTASSIUM 3.9 3.6 - 5.0 MMOL/L OUTSIDE LAB (SEE SCANNED REPORT) GLUCOSE 86 65 - 110 MG/DL OUTSIDE LAB (SEE SCANNED REPORT) HOURS FASTING OUTSID E LAB (SEE SCANNED REPORT) TRIGLYCERIDES-OUT SIDE LAB OUTSIDE LAB (SEE SCANNED REPORT) CHOLESTEROL-OUTSI DE LAB OUTSIDE LAB (SEE SCANNED REPORT) HDL-OUTSIDE LAB OUTS RADU LAB (SEE SCANNED REPORT) CHOL/HDL RATIO-OUTSIDE LAB OUTSIDE LA B (SEE SCANNED REPORT) LDL (CALCULATED)-OUTS RADU LAB OUTSIDE LAB (SEE SCANNED REPORT) LDL (DIRECT MEASURE)-OUTSIDE LAB OUTSIDE LAB (SEE SCANNED REPORT) HEMOGLOBIN, V7W-UUKYRHD LAB OUTSIDE LAB (SEE SCANNED REPORT) PHOSPHORUS-OUTSID E LAB OUTSIDE LAB (SEE SCANNED REPORT) PTH-OUTSIDE LAB OUTS RADU LAB (SEE SCANNED REPORT) MICROALBUMIN RATIO-OUTSIDE LAB OUTSIDE LA B (SEE SCANNED REPORT) PROTEIN, UA-OUTSIDE LAB OUTSIDE LAB (SEE SCANNED REPORT) HGB 15.1 14.0 - 18.0 GM/DL OUTSIDE LAB (SEE SCANNED REPORT) 05/05/2024 Marisela Chong DO LABORATORY OUTSIDE LAB (SEE SCANNED REPORT) documented in [...] the patient have Health Care Power of Paving Stone Installer? Yes, in chart and reviewed as current Care Teams Mba Intern Relationship Specialty Start Date End Date Ab Hackett PA-C [facility] [place] [address] PCP - General Physician Coke Crane Operator 05/29/23 documented as of this encounter
--- OUTSIDE RECORDS SUMMARY | 2024-09-15 06:50 | External Medical Summary | Summary of Care ---
Author Name Unknown Organization [facility] Address [address] [facility] [place] [address] Phone [phone] Care Team Providers Care Airplane Pilot Name Role Phone Ab Hackett PA-C Primary Care Provide r Encounter Details Date Type Department Care Team (Late st Contact Info) Description 04/11/2024 Telephone [place] [address] [place] [address] Izabella Monterroso MD [address] [place] [address] Allergies Active Allergy Reactions Criticality Noted Date Comments Amoxicillin 03/06/2005 Hives, last dose was about age 38 while in the [place] and he had an injection in the arm and a few days later had total body rash. Cefdinir 03/24/2018 Lower leg redness and swelling documented as of this encounter (statuses as of 04/20/2024) Medications Medication Sig Dispensed Refills Start Date [...] day 90 Tablet 3 08/17/2023 Active Ipratropium [place] 0.03 % Nasal Solution (Atrovent) Administer 2 [...] as of this encounter (statuses as of 04/20/2024) Active Problems Problem Noted Date Diagnosed Date [...] as of this encounter (statuses as of 04/20/2024) Resolved Problems Problem Noted Date Diagnosed Date [...] per HTN protocol #16. Mole .6cm r orthodox at scalp margin 03/26/2009 08/10/2018 Benign neoplasm [...] as of this encounter (statuses as of 04/20/2024) Immunizations Name Administration Dates Next Due COVID-19 [...] encounter Miscellaneous Notes * Telephone Encounter - Tg Simpson OSA - 04/20/2024 2:13 PM EDT Pt scheduled * Telephone Encounter - Kourtney Yoon RN - 04/14/2024 10:04 AM EDT Pt sent a myg to his pcp because he has not heard back from scheduling. Please call pt to set up surgery. Thank you * Telephone Encounter - Ruben Lester OSA - 04/12/2024 9:17 AM EDT Images from the original note were not included. Pt calling back to discuss surgery in August needed. Please call back at Contact Information [phone] * Telephone Encounter - Rosa Nagel LPN [...] year. Advised surgery would be done at [facility]. Pt would like to see what [facility] scheduling is like. * Telephone Encounter - Rosa Nagel LPN - 04/11/2024 1:14 PM EDT Pt returned call, relayed Dr. Motnerroso's message to pt. Pt voiced understanding, he [...] I would most likely refer them to [place] to 1 of our head neck surgeons. The other option is to do a repeat imaging in 6 months by the PCP. documented in this encounter Plan of Treatment Upcoming Encounters Date Type Department Care Team (Late st Contact Info) Description 04/25/2024 9:30 AM EDT Office Visit Orthopaedics [facility] [address] [place] [address] Solomon Suarez MD [address] [place] [address] 05/31/2024 1:45 PM EST Office Visit Otolaryngology/Head & Neck/Facial Plastic Surgery [address] [facility] [place] [address] Gavino Gaspar MD [address] [facility] [place] [address] 08/02/2024 1:00 PM EST Rehab Services Voice Lab, [address] [place] [address] Yan Lindsey, [facility] DOOR TENDER 132 [place] [address] 08/02/2024 1:30 PM EST Appointment Radiology, [facility] 400 [facility] [place] [address] 08/02/2024 4:40 PM EST Office Visit Family Practice [address], [place] [address] [place] [address] Ab Hackett PA-C [address] [place] [address] 08/17/2024 10:30 AM EST Office Visit Sleep Disorders Ctr [facility] 132 [facility] [place] [phone] Lulu Bernabe CRNP 132 [facility] [place] [address] 09/27/2024 10:00 AM EST Office Visit Urology, [facility] 132 [facility] [place] [address] Johnathan Patrick MD 27 [facility] [place] [address] 10/06/2024 1:00 PM EDT Office Visit [facility] 200 [facility] [place] [address] Bing Wilburn MD 200 [facility] [place] [address] 01/19/2025 3:00 PM EDT Nurse Only Ancillary [address], [place] [address] [place] [address] [place], Nurse Annual Wellness Cold [address] [place] [address] Health Maintenance Due Date Last Done Comments [...] the patient have Health Care Power of Traveling Storekeeper? Yes, in chart and reviewed as current Care Teams Airplane Pilot Relationship Specialty Start Date End Date Ab Hackett PA-C [address] [facility] [place] [address] PCP - General Physician Beater Room Supervisor 05/29/23 documented as of this encounter
--- OUTSIDE RECORDS SUMMARY | 2024-09-15 06:50 | External Medical Summary | Summary of Care ---
Author Name Unknown Organization [facility] Address [address] [place] [address] Phone [phone] Care Team Providers Care Airport Maintenance Chief Name Role Phone Ab Hackett PA-C Primary Care Provide r Reason for Visit * Reason Onset Date Comments Advice 04/22/2024 Surgery/addition al medical history Encounter Details Date Type Department Care Team (Late st Contact Info) Description 04/22/2024 Telephone Otolaryngology [facility] 132 [facility] [place] [id number] Services, Scheduling [address] [place] [address] Advice (Surgery/additional medical history ) Allergies Active Allergy Reactions Criticality Noted Date Comments Amoxicillin 03/06/2005 Hives, last dose was about age 38 while in the [place] and he had an injection in the arm and a few days later had total body rash. 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 Pt states since the biopsy showed no cancer he wants to know if surgeryneeds to occur. Advised pt again of Dr. Monterroso's recs: Please let patient know that the fine-needle [...] imaging in 6 months by the PCP. Patient states he wants to now just monitor and do repeat imaging in 6 months, not surgery. He willdiscuss with his pcp to order US of thyroid. Patient had no further questions/concerns at this time. * Telephone Encounter - Tereza Harris OSA - 04/22/2024 9:29 AM EDT Pt called to give additional medical history and to discuss surgery vs letting it go. He has decided to not have the surgery but would like to tell Dr Mills some additional history. Please contact pt at [phone] documented in this encounter Plan of Treatment Upcoming Encounters Date Type Department Care Team (Late st Contact Info) Description 04/25/2024 9:30 AM EDT Office Visit Orthopaedics [facility] [address] [place] [address] Solomon Suarez MD [address] [place] [address] 08/02/2024 1:00 PM EST Rehab Services Voice Lab, [address] [address] Yan Lindsey, [facility] [address] [place] [address] 08/02/2024 1:30 PM EST Appointment Radiology, [facility] 400 [place] [address] 08/02/2024 4:40 PM EST Office Visit [facility] [address] [place] [address] Ab Hackett PA-C [address] [place] [address] 08/17/2024 10:30 AM EST Office Visit Sleep Disorders Ctr [facility] 132 [facility] [place] [phone] Lulu Bernabe CRNP 132 [facility] [place] [address] 09/27/2024 10:00 AM EST Office Visit Urology, [facility] 132 [facility] [place] [address] Johnathan Patrick MD [address] [facility] [place] [address] 10/06/2024 1:00 PM EDT Office Visit Neurology [facility] [address] [facility] [place] [address] Bing Wilburn MD 200 [place] [address] 01/19/2025 3:00 PM EDT Nurse Only Ancillary [address], [place] [address] [place] [address] [place], Nurse Annual Wellness Cold [address] [place] [address] Health Maintenance Due Date Last Done Comments [...] the patient have Health Care Power of Forensic Science Examiner? Yes, in chart and reviewed as current Care Teams Airport Maintenance Chief Relationship Specialty Start Date End Date Ab Hackett PA-C 3[address] [facility] [place] [address] PCP - General Physician Weigher Operator 05/29/23 documented as of this encounter
--- OUTSIDE RECORDS SUMMARY | 2024-09-15 06:50 | External Medical Summary | Summary of Care ---
Author Name Unknown Organization [facility] Address [address] [facility] [place] [address] Phone [phone] Care Team Providers Care Corporate Law Assistant Name Role Phone Ab Hackett PA-C Primary Care Provide r Encounter Details Date Type Department Care Team (Late st Contact Info) Description 05/09/2024 Orders Only PATIENT PORTAL DO NOT DELETE THIS DEPT USED BY [place] [address] Allergies Active Allergy Reactions Criticality Noted Date Comments Amoxicillin 03/06/2005 Hives, last dose was about age 38 while in the [place] and he had an injection in the arm and a few days later had total body rash. Cefdinir 03/24/2018 Lower leg redness and swelling documented as of this encounter (statuses as of 05/09/2024) Medications Medication Sig Dispensed Refills Start Date [...] day 90 Tablet 3 08/17/2023 Active Ipratropium [place] 0.03 % Nasal Solution (Atrovent) Administer 2 [...] as of this encounter (statuses as of 05/09/2024) Active Problems Problem Noted Date Diagnosed Date [...] as of this encounter (statuses as of 05/09/2024) Resolved Problems Problem Noted Date Diagnosed Date [...] as of this encounter (statuses as of 05/09/2024) Immunizations Name Administration Dates Next Due COVID-19 [...] Services Voice Lab, [facility] [address] [place] [address] Yan Lindsey, [facility] SUPPORT ASSOCIATE [address] [place] [address] 08/02/2024 1:30 PM EST Appointment Radiology, [facility] [address] [place] [address] 08/02/2024 4:40 PM EST Office Visit Family Practice [address] [place] [address] Ab Hackett PA-C [address] [place] [address] 08/17/2024 10:30 AM EST Office Visit Sleep Disorders Ctr [facility] 132 [facility] [phone] Lulu Bernabe CRNP 132 [facility] [address] 09/27/2024 10:00 AM EST Office Visit Urology, [facility] 132 [place] [address] Johnathan Patrick MD 27 [place] [address] 10/06/2024 1:00 PM EDT Office Visit Neurology [facility] 200 [facility] [place] [address] Bing Wilburn MD 200 [place] [address] 01/19/2025 3:00 PM EDT Nurse Only [address]illary [address] [place] [place] [address] [place], Nurse Annual Wellness Cold [address] [place] [address] Health Maintenance Due Date Last Done Comments [...] the patient have Health Care Power of P 3 Armament/Ordnance Ima Technician? Yes, in chart and reviewed as current Care Teams Corporate Law Assistant Relationship Specialty Start Date End Date Ab Hackett PA-C 3[address] [facility] [place] [phone] PCP - General Physician Chemical Production Technician 05/29/23 documented as of this encounter
--- OUTSIDE RECORDS SUMMARY | 2024-09-15 06:51 | External Medical Summary | Summary of Care ---
Author Name Unknown Organization [facility] Address [address] [facility] [place] [address] Phone [phone] Care Team Providers Care Process Description Writer Name Role Phone Ab Hackett PA-C Primary Care Provide r Encounter Details Date Type Department Care Team (Late st Contact Info) Description 04/11/2024 Telephone [facility] [place] [address] [place] [address] Izabella Monterroso MD [address] [place] [address] Allergies Active Allergy Reactions Criticality Noted Date Comments Amoxicillin 03/06/2005 Hives, last dose was about age 38 while in the [place] and he had an injection in the [...] day 90 Tablet 3 08/17/2023 Active Ipratropium [place] 0.03 % Nasal Solution (Atrovent) Administer 2 [...] per HTN protocol #16. Mole .6cm r shinto at scalp margin 03/26/2009 08/10/2018 Benign neoplasm [...] August. Please call back at Contact Information [phone] * Telephone Encounter - Rosa Nagel LPN [...] year. Advised surgery would be done at [facility]. Pt would like to see what [facility] scheduling is like. * Telephone Encounter - [...] I would most likely refer them to [place] to 1 of our head neck surgeons. The other option is to do a repeat imaging in 6 months by the PCP. documented in this encounter Plan of Treatment Upcoming Encounters Date Type Department Care Team (Late st Contact Info) Description 04/25/2024 9:30 AM EDT Office Visit Orthopaedics [facility] [address] [place] [address] Solomon Suarez MD [address] [place] [address] 08/02/2024 1:00 PM EST Rehab Services Voice Lab, [address] [address] Yan Lindsey, [facility] REMEDIAL EDUCATION INSTRUCTOR [address] [place] [address] 08/02/2024 1:30 PM EST Appointment Radiology, [address] [address] 08/02/2024 4:40 PM EST Office Visit [facility] [place] [address] [place] [address] Ab Hackett PA-C [address] [place] [address] 08/17/2024 10:30 AM EST Office Visit Sleep Disorders Ctr [facility] 132 [facility] [phone] Lulu Bernabe CRNP 132 [place] [address] 09/27/2024 10:00 AM EST Office Visit Urology, [facility] 132 [place] [address] Johnathan Patrick MD 27 [facility] [place] [address] 10/06/2024 1:00 PM EDT Office Visit Neurology [facility] 200 [facility] [place] [address] Bing Wilburn MD 200 [facility] [place] [address] 01/19/2025 3:00 PM EDT Nurse Only Ancillary [address], [place] [address] [place] [address] [place], Nurse Annual Wellness Cold [address] [place] [address] Health Maintenance Due Date Last Done Comments [...] the patient have Health Care Power of Math And Science Division Chair? Yes, in chart and reviewed as current Care Teams Process Description Writer Relationship Specialty Start Date End Date Ab Hackett PA-C [address] [facility] [place] [address] PCP - General Physician Nuclear Equipment Sales Engineer 05/29/23 documented as of this encounter
--- OUTSIDE RECORDS SUMMARY | 2024-09-15 06:51 | External Medical Summary | Summary of Care ---
Author Name Unknown Organization [facility] Address [address] [facility] [place] [address] Phone [phone] Care Team Providers Care Fur Matcher Name Role Phone Ab Hackett PA-C Primary Care Provide r Encounter Details Date Type Department Care Team (Late st Contact Info) Description 04/11/2024 Telephone [facility] [place] [address] Izabella Monterroso MD [address] [place] [address] Allergies Active Allergy Reactions Criticality Noted Date Comments Amoxicillin 03/06/2005 Hives, last dose was about age 38 while in the [place] and he had an injection in the arm and a few days later had total body rash. Cefdinir 03/24/2018 Lower leg redness and swelling documented as of this encounter (statuses as of 04/12/2024) Medications Medication Sig Dispensed Refills Start Date [...] 90 Tablet 3 08/17/2023 Active Ipratropium [place] 0.03 % Nasal Solution (Atrovent) Administer 2 [...] as of this encounter (statuses as of 04/12/2024) Active Problems Problem Noted Date Diagnosed Date [...] as of this encounter (statuses as of 04/12/2024) Resolved Problems Problem Noted Date Diagnosed Date [...] as of this encounter (statuses as of 04/12/2024) Immunizations Name Administration Dates Next Due COVID-19 [...] encounter Miscellaneous Notes * Telephone Encounter - Ruben Lester OSA - 04/12/2024 9:17 AM EDT Images from the original note were not included. Pt calling back to discuss surgery in August. Please call back at Contact Information [phone] * Telephone Encounter - Rosa Nagel LPN [...] year. Advised surgery would be done at [facility]. Pt would like to see what [facility] scheduling is like. * Telephone Encounter - [...] 9:30 AM EDT Office Visit Orthopaedics [facility] [address] [place] [address] Solomon Suarez MD [address] [place] [address] 08/02/2024 1:00 PM EST Rehab Services Voice Lab, [address] [address] Yan Lindsey, [facility]-HEALTH INSURANCE SPECIALIST [address] [place] [address] 08/02/2024 1:30 PM EST Appointment Radiology, [address] [address] 08/02/2024 4:40 PM EST Office Visit [facility] [place] [address] [place] [address] Ab Hackett PA-C [address] [place] [address] 08/17/2024 10:30 AM EST Office Visit Sleep Disorders Ctr [facility] [address] [place] [phone] Lulu Bernabe CRNP [address] [place] [address] 09/27/2024 10:00 AM EST Office Visit Urology, [facility] [address] [place] [address] Johnathan Patrick MD 27 [place] [address] 10/06/2024 1:00 PM EDT Office Visit Neurology [facility] 200 [facility] [place] [address] Bing Wilburn MD 200 [facility] [place] [address] 01/19/2025 3:00 PM EDT Nurse Only Ancillary [address], [place] [address] [place] [address] [place], Nurse Annual Wellness Cold [address] [place] [address] Health Maintenance Due Date Last Done Comments [...] the patient have Health Care Power of Finger Buff Sewer? Yes, in chart and reviewed as current Care Teams Fur Matcher Relationship Specialty Start Date End Date Ab Hackett PA-C 3[address] [facility] [place] [address] PCP - General Physician Oil Well Shooter 05/29/23 documented as of this encounter
--- OUTSIDE RECORDS SUMMARY | 2024-09-15 06:51 | External Medical Summary | Summary of Care ---
Author Name Unknown Organization [facility] Address [address] [facility] [place] [address] Phone [phone] Care Team Providers Care Tipple Tender Name Role Phone bA Hackett PA-C Primary Care Provide r Encounter Details Date Type Department Care Team (Late st Contact Info) Description 04/11/2024 [place] [address] Izabella Monterroso MD [address] [place] [address] Allergies Active Allergy Reactions Criticality Noted Date Comments Amoxicillin 03/06/2005 Hives, last dose was about age 38 while in the [place] and he had an injection in the [...] day 90 Tablet 3 08/17/2023 Active Ipratropium [place] 0.03 % Nasal Solution (Atrovent) Administer 2 [...] year. Advised surgery would be done at [facility]. Pt would like to see what [facility] scheduling is like. * [...] 04/25/2024 9:30 AM EDT Office Visit Orthopaedics [facility] 132 [place] [address] Solomon Suarez MD 132 [place] [address] 08/02/2024 1:00 PM EST Rehab Services Voice Lab, [facility] [address] [place] [address] Yan Lindsey, [facility] [address] [place] [address] 08/02/2024 1:30 PM EST Appointment Radiology, [facility] [address] [place] [phone] 08/02/2024 4:40 PM EST Office Visit Family Practice [address], [place] [address] [place] [address] Ab Hackett PA-C [address] [facility] [place] [address] 08/17/2024 10:30 AM EST Office Visit Sleep Disorders Ctr [facility] 132 [place] [phone] Lulu Bernabe CRNP 132 [place] [address] 09/27/2024 10:00 AM EST Office Visit Urology, [facility] 132 [place] [address] Johnathan Patrick MD [address] [place] [address] 10/06/2024 1:00 PM EDT Office Visit Neurology [facility] [place] 200 [place] [address] Bing Wilburn MD 200 [facility] [place] [address] 01/19/2025 3:00 PM EDT Nurse Only Ancillary [address], [place] [address] [place] [address] [place], Nurse Annual Wellness Cold [address] [place] [address] Health Maintenance Due Date Last Done Comments [...] the patient have Health Care Power of Hairspring Adjuster? Yes, in chart and reviewed as current Care Teams Tipple Tender Relationship Specialty Start Date End Date Ab Hackett PA-C [facility] [place] [address] PCP - General Physician Geophysical Prospecting Surveyor 05/29/23 documented as of this encounter
--- OUTSIDE RECORDS SUMMARY | 2024-09-15 06:51 | External Medical Summary | Summary of Care ---
Author Name Unknown Organization [facility] Address [address] [facility] [place] [address] Phone [phone] Care Team Providers Care Synthetic Gem Press Operator Name Role Phone Ab Hackett PA-C Primary Care Provide r Encounter Details Date Type Department Care Team (Late st Contact Info) Description 04/11/2024 Telephone [place] [address] [place] [address] Izabella Monterroso MD [address] [place] [address] Allergies Active Allergy Reactions Criticality Noted Date Comments Amoxicillin 03/06/2005 Hives, last dose was about age 38 while in the [place] and he had an injection in the arm and a few days later had total body rash. Cefdinir 03/24/2018 Lower leg redness and swelling documented as of this encounter (statuses as of 04/11/2024) Medications Medication Sig Dispensed Refills Start Date [...] day 90 Tablet 3 08/17/2023 Active Ipratropium [place] 0.03 % Nasal Solution (Atrovent) Administer 2 [...] as of this encounter (statuses as of 04/11/2024) Active Problems Problem Noted Date Diagnosed Date [...] as of this encounter (statuses as of 04/11/2024) Resolved Problems Problem Noted Date Diagnosed Date [...] per HTN protocol #16. 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 Advised surgery would be done at [facility]. Pt would like to see what [facility] scheduling is like. * Telephone Encounter - [...] I would most likely refer them to [place] to 1 of our head neck surgeons. The other option is to do a repeat imaging in 6 months by the PCP. documented in this encounter Plan of Treatment Upcoming Encounters Date Type Department Care Team (Late st Contact Info) Description 04/25/2024 9:30 AM EDT Office Visit Orthopaedics [facility] 132 [place] [address] Solomon Suarez MD 132 [place] [address] 08/02/2024 1:00 PM EST Rehab Services Voice Lab, [facility] 400 [place] [address] Yan Lindsey, [facility]ETIT[facility] [place] [address] 08/02/2024 1:30 PM EST Appointment Radiology, [facility] 400 [place] [phone] 08/02/2024 4:40 PM EST Office Visit [facility] [address] [place] [address] Ab Hackett PA-C [address] [place] [address] 08/17/2024 10:30 AM EST Office Visit [facility]tr [facility] 132 [facility] [phone] Lulu Bernabe CRNP 132 [place] [address] 09/27/2024 10:00 AM EST Office Visit Urology, [facility] 132 [facility] [place] [address] Johnathan Patrick MD 27 [facility] [place] [address] 10/06/2024 1:00 PM EDT [facility] [address] [place] [address] Bing Wilburn MD [address] [place] [address] 01/19/2025 3:00 PM EDT Nurse Only Ancillary [address], [place] [address] [place] [address] [place], Nurse Annual Wellness [place] [address] [place] [address] Health Maintenance Due Date Last Done Comments [...] the patient have Health Care Power of Liquor Bridge Operator Helper? Yes, in chart and reviewed as current Care Teams Synthetic Gem Press Operator Relationship Specialty Start Date End Date Ab Hackett PA-C [address] [facility] [place] [phone] PCP - General Physician Director Geophysical Laboratory 05/29/23 documented as of this encounter
--- OUTSIDE RECORDS SUMMARY | 2024-09-15 06:52 | External Medical Summary | Summary of Care ---
Author Name Unknown Organization [facility] Address [address] [place] [place] [address] Phone [phone] Care Team Providers Care Pipe Wrapping Machine Operator Name Role Phone Ab Hackett PA-C Primary Care Provide r Encounter Details Date Type Department Care Team (Late st Contact Info) Description 03/22/2024 Patient Reported Data Patient Survey Ortho OBERD Allergies Active Allergy Reactions Criticality Noted Date Comments Amoxicillin 03/06/2005 Hives, last dose was about age 38 while in the [place] and he had an injection in the arm and a few days later had total body rash. Cefdinir 03/24/2018 Lower leg redness and swelling documented as of this encounter (statuses as of 03/22/2024) Medications Medication Sig Dispensed Refills Start Date [...] day 90 Tablet 3 08/17/2023 Active Ipratropium [place] 0.03 % Nasal Solution (Atrovent) Administer 2 [...] as of this encounter (statuses as of 03/22/2024) Active Problems Problem Noted Date Diagnosed Date [...] as of this encounter (statuses as of 03/22/2024) Resolved Problems Problem Noted Date Diagnosed Date [...] per HTN protocol #16. 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 [...] as of this encounter (statuses as of 03/22/2024) Immunizations Name Administration Dates Next Due COVID-19 [...] 4,05/10/2013,05/10/2013,05/16/2009,,05/15/2008,05/15/2008,05/31/20 07,05/31/2007,06/15/2006,06/15/2006,,05/23/2005,06/04/2004, 004,06/02/2003,06/02/2003,05/27/2002,1 07/27/2001,04/26/2002,04/26/2002,2000,05/04/2001,05/21/2000,05/21/2000, 04/29/1999,04/29/1999,05/01/1998,05/01 Seasonal Influenza, PF, 6 M & above, IM , (FluLaval or Fluzone) 04/26/2021,04/26/2020,03/27/2020,04/26,05/01/1998 Seasonal Influenza, Quad, Na zoey (Flumist) 05/10/2013,05/16/2009,05/15/2008,05/31,06/15/2006,05/23/2005,06/04/2004 ,06/02/2003,05/27/2002,04/26/2002,03/2001,05/21/2000,04/29/1999 Seasonal Influenza, Quadriva lent Hd (Fluzone Hd) 05/26/2022,05/03/2021 Seasonal Influenza, Quadriva lent, No Preserve, IM 04/15/2017 Seasonal Influenza, Split, I IV3, With Preserve, Inj 05/26/2016,05/22/2015,05/01/2014,05/06,04/22/2012,04/16/2011,04/23/2010 ,05/15/2008,06/09/2007,06/03/2006 Seasonal Influenza, Trivalen t, Adjuvanted, 65+ yrs 05/02/2019,05/03/2018 Seasonal Influenza, Trivalen t, High Dose, No Preserve, IM 05/25/2023 TDAP (age 10 and older)(Boostrix) 07/15/2023,12/2011 Varicella [...] Care Team (Late st Contact Info) Description 04/04/2024 2:30 PM EDT Appointment Radiology, [address] [place] [address] 04/25/2024 9:30 AM EDT Office Visit Orthopaedics [facility] [address] [place] [address] Solomon Suarez MD [address] [place] [address] 08/02/2024 1:00 PM EST Rehab Services Voice Lab, [address] [place] [address] Yan Lindsey, [facility]-PRECISION DEVICES INSPECTOR/TESTER [address] [place] [address] 08/02/2024 1:30 PM EST Appointment Radiology, [facility] [address] [place] [phone] 08/02/2024 4:40 PM EST Office Visit Family Practice [address], [place] [address] [place] [address] Ab Hackett PA-C [address] [place] [address] 08/17/2024 10:30 AM EST Office Visit Sleep Disorders Ctr [facility] 132 [facility] [place] [phone] Lulu Bernabe CRNP 132 [facility] [place] [address] 09/27/2024 10:00 AM EST Office Visit Urology, [facility] 132 [facility] [place] [address] Johnathan Patrick MD 27 [facility] [place] [address] 10/06/2024 1:00 PM EDT Office Visit [facility] 200 [facility] [place] [address] Bing Wilburn MD 200 [facility] [place] [address] 01/19/2025 3:00 PM EDT Nurse Only Ancillary [address], [place] [address] [place] [address] [place], Nurse Annual Wellness Cold [address] [place] [address] Health Maintenance Due Date Last Done Comments COVID-19 Vaccine (2022- season) 2023 04/26/2023, 04/26/2023, 05/21/2021, Additional history exists TSH 01/08/2024 01/07/2023, 11/25, 04/26/2021, Additional history exists Influenza Vaccine (FLU shot) [...] the patient have Health Care Power of Pathology Teacher? Yes, in chart and reviewed as current Care Teams Pipe Wrapping Machine Operator Relationship Specialty Start Date End Date Ab Hackett PA-C [facility]8 [facility] [place] [phone] PCP - General Physician Admitting Clerk 05/29/23 documented as of this encounter
--- OUTSIDE RECORDS SUMMARY | 2024-09-15 06:52 | External Medical Summary | Summary of Care ---
Author Name Unknown Organization [facility] Address [address] [facility] [place] [place] [address] Phone [phone] Care Team Providers Care Golf Club Facer Name Role Phone Ab Hackett PA-C Primary Care Provide r Encounter Details Date Type Department Care Team (Late st Contact Info) Description 03/22/2024 Patient Reported Data Patient Survey Ortho OBERD Allergies Active Allergy Reactions Criticality Noted Date Comments Amoxicillin 03/06/2005 Hives, last dose was about age 38 while in the [place] and he had an injection in the [...] day 90 Tablet 3 08/17/2023 Active Ipratropium [place] 0.03 % Nasal Solution (Atrovent) Administer 2 [...] Description 04/04/2024 2:30 PM EDT Appointment Radiology, [address] [place] [address] 04/25/2024 9:30 AM EDT Office Visit Orthopaedics [facility] [address] [place] [address] Solomon Suarez MD [address] [place] [address] 08/02/2024 1:00 PM EST Rehab Services Voice Lab, [address] [place] [address] Yan Lindsey, [facility]OT[facility] PICTURE CAMERA LENS TECHNICIAN [address] [place] [address] 08/02/2024 1:30 PM EST Appointment Radiology, [facility] [address] [place] [address] 08/02/2024 4:40 PM EST Office Visit Family Practice [address], [place] [address] [place] [address] Ab Hackett PA-C [address] [place] [address] 08/17/2024 10:30 AM EST Office Visit Sleep Disorders Ctr [facility] [address] [facility] [place] [phone] Lulu Bernabe CRNP 132 [facility] [place] [address] 09/27/2024 10:00 AM EST Office Visit Urology, [facility] 132 [facility] [place] [address] Johnathan Patrick MD [address] [facility] [place] [address] 10/06/2024 1:00 PM EDT Office Visit Neu[facility] 200 [facility] [place] [address] Bing Wilburn MD 200 [facility] [place] [address] 01/19/2025 3:00 PM EDT Nurse Only Ancillary [address], [place] [address] [place] [address] [place], Nurse Annual Wellness Cold [address] [place] [address] Health Maintenance Due Date Last Done Comments [...] patient have Health Care Power of Director Of Community Education? Yes, in chart and reviewed as current Care Teams Golf Club Facer Relationship Specialty Start Date End Date Ab Hackett PA-C [facility]8 [facility] [place] [phone] PCP - General Physician Customer Sales Specialist 05/29/23 documented as of this encounter
--- OUTSIDE RECORDS SUMMARY | 2024-09-15 06:52 | External Medical Summary | Summary of Care ---
Author Name Unknown Organization [facility] Address [address] [place] [address] Phone [phone] Care Team Providers Care Dispatcher Maintenance Name Role Phone Ab Hackett PA-C Primary Care Provide r Encounter Details Date Type Department Care Team (Late st Contact Info) Description 03/22/2024 Patient Reported Data Patient Survey Ortho OBERD Allergies Active Allergy Reactions Criticality Noted Date Comments Amoxicillin 03/06/2005 Hives, last dose was about age 38 while in the [place] and he had an injection in the [...] day 90 Tablet 3 08/17/2023 Active Ipratropium [place] 0.03 % Nasal Solution (Atrovent) Administer 2 [...] Description 04/04/2024 2:30 PM EDT Appointment Radiology, [address] [place] [address] 04/25/2024 9:30 AM EDT Office Visit Orthopaedics [facility] [address] [place] [address] Solomon Suarez MD [address] [place] [address] 08/02/2024 1:00 PM EST Rehab Services Voice Lab, [address] [place] [address] Yan Lindsey, [facility] [address] [place] [address] 08/02/2024 1:30 PM EST Appointment Radiology, [facility] [address] [place] [address] 08/02/2024 4:40 PM EST Office Visit Family Practice [address], [place] [address] [place] [address] Ab Hackett PA-C [address] [place] [address] 08/17/2024 10:30 AM EST Office Visit Sleep Disorders Ctr [facility] 132 [facility] [place] [phone] Lulu Bernabe CRNP 132 [facility] [place] [address] 09/27/2024 10:00 AM EST Office Visit Urology, [facility] 132 [facility] [place] [address] Johnathan Patrick MD 27 [place] [address] 10/06/2024 1:00 PM EDT Office Visit [facility] 200 [facility] [place] [address] Bing Wilburn MD 200 [facility] [place] [address] 01/19/2025 3:00 PM EDT Nurse Only Ancillary [address], [place] [address] [place] [address] [place], Nurse Annual Wellness Cold [address] [place] [address] Health Maintenance Due Date Last Done Comments [...] patient have Health Care Power of Senior Insight Manager International? Yes, in chart and reviewed as current Care Teams Dispatcher Maintenance Relationship Specialty Start Date End Date Ab Hackett PA-C [facility]8 [facility] [place] [phone] PCP - General Physician High School Math Tutor 05/29/23 documented as of this encounter
--- OUTSIDE RECORDS SUMMARY | 2024-09-15 06:52 | External Medical Summary | Summary of Care ---
Author Name Unknown Organization [facility] Address [address] [place] [facility] [place] [place] [place] [address] Phone [phone] Care Team Providers Care Cake Tester Name Role Phone Ab Hackett PA-C Primary Care Provide r Encounter Details Date Type Department Care Team (Late st Contact Info) Description 03/22/2024 Patient Reported Data Patient Survey Ortho OBERD Allergies Active Allergy Reactions Criticality Noted Date Comments Amoxicillin 03/06/2005 Hives, last dose was about age 38 while in the [place] and he had an injection in [...] day 90 Tablet 3 08/17/2023 Active Ipratropium [place] 0.03 % Nasal Solution (Atrovent) Administer 2 [...] per HTN protocol #16. 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 [...] Description 04/04/2024 2:30 PM EDT Appointment Radiology, [address] [place] [address] 04/25/2024 9:30 AM EDT Office Visit Orthopaedics [facility] [address] [place] [address] Solomon Suarez MD [address] [place] [address] 08/02/2024 1:00 PM EST Rehab Services Voice Lab, [address] [place] [address] Yan Lindsey, [facility]-ACCOUNTS ADJUSTABLE CLERK [address] [place] [address] 08/02/2024 1:30 PM EST Appointment Radiology, [facility] [address] [place] [address] 08/02/2024 4:40 PM EST Office Visit Family Practice [address], [place] [address] [place] [address] Ab Hackett PA-C [address] [place] [address] 08/17/2024 10:30 AM EST Office Visit Sleep Disorders Ctr [facility] 132 [facility] [place] [phone] Lulu Bernabe CRNP 132 [facility] [place] [address] 09/27/2024 10:00 AM EST Office Visit Urology, [facility] 132 [facility] [place] [address] Johnathan Patrick MD 27 [facility] [place] [address] 10/06/2024 1:00 PM EDT Office [facility] 200 [facility] [place] [address] Bing Wilburn MD 200 [facility] [place] [address] 01/19/2025 3:00 PM EDT Nurse Only Ancillary [address], [place] [address] [place] [address] [place], Nurse Annual Wellness Cold [address] [place] [address] Health Maintenance Due Date Last Done Comments [...] the patient have Health Care Power of Digital Editor? Yes, in chart and reviewed as current Care Teams Cake Tester Relationship Specialty Start Date End Date Ab Hackett PA-C [facility]8 [facility] [place] [phone] PCP - General Physician Airline Reservationist 05/29/23 documented as of this encounter
--- OUTSIDE RECORDS SUMMARY | 2024-09-15 06:52 | External Medical Summary | Summary of Care ---
Author Name Unknown Organization [facility] Address [address] [place] [facility] [place] [address] Phone [phone] Care Team Providers Care Stores Despatch Hand Name Role Phone Ab Hackett PA-C Primary Care Provide r Encounter Details Date Type Department Care Team (Late st Contact Info) Description 03/22/2024 Patient Reported Data Patient Survey Ortho OBERD Allergies Active Allergy Reactions Criticality Noted Date Comments Amoxicillin 03/06/2005 Hives, last dose was about age 38 while in the [place] and he had an injection in the [...] day 90 Tablet 3 08/17/2023 Active Ipratropium [place] 0.03 % Nasal Solution (Atrovent) Administer 2 [...] per HTN protocol #16. 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 [...] Description 04/04/2024 2:30 PM EDT Appointment Radiology, [address] [place] [address] 04/25/2024 9:30 AM EDT Office Visit Orthopaedics [facility] [address] [place] [address] Solomon Suarez MD [address] [place] [address] 08/02/2024 1:00 PM EST Rehab Services Voice Lab, [address] [place] [address] Yan Lindsey, [facility] [address] [place] [address] 08/02/2024 1:30 PM EST Appointment Radiology, [facility] [address] [place] [address] 08/02/2024 4:40 PM EST Office Visit Family Practice [address], [place] [address] [place] [address] Ab Hackett PA-C [address] [place] [address] 08/17/2024 10:30 AM EST Office Visit Sleep Disorders Ctr [facility] 132 [facility] [place] [phone] Lulu Bernabe CRNP 132 [facility] [place] [address] 09/27/2024 10:00 AM EST Office Visit Urology, [facility] 132 [facility] [place] [address] Johnathan Patrick MD 27 [facility] [place] [address] 10/06/2024 1:00 PM EDT Office Visit [facility] 200 [facility] [place] [address] Bing Wilburn MD 200 [facility] [place] [address] 01/19/2025 3:00 PM EDT Nurse Only Ancillary [address], [place] [address] [place] [address] [place], Nurse Annual Wellness Cold [address] [place] [address] Health Maintenance Due Date Last Done Comments [...] the patient have Health Care Power of Car Seat Maker? Yes, in chart and reviewed as current Care Teams Stores Despatch Hand Relationship Specialty Start Date End Date Ab Hackett PA-C [facility]8 [facility] [place] [phone] PCP - General Physician Student Accounts Coordinator 05/29/23 documented as of this encounter
--- OUTSIDE RECORDS SUMMARY | 2024-09-15 06:52 | External Medical Summary | Summary of Care ---
Author Name Unknown Organization [facility] Address [address] [facility] [place] [address] Phone [phone] Care Team Providers Care Benefits Processor Name Role Phone Ab Hackett PA-C Primary Care Provide r Encounter Details Date Type Department Care Team (Late st Contact Info) Description 03/22/2024 Patient Reported Data Patient Survey Ortho OBERD Allergies Active Allergy Reactions Criticality Noted Date Comments Amoxicillin 03/06/2005 Hives, last dose was about age 38 while in the [place] and he had an injection in the [...] day 90 Tablet 3 08/17/2023 Active Ipratropium [place] 0.03 % Nasal Solution (Atrovent) Administer 2 [...] per HTN protocol #16. 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 [...] Description 04/04/2024 2:30 PM EDT Appointment Radiology, [address] [place] [address] 04/25/2024 9:30 AM EDT Office Visit Orthopaedics [facility] [address] [place] [address] Solomon Suarez MD [address] [place] [address] 08/02/2024 1:00 PM EST Rehab Services Voice Lab, [address] [place] [address] Yan Lindsey, [facility]-CERT[facility] NURSING ASSISTANT INSTRUCTOR [address] [place] [address] 08/02/2024 1:30 PM EST Appointment Radiology, [facility] [address] [place] [phone] 08/02/2024 4:40 PM EST Office Visit Family Practice [address], [place] [address] [place] [address] Ab Hackett PA-C [address] [place] [address] 08/17/2024 10:30 AM EST Office Visit Sleep Disorders Ctr [facility] 132 [facility] [place] [phone] Lulu Bernabe CRNP 132 [facility] [place] [address] 09/27/2024 10:00 AM EST Office Visit Urology, [facility] 132 [facility] [place] [address] Johnathan Patrick MD 27 [facility] [place] [address] 10/06/2024 1:00 PM EDT Office Visit [facility] 200 [facility] [place] [address] Bing Wilburn MD 200 [facility] [place] [address] 01/19/2025 3:00 PM EDT Nurse Only Ancillary [address], [place] [address] [place] [address] [place], Nurse [facility] [place] [address] [place] [address] Health Maintenance Due Date Last Done Comments [...] the patient have Health Care Power of It Sales Consultant? Yes, in chart and reviewed as current Care Teams Benefits Processor Relationship Specialty Start Date End Date Ab Hackett PA-C [facility]8 [facility] [place] [phone] PCP - General Physician Continuous Dryout Operator Helper 05/29/23 documented as of this encounter
--- OUTSIDE RECORDS SUMMARY | 2024-09-15 06:52 | External Medical Summary | Summary of Care ---
Author Name Unknown Organization [facility] Address [address] [place] [facility] [place] [address] Phone [phone] Care Team Providers Care Stna Name Role Phone Ab Hackett PA-C Primary Care Provide r Encounter Details Date Type Department Care Team (Late st Contact Info) Description 03/22/2024 Patient Reported Data Patient Survey Ortho OBERD Allergies Active Allergy Reactions Criticality Noted Date Comments Amoxicillin 03/06/2005 Hives, last dose was about age 38 while in the [place] and he had an injection in the [...] day 90 Tablet 3 08/17/2023 Active Ipratropium [place] 0.03 % Nasal Solution (Atrovent) Administer [...] Description 04/04/2024 2:30 PM EDT Appointment Radiology, [address] [place] [address] 04/25/2024 9:30 AM EDT Office Visit Orthopaedics [facility] [address] [place] [address] Solomon Suarez MD [address] [place] [address] 08/02/2024 1:00 PM EST Rehab Services Voice Lab, [address] [place] [address] Yan Lindsey, [facility] [address] [place] [address] 08/02/2024 1:30 PM EST Appointment Radiology, [facility] [address] [place] [phone] 08/02/2024 4:40 PM EST Office Visit Family Practice [address], [place] [address] [place] [address] Ab Hackett PA-C [address] [place] [address] 08/17/2024 10:30 AM EST Office Visit Sleep Disorders Ctr [facility] 132 [facility] [place] [phone] Lulu Bernabe CRNP 132 [facility] [place] [address] 09/27/2024 10:00 AM EST Office Visit Urology, [facility] 132 [facility] [place] [address] Johnathan Patrick MD 27 [facility] [place] [address] 10/06/2024 1:00 PM EDT Office Visit [facility] [address] [facility] [place] [address] Bing Wilburn MD [address] [facility] [place] [address] 01/19/2025 3:00 PM EDT Nurse Only Ancillary [address], [place] [address] [place] [address] [place], Nurse Annual Well[facility] [place] [address] [place] [address] Health Maintenance Due Date Last Done Comments [...] the patient have Health Care Power of Opening Machine Cleaner? Yes, in chart and reviewed as current Care Teams Stna Relationship Specialty Start Date End Date Ab Hackett PA-C [facility]8 [facility] [place] [phone] PCP - General Physician Golf Course Mechanic 05/29/23 documented as of this encounter
--- OUTSIDE RECORDS SUMMARY | 2024-09-15 06:52 | External Medical Summary | Summary of Care ---
Author Name Unknown Organization [facility] Address [address] [facility] [place] [address] Phone [phone] Care Team Providers Care Logistics Support Name Role Phone Ab Hackett PA-C Primary Care Provide r Encounter Details Date Type Department Care Team (Late st Contact Info) Description 04/11/2024 [place] [facility] [place] [address] [place] [address] Izabella Monterroso MD [address] [place] [address] Allergies Active Allergy Reactions Criticality Noted Date Comments Amoxicillin 03/06/2005 Hives, last dose was about age 38 while in the [place] and he had an injection in the [...] day 90 Tablet 3 08/17/2023 Active Ipratropium [place] 0.03 % Nasal Solution (Atrovent) Administer 2 [...] year. Advised surgery would be done at [facility]. Pt would like to see what [facility] scheduling is like. * Telephone Encounter - [...] I would most likely refer them to [place] to 1 of our head neck surgeons. The other option is to do a repeat imaging in 6 months by the PCP. documented in this encounter Plan of Treatment Upcoming Encounters Date Type Department Care Team (Late st Contact Info) Description 04/25/2024 9:30 AM EDT Office Visit Orthopaedics [facility] 132 [place] [address] Solomon Suarez MD 132 [place] [address] 08/02/2024 1:00 PM EST Rehab Services Voice Lab, [facility] [address] [place] [address] Yan Lindsey, [facility] [place] [address] 08/02/2024 1:30 PM EST Appointment Radiology, [facility] 400 [place] [phone] 08/02/2024 4:40 PM EST Office Visit [facility] [address] [place] [address] Ab Hackett PA-C [address] [place] [address] 08/17/2024 10:30 AM EST Office Visit Sleep Disorders Ctr [facility] 132 [facility] [place] [phone] Lulu Bernabe CRNP 132 [place] [address] 09/27/2024 10:00 AM EST Office Visit Urology, [facility] 132 [place] [address] Johnathan Patrick MD 27 [facility] [place] [address] 10/06/2024 1:00 PM EDT [facility] [address] [place] [address] Bing Wilburn MD [address] [place] [address] 01/19/2025 3:00 PM EDT Nurse Only Ancillary [address], [place] [address] [place] [address] [place], Nurse Annual [facility] [place] [address] [place] [address] Health Maintenance Due Date Last Done Comments [...] the patient have Health Care Power of Product Marketing Analyst? Yes, in chart and reviewed as current Care Teams Logistics Support Relationship Specialty Start Date End Date Ab Hackett PA-C [address] [facility] [place] [address] PCP - General Physician Stereoplotter Operator 05/29/23 documented as of this encounter
--- OUTSIDE RECORDS SUMMARY | 2024-09-15 06:52 | External Medical Summary | Summary of Care ---
Author Name Unknown Organization [facility] Address [address] [place] [address] Phone [phone] Care Team Providers Care Government Property Inspector Name Role Phone Ab Hackett PA-C Primary Care Provide r Reason for Referral * Precert (Within 10 days (routine)) - Authorized Specialty Diagnoses / Procedures Referred By Contac t Referred To Contact Radiology Diagnoses Parotid mass Procedures IR BIOPSY Izabella Monterroso MD [address] [place] [address] Referral ID Status Reason Start Date Expiration Date V isits Requested Visits Authorized [id number] Authorized 03/17/2024 999 999 Reason for Visit * Precert (Within 10 days (routine)) - Authorized Specialty Diagnoses / Procedures Referred By Contac t Referred To Contact Radiology Diagnoses Parotid mass Procedures IR BIOPSY Izabella Monterroso MD [address] [place] [address] Referral ID Status Reason Start Date Expiration Date V isits Requested Visits Authorized [id number] Authorized 03/17/2024 999 999 Encounter Details Date Type Department Care Team (Latest Contact Info) Description 04/04/2024 2:26 PM EDT - 04/04/2024 11:59 PM EDT Hospital Encounter Radiology, [address] [address] Arrived Discharge Disposition: Home - Self Care Allergies Active Allergy Reactions Criticality Noted Date Comments Amoxicillin 03/06/2005 Hives, last dose was about age 38 while in the [place] and he had an injection in the arm and a few days later had total body rash. Cefdinir 03/24/2018 Lower leg redness and swelling documented as of this encounter (statuses as of 04/05/2024) Medications Medication Sig Dispensed Refills Start Date [...] day 90 Tablet 3 08/17/2023 Active Ipratropium [place] 0.03 % Nasal Solution (Atrovent) Administer 2 [...] as of this encounter (statuses as of 04/05/2024) Active Problems Problem Noted Date Diagnosed Date [...] as of this encounter (statuses as of 04/05/2024) Resolved Problems Problem Noted Date Diagnosed Date [...] as of this encounter (statuses as of 04/05/2024) Immunizations Name Administration Dates Next Due COVID-19 [...] Seasonal Influenza, Quad, Na zoey (Flumist) 05/10/2013,05/16/2009,05/15/2008,05/31,06/15/2006,05/23/2005,06/04/2004 ,06/02/2003,05/27/2002,04/26/2002,10/03/2001,05/21/2000,04/29/1999 Seasonal Influenza, Quadriva lent Hd (Fluzone Hd) [...] No 12/25/2017 documented as of this encounter Nursing Notes * Brie White, RN - 04/04/2024 2:30 PM EDT Procedure: US Guided Left Parotid Mass biopsy Pt placed on procedure table with comfort measures intact. Pt denies any current complaints. Informed consent obtained. Timeout performed by Dr. Qamar Ledezma at 14:58. Patient prepped for procedure. Skin around biopsy area cleaned with chloraprep and dried. 5 mL 1% buffered lidocaine administered locally to Left anterior neck by MD. Access obtained and advanced under US guidance. 4 FNA biopsies obtained. Slides prepared and given to laborer chicken farm who used telecytology method to verify adequacy of cellular material. Access removed. Pressure applied by MD. Bandaid applied to site. Post procedure image obtained. Patient tolerated procedure well without complications. documented in this encounter Plan of Treatment Upcoming Encounters Date Type Department Care Team (Late st Contact Info) Description 04/25/2024 9:30 AM EDT Office Visit Orthopaedics [facility] 132 [place] [address] Solomon Suarez MD [address] [place] [address] 08/02/2024 1:00 PM EST Rehab Services Voice Lab, [facility] 400 [facility] [place] [address] Yan Lindsey, [facility] MACHINE FEEDER [address] [place] [address] 08/02/2024 1:30 PM EST Appointment Radiology, [facility] [address] [place] [phone] 08/02/2024 4:40 PM EST Office Visit Family Practice [address], [place] [address] [place], [place] [address] Ab Hackett PA-C [address] [place] [address] 08/17/2024 10:30 AM EST Office Visit Sleep Disorders Ctr [facility] 132 [place] [phone] Lulu Bernabe CRNP 132 [place] [address] 09/27/2024 10:00 AM EST Office Visit Urology, [facility] 132 [place] [address] Johnathan Patrick MD 27 [facility] [place] [address] 10/06/2024 1:00 PM EDT Office Visit Neurology [facility] 200 [place] [address] Bing Wilburn MD 200 [place] [address] 01/19/2025 3:00 PM EDT Nurse Only Ancillary [address], [place] [address] [place] [address] [place], Nurse Annual Wellness [place] [address] [place] [address] Pending Results Name Type Priority Associated Diagnoses Date /Time CYTOLOGY Pathology Routine 04/04/2024 3:1 5 PM EDT Scheduled Orders Name Type Priority Associated Diagnoses Orde r Schedule CYTOLOGY Pathology Routine One Time for 1 Occurrences starting 04/04/2024 until 04/04/2024, 1 completed Health Maintenance Due Date Last Done Comments [...] Procedure Name Priority Date/Time Associated Diagnosis Comments IR BIOPSY Routine 04/04/2024 3:35 PM EDT Parotid mass documented in this encounter Results * IR BIOPSY (04/04/2024 3:35 PM EDT) Anatomical Region Laterality Modality Any Ultrasound 04/04/2024 3:46 PM EDT Impressions 04/04/2024 3:44 PM EDT IMPRESSION: Successful US guided thyroid nodule fine needle biopsy as described above. PLAN: Follow up with the referring physician. Narrative 04/04/2024 3:44 PM EDT PROCEDURE: Ultrasound guided left parotid nodule fine needle aspiration biopsy INDICATION: Left parotid nodule ATTENDING (OPERATING PHYSICIAN): Brisa CONSENT: After a detailed discussion of the procedure, risks, benefits and alternative treatment options, informed consent was obtained. TIME OUT: A time out procedure was performed. The patient's identification was verified. Informed consent with agreement of procedure, site and position was obtained. All necessary equipment was available prior to procedure. CONTRAST: No contrast administered. COMPLICATIONS: None. ANESTHESIA: Local lidocaine. MEDICATIONS: See MAR PROCEDURE DESCRIPTION: Survey ultrasound of the left parotid nodule was performed and the nodule was noted and marked. The site was prepped and draped in the usual sterile fashion. Digital ultrasound images were acquired and digitally archived. Using real-time ultrasound guidance, a 25 G fine needle was inserted into the nodule. Under guidance, using agitative motion, a total 4 fine needle samples were obtained and placed in cytology solution and on slides for evaluation by pathology staff. Hemostasis was achieved with manual compression and the site was dressed. Post procedure US showed no evidence of local bleeding. FINDINGS: Left parotid nodule measuring 9 mm x 8 mm x 8 mm Procedure Note Qamar Ledezma MD - 04/04/2024 PROCEDURE: Ultrasound guided left parotid nodule fine needle aspiration biopsy INDICATION: Left parotid nodule ATTENDING (OPERATING PHYSICIAN): Brisa CONSENT: After a detailed discussion of the procedure, risks, benefits andalternative treatment options, informed consent was obtained. TIME OUT: A time out procedure was performed. The patient's identificationwas verified. Informed consent with agreement of procedure, site andposition was obtained. All necessary equipment was available prior toprocedure. CONTRAST: No contrast administered. COMPLICATIONS: None. ANESTHESIA: Local lidocaine. MEDICATIONS: See MAR PROCEDURE DESCRIPTION: Survey ultrasound of the left parotid nodule wasperformed and the nodule was noted and marked. The site was prepped anddraped in the usual sterile fashion. Digital ultrasound images wereacquired and digitally archived. Using real-time ultrasound guidance, a25 G fine needle was inserted into the nodule. Under guidance, usingagitative motion, a total 4 fine needle samples were obtained and placedin cytology solution and on slides for evaluation by pathology staff.Hemostasis was achieved with manual compression and the site wasdressed. Post procedure US showed no evidence of local bleeding. FINDINGS: Left parotid nodule measuring 9 mm x 8 mm x 8 mm IMPRESSION IMPRESSION: Successful US guided thyroid nodule fine needle biopsy as describedabove. PLAN: Follow up with the referring physician. Izabella Monterroso MD RAD SPECIAL PRO CEDURES documented in this encounter Visit Diagnoses Diagnosis Parotid mass Swelling, mass, or lump in head and neck documented in this encounter Advance Directives * [...] the patient have Health Care Power of Journeyman Plumber? Yes, in chart and reviewed as current Care Teams Government Property Inspector Relationship Specialty Start Date End Date Ab Hackett PA-C [address] [facility] [place] [address] PCP - General Physician Refrigeration Houseman 05/29/23 documented as of this encounter
--- NOTE | 2024-09-15 08:14 | History & Physical Bridge Note ---
Date of Service September 15, 2024 History & Physical Bridge Note I have examined the patient, reviewed the History & Physical and in the interval since the performance of the History & Physical I have noted the following changes of clinical significance: no changes noted
--- NOTE | 2024-09-15 08:19 | Pre Anesthesia Assessment ---
Date of Service September 15, 2024 Pre Sedation Assessment Vital Signs Pulse Resp BP Pulse Ox O2 Del Method 09/15/24 07:02 62 17 153/87 H 97 Room Air Cardiovascular + regular rate and + regular rhythm + S1 normal and + S2 normal; no murmur + femoral pulses present and + radial pulses present; no JVD and no carotid bruit no edema Respiratory no respiratory distress, no labored breathing and no retractions no crackles, no rales, no rhonchi and no wheezes Pre-Sedation Airway Assessment Smoking Status: Former smoker Hx Sleep Apnea: No Short, Thick Neck: No Thyromental Distance: > or= 3.5 Finger Breadths Oral Cavity: + WNL Mallampati Class: III ASA: ASA3 NPO Status Date of Last Intake of Fluids: 09/14/24 Time of Last Intake of Fluids: 18:00 Date of Last Intake of Solid Food: 09/14/24 Time of Last Intake of Solid Foods: 18:00 Notes The planned sedation has been discussed with the patient. Informed Consent was obtained. I have identified the patient, determined the appropriateness of sedation and have assessed the patient immediately prior to the procedure. All medicine(s) and interventions are by my order.
[2024-09-15] MEDS: NITROGLYCERIN/D5W 100MCG/ML 20ML SYR ONE (08:40)
[2024-09-15] MEDS: niCARdipine 2,000 MCG/20 ML SYR ONE (08:40)
[2024-09-15] MEDS: MIDAZOLAM HCL 1 MG/ML 2ML VIAL ONE ×2 (08:58→09:30)
--- NOTE | 2024-09-15 09:03 | Post Anesthesia Assessment ---
Date of Service September 15, 2024 Post Sedation Assessment Vital Signs Pulse Resp BP Pulse Ox O2 Del Method 09/15/24 07:02 62 17 153/87 H 97 Room Air Recovery Score Activity: Moves 4 extremities Respiration: Deep Breath/Cough Circulation: +/-20% PreAnes Value Consciousness: Arouseable (by name) Oxygen Saturation: > 92% On Room Air Discharge Sedation Level of Care: Phase I Post Sedation Plan On clinical assessment, the patient appears to have tolerated the sedation without complications. Patient is recovering as anticipated. Patient will continue to be monitored by nursing and may be discharged when sedation discharge criteria are met per below protocol. Upon Completions of procedure up to 15 minutes continue every 5 minute vital signs and the P.A.R. score; then discharge to a Phase I or Fast Track to Phase II per the following guidelines: * Discharge Patient to appropriate Phase II area if PAR is 8 or greater or return to pre- procedure baseline. The post - procedure orders will be as directed. * If PAR score is less than 8 or not return to pre-procedure baseline then patient will follow Phase I monitoring till PAR is reached for Phase II. The Phase I may be done in procedure room or may call to secure a Phase I area. * If naloxone or flumazenil are used for reversal, hold in Phase I for continued monitoring from when last reversal dose was given for a minimum of 60 minutes or longer pending the nurse and/or physician discretion of patient condition before discharge to Phase II. Please call the Sedation Physician to re-evaluate and complete post-note for discharge to Phase II area. Do NOT discharge from procedure sedation or Phase 1 until post- sedation evaluation note is complete by procedure /sedation MD Sedation Discharge Instructions to be given to the patient at discharge to home.
--- NOTE | 2024-09-15 09:12 | Cardiac Catheterization ---
Cardiac Cath Procedure Full Procedure Date September 15, 2024 Pre-Procedure Diagnosis Pre-Procedure Diagnosis: Angina and Positive Stress Test AUC Score AUC Score: 7 Post-Procedure Diagnosis Post-Procedure Diagnosis: Severe CAD and Normal Intracardiac Pressures Procedure(s) Performed Procedure(s) Performed: Coronary Angiography and Left Heart Cath Stove Bottom Worker Shubham Delgadillo DO End Finder Forming Department(s) Fertilizer Applicator SUPERINTENDENT CONCRETE MIXING PLANT Estimated Blood Loss Estimated Blood Loss: 6cc Medication(s) Medication(s): Fentanyl, Heparin, Lidocaine 1%, Nicardipine, Nitroglycerin and Versed Summary of Findings Severe 80 - 90% ostial RCA stenosis with CRUZ-3 flow. Otherwise, mild nonobstructive CAD. Hemodynamics Rest Ao:: 93/45/65 Final Ao: 100/44/66 LV: 104/2/9 Recommendations Recommendations: PCI without planned CABG Radiation Exposure (mGy) 788 Contrast (mls) 60 Fluids (cc crystalloids) Fluids (cc crystalloids): 0cc Drains Drains: N/A Anesthesia Moderte sedation. Start 0838. End 0853. Sedation Monitor: RN Procedural Complication(s) None Disposition Patient remained in Commodities Broker for PCI of RCA. I attest to the content of the Intraoperative Record and any orders documented therein. Any exceptions are noted below. ACC Data: Commodities Broker Cardiac Status Clinical evaluation leading to the procedure 78-year-old male with exertional angina symptoms beginning May 2024. P rogressive decline in functional capacity noted. Nuclear stress test positive for reversible ischemia involving the inferior wall. CAD Presenation: Positive Stress Test and Stable angina Anginal Classification: CCS III Heart Failure: No Coronary Anatomy Dominant: Right Left Main (% Stenosis): Normal LAD (% Stenosis): Proximal (moderate calcification, 20%), Mid (30%) and Distal (10%) D1 (% Stenosis): Mid (Luminal irregularities, 10%, small vessel) Circumflex (% Stenosis): Proximal (10%) OM1 (% Stenosis): Mid (Luminal irregularities, 10%) RCA (% Stenosis): Ostial (80-90%), Proximal (30%), Mid (10%) and Distal (20%) R PDA (% Stenosis): Ostial (30%) R PL1 (% Stenosis): Ostial (20%) R PL2 (% Stenosis): Normal Ramus (% Stenosis): Normal (Large vessel, bifurcates proximally) Diagnostic Physicians Name: Shubham Delgadillo DO Closure Device Percutaneous Entry Location: Radial Closure Device: Radial Band Recommendations: PCI without planned CABG Intraprocedure Events Significant Disection: No Perforation: No
[2024-09-15] MEDS ORDERED: ALBUTEROL HFA 8 GM INHALER INH PRN (09:27)
[2024-09-15] MEDS: HEPARIN (PORCINE) 1000 UNIT/ML 10 ML (CATH LAB USE ONLY) ONE ×2 (09:29→09:30)
[2024-09-15] MEDS: fentaNYL citrate PF 100 MCG/2 ML VIAL ONE (09:29)
[2024-09-15] MEDS: OPTIRAY 350 ONE (09:29)
[2024-09-15] MEDS: TICAGRELOR 90 MG TAB ONE (09:32)
[2024-09-15] MEDS ORDERED: COLESTIPOL HCL 1 GM TAB PO PRN (09:57)
[2024-09-15] MEDS ORDERED: ALUMINUM/MAGNESIUM/SIMETH (MAALOX MAX) 30 ML UDC PO PRN (10:05)
--- NOTE | 2024-09-15 10:19 | Cardiac Catheterization ---
[facility] Data: Intelligence Consultant Cardiac Status Clinical evaluation leading to the procedure CAD Presenation: Positive Stress Test and Stable angina Anginal Classification: CCS III Heart Failure: No Cardiogenic Shock within 24 Hours: No Cardiac Arrest within 24 Hours: No Imaging Studies Past 6 Months: Yes Stress Studies Past 6 Months: Yes Stress Echocardiogram: Yes - Positive Coronary Anatomy Dominant: Right (See diagnostic cath report for details) Diagnostic Physicians Name: Elia Lambert MD, PhD Closure Device Percutaneous Entry Location: Radial Closure Device: Radial Band Recommendations: PCI without planned CABG PCI Indication: Stable Angina Lesion Segment Name: Ostial RCA Culprit Artery: Yes Stenosis Prior to Rx (%): 80 to 90% Chronic Total Occlusion: No Pre-Procedure CRUZ Flow: 3 Previously Treated Lesion: No Lesion Complexity: High/C Lesion Length (mm): 8 Thrombus Present: No Bifurcation Lesion: No Guidewire Across Lesion: Yes Intraprocedure Events Significant Disection: No Perforation: No Cardiac Cath Procedure Full Procedure Date September 15, 2024 Pre-Procedure Diagnosis Pre-Procedure Diagnosis: Angina, Positive Stress Test and CAD AUC Score AUC Score: 8 Post-Procedure Diagnosis Post-Procedure Diagnosis: Severe CAD and Successful PCI Procedure(s) Performed Procedure(s) Performed: Drug Eluting Stent and Procedure (Intracoronary lithotripsy) Medical Sales Specialist Elia Lambert MD, PhD Estimated Blood Loss Estimated Blood Loss: 5 cc Medication(s) Medication(s): Fentanyl, Heparin and Versed Summary of Findings Brief description: Patient was already shaved and prepped with a 6 Belgian radial artery glide sheath in place after diagnostic coronary angiography. I was asked to perform PCI of his ostial RCA stenosis. ACT was checked and additional heparin was provided as needed to maintain therapeutic ACT. Patient was provided additional sedation with fentanyl and Versed IV. A 6 Belgian JR4 guide catheter was used to engage the right coronary artery. A BMW reversal guidewire was advanced and positioned distally in the RCA The ostial lesion underwent lithotripsy using a 2.5 x 12 mm shockwave balloon inflated at 6 jose and 2 runs of 10 pulses. Lithotripsy balloon was then removed. A 2.5 x 12 mm NC Mark balloon was advanced and positioned across the lesion where it was inflated to 12 jose. It was then deflated and removed. A second BMW universal guidewire was advanced and also positioned beyond the lesion in the RCA. Over the first BMW universal guidewire, a 2.75 x 12 mm [place] drug-eluting stent was advanced into the RCA. The second BMW universal guidewire was then pulled back outside of the right coronary and positioned in the right coronary cusp. The guide catheter was advanced to the level where the 2 BMW wires diverged. A 2.75 x 12 mm [place] drug-eluting stent was then advanced and positioned with its proximal edge covering the ostium but not extending far into the aorta (at the wire divergence). It was then deployed at 12 jose. Recreational Resort Manager angiography performed. 2 additional inflations were performed 1 with the balloon completely within the stent at 14 jose and then a second with the balloon pulled back so it was covering only the proximal portion of the stent and the rest was in the aorta at 15 mmHg. Stent balloon was removed. Both BMW wire were removed. Final angiographic evaluation was performed. Guide catheter was then removed Radial artery sheath was removed. Hemostasis was obtained using a TR band. Patient remained hemodynamically stable and asymptomatic. He was returned to the recovery area. This ended the case. PCI findings: 80 to 90% ostial RCA stenosis is reduced to 0% stenosis post PCI. No evidence of dissection or perforation post PCI CRUZ-3 flow post PCI Summary: 1. Severe ostial RCA stenosis is the culprit for his anginal symptoms and correlates well with his stress test findings. 2. Successful PCI of the ostial RCA including shockwave coronary lithotripsy and implantation of a drug-eluting stent. 3. Patient will remain on dual antiplatelet therapy for 1 to 2 years. He has a requirement for Eliquis so this will continue in place of aspirin and his second agent will be Brilinta 90 mg p.o. twice daily. 4. Guideline directed medical therapy for secondary prevention of coronary disease per primary mold puller Hemodynamics Rest Ao:: 98/46 mmHg Final Ao: 85/38 mmHg LV: Not performed Recommendations Recommendations: PCI without planned CABG Radiation Exposure (mGy) 1330 mGy, fluoroscopy time 13.8 minutes (total for case) Contrast (mls) 100 cc Fluids (cc crystalloids) Fluids (cc crystalloids): 0cc Drains Drains: N/A Anesthesia 1 mg Versed, 25 mcg fentanyl IV. Start time 0855, end time 0932 Procedural Complication(s) None Disposition Intelligence Consultant Holding/Recovery I attest to the content of the Intraoperative Record and any orders documented therein. Any exceptions are noted below. [facility] Card Cath Procedure Codes Moderate Sedation Procedure 1: Sedation/Anesthesia: 25855 Mod Sedation by a different physician ;Init15 Min Child Age 5&Up (coal equipment operator initial 15 minutes. Start 0855) Procedure 2: Sedation/Anesthesia: 09338 Mod Sedation by a different physician;Ea Additional 15 Minutes (Additional 22 minutes, automatic spooler operator, end time 0932) Angioplasty Procedure 1: Cardiovascular Angioplasty Procedures: 73615 Perq Trluml Coronry Lithotrp (RCA) Stenting Procedure 1: Cardiovascular Stent Procedures: 33895 Perc transcatheter placement of intracoronary stent(s), with ang (RCA) PG Care Time/CCT Total # of Minutes Spent Total Time Spent with Patient: Total time spent is greater than 50% in coordination of care (as documented) at patient's floor/unit and/or counseling patient:
[2024-09-15] MEDS: IPRATROPIUM BROMIDE NASAL SPRAY 0.06% 15ML NAE SCH (15:06)
--- NOTE | 2024-09-15 16:10 | Electrocardiogram Report ---
Test Reason : Blood Pressure : */* mmHG Vent. Rate : 55 BPM Atrial Rate : 55 BPM P-R Int : 216 ms QRS Dur : 146 ms QT Int : 502 ms P-R-T Axes : 63 -18 41 degrees QTcB Int : 480 ms Sinus bradycardia with 1st degree A-V block Left bundle branch block Abnormal ECG No previous ECGs available Confirmed by Chirag Rodrigues ([id number]) on 09/15/2024 4:09:49 PM Referred By: Yan Whitehead Confirmed By: Chirag Rodrigues
[2024-09-15] MEDS: APIXABAN 5 MG TABLET PO SCH (20:08)
[2024-09-15] MEDS: FLUTICASONE PROPIONATE NA SPR 16 GM BTL SCH (20:08)
[2024-09-15] MEDS: FAMOTIDINE 20 MG TAB PO SCH (20:08)
[2024-09-15] MEDS: BUDESONIDE 0.5 MG/2 ML VIAL (PULMICORT) INH SCH (20:25)
[2024-09-16 05:15] LABS: Basophils # (auto) 0.04 K/uL (0.00-0.20); Basophils % (auto) 0.7 %; Eosinophils # (auto) 0.22 K/uL (0.00-0.50); Eosinophils % (auto) 3.6 %; Hematocrit (blood only) 41.4 % (42.0-52.0); Hemoglobin 14.3 g/dl (14.0-18.0); Immature Granulocytes # (auto) 0.02 K/uL (0.01-0.20); Immature Granulocytes % (auto) 0.3 %; Lymphocytes # (auto) 1.99 K/uL (1.20-3.40); Mean Corpuscular Hemoglobin 31.7 pg (25.0-34.0); Mean Corpuscular Hgb Conc 34.5 g/dL (32.0-36.0); Mean Corpuscular Volume 91.8 fL (80.0-100.0); Mean Platelet Volume 10.4 fL (9.4-12.4); Monocytes # (auto) 0.77 K/uL (0.11-0.59); Monocytes % (auto) 12.8 %; Neutrophils # (auto) 2.99 K/uL (1.40-6.50); Neutrophils % (auto) 49.6 %; Platelet Count 165 K/uL (130-400); RDW Coefficient of Variation 12.8 % (11.5-14.5); RDW Standard Deviation 42.7 fL (36.4-46.3); Red Blood Count 4.51 M/uL (4.70-6.10); White Blood Count 6.03 K/ul (4.8-10.8)
[2024-09-16 05:28] LABS: BUN Creatinine Ratio 14.6 (10-20); Calcium 9.4 mg/dl (8.6-10.3); Creatinine Clr Calc Pharmacy 63.4 ml/min; Potassium 4.4 mmol/L (3.5-5.1)
[2024-09-16] MEDS: LEVOTHYROXINE SODIUM 75 MCG TABLET PO SCH (06:15)
[2024-09-16] MEDS ORDERED: ACETAMINOPHEN 325 MG TAB PO PRN (07:22)
[2024-09-16] MEDS: ATORVASTATIN 40 MG TAB PO SCH (07:49)
[2024-09-16] MEDS: LOSARTAN POTASSIUM 50 MG TAB PO SCH (07:50)
[2024-09-16] MEDS: FINASTERIDE 5 MG TAB PO SCH (07:50)
[2024-09-16] MEDS: TICAGRELOR 90 MG TAB PO SCH (07:50)
[2024-09-16] MEDS: MONTELUKAST SODIUM 10 MG TABLET PO SCH (07:50)
[2024-09-16] MEDS: LORATADINE 10 MG TAB PO SCH (07:51)
[2024-09-16] MEDS: FLUTICASONE/VILANTEROL 100/25MCG 14 PUFFS/INHALER INH SCH (07:53)
[2024-09-16] MEDS ORDERED: ASPIRIN 81 MG CHEW PO SCH (09:00)
[2024-09-16] MEDS ORDERED: PANTOprazole 40 MG TAB PO SCH (09:00)
--- NOTE | 2024-09-16 10:07 | Cardiology Progress Note ---
Date of Service September 16, 2024 Assessment & Plan (1) S/P right coronary artery (RCA) stent placement: (2) Angina of effort: (3) Abnormal nuclear stress test: (4) Dyslipidemia, goal LDL below 70: Plan 78-year-old male present for outpatient cardiac catheterization 09/15/2024 due to abnormal nuclear stress testing and exertional angina. Drug-eluting stent implanted to the ostial right coronary artery without complication. Recommend discontinuation of low-dose aspirin. Continue Eliquis plus Brilinta. Prescription sent to pharmacy. Discussed importance of continuing antiplatelet therapy uninterrupted for a minimum of 1 year post percutaneous intervention. Other cardiac medications will be continued as previously ordered. Postcardiac catheterization activity restrictions reviewed. All questions answered to patient satisfaction. Outpatient cardiology follow-up in 2 to 4 weeks. Admission and Anticipated Discharge Date Admission Date: September 15, 2024 Subjective Patient seen and examined at the bedside. Feeling little this morning. Unfortunately, did not sleep well. Mild headache reported which spontaneously resolved. Denies chest pain or shortness of breath. Sinus rhythm on telemetry. Offers no concerns/complaints. Review of Systems Review of Systems: All systems reviewed & are unremarkable except as noted in Subjective Physical Exam Constitutional: well developed and well nourished Respiratory: no respiratory distress, no labored breathing and no retractions Auscultation: no crackles, no rales, no rhonchi and no wheezes Cardiovascular: Rate/Rhythm: regular rate and regular rhythm Heart Sounds: normal S1 and normal S2; no murmur Vessels: femoral pulses present and radial pulses present; no JVD and no carotid bruit Extremities: no edema Gastrointestinal (Abdomen): Inspection/Auscultation: abdomen normal to inspection and normal bowel sounds; abdomen not distended Percussion/Palpation: abdomen soft; abdomen nontender, no guarding and abdomen not rigid Neurologic: CN's II-XI intact bilaterally and moves all extremities; no focal motor deficits Results & Data Vital Signs (Past 12 Hours) Vital Signs Temp Pulse Pulse Resp BP Pulse Ox Pulse Ox 09/16/24 08:00 67 09/16/24 07:04 77 16 97 09/16/24 03:00 36.5 C 64 14 149/68 H 95 09/15/24 22:13 70 O2 Del Method 09/16/24 08:00 09/16/24 07:04 Room Air 09/16/24 03:00 Room Air 09/15/24 22:13 Laboratory Results CBC 09/16/24 Range/Units 04:28 WBC 6.03 (4.8-10.8) K/ul RBC 4.51 L (4.70-6.10) M/uL Hgb 14.3 (14.0-18.0) g/dl Hct 41.4 L (42.0-52.0) % Plt Count 165 (130-400) K/uL Neut # (Auto) 2.99 (1.40-6.50) K/uL Lymph # (Auto) 1.99 (1.20-3.40) K/uL [place] # (Auto) 0.77 H (0.11-0.59) K/uL Eos # (Auto) 0.22 (0.00-0.50) K/uL Baso # (Auto) 0.04 (0.00-0.20) K/uL Comprehensive Metabolic Panel 09/16/24 Range/Units 04:28 Sodium 136 (136-145) mmol/L Potassium 4.4 (3.5-5.1) mmol/L Chloride 104 (98-107) mmol/L Carbon Dioxide 29 (21-32) mmol/L BUN 14 (6-23) mg/dl Creatinine 0.96 (0.6-1.4) mg/dl Glucose 86 (70-99(Fasting)) mg/dl Calcium 9.4 (8.6-10.3) mg/dl Intake and Output 09/15/24 09/16/24 09/16/24 22:59 06:59 14:59 Intake Total 350 / 550 200 / 550 Output Total Balance 349 / 549 200 / 549 Intake: Oral 350 / 550 200 / 550 Output: # Bowel Movements Other: # Unmeasured Voids 1 3
--- NOTE | 2024-09-16 11:30 | Discharge Summary ---
Date of Service September 16, 2024 Admission HPI Per Admitting Provider 78-year-old male present for cardiac catheterization due to exertional angina and abnormal Lexiscan nuclear stress test demonstrating inferior ischemia. Cardiac catheterization revealing severe ostial right coronary artery stenosis. Principal Diagnosis Coronary artery disease status post drug-eluting stent implantation to the ostial right coronary artery. Discharge Exam Constitutional well developed and well nourished [facility] Mallampati Class: III Respiratory no respiratory distress, no labored breathing and no retractions Auscultation: no crackles, no rales, no rhonchi and no wheezes Cardiovascular Rate/Rhythm: regular rate and regular rhythm Heart Sounds: normal S1 and normal S2; no murmur Vessels: femoral pulses present and radial pulses present; no JVD and no carotid bruit Extremities: no edema Gastrointestinal (Abdomen) Inspection/Auscultation: abdomen normal to inspection and normal bowel sounds; abdomen not distended Percussion/Palpation: abdomen soft; abdomen nontender, no guarding and abdomen not rigid Neurologic CN's II-XI intact bilaterally and moves all extremities; no focal motor deficits Discharge Data Allergies Allergy/AdvReac Type Severity Reaction Status Date / Time amoxicillin Allergy Hives Verified 09/15/24 07:23 cefdinir Allergy Hives Verified 09/15/24 07:23 Procedures Performed Operation Date: 09/15/24 08:00 Actual Procedures p Cineradiography w/Routine Exam - Shubham Delgadillo DO p Cath, Left with Cors and Vent - Shubham Delgadillo, DO s Drug Eluting Stent SGl Vessel - Elia Lambert MD, PhD s Perc [place] Coronary Lithotripsy - Elia Lambert MD, PhD Ordered Studies 09/15/24 06:35 CL Cath Imgs for PACS use only Routine Hospital Course (1) S/P right coronary artery (RCA) stent placement: (2) Angina of effort: (3) Abnormal nuclear stress test: (4) Dyslipidemia, goal LDL below 70: Plan 78-year-old male present for outpatient cardiac catheterization 09/15/2024 due to abnormal nuclear stress testing and exertional angina. Drug-eluting stent implanted to the ostial right coronary artery without complication. Recommend discontinuation of low-dose aspirin. Continue Eliquis plus Brilinta. Prescription sent to pharmacy. Discussed importance of continuing antiplatelet therapy uninterrupted for a minimum of 1 year post percutaneous intervention. Other cardiac medications will be continued as previously ordered. Postcardiac catheterization activity restrictions reviewed. All questions answered to patient satisfaction. Outpatient cardiology follow-up in 2 to 4 weeks. Total Time Total Time Spent Total Time Spent (In Minutes): 35 Discharge Plan Discharge Items Patient Disposition: Home - Self-Care Reason For Visit: CAD of [place] Artery of [place] Heart Discharge Diagnosis: Coronary artery disease status post drug-eluting stent implantation to the right coronary artery. Condition on Discharge: Good Health Concerns: Coronary artery disease Activity: Per Instructions section Non-emergency contact: Primary Care Provider and Yarn Washer Call non-emergency contact if: you have any medication questions, your pain is not controlled and your pain is concerning for you Follow-up/Referrals: Analy Nash, [Primary Care Provider] - Diet: Heart Healthy Addtl Attending Provider Instructions: ACTIVITY RECOMMENDATIONS: It is common to feel weak and fatigue for a few days. * Do not drive or operate any motorized equipment for the next three days. * Limit stair usage (2 or 3 trips a day only) for the next three days. * Do not lift anything heavier than 10 pounds for the next three days. * Do not engage in vigorous exercise or any sports for the next five days. * You may shower the day after your procedure, but do not immerse the area for three days. Cleanse the site gently with soap and water. SPECIAL CARE INSTRUCTIONS: * You may replace the pressure dressing or band-aid the morning after the procedure. * After your procedure, it is normal to have a small bruise or small lump at the site. Examine your site daily for any change in the bruise or lump, redness, swelling, drainage or numbness. Notify your doctor if any change. BLEEDING: * If there is a small amount of bleeding at the site, lie down and apply firm pressure with a clean cloth for ten minutes. When the bleeding stops, lie quietly keeping the procedure limb straight for six hours. Notify your doctor as soon as possible. * If the bleeding does not stop after ten minutes or if there is a large amount of bleeding or spurting, call 911 immediately. Continue to lie down and hold firm pressure until help arrives. SKIN IRRITATION: * You may experience some redness and/or swelling in the area where radiation was administered. If any skin irritation occurs, please contact your family physician. FOLLOW UP VISIT: Keep any scheduled doctor appointments. Pending Studies at Discharge: No Stand-Alone Forms: [facility], Smoking Cessation Medications and DC Order Prescriptions: New Brilinta 90 mg Tablet 90 mg PO BID Qty: 190 0RF Continued multivitamin Tablet 1 tab PO PM levothyroxine 75 mcg Tablet 75 mcg PO QAM famotidine 20 mg Tablet 20 mg PO PM pantoprazole 40 mg Tablet,Delayed Release (Dr/Ec) 40 mg PO QAM montelukast 10 mg Tablet 10 mg PO QAM fluticasone propion-salmeterol 100-50 mcg/dose Blister With Device 1 puff INHALATION BID albuterol sulfate 90 mcg/actuation Hfa Aerosol Inhaler 1 puff INHALATION QID PRN (Reason: Shortness Of Breath) losartan 100 mg Tablet 100 mg PO QAM fluticasone propionate 50 mcg/actuation [place],Suspension 1 spray INTRANASAL BID loratadine [Claritin] 10 mg Tablet 10 mg PO QAM colestipol 5 gram Granules 5 g PO DAILY PRN (Reason: Constipation) melatonin 10 mg Tablet 10 mg PO HS PRN (Reason: Sleep) Eliquis 5 mg Tablet 5 mg PO BID Probiotic 3 billion cell Capsule 3 mmu cells PO QAM Metamucil 3.4 gram/5.4 gram Powder 1 tbsp PO QAM xylitol 550 mg Muco-Adhesive Buccal Tablet 550 mg MUCOUS MEMBRANE HS PRN (Reason: Dry Mouth) atorvastatin [Lipitor] 40 mg Tablet 40 mg PO DAILY phenazopyridine [Pyridium] 200 mg Tablet 200 mg PO DAILY alendronate [Fosamax] 70 mg Tablet 70 mg PO WK sildenafil 100 mg Tablet 100 mg PO DAILY PRN (Reason: Unknown) Rx Instructions: administer 30 minutes to 4 hours before activity nitroglycerin 0.4 mg Tablet, Sublingual 0.4 mg sublingual PRN (Reason: Chest Pain) budesonide [Pulmicort] 0.5 mg/2 mL Suspension For Nebulization 0.5 mg INHALATION BID ipratropium bromide 21 mcg (0.03 %) [place],Non-Aerosol 2 spray INTRANASAL TID Rx Instructions: administer into each nostril finasteride [Proscar] 5 mg Tablet 5 mg PO DAILY Gaviscon 80-14.2 mg Tablet,Chewable See Rx Instructions .ROUTE .COMPLEX PRN (Reason: Unknown) Rx Instructions: n/a Discontinued aspirin 81 mg Tablet,Chewable 81 mg PO DAILY isosorbide mononitrate [Imdur] 30 mg Tablet Extended Release 24 Hr 30 mg PO DAILY Discharge Orders: Discharge Order (Routine); Ordered 09/16/24 Ordered By: Shubham Delgadillo Admission Data Admit Date/Time: 09/15/24 09:23 Attending Provider: Shubham Delgadillo Admit Provider: Shubham Delgadillo Primary Care Provider: Analy Nash
== END 2024-09-16 12:49 | disposition home or self-care (01) ==
LOC: 1E 06:38 → CC 06:38